=== PATIENT | male | born 1965 | race Caucasian/White ===

== ENCOUNTER → 2019-05-05 17:03 | Outpatient (CLI) | payer OTHER, SELFPAY ==
--- NOTE | ~2019-05-05 | MR_ITS ---
EXAMINATION: MR knee LT wo con DATE: 05/05/2019 19:00 INDICATION: Meniscal tear presenting with anterior left knee pain TECHNIQUE: Magnetic resonance imaging (MRI) of the left knee was performed without intravenous contra st. Sequences included coronal PD-weighted FSE, coronal PD-weighted FS FSE, sagittal T2-weighted FSE , sagittal PD-weighted FS FSE and axial PD weighted fat saturated FSE. COMPARISON: None. FINDINGS: Medial compartment: There is a full/near full-thickness radial tear at the body of the medial meniscus with fluid signal filling and approximately 4-5 mm anteroposterior separation between the relatively sharply defined te ar margins. Prior partial meniscectomy at this location would be unlikely given the sharp right angle formed between the defect and the inner rim of the labrum which would be typically be smooth without a sharp angle in the setting of partial meniscectomy. Would also correlate for history of prior part ial meniscectomy. Less sharply defined additional radially oriented likely tear of increased signal o f less than fluid intensity at the posterior horn of the medial meniscus. Extensive partial thickness cartilage loss with chondral surface regularity along the medial tibial plateau and anterior to cent ral weightbearing medial femoral condyle. In places appears full/near full-thickness such as adjacent to the site of the meniscal body tear where there is a small amount of underlying subarticular edema . A few tiny foci of subarticular edema along the central weightbearing medial femoral condyle. Less severe partial thickness cartilage loss along the posterior weightbearing medial femoral condyle. Mod erate-sized marginal osteophytes are present. Lateral compartment: Lateral meniscus is normal. Partial-thickness cartilage loss with fissuring along the lateral margin of the posterior weightbearing lateral femoral condyle and along the posterior rim of the lateral tibial plateau. Remainder of the cartilage in the lateral compartment ap pears relatively preserved. Patellofemoral compartment: Deep chondral ulceration with cartilage surface regularity along the cephalad aspect of the trochlea this is most severe at the trochlear groove and medial side of the lateral trochlea where subtle defe cts are filled with central subchondral osteophytes partial-thickness chondral fissuring involving le ss than 50% the cartilage thickness at the lateral patellar facet. Partial-thickness cartilage loss w ith deeper fissuring at the superomedial aspect of the medial patellar facet with small focus of suba rticular edema. Ligaments and tendons: Anterior cruciate ligament reconstruction with intact appearing low signal intensity graft which appe ars taut and follows a normal angle relative to Blumensaat line. Posterior cruciate ligament is lakes[place] l. Mild thickening and increased signal at the femoral origin of the medial collateral ligament witho ut surrounding edema consistent with mild scarring related to chronic sprain. The fibular collateral ligament is normal. Mild patellar tendinopathy with suggestion of changes of prior patellar tendon au tograft harvest. There is also mild tendinopathy of the distal quadriceps tendon. The visualized medi al and lateral hamstring tendons as well as the iliotibial band are normal. Fluid: Physiologic amount of fluid in the joint space. 7 mm low signal intensity loose osteochondral body at the medial gutter of the suprapatellar pouch. Osseous/other: Bone alignment is normal. No fracture or pathologic marrow replacing process. IMPRESSION: 1. Anterior cruciate ligament reconstruction likely with intact appearing graft, likely patellar tend on autograft. 2. Radial tears at the body and posterior horn of the medial meniscus. 3. 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
== END ==
DX: S83.242A Other tear of medial meniscus, current injury, left knee, initial encounter (principal); X58.XXXA Exposure to other specified factors, initial encounter; M17.12 Unilateral primary osteoarthritis, left knee
CPT/HCPCS: 73721

== ENCOUNTER 2019-10-07 15:46 | Outpatient (CLI) | payer OTHER, SELFPAY ==
--- NOTE | ~2019-10-07 | XR_ITS ---
XR hand RT 2V, XR hand LT 2V 10/07/2019 16:11 Indication: Bilateral hand pain Procedure: 2 views of each hand Comparison: No prior studies for comparison. Findings: There is mild bilateral osteoarthritis of the first MCP joints. No fracture, subluxation or dislocation. No erosive changes. No focal soft tissue abnormality. No radiopaque foreign bodies. Impression: 1: Mild bilateral symmetric osteoarthritis of the first MCP joints. Reviewed, dictated and finalized at location A. Impression: 1: Mild bilateral symmetric osteoarthritis of the first MCP joints. Impression: 1: Mild bilateral symmetric osteoarthritis of the first MCP joints.
== END 2019-10-07 15:47 | disposition home or self-care (01) ==
PROVIDERS: PCP Family Medicine; Visit Provider Physician Assistant
DX: M19.041 Primary osteoarthritis, right hand (principal); M19.042 Primary osteoarthritis, left hand
CPT/HCPCS: 73120

== ENCOUNTER → 2020-07-14 13:54 | Outpatient (CLI) | payer OTHER, SELFPAY ==
--- NOTE | ~2020-07-14 | MR_ITS ---
EXAMINATION: MR knee RT wo con DATE: 07/14/2020 15:00 INDICATION: Right anterior knee pain. TECHNIQUE: Magnetic resonance imaging (MRI) of the right knee was performed without intravenous contr ast. Sequences included axial PD-weighted FS FSE, coronal PD-weighted FSE and PD-weighted FS FSE, sag ittal PD-weighted FSE, coronal and sagittal STIR FSE, and sagittal T2-weighted FS FSE. COMPARISON: None. FINDINGS: Medial compartment: There is a radial tear of posterior horn of medial meniscus. There is a subchondral insufficiency fra cture of medial tibial condyle with low signal fracture line and bone marrow edema. There is deep par tial thickness cartilage loss of tibial condyle involving the central and medial articular surface. T here is deep partial thickness cartilage loss of femoral condyle involving the central and medial art icular surface. Osteophytes are noted. Lateral compartment: Lateral meniscus is normal. Lateral compartment cartilage is normal. Osteophytes are noted. Patellofemoral compartment: There is deep partial thickness cartilage loss of patellar medial facet and shallow partial-thickness cartilage loss of patellar lateral facet. There is partial-thickness cartilage loss of trochlea, joy p at the medial trochlea. Osteophytes are noted. Ligaments and tendons: The anterior and posterior cruciate ligaments are normal. There is edema around the medial collateral ligament, consistent with mild sprain. There are changes of prior sprain of fibular collateral ligam ent characterized by thickening and increased signal intensity proximally. There is moderate patellar tendinopathy. Fluid: There is a small knee joint effusion. There is mild prepatellar and superficial infrapatellar bursiti s. IMPRESSION: 1. Subchondral insufficiency fracture of medial tibial condyle. 2. Moderate chondrosis of medial and patellofemoral compartments. 3. Tear of medial meniscus. 4. Small knee joint effusion. 5. Mild (grade 1) sprain of medial collateral ligament. Reviewed, dictated and finalized at location A.
== END ==
PROVIDERS: Visit Provider Orthopaedic Surgery
DX: M25.461 Effusion, right knee (principal); S83.241A Other tear of medial meniscus, current injury, right knee, initial encounter; S83.411A Sprain of medial collateral ligament of right knee, initial encounter; X58.XXXA Exposure to other specified factors, initial encounter
CPT/HCPCS: 73721

== ENCOUNTER 2020-07-29 09:03 | Outpatient (CLI) | payer OTHER, SELFPAY ==
[2020-07-29 09:22] LABS: Basophils Percent Auto 0.7 % (0.2-1.2); Eosinophils Absolute Auto 0.1 K/mm3 (0-0.3); Eosinophils Percent Auto 2.2 % (0-4.4); Hematocrit 48.8 % (42.0-52.0); Hemoglobin 15.5 g/dL (14.0-18.0); Immature Granulocyte Absolute 0.02 K/mm3 (0.00-0.031); Immature Granulocyte Percent A 0.4 % (0-0.5); Lymphocytes Absolute Auto 1.17 K/mm3 (0.9-3.2); Lymphocytes Percent Auto 21.1 % (18.3-44.2); Mean Corpuscular HGB Conc 31.8 g/dl (32-36); Mean Corpuscular Hemoglobin 29.7 pg (26-34); Mean Corpuscular Volume 93.5 fl (80-100); Mean Platelet Volume 9.3 fl (7.4-10.4); Monocytes Absolute Auto 0.5 K/mm3 (0.1-0.6); Monocytes Percent Auto 8.8 % (2.6-8.5); Neutrophils Absolute Auto 3.7 K/mm3 (1.3-6.7); Neutrophils Percent Auto 66.8 % (45.5-73.1); Platelet Count Result 198 k/mm3 (150-375); Red Blood Count 5.22 M/mm3 (4.6-6.20); Red Cell Distribution Width 13.2 % (11.5-14.5); White Blood Count 5.6 K/mm3 (4.5-10.0)
[2020-07-29 09:31] LABS: Alanine Aminotransferase 45 U/L (4-50); Albumin Level 4.3 g/dL (3.5-5.1); Alkaline Phosphatase 64 U/L (38-126); Anion Gap 3 mmol/L (8-16); Aspartate Amino Transferase 36 U/L (17-59); Blood Urea Nitrogen 20 mg/dL (9-20); Calcium 9.5 mg/dL (8.4-10.2); Carbon Dioxide 35 mmol/L (22-30); Chloride 105 mmol/L (98-107); Estimated Glomerular Filt Rate > 60; Glucose 94 mg/dL (75-110); Potassium 4.5 mmol/L (3.4-5.0); Sodium 143 mmol/L (137-145)
[2020-07-29 09:46] LABS: Hemoglobin A1C 5.8 % (<5.7)
== END 2020-07-29 09:04 | disposition home or self-care (01) ==
PROVIDERS: PCP Family Medicine; Visit Provider Physician Assistant
DX: K76.0 Fatty (change of) liver, not elsewhere classified (principal); I10 Essential (primary) hypertension; R73.01 Impaired fasting glucose; Z01.818 Encounter for other preprocedural examination
CPT/HCPCS: 36415; 80053; 83036; 84443; 85025

== ENCOUNTER 2021-08-12 07:34 | Outpatient (CLI) | payer OTHER, SELFPAY ==
[2021-08-12 07:53] LABS: Basophils Absolute Auto 0.1 K/mm3 (0.0-0.1); Basophils Percent Auto 0.8 % (0.2-1.2); Eosinophils Absolute Auto 0.2 K/mm3 (0-0.3); Eosinophils Percent Auto 3.1 % (0-4.4); Hemoglobin 15.7 g/dL (14.0-18.0); Immature Granulocyte Absolute 0.03 K/mm3 (0.00-0.031); Immature Granulocyte Percent A 0.5 % (0-0.5); Lymphocytes Absolute Auto 1.85 K/mm3 (0.9-3.2); Lymphocytes Percent Auto 28.8 % (18.3-44.2); Mean Corpuscular HGB Conc 32.7 g/dl (32-36); Mean Corpuscular Hemoglobin 29.9 pg (26-34); Mean Corpuscular Volume 91.4 fl (80-100); Mean Platelet Volume 9.4 fl (7.4-10.4); Monocytes Absolute Auto 0.8 K/mm3 (0.1-0.6); Monocytes Percent Auto 11.7 % (2.6-8.5); Neutrophils Absolute Auto 3.6 K/mm3 (1.3-6.7); Neutrophils Percent Auto 55.1 % (45.5-73.1); Platelet Count Result 191 k/mm3 (150-375); Red Blood Count 5.25 M/mm3 (4.6-6.20); Red Cell Distribution Width 13.4 % (11.5-14.5); White Blood Count 6.4 K/mm3 (4.5-10.0)
[2021-08-12 08:06] LABS: Add Urine Microscopic? NO; Appearance Urine Clear (Clear); Bilirubin Urine Negative (Negative); Blood Urine Negative (Negative); Color Urine Yellow (Yellow); Glucose Urine UA Negative (Negative); Ketones Urine Negative (Negative); Leukocyte Esterase Ur Negative LEU/UL (NEGATIVE); Nitrate Urine Negative (Negative); Protein Urine Negative (Negative); Specific Grav Ur 1.015 (1.001-1.035); Urobilinogen Urine 0.2 mg/dL (<2.0); pH Urine 6.5 (5.0-9.0)
[2021-08-12 08:13] LABS: Alanine Aminotransferase 40 U/L (6-50); Albumin Level 4.4 g/dL (3.5-5.1); Alkaline Phosphatase 78 U/L (38-126); Anion Gap 7 mmol/L (8-16); Aspartate Amino Transferase 44 U/L (17-59); Bilirubin,Total 1.2 mg/dL (0.2-1.3); Blood Urea Nitrogen 19 mg/dL (9-20); Calcium 8.7 mg/dL (8.4-10.2); Carbon Dioxide 30 mmol/L (22-30); Chloride 101 mmol/L (98-107); Cholesterol 160 mg/dL (0-200); Estimated Glomerular Filt Rate > 60; Glucose 103 mg/dL (65-110); HDL Direct 22 mg/dL; Potassium 4.3 mmol/L (3.4-5.0); Sodium 138 mmol/L (137-145); Triglycerides 293 mg/dL (<150)
[2021-08-12 08:20] LABS: Hemoglobin A1C 5.7 % (<5.7)
[2021-08-12 08:24] LABS: LDL Cholesterol Direct 89 mg/dL
[2021-08-12 08:41] LABS: Prostate Specific Antigen 7.1 ng/mL (< OR = 4.0)
== END 2021-08-12 07:35 | disposition home or self-care (01) ==
LOC: ANHLAB 07:36
PROVIDERS: PCP Family Medicine; Visit Provider Nurse Practitioner Family
DX: Z12.5 Encounter for screening for malignant neoplasm of prostate (principal); R73.01 Impaired fasting glucose; K76.0 Fatty (change of) liver, not elsewhere classified; I10 Essential (primary) hypertension; Z00.00 Encounter for general adult medical examination without abnormal findings; E78.2 Mixed hyperlipidemia
CPT/HCPCS: 36415; 80053; 80061; 81003; 83036; 84153; 84443; 85025; G0103

== ENCOUNTER 2021-10-27 10:59 | Outpatient (CLI) | payer OTHER, SELFPAY | END 2021-10-27 11:00 | disposition home or self-care (01) | LOC: ANHLAB 11:00 | PROVIDERS: PCP Family Medicine; Visit Provider Nurse Practitioner Family | DX: E03.9 Hypothyroidism, unspecified (principal) | CPT/HCPCS: 36415; 84443 ==

== ENCOUNTER 2022-01-12 14:04 | Outpatient (CLI) | payer OTHER, SELFPAY ==
--- NOTE | ~2022-01-12 | XR_ITS ---
EXAMINATION: XR lumbar spine 2-3V, XR hip BI 2V w AP pelvis DATE: 01/12/2022 14:37 INDICATION: Left hip pain TECHNIQUE: 1. Anteroposterior and lateral views of the lumbar spine, and cone-down lateral view of the lumbosacr al junction were obtained. 2. AP view of the pelvis and AP and frog-leg lateral views of both the left and right hips were obtai sigifredo. COMPARISON: None. FINDINGS: Lumbar spine: Alignment is normal. Vertebral body heights are normal. L5 appears partially sacralized. Moderate dis c height loss at L4-L5 and L5-S1. Mild disc height loss at L2-L3 and L3-L4. Normal bowel gas pattern. Pelvis and bilateral hips: Alignment is normal. No fracture or suspected avascular necrosis. Bilateral decreased femoral head/ne ck offset which could predispose towards cam-type femoral acetabular impingement. Left hip joint spac e is normal. Minimal joint space narrowing at the right hip. Minimal osteoarthritis at the bilateral sacroiliac joints. IMPRESSION: 1. Moderate lower lumbar spondylosis. 2. Mild right hip and minimal bilateral sacroiliac osteoarthritis. Reviewed, dictated and finalized at location B. IMPRESSION: 1. Moderate lower lumbar spondylosis. 2. Mild right hip and minimal bilateral sacroiliac osteoarthritis.
== END 2022-01-12 14:05 | disposition home or self-care (01) ==
LOC: ANHIMG 14:07
PROVIDERS: PCP Family Medicine; Visit Provider Nurse Practitioner Family
DX: E03.9 Hypothyroidism, unspecified (principal); M16.11 Unilateral primary osteoarthritis, right hip; M47.817 Spondylosis without myelopathy or radiculopathy, lumbosacral region
CPT/HCPCS: 36415; 72100; 73521; 84443

== ENCOUNTER 2022-02-16 11:53 | Outpatient (CLI) | payer OTHER, SELFPAY ==
--- NOTE | 2022-02-16 12:41 | ECG_ITS ---
Measurements Intervals [place] Rate: 78 P: NM: 0 QRS: -46 QRSD: 119 T: 31 QT: 393 QTc: 448 Interpretive Statements SINUS RHYTHM LEFT ANTERIOR FASCICULAR BLOCK BASELINE ARTIFACT- I, II, III, AVR, AVL, AVF, V1-V6 ABNORMAL ECG NO PREVIOUS ECG AVAILABLE FOR COMPARISON Electronically Signed On 02-16-2022 13:06:18 [employer] by Patrick Chang D.O.
[2022-02-16 13:33] LABS: Basophils Absolute Auto 0.1 K/mm3 (0.0-0.1); Eosinophils Absolute Auto 0.2 K/mm3 (0-0.3); Hematocrit 48.4 % (42.0-52.0); Hemoglobin 16.4 g/dL (14.0-18.0); Immature Granulocyte Absolute 0.03 K/mm3 (0.00-0.031); Immature Granulocyte Percent A 0.4 % (0-0.5); Lymphocytes Absolute Auto 2.09 K/mm3 (0.9-3.2); Lymphocytes Percent Auto 29.6 % (18.3-44.2); Mean Corpuscular HGB Conc 33.9 g/dl (32-36); Mean Corpuscular Volume 88.6 fl (80-100); Mean Platelet Volume 9.4 fl (7.4-10.4); Monocytes Absolute Auto 0.8 K/mm3 (0.1-0.6); Monocytes Percent Auto 10.6 % (2.6-8.5); Neutrophils Absolute Auto 3.9 K/mm3 (1.3-6.7); Neutrophils Percent Auto 55.4 % (45.5-73.1); Platelet Count Result 199 k/mm3 (150-375); Red Blood Count 5.46 M/mm3 (4.6-6.20); Red Cell Distribution Width 13.3 % (11.5-14.5); White Blood Count 7.1 K/mm3 (4.5-10.0)
[2022-02-16 13:45] LABS: Alanine Aminotransferase 58 U/L (6-50); Albumin Level 4.5 g/dL (3.5-5.1); Alkaline Phosphatase 80 U/L (38-126); Anion Gap 10 mmol/L (8-16); Aspartate Amino Transferase 41 U/L (17-59); Bilirubin,Total 1.2 mg/dL (0.2-1.3); Blood Urea Nitrogen 12 mg/dL (9-20); Calcium 9.4 mg/dL (8.4-10.2); Carbon Dioxide 32 mmol/L (22-30); Chloride 100 mmol/L (98-107); Estimated Glomerular Filt Rate > 60; Glucose 96 mg/dL (65-110); Potassium 3.4 mmol/L (3.4-5.0); Sodium 142 mmol/L (137-145)
[2022-02-16 13:55] LABS: Partial Thromboplastin Time 27.7 SECONDS (22.3-36.8)
[2022-02-16 14:11] LABS: INR 1.1; Prothrombin Time 13.5 Seconds (11.1-14.7)
== END 2022-02-16 11:54 | disposition home or self-care (01) ==
LOC: ANHSURGERY 11:57
PROVIDERS: PCP Family Medicine; Visit Provider Urology
DX: Z01.818 Encounter for other preprocedural examination (principal); I10 Essential (primary) hypertension; C61 Malignant neoplasm of prostate; R94.31 Abnormal electrocardiogram [ECG] [EKG]
CPT/HCPCS: 36415; 80053; 85025; 85610; 85730; 86850; 86900; 86901; 87086; 93005

== ENCOUNTER 2022-04-03 11:51 | Outpatient (CLI) | payer OTHER, SELFPAY | END 2022-04-03 11:52 | disposition home or self-care (01) | LOC: ANHSURGERY 12:25 | PROVIDERS: PCP Family Medicine; Visit Provider Urology | DX: Z01.818 Encounter for other preprocedural examination (principal); C61 Malignant neoplasm of prostate | CPT/HCPCS: 36415; 86850; 86900; 86901; 87086 ==

== ENCOUNTER 2022-04-10 01:13 | Day surgery (SDC) | payer OTHER, SELFPAY ==
--- NOTE | 2022-02-16 11:53 | PC.NURSE ---
PRE-OP INSTRUCTIONS, PLEASE READ CAREFULLY Report to the Outpatient Waiting Room, entrance under the green pavilion located off [facility], at time _0600_ on date _02/27/22_. Planned Procedure Time: _0730_. Time changes happen often and if your time is changed the preop area will call you the afternoon before. - You and your visitor will be asked to self-screen and do not enter if you have any COVID symptoms. - Only one visitor is requested with a max of two and NO children visitors are allowed at this time. - The patient visitor may be requested to leave or wait in car when not with patient due to distancing restrictions. - A mask is optional within the hospital. Patients may have clear liquids (water, carbonated beverages, clear teas, apple juice) until 3 hours prior to surgery (0430 AM) with a maximum of 20 ounces. - No food from midnight until time of surgery Take the following medications with a SIP of water the morning of surgery: _BUPROPION, LEVOTHYROXINE, METOPROLOL, NASAL SPRAY/PAIN PILL IF NEEDED_ Medications to discontinue per DR. BLANDON - _ASPIRIN, NAPROXEN, FISH OIL AND MULTIVITAMIN 7 DAYS PRIOR TO SURGERY, Date to take last dose 02/19/22_ Please no deodorant, or body powder the day of surgery. No jewelry (including any body piercings) or valuables the day of surgery, leave them at home. Please take a shower or bath the night before, or the morning of, surgery with an antibacterial soap. Wear comfortable, loose fitting clothing. - Jewelry must be removed prior to entering the operating room. Rings and piercings that are not removed may be cut off. - The hospital will not accept responsibility for valuables. - Please leave all valuables, including medications, at home the day of surgery. If you are going home after surgery, a licensed chassis driver must drive you home. - NO public transportation without another adult if you receive anesthesia. - We recommend that an adult stay with you for 24 hours following discharge. - We also recommend that you do not drive, make important decision, drink alcoholic beverages, or take any drugs that were not prescribed by your health care provider for at least 24 hours after your discharge time. Follow any additional instructions given to you from your surgeon. If you or anyone in your household have experienced Covid symptoms in the past week, please notify your surgeon or the nurse liaison at the phone number below for possible testing. Instructions given to _PT_and asked if any additional questions and then verbalized understanding. Patient advised to call surgeon office or pre surgery nurse liaison [phone] if any additional questions.
[2022-02-16 12:11] VITALS: BP 132/90; PULSE 86; RESP 20; TEMP 36.7; O2SAT 97; BMI 39.8
--- NOTE | 2022-03-29 11:29 | PC.NURSE ---
PRE-OP INSTRUCTIONS, PLEASE READ CAREFULLY Report to the Outpatient Waiting Room, entrance under the green pavilion located off [facility], at time _0630_ on date _04/10/22_. Planned Procedure Time: _0830_. PACK A SMALL OVERNIGHT BAG AND LEAVE IN THE CAR Time changes happen often and if your time is changed the preop area will call you the afternoon before. - You and your visitor will be asked to self-screen and do not enter if you have any COVID symptoms. - Only one visitor is requested with a max of two and NO children visitors are allowed at this time. - The patient visitor may be requested to leave or wait in car when not with patient due to distancing restrictions. - A mask is required within the hospital. -VISITING HOURS 8AM-8PM Patients may have clear liquids (water, carbonated beverages, clear teas, apple juice) until 3 hours prior to surgery (0530 AM) with a maximum of 20 ounces. - No food from midnight until time of surgery Take the following medications with a SIP of water the morning of surgery: _BUPROPION, LEVOTHYROXINE, METOPROLOL, NASAL SPRAY/PAIN PILL IF NEEDED_ Medications to discontinue per DR. BLANDON - _ASPIRIN, NAPROXEN, FISH OIL AND MULTIVITAMIN 7 DAYS PRIOR TO SURGERY, Date to take last dose 04/02/22_ Please no make-up, nail vincentian, hairspray, perfume, deodorant, or body powder the day of surgery. No jewelry (including any body piercings) or valuables the day of surgery, leave them at home. Please take a shower or bath the night before, or the morning of, surgery with an antibacterial soap. Wear comfortable, loose fitting clothing. Children are encouraged to wear pajamas. - Jewelry must be removed prior to entering the operating room. Rings and piercings that are not removed may be cut off. - The hospital will not accept responsibility for valuables. - Please leave all valuables, including medications, at home the day of surgery. If you are going home after surgery, a licensed street flusher driver must drive you home. - NO public transportation without another adult if you receive anesthesia. - We recommend that an adult stay with you for 24 hours following discharge. - We also recommend that you do not drive, make important decision, drink alcoholic beverages, or take any drugs that were not prescribed by your health care provider for at least 24 hours after your discharge time. Follow any additional instructions given to you from your surgeon. If you or anyone in your household have experienced Covid symptoms in the past week, please notify your surgeon or the nurse liaison at the phone number below for possible testing. Telephone instructions given to _PATIENT_and asked if any additional questions and then verbalized understanding. Patient advised to call surgeon office or pre surgery nurse liaison [phone] if any additional questions.
[2022-03-29 11:33] VITALS: BMI 39.8
[2022-04-10] VITALS (15 sets, daily range): BP systolic 127–168; BP diastolic 74–95; PULSE 73–97; RESP 14–20; TEMP 36.5–37.1; O2SAT 92–100; BMI 39.2
--- NOTE | 2022-04-10 06:58 | WPDHPUPDATE1 ---
History and Physical Update Update Date/Time: 04/10/22 06:58 History and Physical has been reviewed, including an updated exam of the patient. There are NO changes in the patient's condition. Risks, benefits, and alternatives have been discussed and questions answered. Patient agrees to proceed with procedure. Proceed with robotic assist nerve sparing prostatectomy with possible plnd
--- NOTE | 2022-04-10 07:04 | WPDANESEPPF ---
Anes - Initial Pre Proc Eval Procedure: Operation Date: 04/10/22 08:30 Proposed Procedures p Robotic Assisted Nerve Sparing Prostatectomy, Possible Bilateral Pelvic Lymph Node Dissection - Jared Desouza MD Date/Time: 04/10/22 07:04 Surgeon: Jared Desouza MD Pre Op Diagnosis: Prostate Ca Patient Data Age: 56 Gender: M Height: 1.96 m Weight: 149.8 kg Last Vital Signs Temp 36.6 C 04/10/22 06:40 Pulse 73 04/10/22 06:40 Resp 16 04/10/22 06:40 BP 127/86 04/10/22 06:40 Pulse Ox 96 04/10/22 06:40 O2 Del Method Room Air 04/10/22 06:40 Allergies Allergy/AdvReac Type Severity Reaction Status Date / Time No Known Allergies Allergy Verified 04/10/22 06:49 Home Medications Medication Instructions Recorded Confirmed Type aspirin 81 mg tablet,delayed 81 mg PO DAILY 03/18/19 04/10/22 History release fluticasone propionate 50 2 spray intranasal DAILY PRN 03/18/19 03/29/22 History mcg/actuation nasal Congestion spray,suspension loratadine 10 mg tablet (Claritin) 10 mg PO DAILY 03/18/19 03/29/22 History naproxen sodium 220 mg tablet 220 mg PO Q12H 03/18/19 04/10/22 History (Aleve) omega-3 fatty acids 1,000 mg 1,000 mg PO DAILY 03/18/19 04/10/22 History capsule (Fish Oil Concentrate) amitriptyline 100 mg tablet See Rx Instructions .Route 07/27/21 03/29/22 Rx .COMPLEX #90 tabs metoprolol succinate 50 mg 50 mg PO DAILY #90 tabs 11/10/21 04/10/22 Rx tablet,extended release 24 hr hydrochlorothiazide 25 mg tablet See Rx Instructions .Route 11/20/21 03/29/22 Rx .COMPLEX #90 tabs hydrocodone 5 mg-acetaminophen 325 1 tablet PO Q8H PRN pain #30 tabs 01/12/22 03/29/22 Rx mg tablet levothyroxine 50 mcg tablet 50 mcg PO DAILY #90 tabs 01/22/22 04/10/22 Rx multivitamin 1 tablet PO HS 02/16/22 04/10/22 History bupropion HCl 150 mg tablet,12 hr See Rx Instructions .Route 02/19/22 04/10/22 Rx sustained-release .COMPLEX #180 tabs amlodipine 5 mg tablet See Rx Instructions .Route 04/09/22 Rx .COMPLEX #90 tabs Patient hx anesthesia problems: none Family hx anesthesia problems: none Results Review: All pre-operative results and documents have been reviewed as part of the pre-operative evaluation. [facility] Past Medical History Medical History Bilateral hand pain Social History Social History Smoking status: Never smoker Second hand tobacco smoke exposure: No Alcohol intake: current Alcohol use details: STATES MAYBE 2 DRINKS/MONTH Substance use: never Substance use type: does not use Living arrangements: with family Gender identity (if verbalized by the patient): Male Spiritual care concerns: No Anes - Eval Final PreProcedure Day of Procedure 04/10/22 07:04 Patient weight: obese Heart: regular rate and rhythm Lungs: clear to auscultation Airway: Mallampati scale class III Neurological: alert and oriented Last oral intake: >/= 8 hours ASA classification: III Emergent: no Anesthetic plan: proceed Anesthesia type and monitoring: general ETT (glidescope) and standard monitoring Results Review: All pre-operative results and documents have been reviewed as part of the pre-operative evaluation. Informed Consent: The patient's anesthetic plan and its attendant risks and benefits were discussed with the patient/family/POA. Questions were solicited and answers provided to the satisfaction of the patient/family/POA.
[2022-04-10] MEDS: LACTATED RINGERS 1,000 ML 30 ML IV CONT ×2 (07:30→15:56)
[2022-04-10] MEDS: ceFAZolin 3 GM/D5W 100 ML 100 ML IVPB (08:33)
[2022-04-10] MEDS: BUPIVACAINE HCL 0.5% PF 30 ML VIAL 20 ML INFILTRATE (09:16)
[2022-04-10] MEDS: ceFAZolin SODIUM 1 GM VIAL 2 GM IV PUSH (12:31)
--- NOTE | 2022-04-10 14:54 | SUR.OPER ---
Dr Odom in OR at 1445 consult.
--- NOTE | 2022-04-10 15:26 | P.OP_ITS ---
Procedure Note - Detailed Date of Procedure 04/10/22 Pre-op Diagnosis Prostate Ca Post-op Diagnosis Same Procedure Performed Robotic assisted nerve-sparing prostatectomy with bilateral pelvic lymphadenectomy Surgeon Jared Desouza MD Anesthesia General Description of Procedure Patient is taken the operative suite correctly identified. Once anesthesia was obtained was placed in the low-lying dorsal prepped and draped usual sterile fashion. Sixteen Serbian Toney was placed with 20 cc in the balloon. S upraumbilical incision was made carried down to the rectus fascia. Rectus fascia was pierced using a trocar and the abdomen insufflated to 15 mmHg pressure. Camera port was placed under vision. Working ports were placed in the appropriate locations. Patient has placed in Trendelenburg position and the robot was docked. Posterior approach was then performed. The seminal vesicles were dissected out it was noted there were very adherent and fibrosed in. Were able to dissect them out to their tips. The vas were transected. The plane between the prostate and rectum was developed. Bladder was then taken down. Space of Retzius was developed bilaterally. Puboprostatic were taken down. Dorsal venous complex was isolated using 0 Vicryl secured pubic. Bladder neck was then opened. Patient has a small median lobe which was also dissected out. It was somewhat of a difficult dissection as the bladder was adhered to the prostate he the lateral lobes. Given his median lobe we did have a slightly further larger bladder neck opening. Pedicles were taken down. Bilateral nerve-sparing was performed although we took a wider approach given his pathology. Dorsal venous complex was transected as was the urethra. Specimen placed in Endo-Catch bag. Bilateral pelvic lymph node dissection performed a standard fashion. A clip was placed on the right pelvic nodes. At this point time he was very difficult to bring the bladder down to the urethra. I did reconstruct the bladder using 2-0 Vicryl with sutures placed at the lateral margins. We were able to after lots of manipulation and freeing up the lateral attachments of the bladder we were able to bring it down to the urethral stump. Bladder neck was then anastomosed to the urethral stump using V lock in a running fashion. There appeared be good mucosa to mucosa approximation. Eighteen Serbian Toney was placed 10 cc in the. All lap count needle counts sponge counts were correct. A JAROD drain was placed through the lateral working port and secured. Robot was undocked and ports were removed. Specimen was then brought out through the midline incision. Rectus fascia was closed using 0 Vicryl interrupted fashion. Subcutaneous stitches were then placed. We anesthetized the port sites using 1% lidocaine. Patient is taken recovery stable condition. Estimated Blood Loss 300 Drains Yes Packing No Pathology Yes Complications No immediate complications Condition Stable Disposition PACU
[2022-04-10] MEDS: fentaNYL CITRATE INJ (*CRX) 100 MCG/2 ML VIAL 25 MCG IV PUSH ×5 (15:54→17:18)
--- NOTE | 2022-04-10 17:45 | ADMGEN ---
This patient, Damian Gunderson, was admitted to Medical Room 257-01. Patient/family oriented to hospital policies and general routines including ID bracelet, bed and alarms, visiting hours, pain management, procedures, bathroom and other care routines, personal items, smoking policy, room service/diet, and visiting hours. Information on how to activate the Rapid Response Team has been discussed. Patient/Family are encouraged to report perceived risks to care and to ask questions if they do not understand what they are told or what they should do.
[2022-04-10] MEDS: LACTATED RINGERS 1,000 ML 125 ML IV CONT (18:21)
[2022-04-10] MEDS: DOCUSATE SODIUM 100 MG CAPSULE PO (18:21)
[2022-04-10] MEDS: KETOROLAC 30 MG/ML VIAL (*BKC) IV PUSH (19:43)
[2022-04-11] VITALS (9 sets, daily range): BP systolic 111–159; BP diastolic 62–82; PULSE 78–96; RESP 16–20; TEMP 36.3–37; O2SAT 92–95
[2022-04-11] MEDS: HYDROcodone/acetaminophen (*CRX) 5-325 MG TABLET 2 TAB PO ×4 (02:37→20:31)
[2022-04-11] MEDS: MORPHINE SULFATE (*CRX) 2 MG/ML INJ IV PUSH ×2 (03:37→19:26)
[2022-04-11] MEDS: KETOROLAC 30 MG/ML VIAL (*BKC) IV PUSH (04:17)
[2022-04-11] MEDS: LACTATED RINGERS 1,000 ML 125 ML IV CONT ×3 (04:24→18:17)
[2022-04-11] MEDS: HYDROmorphone HCL INJ (*CRX) 1 MG/ML SYR 0.25 MG IV PUSH ×2 (05:27→06:47)
--- NOTE | 2022-04-11 05:35 | PC.NURSE ---
Pt requested that the surgeon be called regarding uncontrolled pain. Pt previously refusing narcotic medications prior to onset of worsening pain at 0230 at which point patient requested PRN narcotic pain control. 10-750 norco administered first, followed by 2mg morphine after one hour, 15mg toradol given 30 min after morphine admin. Pt requested provider to be notified at time of toradol pain reassessment. Dr Mcwilliams notified of patient status and order received for 0.25mg dilaudid q1hr for uncontrolled pain. No additional orders received, provider to see patient first thing this morning per Dr. Mcwilliams. Pt abdomen soft to palpation, incisions dry and intact with no signs of infection, goodson draining yellow w/ intermittent pink tinge, and vital signs stable since start of severe pain.
[2022-04-11 05:39] LABS: Hematocrit 43.9 % (42.0-52.0); Hemoglobin 14.5 g/dL (14.0-18.0)
[2022-04-11 05:51] LABS: Anion Gap 5 mmol/L (8-16); Blood Urea Nitrogen 18 mg/dL (9-20); Calcium 7.9 mg/dL (8.4-10.2); Carbon Dioxide 29 mmol/L (22-30); Chloride 99 mmol/L (98-107); Estimated CRCL calculation 109 ml/min; Estimated Glomerular Filt Rate > 60; Glucose 114 mg/dL (65-110); Potassium 3.7 mmol/L (3.4-5.0); Sodium 133 mmol/L (137-145)
[2022-04-11] MEDS: LEVOTHYROXINE SODIUM 50 MCG TABLET PO (06:44)
--- NOTE | 2022-04-11 08:09 | WPDUROPN2 ---
Progress Note: A&P Assessment and Plan (1) Prostate cancer: Code(s): C61 - Malignant neoplasm of prostate Status: Acute Assessment and Plan: Doing well overall. Increase activity and ambulation. Possible discharge home later this afternoon. Will make decision regarding removing catheter in 2 week as opposed to 1 Subjective Subjective Date/Time Seen: 04/11/22 08:09 Post Op day: 1 (Robotic assisted nerve-sparing prostatectomy with bilateral pelvic lymphadenectomy) Principal diagnosis: Adenocarcinoma prostate Interval history: Damian is doing well overall. Typical postoperative pain Review of Systems Review of Systems: All systems reviewed & are unremarkable except as noted in HPI and below Exam Const: General: cooperative and comfortable Resp: Effort & Inspection: normal respiratory effort Cardio: Rate: regular rate Rhythm: regular rhythm Objective Data Vital Signs Vital Signs: Vital Signs - 24 hr 04/10/22 15:44 04/10/22 15:55 04/10/22 16:10 Temperature 37.1 C Pulse Rate 91 82 85 Respiratory Rate 14 18 Blood Pressure 141/94 H 156/86 H 154/76 H Pulse Oximetry 99 96 99 Oxygen Delivery Simple Face Mask Simple Face Mask Simple Face Mask Oxygen Flow Rate 8 8 8 04/10/22 16:25 04/10/22 16:40 04/10/22 16:55 Temperature Pulse Rate 86 82 89 Respiratory Rate 16 20 20 Blood Pressure 140/74 143/83 H 168/74 H Pulse Oximetry 99 100 98 Oxygen Delivery Simple Face Mask Room Air Oxygen Flow Rate 8 04/10/22 17:10 04/10/22 17:25 04/10/22 17:37 Temperature Pulse Rate 94 92 92 Respiratory Rate 20 18 18 Blood Pressure 139/95 H 152/87 H 146/90 H Pulse Oximetry 97 95 95 Oxygen Delivery Nasal Cannula Nasal Cannula Nasal Cannula Oxygen Flow Rate 2 2 2 04/10/22 17:50 04/10/22 17:55 04/10/22 18:10 Temperature 36.7 C 36.6 C Pulse Rate 93 94 Respiratory Rate 18 18 Blood Pressure 134/79 129/90 Pulse Oximetry 92 92 94 Oxygen Delivery Room Air Oxygen Flow Rate 04/10/22 18:40 04/10/22 22:58 04/10/22 20:00 Temperature 36.8 C 36.5 C Pulse Rate 93 97 Respiratory Rate 18 18 Blood Pressure 156/94 H 127/90 Pulse Oximetry 93 95 Oxygen Delivery Room Air Oxygen Flow Rate 04/11/22 03:19 04/11/22 05:24 04/11/22 06:40 Temperature 37.0 C 36.6 C Pulse Rate 96 88 Respiratory Rate 18 18 Blood Pressure 112/67 128/68 114/67 Pulse Oximetry 95 95 Oxygen Delivery Oxygen Flow Rate Intake/Output Intake/Output: Intake & Output 04/08/22 04/09/22 04/10/22 04/11/22 23:59 23:59 23:59 23:59 Intake Total 200 1000 Output Total 400 1100 Balance -200 -100 Meds/Results Medications: Active Medications Generic Name Dose Route Start Last Admin Trade Name Freq PRN Reason Stop Dose Admin Hydrocodone Bitart/Acetaminophen 1 tab 04/10/22 17:39 Hydrocodone/Acetaminophen (*Crx) 5-325 Mg Tablet PO Q6H PRN Pain Rated 1-3 Hydrocodone Bitart/Acetaminophen 2 tab 04/10/22 17:39 04/11/22 02:37 Hydrocodone/Acetaminophen (*Crx) 5-325 Mg Tablet PO 2 tab Q6H PRN Administration Pain Rated 4-6 Docusate Sodium 100 mg 04/10/22 17:39 04/10/22 18:21 Docusate Sodium 100 Mg Capsule PO 100 mg BID RICHIE Administration Fluticasone Propionate 2 spray 04/10/22 17:39 Fluticasone Propionate 0.05% Na Spr 16 Gm Btl (*Bkc) NASAL DAILY PRN Congestion Hydromorphone HCl 0.25 mg 04/11/22 05:18 04/11/22 06:47 Hydromorphone Hcl Inj (*Crx) 1 Mg/Ml Syr IV PUSH 0.25 mg Q1HR PRN Administration Pain Rated 7-10 Hyoscyamine 0.125 mg 04/10/22 17:39 Hyoscyamine Sulfate 0.125 Mg Tablet SUBLINGUAL Q4H PRN Bladder Spasm Lactated Ringer's 1,000 mls @ 125 mls/hr 04/10/22 17:39 04/11/22 04:24 Lr - Lactated Ringers Iv IV CONT 125 mls/hr .Q8H RICHIE Administration Ketorolac Tromethamine 30 mg 04/10/22 17:39 04/11/22 04:17 Ketorolac 30 Mg/Ml Vial (*Bkc) IV PUSH 04/11/22 17:38 30 mg Q6H PRN
[2022-04-11] MEDS: METOPROLOL SUCCINATE EXT REL 50 MG TABCR PO (08:33)
[2022-04-11] MEDS: levoFLOXacin 500 MG TABLET PO (08:33)
[2022-04-11] MEDS: LORATADINE 10 MG TABLET PO (08:33)
[2022-04-11] MEDS: DOCUSATE SODIUM 100 MG CAPSULE PO ×2 (08:33→17:03)
--- NOTE | 2022-04-11 14:38 | WPDANESPN ---
Anes - Prog Note Post-Op Date/Time: 04/11/22 14:38 Vital Signs: Last Vital Signs Temp 36.3 C L 04/11/22 10:00 Pulse 94 04/11/22 10:00 Resp 18 04/11/22 10:00 BP 159/74 H 04/11/22 10:00 Pulse Ox 94 04/11/22 10:00 O2 Del Method Room Air 04/11/22 08:00 O2 Flow Rate 2 04/10/22 17:37 Pain Score (VAS): 4 I/O: Intake & Output 04/10/22 04/11/22 04/11/22 23:59 07:59 15:59 Intake Total 100 1000 1000 Output Total 400 1100 Balance -300 -100 1000 Laboratory Tests 04/11/22 05:18 04/11/22 05:18 04/11/22 04/11/22 05:18 05:18 Hgb 14.5 Hct 43.9 Sodium 133 L Potassium 3.7 Chloride 99 Carbon Dioxide 29 Anion Gap 5 L BUN 18 Creatinine 1.10 Estim Creat Clear Calc 109 Estimated GFR > 60 Glucose 114 H Calcium 7.9 L Patient Feedback: Patient satisfied with anesthetic care.
[2022-04-12] MEDS: HYDROcodone/acetaminophen (*CRX) 5-325 MG TABLET 1 TAB PO (00:05)
[2022-04-12] MEDS: LACTATED RINGERS 1,000 ML 125 ML IV CONT (00:07)
[2022-04-12] MEDS: HYDROcodone/acetaminophen (*CRX) 5-325 MG TABLET 2 TAB PO ×2 (02:27→09:42)
[2022-04-12] MEDS: LEVOTHYROXINE SODIUM 50 MCG TABLET PO (06:13)
[2022-04-12 07:30] VITALS: BP 125/63; PULSE 71; RESP 20; TEMP 36.6; O2SAT 99
[2022-04-12 07:56] VITALS: PULSE 78
[2022-04-12] MEDS: levoFLOXacin 500 MG TABLET PO (07:56)
[2022-04-12] MEDS: METOPROLOL SUCCINATE EXT REL 50 MG TABCR PO (07:56)
[2022-04-12] MEDS: LORATADINE 10 MG TABLET PO (08:01)
[2022-04-12] MEDS: DOCUSATE SODIUM 100 MG CAPSULE PO (08:01)
--- NOTE | 2022-04-12 09:32 | PM.DS ---
DS: Admitting Diagnosis Discharge Date 04/12/22 Admitting Diagnosis Prostate Cancer DS: Discharge Diagnosis Discharge Diagnosis Plan Prostate Cancer DS: Summary Hospital Course Reason for hospitalization: Prostatectomy Hospital Course: Patient underwent a Robotic assisted nerve-sparing prostatectomy with bilateral pelvic lymphadenectomy with Dr. Joseph Desouza on 04/10/22 and tolerated the procedure well. He was then sent to recovery in stable condition and to the floor for further observation. Postoperative day one, he struggled with tolerating his post op pain and he had no appetite. He was changed from clear liquid diet to regular diet but ate very little as he was naustead. He was able to walk short distances in the hallway but continued to have pretty severe pain. His pain is much better controlled today and he is tolerating his breakfast better without nausea. Activity is better tolerated today and he wants to go home. He will go home with all previous home medications except to hold blood thinners until Saturday04/16/22 to prevent post operative bleeding. He will be started on antibiotics, stool softener, continue pain medications and anti-spasmatic medication. He will then f/u on 04/18/22 for a cystogram and cath removal with Dr. Desouza. He will resume activity as tolerated, no straining and no lifting >20lbs. Status at Discharge Functional status at discharge: independent ambulation Time Spent with Patient Time attestation: Total time spent providing and/or coordinating discharge services: Time spent: Greater than 30 minutes Exam Const: General: cooperative and comfortable Resp: Effort & Inspection: normal respiratory effort Cardio: Rate: regular rate GI: Inspection: incision (well approximated, no redness, edema or drainage present) GI Palp: Yes Soft to palpation and No Tenderness to palpation present (GI) : General: Yes no CVA tenderness Meatus: Blood at meatus present Urinary Catheter: Urinary Catheter: patent and draining and urine clear Extrem: Right lower extremity: no edema Left lower extremity: no edema DS: Data Data Completed and Pending Pending studies at discharge: Pending at discharge 04/10/22 12:59 Surgical [PTH] Routine Surgical [PTH] Routine Discharge Plan Discharge Attending physician on discharge: Jared Desouza Discharging Clinician: Chantal Montaño Anticipated Discharge Date/Time: 04/12/22 09:01 Patient Disposition: Home, Self-Care Activity: may shower, no straining and no driving Diet: as tolerated Wound Care Instructions: keep dressing dry, remove dressing to shower and change dressing daily Discharge Instructions: Follow up on 04/18/22 in Radiology at [facility] at 8:30am for your Cystogram appointment at 9am. You will then immediately follow up afterward with Dr. Desouza in the office for your appointment to remove your goodson catheter if your cystogram is normal. Do not strain or lift >20lbs. Call the office or go to the ER if you develop a fever, severe abdominal pain, incisional concerns, have grossly bloody urine, large clots in your urine, or if your catheter stops draining. Patient Instructions: Antibiotic Form Stand Alone Forms: General Discharge Information Follow-up/Referrals: Jared Desouza MD [Physician] - Discharge Medications: New docusate sodium 100 mg Capsule 100 mg PO BID Qty: 20 0RF hyoscyamine sulfate [Anaspaz] 0.125 mg Tablet,Disintegrating 0.125 mg sublingual Q4H PRN (Reason: Bladder Spasm) Qty: 25 0RF sulfamethoxazole-trimethoprim [Bactrim DS] 800-160 mg tablet 1 tablet PO Q12H Qty: 10 0RF hydrocodone-acetaminophen 5-325 mg tablet 1 - 2 tablet PO Q6H PRN (Reason: pain) Qty: 20 0RF Continued hydrocodone-acetaminophen 5-325 mg tablet 1 tablet PO Q8H PRN (Reason: pain) Qty: 30 0RF multivitamin [Multi-Vitamin] Tablet 1 tablet PO HS loratadine [Claritin] 10 m
== END 2022-04-12 11:20 | disposition home or self-care (01) ==
LOC: ANHSURGERY 06:30 → ANH2MED 17:44 → ANHSURGERY 04-11 15:54 → ANH2MED 04-12 09:15
PROVIDERS: PCP Family Medicine; Visit Provider Urology
PROC: 0VT04ZZ Resection of Prostate, Percutaneous Endoscopic Approach (ICD-10-PCS; CPT 55867; principal; 2022-04-10 08:30)
DX: C61 Malignant neoplasm of prostate (principal); C77.5 Secondary and unspecified malignant neoplasm of intrapelvic lymph nodes; E66.9 Obesity, unspecified; Z68.39 Body mass index [BMI] 39.0-39.9, adult; Z79.1 Long term (current) use of non-steroidal anti-inflammatories (NSAID); Z79.82 Long term (current) use of aspirin; Z79.891 Long term (current) use of opiate analgesic; Z79.899 Other long term (current) drug therapy
CPT/HCPCS: 55866; 38571; S2900; 36415; 80048; 85014; 85018; 86850; 86900; 86901; 87086; 88305; 88309; 88342; 96361; 96374; 96375; 96376; A9270; G0378; G0379; J0330; J0690; J1100; J1170; J1885; J2250; J2270; J2405; J2704; J2710; J3010; J7030; J7120

== ENCOUNTER 2022-04-18 08:25 | Outpatient (CLI) | payer OTHER, SELFPAY ==
--- NOTE | ~2022-04-18 | XR_ITS ---
EXAMINATION: CYSTOGRAM DATE: 04/18/2022 09:24 INDICATION: Status post prostatectomy TECHNIQUE: Initial district scout executive radiograph of the pelvis was performed. There was retrograde administration of Omnipaque 350 mixed with saline contrast into patient's existing Toney catheter. Fluoroscopic myriam ges of the pelvis were obtained. A post-void image was also performed. Fluoroscopy exposure time was 1.2 minutes. A total of 14 fluoroscopic images and 2 overhead radiographs were obtained. FINDINGS/IMPRESSION: There is slow leakage of a very small amount of contrast arising from the posterior aspect of the pro statectomy bed. Reviewed, dictated and finalized at location A. K PIECE TACKER
== END 2022-04-18 08:26 | disposition home or self-care (01) ==
LOC: ANHIMG 08:27
PROVIDERS: PCP Family Medicine; Visit Provider Urology
DX: C61 Malignant neoplasm of prostate (principal); R93.5 Abnormal findings on diagnostic imaging of other abdominal regions, including retroperitoneum
CPT/HCPCS: 51600; 74430; Q9967

== ENCOUNTER 2022-04-27 08:30 | Outpatient (CLI) | payer OTHER, SELFPAY ==
--- NOTE | ~2022-04-27 | XR_ITS ---
EXAMINATION: XR cystogram DATE: 04/27/2022 09:08 INDICATION: Malignant neoplasm of prostate status post prostatectomy. TECHNIQUE: Water-soluble contrast was gravity-infused through the patient's Toney catheter. Multiple fluoroscopic images were obtained. Fluoroscopy exposure time was 0.5 minutes. The total number of myriam ges was 12. COMPARISON: Cystogram 04/18/2022 FINDINGS: There is no extraluminal leakage of contrast. No ureteral reflux. IMPRESSION: 1. No extraluminal leakage of contrast. Reviewed, dictated and finalized at location A. ED STRUCTURES REPAIRER
== END 2022-04-27 08:31 | disposition home or self-care (01) ==
PROVIDERS: PCP Family Medicine; Referring Provider Family Medicine; Visit Provider Urology
DX: C61 Malignant neoplasm of prostate (principal)
CPT/HCPCS: 36415; 51600; 74430; 84443; Q9967

== ENCOUNTER 2022-08-29 11:22 | Outpatient (CLI) | payer OTHER, SELFPAY ==
--- NOTE | ~2022-08-29 | PE_ITS ---
EXAMINATION: PET_PETPSMAST_PT DATE: 08/29/2022 14:52 INDICATION: Prostate cancer with mildly elevated PSA level TECHNIQUE: 10.244 mCi of pipflufolastat F-18 (18-F-DCFPyL) was administered i.v. Low dose computed t omography (CT) images were acquired from the base of the brain to the base of the brain to the proxim al thighs for attenuation correction and anatomic localization. Positron emission tomography (PET) im ages were acquired in the same distribution beginning 84 minutes after injection. Images including fu sed PET/CT images were reconstructed in axial, coronal, and sagittal planes. Automated exposure contr ol technique was employed. The dose-length product was 1370.96mGy-cm. COMPARISON: None FINDINGS: Head/neck: Typical pattern of symmetric physiologic increased activity in the lacrimal, parotid and submandibula r glands as well as along the mucosa of the nasal and oral cavities, the ruben-, naso- and hypopharynx and the glottis. No pathologically enlarged cervical lymphadenopathy or suspicious foci of increased uptake in the visualized head or neck. Chest: No pulmonary nodules, pneumonia, pulmonary edema or pleural effusion. Heart size is normal. Thoracic aorta is normal in caliber. No pathologically enlarged or PSMA avid thoracic lymphadenopathy. Abdomen/pelvis/proximal thighs: Physiologic renal accumulation and excretion of activity in the kidneys, bladder and along portions o f ureters. Bilateral nonobstructing nephrolithiasis, the largest stone measuring 4 mm the lower pole of the left kidney. Status post prostatectomy with no evident nodular/masslike soft tissue deposits o r abnormal increased PSMA activity to suggest residual/recurrent disease. 2 cm low-attenuation cyst a t the posterior dome of the liver with corresponding photopenic defect on PET imaging. Otherwise norm al degree and slightly heterogenous pattern of increased uptake throughout the liver and spleen witho ut radiologic correlate or dominant PSMA avid lesion. The gallbladder, pancreas and bilateral adrenal glands are normal. Moderate uptake scattered throughout the bowels with typical duodenal and proxima l jejunal predominance and without radiologic correlate, also likely physiologic. No other abnormal f oci of increased uptake or pathologically enlarged lymphadenopathy in the abdomen, pelvis or proximal thighs. Musculoskeletal: Anterior spinal fusion with anterior plate and screw fixation at C5-C7. Lucent lesion with thickened internal vertical trabecular pattern at L3 consistent with a hemangioma. No other suspicious lytic, b lastic or PSMA avid bone lesions. IMPRESSION: 1. Status post prostatectomy likely for reported prostate cancer. No evident residual, locally recurr ent or metastatic disease. 2. Bilateral nonobstructing nephrolithiasis. Reviewed, dictated and finalized at location B. IMPRESSION: 1. Status post prostatectomy likely for reported prostate cancer. No evident re sidual, locally recurrent or metastatic disease. 2. Bilateral nonobstructing nephrolithiasis.
== END 2022-08-29 11:23 | disposition home or self-care (01) ==
PROVIDERS: PCP Family Medicine; Visit Provider Urology
DX: C61 Malignant neoplasm of prostate (principal)
CPT/HCPCS: 78815; A9595

== ENCOUNTER 2022-12-18 09:37 | Outpatient (CLI) | payer OTHER, SELFPAY ==
--- NOTE | ~2022-12-18 | XR_ITS ---
EXAMINATION: XR wrist LT w scaphoid INDICATION: Pain at the base of the thumb TECHNIQUE: Five views of the left wrist are obtained. COMPARISON: 10/07/2019 FINDINGS: There is moderate to severe osteoarthritis at the first carpometacarpal joint with interval worsening since the comparison examination. There is no acute fracture. Bone alignment is normal. Th e soft tissues are unremarkable. IMPRESSION: 1. Moderate to severe osteoarthritis at the first carpometacarpal joint with interval worsening. Reviewed, dictated and finalized at location L. IMPRESSION: 1. Moderate to severe osteoarthritis at the first carpometacarpal joint with in terval worsening.
== END 2022-12-18 09:38 | disposition home or self-care (01) ==
LOC: ANHIMG 09:41
PROVIDERS: PCP Family Medicine; Visit Provider Physician Assistant
DX: M79.645 Pain in left finger(s) (principal); M19.032 Primary osteoarthritis, left wrist
CPT/HCPCS: 73110

== ENCOUNTER 2023-03-28 11:12 | Outpatient (CLI) | payer OTHER, SELFPAY ==
[2023-03-28 12:08] LABS: Influenza A QL RT-PCR Negative (Negative); Influenza B QL RT-PCR Negative (Negative); RSV RNA, RT-PCR Negative (Negative); SARS-CoV-2 RNA PCR Negative (Negative)
== END 2023-03-28 11:13 | disposition home or self-care (01) ==
LOC: ANHLAB 11:13
PROVIDERS: PCP Family Medicine; Visit Provider Physician Assistant
DX: R05.9 Cough, unspecified (principal); R68.83 Chills (without fever); Z20.822 Contact with and (suspected) exposure to COVID-19
CPT/HCPCS: 87637

== ENCOUNTER 2023-05-08 13:57 | Outpatient (CLI) | payer OTHER, SELFPAY ==
[2023-05-08 14:22] LABS: Basophils Percent Auto 0.7 % (0.2-1.2); Eosinophils Absolute Auto 0.2 K/mm3 (0-0.3); Eosinophils Percent Auto 4.4 % (0-4.4); Hematocrit 42.1 % (42.0-52.0); Hemoglobin 13.9 g/dL (14.0-18.0); Immature Granulocyte Absolute 0.02 K/mm3 (0.00-0.031); Immature Granulocyte Percent A 0.5 % (0-0.5); Lymphocytes Absolute Auto 0.51 K/mm3 (0.9-3.2); Lymphocytes Percent Auto 12.5 % (18.3-44.2); Mean Corpuscular Hemoglobin 29.8 pg (26-34); Mean Corpuscular Volume 90.1 fl (80-100); Mean Platelet Volume 9.1 fl (7.4-10.4); Monocytes Absolute Auto 0.4 K/mm3 (0.1-0.6); Monocytes Percent Auto 9.1 % (2.6-8.5); Neutrophils Percent Auto 72.8 % (45.5-73.1); Platelet Count Result 190 k/mm3 (150-375); Red Blood Count 4.67 M/mm3 (4.6-6.20); Red Cell Distribution Width 13.2 % (11.5-14.5); White Blood Count 4.1 K/mm3 (4.5-10.0)
[2023-05-08 14:33] LABS: Alanine Aminotransferase 40 U/L (6-50); Albumin Level 3.9 g/dL (3.5-5.1); Alkaline Phosphatase 59 U/L (38-126); Anion Gap 8 mmol/L (8-16); Aspartate Amino Transferase 34 U/L (17-59); Bilirubin,Total 1.1 mg/dL (0.2-1.3); Blood Urea Nitrogen 22 mg/dL (9-20); Carbon Dioxide 25 mmol/L (22-30); Chloride 107 mmol/L (98-107); Estimated Glomerular Filt Rate > 60; Glucose 122 mg/dL (65-110); Sodium 140 mmol/L (137-145)
[2023-05-08 14:37] LABS: Appearance Urine Clear (Clear); Bacteria Urine None Seen /hpf; Bilirubin Urine Negative (Negative); Blood Urine Negative (Negative); Color Urine Yellow (Yellow); Glucose Urine UA Negative (Negative); Ketones Urine Negative (Negative); Leukocyte Esterase Ur 1+ LEU/UL (NEGATIVE); Need Manual Microscopic Reviewed; Nitrate Urine Negative (Negative); Non Pathogenic Casts 0-2; Protein Urine Negative (Negative); RBC Urine 0-2 /hpf (0-2); Specific Grav Ur 1.012 (1.001-1.035); Squamous Epithelial Cell Urine None seen /hpf (Few); Urobilinogen Urine 0.2 mg/dL (<2.0); WBC Urine 0-5 /hpf (0-3); pH Urine 5.5 (5.0-9.0)
[2023-05-08 14:39] LABS: Add Urine Microscopic? YES
== END 2023-05-08 13:58 | disposition home or self-care (01) ==
LOC: ANHLAB 13:58
PROVIDERS: PCP Family Medicine; Visit Provider Family Medicine
DX: R10.9 Unspecified abdominal pain (principal)
CPT/HCPCS: 36415; 80053; 81001; 85025

== ENCOUNTER 2023-07-22 13:04 | Outpatient (CLI) | payer OTHER, SELFPAY ==
--- NOTE | 2023-07-22 13:10 | ECG_ITS ---
SEE SCANNED COPY FOR CONFIRMED REPORT MTDD
[2023-07-22 13:35] LABS: Partial Thromboplastin Time 28.3 Seconds (22.3-36.8)
[2023-07-22 13:50] LABS: Anion Gap 5 mmol/L (4-12); Blood Urea Nitrogen 13 mg/dL (9-20); Calcium 9.2 mg/dL (8.4-10.2); Carbon Dioxide 31 mmol/L (22-30); Chloride 106 mmol/L (98-107); Estimated Glomerular Filt Rate > 60; Glucose 147 mg/dL (65-110); Potassium 3.5 mmol/L (3.4-5.0); Sodium 142 mmol/L (137-145)
== END 2023-07-22 13:05 | disposition home or self-care (01) ==
PROVIDERS: Anesthesiology; PCP Family Medicine; Visit Provider Plastic Surgery
DX: Z01.818 Encounter for other preprocedural examination (principal); K76.0 Fatty (change of) liver, not elsewhere classified; I10 Essential (primary) hypertension; Z79.899 Other long term (current) drug therapy
CPT/HCPCS: 36415; 80048; 85610; 85730; 93005

== ENCOUNTER 2023-07-24 00:25 | Day surgery (SDC) | payer OTHER, SELFPAY ==
[2023-06-26 09:15] VITALS: BMI 37.9
--- NOTE | 2023-06-26 09:22 | PC.NURSE ---
Report to the Outpatient Waiting Room, entrance under the green pavilion located off [facility], at time 6:00 on date 07/03/23. Planned Procedure Time: 7:30. Time changes happen often and if your time is changed the preop area will call you the afternoon before. - You and your visitor will be asked to self-screen and do not enter if you have any COVID symptoms. - A mask is optional within the hospital at this time. Patients may have clear liquids (water, carbonated beverages, clear teas, apple juice) until 3 hours prior to surgery with a maximum of 20 ounces. - No food from midnight until time of surgery Take the following medications with a SIP of water the morning of surgery: BUPROPION, LEVOTHYROXINE, METOPROLOL DO NOT STOP ANY OF YOUR OTHER PRESCRIPTION MEDICATIONS PRIOR TO SURGERY ?EXCEPT THE FOLLOWING Medications to discontinue per physician: N/A Date to take last dose: N/A Please no make-up, nail luxembourgish, hairspray, perfume, deodorant, or body powder the day of surgery. No jewelry (including any body piercings) or valuables the day of surgery, leave them at home. Please take a shower or bath the night before, or the morning of, surgery with an antibacterial soap. Wear comfortable, loose fitting clothing. - Jewelry must be removed prior to entering the operating room. Rings and piercings that are not removed may be cut off. - The hospital will not accept responsibility for valuables. - Please leave all valuables, including medications, at home the day of surgery. If you are going home after surgery, a licensed driver retraining instructor must drive you home. - NO public transportation without another adult if you receive anesthesia. - We recommend that an adult stay with you for 24 hours following discharge. - We also recommend that you do not drive, make important decision, drink alcoholic beverages, or take any drugs that were not prescribed by your health care provider for at least 24 hours after your discharge time. Follow any additional instructions given to you from your surgeon. If you or anyone in your household have experienced Covid symptoms in the past week, please notify your surgeon or the nurse liaison at the phone number below for possible testing. Telephone instructions given to LEANN FAIR and asked if any additional questions and then verbalized understanding. Patient advised to call surgeon office or pre surgery nurse liaison [phone] if any additional questions.
--- NOTE | 2023-07-12 11:33 | PC.NURSE ---
Report to the Outpatient Waiting Room, entrance under the green pavilion located off [facility], at time 6:00 on date 07/24/23. Planned Procedure Time: 7:30. Time changes happen often and if your time is changed the preop area will call you the afternoon before. - You and your visitor will be asked to self-screen and do not enter if you have any COVID symptoms. - A mask is optional within the hospital at this time. Patients may have clear liquids (water, carbonated beverages, clear teas, apple juice) until 3 hours prior to surgery with a maximum of 20 ounces. - No food from midnight until time of surgery Take the following medications with a SIP of water the morning of surgery: BUPROPION, LEVOTHYROXINE, METOPROLOL DO NOT STOP ANY OF YOUR OTHER PRESCRIPTION MEDICATIONS PRIOR TO SURGERY ?EXCEPT THE FOLLOWING Medications to discontinue per physician: N/A Date to take last dose: N/A Please no make-up, nail lao, hairspray, perfume, deodorant, or body powder the day of surgery. No jewelry (including any body piercings) or valuables the day of surgery, leave them at home. Please take a shower or bath the night before, or the morning of, surgery with an antibacterial soap. Wear comfortable, loose fitting clothing. - Jewelry must be removed prior to entering the operating room. Rings and piercings that are not removed may be cut off. - The hospital will not accept responsibility for valuables. - Please leave all valuables, including medications, at home the day of surgery. If you are going home after surgery, a licensed tank wagon driver must drive you home. - NO public transportation without another adult if you receive anesthesia. - We recommend that an adult stay with you for 24 hours following discharge. - We also recommend that you do not drive, make important decision, drink alcoholic beverages, or take any drugs that were not prescribed by your health care provider for at least 24 hours after your discharge time. Follow any additional instructions given to you from your surgeon. If you or anyone in your household have experienced Covid symptoms in the past week, please notify your surgeon or the nurse liaison at the phone number below for possible testing. Telephone instructions given to LEANN FAIR and asked if any additional questions and then verbalized understanding. Patient advised to call surgeon office or pre surgery nurse liaison [phone] if any additional questions.
--- NOTE | 2023-07-12 11:33 | PC.NURSE ---
Pt rescheduled due to illness. Pt states symptoms have resolved. No other changes in medications or health history since initial interview. New pre-op instructions reviewed with pt. Pt denies further questions at this time.
[2023-07-24] VITALS (12 sets, daily range): BP systolic 110–141; BP diastolic 60–95; PULSE 58–62; RESP 11–17; TEMP 36.1–37.2; O2SAT 90–94; BMI 39.0
--- NOTE | ~2023-07-24 | XR_ITS ---
EXAMINATION: XR surgery orthopedic DATE: 07/24/2023 09:25 INDICATION: Left trapezium resection with interval bracing TECHNIQUE: 6 fluoroscopic images of the left carpus were obtained during procedure performed by Dr. Kimberly Yu. Radiologist was not present for the imaging or procedure. The amount of fluoroscopy time used d uring this procedure was 0.8 minutes. COMPARISON: None. FINDINGS: Images demonstrate resection of the left trapezium. Subsequent images demonstrate placement of anchor sites for likely first carpal metacarpal suspension arthroplasty. Alignment of the remaining bones r emains near-anatomic with expected mild proximal migration of the metacarpal partially into the resec tion space. No acute fractures. Mild osteoarthritis at the remaining scapholunate trapezoid articulat ion of the triscaphe joint. IMPRESSION: 1. Expected appearance during trapezial resection and likely first carpal metacarpal suspension arthr oplasty. Reviewed, dictated and finalized at location A. IMPRESSION: 1. Expected appearance during trapezial resection and likely first carpal metac arpal suspension arthroplasty.
[2023-07-24] MEDS: LACTATED RINGERS 1,000 ML 30 ML IV CONT ×2 (06:50→09:21)
[2023-07-24] MEDS: ACETAMINOPHEN 500 MG TABLET 1000 MG PO (06:58)
--- NOTE | 2023-07-24 07:06 | WPDANESEPPF ---
Anes - Initial Pre Proc Eval Procedure: Operation Date: 07/24/23 07:30 Proposed Procedures p Left Trapezium Resection Arthroplasty with Arthrex Internal Brace - Aj Guevara MD Date/Time: 07/24/23 07:06 Surgeon: Aj Guevara MD Pre Op Diagnosis: left first carpometacarpal joint arthritis Patient Data Age: 58 Gender: M Height: 1.96 m Weight: 145.15 kg Allergies Allergy/AdvReac Type Severity Reaction Status Date / Time No Known Allergies Allergy Verified 07/24/23 07:03 Home Medications Medication Instructions Recorded Confirmed Type aspirin 81 mg tablet,delayed 81 mg PO DAILY 03/18/19 07/12/23 History release loratadine 10 mg tablet (Claritin) 10 mg PO DAILY 03/18/19 07/12/23 History naproxen sodium 220 mg tablet 220 mg PO Q12H 03/18/19 07/12/23 History (Aleve) albuterol sulfate 90 mcg/actuation 1 inh inhalation Q4H PRN shortness 07/06/22 07/12/23 Rx aerosol inhaler of breath or wheezing #6.7 grams hydrochlorothiazide 25 mg tablet See Rx Instructions .Route 08/20/22 07/12/23 Rx .COMPLEX #90 tabs levothyroxine 50 mcg tablet 50 mcg PO DAILY #90 tabs 12/31/22 07/24/23 Rx bupropion HCl 150 mg tablet,12 hr See Rx Instructions .Route 02/22/23 07/24/23 Rx sustained-release .COMPLEX #180 tabs amlodipine 5 mg tablet See Rx Instructions .Route 03/29/23 07/12/23 Rx .COMPLEX #90 tabs metoprolol succinate 50 mg 50 mg PO DAILY #90 tabs 06/19/23 07/24/23 Rx tablet,extended release 24 hr amitriptyline 100 mg tablet See Rx Instructions .Route 06/24/23 07/12/23 Rx .COMPLEX #90 tabs Patient hx anesthesia problems: none Family hx anesthesia problems: none Results Review: All pre-operative results and documents have been reviewed as part of the pre-operative evaluation. [facility] Past Medical History Medical History Bilateral hand pain Surgical History Surgical History History of robot-assisted laparoscopic radical prostatectomy Social History Social History Smoking status: Never smoker Second hand tobacco smoke exposure: No Alcohol intake: current Alcohol use details: 1/MONTH Substance use: never Substance use type: does not use Do You Feel Safe in your Home?: Yes Lack of Transportation: No Lack of Food: Never True Current Housing: I Have Housing Concerned About Future Housing: No Difficulty Paying Gas/Electric Bills: No Difficulty Paying for Meds: No Currently Unemployed: YES Education: Master's Degree or Higher Difficulty w/ Childcare or Family Care: No Living arrangements: with family Occupation/Education: unemployed Gender identity (if verbalized by the patient): Male Sexual Orientation (if Verbalized by the Patient): Straight or Heterosexual Spiritual care concerns: No Anes - Eval Final PreProcedure Day of Procedure 07/24/23 07:06 Patient weight: obese Heart: regular rate and rhythm Lungs: clear to auscultation Airway: Mallampati scale Neurological: alert and oriented Last oral intake: >/= 8 hours ASA classification: III Emergent: no Anesthetic plan: proceed Anesthesia type and monitoring: general LMA and standard monitoring Results Review: All pre-operative results and documents have been reviewed as part of the pre-operative evaluation. ALLEN on CPAP. Hx of CVA w mild L residual weakness. Informed Consent: The patient's anesthetic plan and its attendant risks and benefits were discussed with the patient/family/POA. Questions were solicited and answers provided to the satisfaction of the patient/family/POA.
--- NOTE | 2023-07-24 07:09 | WPDHPUPDATE1 ---
History and Physical Update Update Date/Time: 07/24/23 07:09 History and Physical has been reviewed, including an updated exam of the patient. There are NO changes in the patient's condition. Risks, benefits, and alternatives have been discussed and questions answered. Patient agrees to proceed with procedure.
[2023-07-24] MEDS: ceFAZolin 2 GM/D5W 50 ML 2 GM/50 ML BAG IVPB (07:27)
[2023-07-24] MEDS: ceFAZolin SODIUM 1 GM VIAL IV PUSH (07:51)
[2023-07-24] MEDS: BUPivacaine HCL 0.5% 10 ML AMP INFILTRATE (07:51)
[2023-07-24] MEDS: LIDOCAINE/EPINEPHRINE 0.5%/1:200,000 50 ML VIAL 10 ML INFILTRATE (07:51)
--- NOTE | 2023-07-24 09:43 | P.OP_ITS ---
Procedure Note - Detailed Date of Procedure 07/24/23 Pre-op Diagnosis left first carpometacarpal joint arthritis Post-op Diagnosis Same Procedure Performed Left trapezium resection arthroplasty with Arthrex internal brace Surgeon Aj Guevara MD Vice President Of Contracts [facility]lee Anesthesia General Indications Joint pain failing conservative treatment Description of Procedure The left basal joint area was marked on the patient in the holding area with his consent. He was taken to the operating room and placed supine on the operating table. He was given general anesthesia and the left upper extremity was prepped and draped in the usual fashion. A time-out was held and confirmed. The surgical site was marked for an incision and locally infiltrated with 1% lidocaine with epinephrine. The extremity was exsanguinated with an Esmarch bandage and the tourniquet inflated to 250 mmHg. The incision was made as marked on the radial base of the thumb metacarpal area. Blunt dissection revealed several branches of cutaneous nerves and small vessels. Several small vessels were cauterized the nerves were held out of the way throughout the entire procedure. The interspace between the APB and APL was incised to expose the trapezium. The trapezium was dissected around its margin and removed piecemeal with a rongeur. Images were taken to confirm the adequacy of the resection. The Arthrex internal brace packet was opened on the back table. The position for the 2nd metacarpal drill hole for t placement of the FiberTak was imaged. This fenestration was made through the entire base of the 2nd metacarpal. The intraosseous guide was placed appropriately and the FiberTak inserted. Adequate purchase was achieved and the guide was removed. A 2nd fenestration this 1 on the base of the 1st metacarpal was drilled and the SwiveLock was placed over the FiberTape achieving a stable construct. The tape was cut. A single 3-0 Vicryl suture was placed to reapproximate capsular tissue. The tourniquet was released the site was irrigated. 0.5% plain Marcaine was injected around the wound. The skin was closed with interrupted and running 4-0 Monocryl sutures. A soft bandage with 3 in ortho glass thumb spica splint was applied on the forearm and extending to the interphalangeal joint. The patient was discharged from the operating room in stable condition. He is discharged home with instructions wound care and follow-up. He had received 3 g of Ancef preop along with 1000 mg as Tylenol. He is discharged with a prescription for hydrocodone 8. As a paper prescription. Estimated Blood Loss 3 Tourniquet Time Total Tourniquet Time: 69 Drains No Packing No Pathology None sent Complications No immediate complications Condition Stable Disposition PACU
== END 2023-07-24 12:02 | disposition home or self-care (01) ==
PROVIDERS: PCP Family Medicine; Visit Provider Plastic Surgery
PROC: (CPT 25447; principal; 2023-07-24 07:30)
DX: M18.12 Unilateral primary osteoarthritis of first carpometacarpal joint, left hand (principal); Z79.82 Long term (current) use of aspirin; Z79.51 Long term (current) use of inhaled steroids; E66.9 Obesity, unspecified; Z68.39 Body mass index [BMI] 39.0-39.9, adult
CPT/HCPCS: 25447; 36415; 80048; 85610; 85730; 93005; 99199; A9270; C1713; J0690; J1100; J1170; J2250; J2405; J2704; J3010; J7120

== ENCOUNTER 2023-09-17 09:00 | Outpatient (RCR) | payer OTHER, SELFPAY ==
--- NOTE | 2023-08-23 11:59 | OTOPEVAL1 ---
Assessment and note entered by Júnior Rosas, NILESHR/Erika, CHT Evaluation Information 08/23/23 Diagnosis s/p left trapezium resection with Arthrex Internal Brace Onset 07/24/23 Subjective Information Patient is 5 weeks s/p surgery. Reporting no pain at rest. Reports occasional sharp pains with use. He is right handed. 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 Reported Pain Level Pain Score 0: Self Report Assessment OT Clinical Summary Patient referred to OT with a decline in left hand use following left thumb CMC arthroplasty. He presents with residual stiffness, weakness, and pain that limits return to use with ADLs. Skilled OT indicated to maximize functional use of the hand via therapeutic exercise, HEP instruction/ progression, modalities, and functional activities. Plan of Care Interventions Therapeutic Exercise,Manual Therapy,Therapeutic Activities,Paraffin OT Services Indicated Yes Treatment Frequency and 1x/week for 5 visits Duration These treatments will address the objective and functional deficits as defined above. The patient will be advanced safely and appropriately in order for the patient to progress towards his/her prior level of function. Additional exercises will be introduced and as well as a comprehensive home exercise program upon discharge, if needed, ?to ensure carryover of functional gains achieved in the clinic. This treatment plan has been reviewed and agreement upon by the patient.
--- NOTE | 2023-08-23 11:59 | OPREHPOC ---
Outpatient Therapy Plan of Care This is a Multidisciplinary Plan of Care that may contain components documented by all disciplines (PT, OT, and ST.) OT Problem 1 OT Problem #1 Knowledge Deficit OT Goal 1 Goal 1. Patient to be independent with instructed materials. Target Visit 5 OT Problem 2 OT Problem #2 Pain OT Goal 1 Goal 1. Patient to be independent with non-medication pain management. OT Problem 3 OT Problem #3 Impaired Strength OT Goal 1 Goal 1. Patient to be able to complete biosolids management technician/pinch strengthening with yellow theraputty x5 minutes without pain. 2. Patient to be able to complete wrist strengthening in all planes with 2 lb. free weight x10 reps without pain. Target Visit 5
--- NOTE | 2023-09-17 09:45 | OTOPDC ---
Assessment and note entered by Júnior Rosas, OTR/L, CHT OT Discharge Notification 09/17/23 Diagnosis s/p left trapezium resection with Arthrex Internal Brace Onset 07/24/23 Subjective Information Patient is 8 weeks s/p surgery. Reporting no pain. States he notices his dexterity isn't what it once was, stating he had some difficulty doing nuts/bolts the other day. Wrist ROM progressed to normal limits. Thumb ROM is WFL. Measuring symmetrical to the right hand. Reported Pain Level Pain Score 0: Self Report Assessment OT Clinical Summary Patient referred to OT with a decline in left hand use following left thumb CMC arthroplasty. He has been working with therapy x4 visits with the goals of improving functional flexibility and strength. He has made good progress with flexibility, ROM measurements are symmetrical to the right side. Room Service Manager and pinch strengths are measuring below average, however, which is typically for only being 8 weeks out from surgery. Strengthening HEP was reviewed and upgraded. Plan for the patient to continue strengthening HEP on his own at this time. D/C OT with goals met. Plan of Care OT Services Indicated No
== END 2023-09-17 11:55 | disposition home or self-care (01) ==
LOC: ANHOT 09:00
PROVIDERS: PCP Family Medicine; Visit Provider Plastic Surgery
DX: Z48.89 Encounter for other specified surgical aftercare (principal)
CPT/HCPCS: 97018; 97110; 97140; 97165

== ENCOUNTER 2023-12-03 11:27 | Outpatient (CLI) | payer OTHER, SELFPAY ==
--- NOTE | ~2023-12-03 | CT_ITS ---
Non-contrast CT scan of the Abdomen and Pelvis Clinical indication: Left lower quadrant pain Technique: 2.5 mm axial scans were obtained through the abdomen and pelvis without intravenous or or al contrast. Dose reduction technique was used on this scan by utilizing automated exposure control a nd iterative reconstruction technique. The dose-length product (DLP) was 1926.29 mGy-cm. Findings: Images through the lung bases reveal no abnormalities. There is a 7 x 6 mm distal left ureteral stone, with moderate left hydroureteronephrosis to this leve l. Punctate nonobstructing right renal stones are present. No right ureteral stone or right hydroneph rosis. There is diffuse hepatic steatosis. The spleen, pancreas, gallbladder, and adrenals appear normal. Th ere are mild atherosclerotic calcifications of the aorta and iliac vessels. There is no evidence of bowel obstruction. Images through the pelvis were performed. There is no evidence of ascites or lymphadenopathy. Urinary bladder unremarkable. No pelvic mass seen. No ascites. Impression: 7 x 6 mm distal left ureteral stone, with moderate left hydroureteronephrosis. Additional punctate nonobstructing right renal stones. Diffuse hepatic steatosis. Reviewed, dictated and finalized at [facility]. Impression: 7 x 6 mm distal left ureteral stone, with moderate left hydroureteronephrosis. Additional punctate nonobstructing right renal stones. Diffuse hepatic steatosis.
[2023-12-03 12:07] LABS: Basophils Percent Auto 0.7 % (0.2-1.2); Eosinophils Absolute Auto 0.2 K/mm3 (0-0.3); Eosinophils Percent Auto 4.7 % (0-4.4); Hematocrit 42.1 % (42.0-52.0); Hemoglobin 13.8 g/dL (14.0-18.0); Immature Granulocyte Absolute 0.02 K/mm3 (0.00-0.031); Immature Granulocyte Percent A 0.4 % (0-0.5); Lymphocytes Percent Auto 13.3 % (18.3-44.2); Mean Corpuscular HGB Conc 32.8 g/dl (32-36); Mean Corpuscular Hemoglobin 28.7 pg (26-34); Mean Corpuscular Volume 87.5 fl (80-100); Mean Platelet Volume 8.9 fl (7.4-10.4); Monocytes Absolute Auto 0.5 K/mm3 (0.1-0.6); Monocytes Percent Auto 10.2 % (2.6-8.5); Neutrophils Absolute Auto 3.2 K/mm3 (1.3-6.7); Neutrophils Percent Auto 70.7 % (45.5-73.1); Platelet Count Result 173 k/mm3 (150-375); Red Blood Count 4.81 M/mm3 (4.6-6.20); Red Cell Distribution Width 13.9 % (11.5-14.5); White Blood Count 4.5 K/mm3 (4.5-10.0)
[2023-12-03 12:13] LABS: Add Urine Microscopic? YES; Appearance Urine Clear (Clear); Bacteria Urine None Seen /hpf; Bilirubin Urine Negative (Negative); Blood Urine Negative (Negative); Color Urine Yellow (Yellow); Glucose Urine UA Negative (Negative); Ketones Urine Negative (Negative); Leukocyte Esterase Ur Trace LEU/UL (Negative); Nitrate Urine Negative (Negative); Non Pathogenic Casts 0-2; Protein Urine Negative (Negative); RBC Urine 0-2 /hpf (0-2); Specific Grav Ur 1.013 (1.001-1.035); Squamous Epithelial Cell Urine None Seen /hpf (Few); Urobilinogen Urine 0.2 mg/dL (<2.0); WBC Urine 0-5 /hpf (0-3)
[2023-12-03 12:21] LABS: Alanine Aminotransferase 50 U/L (6-50); Albumin Level 4.4 g/dL (3.5-5.1); Alkaline Phosphatase 92 U/L (38-126); Anion Gap 10 mmol/L (4-12); Aspartate Amino Transferase 39 U/L (17-59); Blood Urea Nitrogen 18 mg/dL (9-20); Calcium 9.3 mg/dL (8.4-10.2); Carbon Dioxide 29 mmol/L (22-30); Chloride 100 mmol/L (98-107); Estimated Glomerular Filt Rate > 60; Glucose 137 mg/dL (65-110); Potassium 3.6 mmol/L (3.4-5.0); Sodium 139 mmol/L (137-145)
== END 2023-12-03 11:28 | disposition home or self-care (01) ==
LOC: ANHIMG 11:28
PROVIDERS: PCP Family Medicine; Visit Provider Family Medicine
DX: N13.2 Hydronephrosis with renal and ureteral calculous obstruction (principal); K76.0 Fatty (change of) liver, not elsewhere classified
CPT/HCPCS: 36415; 74176; 80053; 81001; 85025

== ENCOUNTER 2023-12-13 00:25 | Day surgery (SDC) | payer OTHER, SELFPAY ==
[2023-12-11 10:37] VITALS: BMI 41.4
--- NOTE | 2023-12-11 10:42 | PC.NURSE ---
Report to the Outpatient Waiting Room, entrance under the green pavilion located off [facility], at time _0830_ on date _[id number]_. Planned Procedure Time: _1030_.? Time changes happen often and if your time is changed the preop area will call you the afternoon before. - You and your visitor will be asked to self-screen and do not enter if you have any COVID symptoms. Please call surgeon if you need to reschedule. - A mask is optional within the hospital at this time. Patients may have clear liquids (water, carbonated beverages, clear teas, apple juice) until 3 hours prior to surgery with a maximum of 20 ounces. - No food from midnight until time of surgery and no smoking Take only the following medications with a SIP of water on the morning of surgery: ___Bupropion, Levothyroxine and Metoprolol DO NOT STOP ANY OF YOUR OTHER PRESCRIPTION MEDICATIONS PRIOR TO SURGERY EXCEPT THE FOLLOWING Medications to discontinue per physician Patient says he's stopping aspirin. Date to take last dose Please no make-up, nail serbian, hairspray, perfume, deodorant, or body powder the day of surgery.? No jewelry (including any body piercings) or valuables the day of surgery, leave them at home.? Please take a shower or bath the night before, or the morning of, surgery with an antibacterial soap.? Wear comfortable, loose fitting clothing.? - Jewelry must be removed prior to entering the operating room.? Rings and piercings that are not removed may be cut off. - The hospital will not accept responsibility for valuables.? - Please leave all valuables, including medications, at home the day of surgery. If you are going home after surgery, a licensed otr truck driver must drive you home.? - NO public transportation without another adult if you receive anesthesia. - We recommend that an adult stay with you for 24 hours following discharge. - We also recommend that you do not drive, make important decision, drink alcoholic beverages, or take any drugs that were not prescribed by your health care provider for at least 24 hours after your discharge time. Follow any additional instructions given to you from your surgeon. Telephone instructions given to ___Paul__and asked if any additional questions and then verbalized understanding. Patient advised to call surgeon office or pre surgery nurse liaison [phone] if any additional questions.
[2023-12-13] VITALS (8 sets, daily range): BP systolic 110–154; BP diastolic 65–97; PULSE 55–68; RESP 12–20; TEMP 36.1–36.3; O2SAT 96–100; BMI 42.5
--- NOTE | ~2023-12-13 | XR_ITS ---
EXAMINATION: XR retrograde pyelo w/stent LT DATE: 12/13/2023 10:39 INDICATION: Left ureteral stone. TECHNIQUE: 6 intraoperative fluoroscopic views of the abdomen and pelvis were obtained. I was not pre sent. Fluoroscopy exposure time was 13 seconds. COMPARISON: CT abdomen and pelvis 12/03/2023 FINDINGS: There is a stone in distal left ureter. The left-sided retrograde pyelogram demonstrates hy dronephrosis. The final images demonstrate a left internal ureteral stent in expected position. IMPRESSION: 1. Stone in distal left ureter. 2. Left internal ureteral stent in expected position. Reviewed, dictated and finalized at location A.
--- NOTE | 2023-12-13 07:26 | WPDHPUPDATE1 ---
History and Physical Update Update Date/Time: 12/13/23 07:26 History and Physical has been reviewed, including an updated exam of the patient. There are NO changes in the patient's condition. Risks, benefits, and alternatives have been discussed and questions answered. Patient agrees to proceed with procedure. Proceed with cystoscopy, left retrograde, left ureteroscopy with stone extraction, laser, stent possible.
--- NOTE | 2023-12-13 08:01 | WPDANESEPPF ---
Anes - Initial Pre Proc Eval Procedure: Operation Date: 12/13/23 09:30 Proposed Procedures p Cystoscopy, Left Ureteroscopy, Left Retrograde Pyelogram, Left Stone Extraction, Possible Left Stent Placement, Possible Holmium Laser Procedure - Jared Desouza MD Date/Time: 12/13/23 08:01 Surgeon: Jared Desouza MD Pre Op Diagnosis: left ureteral calculus Patient Data Age: 58 Gender: M Height: 1.93 m Weight: 154.5 kg Allergies Allergy/AdvReac Type Severity Reaction Status Date / Time No Known Allergies Allergy Verified 12/11/23 10:35 Home Medications Medication Instructions Recorded Confirmed Type aspirin 81 mg tablet,delayed 81 mg PO DAILY 03/18/19 12/11/23 History release loratadine 10 mg tablet (Claritin) 10 mg PO DAILY 03/18/19 12/11/23 History naproxen sodium 220 mg tablet 220 mg PO Q12H 03/18/19 12/11/23 History (Aleve) albuterol sulfate 90 mcg/actuation 1 inh inhalation Q4H PRN shortness 07/06/22 12/11/23 Rx aerosol inhaler of breath or wheezing #6.7 grams hydrochlorothiazide 25 mg tablet See Rx Instructions .Route 08/26/23 12/11/23 Rx .COMPLEX #90 tabs levothyroxine 50 mcg tablet 50 mcg PO DAILY #90 tabs 08/26/23 12/11/23 Rx metoprolol succinate 50 mg 50 mg PO DAILY #90 tabs 09/15/23 12/11/23 Rx tablet,extended release 24 hr amitriptyline 100 mg tablet See Rx Instructions .Route 09/19/23 12/11/23 Rx .COMPLEX #90 tabs bupropion HCl 150 mg tablet,12 hr See Rx Instructions .Route 11/22/23 12/11/23 Rx sustained-release .COMPLEX #180 tabs amlodipine 5 mg tablet See Rx Instructions .Route 11/25/23 12/11/23 Rx .COMPLEX #90 tabs tamsulosin 0.4 mg capsule (Flomax) 0.4 mg PO QHS #30 caps 12/03/23 12/11/23 Rx Patient hx anesthesia problems: none Family hx anesthesia problems: none Results Review: All pre-operative results and documents have been reviewed as part of the pre-operative evaluation. PMFSH Past Medical History Medical History (Updated 12/13/23 @ 08:02 by Umer Samaniego DO) Bilateral hand pain CVA (cerebral vascular accident) HTN (hypertension) Hypothyroidism Idiopathic peripheral neuropathy ALLEN (obstructive sleep apnea) Surgical History Surgical History History of robot-assisted laparoscopic radical prostatectomy Social History Social History Smoking status: Never smoker Second hand tobacco smoke exposure: No Alcohol intake: current Alcohol use details: 1/MONTH Substance use: never Substance use type: does not use Do You Feel Safe in your Home?: Yes Lack of Transportation: No Lack of Food: Never True Current Housing: I Have Housing Concerned About Future Housing: No Difficulty Paying Gas/Electric Bills: No Difficulty Paying for Meds: No Currently Unemployed: YES Education: Master's Degree or Higher Difficulty w/ Childcare or Family Care: No Living arrangements: with family Occupation/Education: unemployed Gender identity (if verbalized by the patient): Male Sexual Orientation (if Verbalized by the Patient): Straight or Heterosexual Spiritual care concerns: No Anes - Eval Final PreProcedure Day of Procedure 12/13/23 08:01 Patient weight: morbidly obese Heart: regular rate and rhythm Lungs: clear to auscultation Airway: Mallampati scale class III Neurological: alert and oriented Last oral intake: >/= 8 hours ASA classification: III Emergent: no Anesthetic plan: proceed Anesthesia type and monitoring: general LMA and standard monitoring Results Review: All pre-operative results and documents have been reviewed as part of the pre-operative evaluation. Informed Consent: The patient's anesthetic plan and its attendant risks and benefits were discussed with the patient/family/POA. Questions were solicited and answers provided to the satisfaction of the patient/family/POA
[2023-12-13 08:07] LABS: Appearance Urine Clear (Clear); Blood Urine Negative (Negative); Color Urine Yellow (Yellow); Glucose Urine UA Negative (Negative); Ketones Urine Negative (Negative); Nitrate Urine Negative (Negative); Protein Urine Negative (Negative); Specific Grav Ur 1.014 (1.001-1.035)
[2023-12-13 08:08] LABS: Add Urine Microscopic? YES; Bacteria Urine None Seen /hpf; Bilirubin Urine Negative (Negative); Leukocyte Esterase Ur Trace LEU/UL (Negative); Non Pathogenic Casts 0-2; RBC Urine 0-2 /hpf (0-2); Squamous Epithelial Cell Urine None Seen /hpf (Few); Urobilinogen Urine 0.2 mg/dL (<2.0); WBC Urine 0-5 /hpf (0-3)
[2023-12-13] MEDS: LACTATED RINGERS 1,000 ML 30 ML IV CONT ×2 (08:36→10:44)
[2023-12-13] MEDS: ceFAZolin 3 GM/D5W 100 ML 100 ML IVPB (09:31)
[2023-12-13] MEDS: LIDOCAINE HCL 2% GEL UROJET 10 ML PKG MUCOUS MEM (09:56)
--- NOTE | 2023-12-13 10:39 | W.PM.PROC2 ---
Procedure Note - Detailed Date of Procedure 12/13/23 Pre-op Diagnosis left ureteral calculus Post-op Diagnosis Same Procedure Performed Cystoscopy, left retrograde pyelogram, left ureteroscopy with holmium laser, stone extraction, left ureteral stent placement 4.8 Armenian contour Surgeon Jared Desouza MD Anesthesia General Description of Procedure Patient was taken to the operative suite correctly identified. Once anesthesia was obtained he was placed in dorsal lithotomy position and prepped and draped usual sterile fashion. Nineteen Armenian scope was inserted in the bladder. Prostate is absent from prior prostatectomy, bladder itself has no tumors. Left ureteral orifice was cannulated with an angled guidewires that would need to be manipulated past the stone. Ureteral access sheath was placed. Mini flexible ureteral scope was inserted. Stone was lodged and somewhat difficult to access. I was able to use a 200 micron fiber to fragment into multiple small pieces and dust some. The larger fragments were retrieved and sent for analysis. Reinspection revealed no significant stone burden. Pyelogram was then performed to confirm placement of the stent. 4.8 Armenian contour stent was then placed with the proximal end coiled in the renal pelvis and the distal in the bladder. 2% viscous lidocaine was then inserted urethra patient is taken recovery stable condition. He will follow-up in a week's time for stent removal. This completes dictation. Please send a copy of op note to my office. Drains Yes Packing No Pathology Yes Complications No immediate complications Condition Stable Disposition PACU
== END 2023-12-13 12:22 | disposition home or self-care (01) ==
PROVIDERS: PCP Family Medicine; Visit Provider Urology
PROC: (CPT 52352; principal; 2023-12-13 09:30)
DX: N20.1 Calculus of ureter (principal); I10 Essential (primary) hypertension; E03.9 Hypothyroidism, unspecified; G47.33 Obstructive sleep apnea (adult) (pediatric); G60.9 Hereditary and idiopathic neuropathy, unspecified; M85.88 Other specified disorders of bone density and structure, other site; R35.0 Frequency of micturition; E66.01 Morbid (severe) obesity due to excess calories; Z68.41 Body mass index [BMI] 40.0-44.9, adult; Z79.82 Long term (current) use of aspirin; Z79.1 Long term (current) use of non-steroidal anti-inflammatories (NSAID); Z79.51 Long term (current) use of inhaled steroids; Z98.890 Other specified postprocedural states; Z19.1 Hormone sensitive malignancy status; Z85.46 Personal history of malignant neoplasm of prostate; Z86.79 Personal history of other diseases of the circulatory system
CPT/HCPCS: 52352; 52332; 74420; 81001; 82365; 88300; C1758; C1769; C1894; C2617; J0330; J0690; J1100; J2250; J2405; J2704; J3010; J7120; Q9966

== ENCOUNTER 2024-02-11 07:11 | Outpatient (CLI) | payer OTHER, SELFPAY ==
--- NOTE | ~2024-02-11 | MR_ITS ---
EXAMINATION: MR hip LT wo con DATE: 02/11/2024 08:35 INDICATION: Left groin pain TECHNIQUE: Magnetic resonance imaging (MRI) of the left hip was performed without intravenous contra st. Sequences included full-field axial PD-weighted FS FSE and T1-weighted FSE, coronal of the pelvis with PD-weighted FS FSE, T2-weighted FSE and T1-weighted FSE, small field of view of the left hip w ith axial PD-weighted FS FSE, sagittal PD-weighted FS FSE, coronal PD-weighted FS FSE and coronal T2 weighted FSE. Additional radial T1-weighted FGR oriented orthogonal to the acetabular rim were obtai sigifredo for evaluation of the labrum. COMPARISON: None FINDINGS: Bones/labrum/cartilage: Minimal lumbar levocurvature with severe spondylosis. No fracture or osteonecrosis. Indeterminate 1. 3 cm lesion at the left ischial tuberosity with mild increased PD-weighted and decreased T1-weighted signal. Mild left hip osteoarthritis. There is small region of degenerative tearing of the posterior superior left acetabular labrum. Fluid: Symmetric physiologic amount of fluid within both hip joints. Soft tissues: Status post prostatectomy. There is edematous-appearing diffuse wall thickening of the bladder measur ing up to 7 mm suspicious for cystitis. There is relatively symmetric increased fluid signal in the b ilateral obturator internus muscles. Otherwise normal and symmetric muscle bulk and signal in the pel vis and visualized proximal thighs. The iliopsoas, gluteal and proximal hamstring tendons are normal. Limited evaluation of visceral organs of the pelvis is otherwise unremarkable. No pathologically en larged pelvic/inguinal lymphadenopathy. IMPRESSION: 1. Mild left hip osteoarthritis with degenerative tear at the posterior superior left acetabular labr um. 2. Prominent relatively symmetric increased fluid signal at the bilateral apparatus internal small st one. The distribution suggests sequela of radiation treatment for likely prostate cancer with change of prior prostatectomy. Differential would include muscle strain or other nonspecific myositis. 3. Diffuse edematous-appearing bladder wall thickening consistent with cystitis which could be infect ious or also related to prior radiation treatment. 4. 1.3 cm mildly PD hyperintense, T1 hypointense lesion at the left ischial tuberosity which given kn own history of prostatic cancer raises concern for metastatic disease. Could consider further evaluat ion with either pre and postcontrast MRI or PSMA PET for more sensitive and specific evaluation. Reviewed, dictated and finalized at location B. OMER ENERGY SPECIALIST IMPRESSION: 1. Mild left hip osteoarthritis with degenerative tear at the posterior superio r left acetabular labrum. 2. Prominent relatively symmetric increased fluid signal at the bilateral appar atus internal small stone. The distribution suggests sequela of radiation treat ment for likely prostate cancer with change of prior prostatectomy. Differentia l would include muscle strain or other nonspecific myositis. 3. Diffuse edematous-appearing bladder wall thickening consistent with cystitis which could be infectious or also related to prior radiation treatment. 4. 1.3 cm mildly PD hyperintense, T1 hypointense lesion at the left ischial tub erosity which given known history of prostatic cancer raises concern for metast atic disease. Could consider further evaluation with either pre and postcontras t MRI or PSMA PET for more sensitive and specific evaluation.
== END 2024-02-11 07:12 | disposition home or self-care (01) ==
LOC: MICIMG 07:12
PROVIDERS: PCP Family Medicine; Visit Provider Orthopaedic Surgery
DX: S79.912A Unspecified injury of left hip, initial encounter (principal); S43.432A Superior glenoid labrum lesion of left shoulder, initial encounter; X58.XXXA Exposure to other specified factors, initial encounter; M16.12 Unilateral primary osteoarthritis, left hip; M25.452 Effusion, left hip; M25.451 Effusion, right hip; Z90.79 Acquired absence of other genital organ(s); N32.89 Other specified disorders of bladder; M89.8X8 Other specified disorders of bone, other site; Z85.46 Personal history of malignant neoplasm of prostate
CPT/HCPCS: 73721

== ENCOUNTER 2024-02-12 14:48 | Outpatient (CLI) | payer OTHER, SELFPAY ==
[2024-02-12 15:23] LABS: Add Urine Microscopic? NO; Appearance Urine Clear (Clear); Bilirubin Urine Negative (Negative); Blood Urine Negative (Negative); Color Urine Yellow (Yellow); Glucose Urine UA Negative (Negative); Ketones Urine Negative (Negative); Leukocyte Esterase Ur Negative LEU/UL (Negative); Nitrate Urine Negative (Negative); Protein Urine Negative (Negative); Specific Grav Ur 1.012 (1.001-1.035); Urobilinogen Urine 0.2 mg/dL (<2.0)
== END 2024-02-12 14:49 | disposition home or self-care (01) ==
LOC: ANHLAB 14:49
PROVIDERS: PCP Family Medicine; Visit Provider Physician Assistant Medical
DX: N32.89 Other specified disorders of bladder (principal)
CPT/HCPCS: 81003; 87086

== ENCOUNTER 2024-03-04 12:31 | Outpatient (CLI) | payer OTHER, SELFPAY ==
--- NOTE | ~2024-03-04 | PE_ITS ---
EXAMINATION: PET_PETPSMAST_PT DATE: 03/04/2024 15:08 INDICATION: Prostate cancer. TECHNIQUE: 5.340 mCi of Ga-68 gozetotide was administered intravenously. Low dose computed tomography (CT) images were acquired from the base of the brain to the proximal thighs for attenuation correcti on and anatomic localization. Automated exposure control was employed. Dose-length product (DLP) was 1504 mGy-cm. Positron emission tomography (PET) images were acquired in the same distribution. COMPARISON: PET/CT 08/29/2022, MRI hip 02/11/24 FINDINGS: Head/neck: There are no pathologically enlarged lymph nodes. There are changes of anterior fusion pro cedure in cervical spine. Chest: There is a 2.0 cm subcutaneous cyst in left posterior thorax, likely a sebaceous cyst. There i s no pneumonia or pleural effusion. The heart size is normal. No pericardial effusion. There are no p athologically enlarged lymph nodes. There is plate and screw fixation of right clavicle. Abdomen/pelvis/proximal thighs: There is diffuse hepatic steatosis. The gallbladder, spleen, pancreas , adrenal glands are normal. There is a 4 mm stone in right kidney. There are cysts in left kidney me asuring up to 9 mm. The prostate is absent. There are no dilated loops of bowel. The appendix is norm al. There are no pathologically enlarged lymph nodes. There is no osseous metastatic disease. There i s no increased activity in the left ischium. IMPRESSION: 1. No evidence of metastatic disease. Reviewed, dictated and finalized at location A. ER SALES MANAGER
== END 2024-03-04 12:32 | disposition home or self-care (01) ==
LOC: ANHIMG 12:40
PROVIDERS: PCP Family Medicine; Visit Provider Urology
DX: C61 Malignant neoplasm of prostate (principal); M89.9 Disorder of bone, unspecified; Z90.79 Acquired absence of other genital organ(s); Z85.46 Personal history of malignant neoplasm of prostate
CPT/HCPCS: 78815; A9596

== ENCOUNTER 2024-04-03 13:16 | Outpatient (CLI) | payer OTHER, SELFPAY ==
--- NOTE | ~2024-04-03 | XR_ITS ---
EXAMINATION: XR lg joint inject/asp w image DATE: 04/03/2024 14:09 INDICATION: Left hip arthritis. TECHNIQUE: A time-out was performed to verify the patient's name, date of , and procedure to b e performed. The procedure including the risks, benefits, and alternatives was discussed with the pat ient. Risks discussed included bleeding and infection. The patient understood the risks and agreed to proceed. The skin overlying the left hip joint was prepped and draped in usual sterile fashion. An esthetic was administered with 1% lidocaine subcutaneously. A 22 G needle was advanced under fluoros copic guidance into the joint. Subsequently, injectate consisting of 2 mL 0.5% bupivacaine and 1 mL 80 mg/mL Depo-Medrol was instilled. The needle was removed and the entry site was cleaned and dresse d. There were no immediate complications. Fluoroscopy exposure time was 0.0 minutes. The total numbe r of images was 1. FINDINGS: Real-time fluoroscopy demonstrates the needle in the left hip joint. Patient's pain prior t o procedure:3/10. Patient's pain following the procedure: 0/10. IMPRESSION: 1. Fluoroscopy guided left hip joint injection of local anesthetic and steroid with decrease in the p atient's presenting pain. Reviewed, dictated and finalized at location A. CING TECHNICIAN IMPRESSION: 1. Fluoroscopy guided left hip joint injection of local anesthetic and steroid with decrease in the patient's presenting pain.
== END 2024-04-03 13:17 | disposition home or self-care (01) ==
PROVIDERS: PCP Family Medicine; Visit Provider Orthopaedic Surgery
DX: M16.12 Unilateral primary osteoarthritis, left hip (principal)
CPT/HCPCS: 20610; 77002; J1010

== ENCOUNTER 2024-04-21 09:03 | Outpatient (CLI) | payer OTHER, SELFPAY ==
--- NOTE | ~2024-04-21 | CT_ITS ---
CT of the Abdomen and Pelvis: Indication: Hydronephrosis Technique: 2.5 mm axial scans were obtained through the abdomen and pelvis prior to and following in travenous administration of 130 cc of Omnipaque 350. Dose reduction technique was used on this scan b y utilizing automated exposure control and iterative reconstruction technique. The dose-length produc t (DLP) was 3501.01 mGy-cm. COMPARISON: 12/03/2023 Findings: Scans through the lung bases are unremarkable. There is diffuse hepatic steatosis. Small gallstones are present. The spleen, pancreas, and adrenal g lands are within normal limits. No evidence of aortic aneurysm. No lymphadenopathy. Punctate nonobstructing right renal stones measuring up to 2 mm. No left renal stone identified. No f rank hydronephrosis. There are probable tiny hyperdense left renal cyst. No bowel obstruction or bowel wall thickening. There is no evidence to suggest acute appendicitis. Images through the pelvis were performed. Urinary bladder unremarkable. No pelvic mass seen. No ascit es. Impression: Punctate nonobstructing renal stones. No hydronephrosis. No suspicious renal mass evident. Cholelithiasis. Diffuse hepatic steatosis. Reviewed, dictated and finalized at location . MOWER REPAIR MECHANIC Impression: Punctate nonobstructing renal stones. No hydronephrosis. No suspicious renal ma ss evident. Cholelithiasis. Diffuse hepatic steatosis.
[2024-04-21 09:21] LABS: Estimated Glomerular Filt Rate > 60
--- OUTSIDE RECORDS SUMMARY | 2024-04-23 16:34 | XMS_ITS | Encounter Summary ---
Author Organization [facility] Address [address] [place] [address]. [place] [address] [place] [address] Care Team Providers Care Contract Driver Name Role Phone Drake Galvez MD Primary Care Provider [phone] Encounter Details Date Type Department Care Team (Late st Contact Info) Description 12/05/2017 Abstract [facility] CONVERSION [id number] [address] [place] [id number] , Generic Conversion, Social History Tobacco Use Types Packs/Day Years Used Date Smoking Tobacco: Never Sex and Gender Information Value Date Recorded Sex Assigned at Not on file Legal Sex Male 11:38 PM CDT Gender Identity Not on file Sexual Orientation Not on file documented as of this encounter Plan of Treatment Not on file documented as of this encounter Visit Diagnoses Not on filedocumented in this encounter Care Teams Contract Driver Relationship Specialty Start Date End Date Drake Galvez MD [address] [address] PCP - General 06/20/16 documented as of this encounter
--- OUTSIDE RECORDS SUMMARY | 2024-04-23 16:34 | XMS_ITS | Clinical Summary ---
Author Organization [facility] Address [address] [place] [address]. [place], [place] [id number] [place] [id number] Care Team Providers Care Janitor Helper Name Role Phone Drake Galvez MD Primary Care Provider Medications GABAPENTIN 300 MG capsuleIndicati ons:Neuropathy TAKE 3 CAPSULES BY MOUTH TWICE A DAY 180 capsule 9 Active AMITRIPTYLINE 50 MG tabletIndicatio ns:Trigeminal neuralgia TAKE 2 TABLETS BY MOUTH AT BEDTIME 180 tablet 2 9 Active Naproxen Sodium (ALEVE) 220 MG Cap Aleve (naproxen sodium) tablet 220 mg; take 1-2 tablet by mouth as directed as needed; 0; -Sep-2014; Active 5 Active PROAIR HFA 108 (90 Base) MCG/ACT inhaler INHALE 1 TO 2 PUFFS BY MOUTH EVERY 4 TO 6 HOURS NEEDED 2 8 Active amitriptyline 50 MG tablet Take 100 mg by mouth nightly at bedtime. at bedtime 2 9 Active aspirin EC (ASPIRIN EC) 81 MG tablet Take 1 tablet by mouth daily. 7 Active B Complex Vitamins (VITAMIN B-COMPLEX) Tab Take 1 tablet by mouth daily. 8 Active buPROPion XL 150 MG 24 hr tablet Take 150 mg by mouth 2 (two) times daily. 2 9 Active calcium carbonate (CALCIUM 600) 600 MG tablet Take 1 tablet by mouth 2 (two) times daily. Active cephALEXin 500 MG capsule TAKE ONE CAPSULE BY MOUTH EVERY 6 HOURS FOR 5 DAYS 0 8 Active cetirizine (ZYRTEC ALLERGY) 10 MG tablet Take 1 tablet by mouth daily as needed. 7 Active vitamin D3, cholecalciferol , 5000 UNITS capsule Take 1 capsule by mouth daily. Active clobetasol 0.05 % cream APPLY TO SOLES OF FEET TWICE A DAY 2 9 Active cyclobenzaprine 10 MG tablet TAKE 1 TABLET BY MOUTH 3 TIMES A DAY NEEDED SPASMS 1 8 Active enoxaparin 30 MG/0.3ML Solution INJECT 1 SYRINGE EVERY 12 HRS SUBCUTANEOUS FOR 7 DAYS 0 8 Active fluticasone propionate 50 MCG/ACT nasal spray 5 Active hydrochlorothia zide 25 MG tablet Take 25 mg by mouth daily. 1 9 Active lidocaine 5 % 8 Active loratadine (CLARITIN) 10 MG tablet Take 1 tablet by mouth daily. 5 Active metoprolol tartrate 50 MG tablet Take 1 tablet by mouth 2 (two) times daily. 6 Active SUMAtriptan 100 MG tablet TAKE 1 TAB BY MOUTH NEEDED FOR MIGRAINE, MAY REPEAT AFTER 2 HRS, MAX 2 PER 24 HRS 3 9 Active LYRICA 100 MG capsule Take 100 mg by mouth 3 (three) times daily. 1 9 Active gabapentin 300 MG capsule 7 Active sumatriptan 25 MG tablet Take 1 tablet by mouth every 2 (two) hours as needed. 5 Active Active Problems Problem Noted Date Diagnosed Date Preventive antibiotic 10/21/2017 Skin lesions 10/17/2017 Allergic rhinitis 09/02/2017 Right shoulder pain 05/06/2017 Foot pain 04/17/2017 Peroneal tendon injury 04/04/2017 Dyslipidemia 10/05/2016 Seasonal allergies 10/05/2016 TIA (transient ischemic attack) 10/05/2016 Trigeminal neuralgia 10/05/2016 Facial pain 09/07/2016 Inflamed gum 08/06/2016 Cervical disc herniation 05/31/2016 Cervical paraspinal muscle spasm 05/30/2016 Depression, unspecified depression type 02/29/20 16 Foraminal stenosis of cervical region 02/27/2016 Arthritis of neck 11/21/2015 Radiculopathy of arm 11/21/2015 Tachycardia 06/13/2015 Hypertension 05/30/2015 Insomnia w/ sleep apnea 10/12/2013 Resolved Problems Problem Noted Date Diagnosed Date Resolved Date Encounter for screening for malignant neoplasm of colon 10/17/2017 12/11/2019 Immunizations Name Administration Dates Next Due Influenza Adult (Generic) 06/21/2016 Social History Tobacco Use Types Packs/Day Years Used Date Smoking Tobacco: Never Sex and Gender Information Value Date Recorded Sex Assigned at Not on file Legal Sex Male 11:38 PM CDT Gender Identity Not on file Sexual Orientation Not on file Last Filed Vital Signs Vital Sign Reading Time Taken Comments Blood Pressure 128/82 10/17/2017 9:26 AM CDT Pulse 93 10/17/2017 9:26 AM CDT Temperature - - Respiratory Rate - - Oxygen Saturation - - Inhaled Oxygen Concentration - - Weight 161.9 kg (357 lb) 10/17/2017 9:26 AM CDT Height 193 cm (6' 4 ) 10/17/2017 9:26 AM CDT Body Mass Index 43.46 10/17/2017 9:26 AM CDT Plan of Treatment Health Maintenance Due Date Last Done Comments ASCVD Statin 1967 Colorectal Cancer Screening Colonoscopy (10 Years) 1967 Annual Physical 1970 Hepatitis C 1985 DTaP, Tdap and Td Vaccines ( 1 - Tdap) 1986 Hepatitis B Vaccines (1 of 3 - 19+ 3-dose series) 1986 ASCVD LDL 05/29/2016 05/30/2015, 11/03/2013 Zoster Vaccines (1 of 2) 2017 COVID-19 Vaccine (1 - 2023-2 5 season) 2023 Influenza Adult (#1) 2023 06/21/2016 Meningococcal B Vaccine Aged Out No l onger eligible based on patient's age to complete this topic Meningococcal Vaccine Aged Out No shanelle sil eligible based on patient's age to complete this topic Pneumococcal Vaccine: Pediatrics (0 to 5 Years) and At-Risk Patients (6 to 64 Years) Aged Out No longer eligible b ased on patient's age to complete this topic RSV Immunizations Under 20 Months Aged Out No longer eligible b ased on patient's age to complete this topic Procedures Procedure Name Priority Date/Time Associated Diagnosis Comments LIPID W/CALC LDL Routine 05/30/2015 11:5 9 AM [employer] from Last 3 Months or Most Recently Relevant to Health Maintenance Results * (ABNORMAL) LIPID W/CALC LDL (05/30/2015 11:59 AM [employer]) CHOLESTEROL 165 <200 MG/DL [facility] TO EPIC CONVERSION TRIGLYCERIDES 178(H) <150 MG/DL [facility] TO EPIC CONVERSION HDL 29(L) >45 MG/DL [facility] T O EPIC CONVERSION LDL (CALCULATED) 100.4 <130 MG/L [facility] TO EPIC CONVERSION CHOL/HDL RATIO 5.7 [facility] OUP TO EPIC CONVERSION Comment: Result Comment: ? INTERPRETATION OF RESULTS NHLBI RECOMMENDED RANGES ? CHOLESTEROL MG/DL ?LDL MG/DL ?DESIRABLE ? <200 ?<130 ?BORDERLINE ?200-239 ? 130-159 ?HIGH RISK ? >240 ?>160 ?? REFERENCE VALUE FOR HDL CHOLESTEROL ?RISK LEVEL ??MALE MG/DL ? FEMALE MG/DL ?DECREASED ?>45 ?>55 ?AVERAGE ? 45 ? 55 ?INCREASED ?<45 ?<55 05/30/2015 11:5 9 AM [employer] 05/30/2015 11:59 AM [employer] Narrative [facility] TO EPIC CONVERSION - 05/30/2015 3:25 PM [employer] Result Communication: Call patient with results us Ryan Francois [employer] Final Result [facility] TO EPIC CONVERSION from Last 3 Months or Most Recently Relevant to Health Maintenance Care Teams Janitor Helper Relationship Specialty Start Date End Date Drake Galvez MD [address] [facility] [address] [place] [address] (work) PCP - General 06/20/16
--- OUTSIDE RECORDS SUMMARY | 2024-04-23 16:34 | XMS_ITS | CONTINUITY OF CARE DOCUMENT ---
Author Name rashida field Address Unknown Organization [facility] Address [address] [facility] [facility] [address] [place] [address] Phone [phone] Care Team Providers Care Magnetic Testing Technician Name Role Phone Yasmine HERNANDEZ, Misael Ayala Unavailable [phone] MISAEL WEST Unavailable MISAEL WEST Unavailable [phone] PROBLEMS Condition Status Date Provider Notes Prediabetes active Misael webster MD Dyslipidemia mixed active Misael ritter MD Chest pain - precordial active Misael Underwood MD HTN active Misael Underwood MD ENCOUNTERS Date Type Provider Location Encounter Diag nosis - In-person encounter Office Visit Misael Underwood MD [facility] Office HTNChest pain - precordialDyslipidemia mixedPrediabetes VITAL SIGNS Date Observation Value Provider Body Mass Index (Ratio) 41.97 kg/m2 Manolo Underwood MD blood pressure, cuff size large Cr tod Bedolla blood pressure, diastolic 70 mm[Hg] Cr tod Bedolla blood pressure, systolic 130 mm[Hg] Cry stal Graeme oxygen saturation, oximetry 98 % Rosemary Bedolla respiratory rate E&M 18 /min Rosemary Bedolla pulse rate 69 /min Rosemary alfaro height E&M 77 [in_i] Rosemary alfaro weight E&M 354 [lb_av] Rosemary alfaro blood pressure, resting Yes Bisi susanne Bedolla ALLERGIES No Known Drug Allergies HISTORY OF MEDICATION USE Medication Status Instructions Dates Provider Indications Com ments BUPROPION HCL ER (XL) 150 MG ORAL TABLET EXTENDED RELEASE 24 HOUR active TAKE 1 TABLET BY MOUTH TWICE A DAY Rosemary Bedolla #180, 90 days supply, Prescribed by NELLY VELASCO, Filled 03/24/2017 ASPIRIN 81 MG ORAL TABLET active take one tablet by mouth once daily Rosemary Bedolla FOLIC ACID 1 MG ORAL TABLET active TAKE 1 TABLET BY MOUTH DAILY Rosemary Bedolla #90, 90 days supply, Prescribed by MISAEL WEST, Filled 04/22/2017 AMITRIPTYLINE HCL 50 MG ORAL TABLET active TAKE 2 TABLET BY MOUTH AT BEDTIME Rosemary Graeme #180, 90 days supply, Prescribed by MISAEL WEST, Filled 05/09/2017 HYDROCHLOROTHIAZIDE 25 MG ORAL TABLET active TAKE 1 TABLET DAILY. Rosemary Graeme #90, 90 days supply, Prescribed by MARCEL MCCONNELL, Filled 05/10/2017 GABAPENTIN 300 MG ORAL CAPSULE active TAKE 3 CAPSULE TWICE DAILY Rosemary Bedolla #180, 30 days supply, Prescribed by MISAEL WEST, Filled 06/11/2017 LIDOCAINE 5 % EXTERNAL PATCH active APPLY ONE PATCH DAILY Rosemary Bedolla #30, 30 days supply, Prescribed by NETO GO, Filled 06/21/2017 METOPROLOL TARTRATE 50 MG ORAL TABLET active TAKE 1 TABLET TWICE DAILY Rosemary Bedolla #60, 30 days supply, Prescribed by MARCEL MCCONNELL, Filled 07/08/2017 SOCIAL HISTORY Date Observation Value Provider social history revie wed E&M reviewed - no changes required Misael Underwood MD social history E&M The patient d oes not use tobacco. He occasionally drinks a lcohol. 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 Misael Underwood MD smoking status Never smoker Rosemary Booker ams FAMILY HISTORY Family Member Condition First Degree Blood Relative No Known Fam linda History INSURANCE PROVIDERS Payer name Policy type / Coverage type [facility] ID [id number] Other [id number] ADVANCE DIRECTIVES Name Date DISCUSSED - NO DECISION MADE TREATMENT PLAN Date Name Performer Cardiology:TG levels are elevated, which is likely related to the prediabetes. Reducing carb intake and losing weight will also help lower TG levels. I plan to repeat a fasting lipid panel later this year for surveillance after lifestyle changes. Misael Underwood MD Cardiology:We discus sed dietary modification, particularly reducing carb intake, at length in an effort to lose weight. I will defer glycemic management to his primary physician. Misael Underwood MD Cardiology:Blood pre ssure is at goal on HCTZ. If needed, I will add an TOMMY inhibitor to his regimen given his comorbid prediabetes and LV hypertrophy. Misael Underwood MD Cardiology:The patie nt had atypical symtoms consistent with a musculoskeletal etiology. He certainly has CAD risk factors, though, and he says he is planning to have R shoulder surgery later this year. I will obtain a nuclear stress test for further risk stratification. Misael Underwood MD HISTORY OF PROCEDURES Procedure Date Procedure Name Provider Procedure Notes S tatus Regadenoson, 4 units Misael Underwood MD completed Cardiolite, 2 units Misael Underwood MD completed SPECT Images Misael Underwood MD completed Stress EKG Misael Underwood MD completed EKG Misael Underwood MD completed
--- OUTSIDE RECORDS SUMMARY | 2024-04-23 16:34 | XMS_ITS | Data Portability ---
Author Organization [place] - [facility] autoContract - [facility] [place] Address [address] [place] [address] Assessment Encounter Date Assessment Date Assessment LastModified by Organization Details LastModified Time 05/11/2022 05/11/2022 Pt here with below diagnosis - pt here for evaluation for their condition, evaluation of their medication use, and discussion for alternative treatments. [email or web address] Not available 05/11/2022 12:02:59 05/14/2022 05/14/2022 Pt being seen today for follow up visit. We discussed patients future use of MMJ. We discussed the risks and benefits. Pt understands that we will certify patient, but the recommendation does not constitute a prescription for medical cannabis. Pt advised to use Cannabis initially as a supplemental medication and not as a replacement for any currently prescribed medical treatment modalities. The documentation details a telehealth encounter with the patient on this date of service. Audio and video communications were used during this encounter to provide a [id number] interactive encounter. Components of this encounter are a culmination of visual and patient-assisted findings. Pt here with below diagnosis - pt here for evaluation for their condition, evaluation of their medication use, and discussion for alternative treatments. [email or web address] Not available 05/14/2022 16:29:26 03/27/2024 03/27/2024 Pt here with below diagnosis - pt here for evaluation for their condition, evaluation of their medication use, and discussion for alternative treatments. The documentation details a telehealth encounter with the patient on this date of service. Audio and video communications were used during this encounter to provide a [id number] interactive encounter. Components of this encounter are a culmination of visual and patient-assisted findings. [email or web address] Not available 03/27/2024 12:39:33 Plan of Treatment Reminders Order Date Submit Date Provider Last Modified By Organization Details Last Modified Time Details Appointments None record ed. Lab None record ed. Referral None record ed. Procedures None record ed. Surgeries None record ed. Imaging None record ed. Medication Orders None record ed. Patient TargetsNo targets recorded. Patient Instructions Encounter Date Encounter Id Patient Instructions Last Modified By Organization Details Last Modified Time 05/11/2022 [id number] prostate cancer: care instructions [email or web address] Not available 05/11/2022 12:03:19 I have discussed the risks and benefits of Medical Marijuana. Pt understands I am not prescribing this medication. I am certifying that this patient has a condition that is recognized by the state as qualifying for medical marijuana and this recommendation does not constitute a prescription for medical cannabis. Pt understands that my physician written certification form does not guarantee Medical Marijuana certification nor does it endorse the patient as needing medical marijuana. Patient understands that Medical Marijuana is a drug that the federal government has classified cannabis as a Schedule I controlled substance. Schedule 1 substances are defined, in part, as having (1) a high potential for abuse; (2) no currently accepted medical use in treatment in the [place]; and (3) a lack of accepted Safety for use under medical supervision. Federal law prohibits the manufacture, distribution and possession of cannabis even in states, which have modified their state laws to treat cannabis as a medicine. Pt also agrees that me, and the [facility] Team are my treating physicians and that we are in charge of treating the patient's conditions and that the patient will make a good adelso effort to remain under my treatment plan and acknowledge there will be follow up visits from this date forward to monitor the patient's condition. Discussed risks and benefits of Medical Marijuana. I have spent time discussing the patients condition, pain/medical management of the patient given their debilitating condition, the risks and benefits of this medication, a history and physical, gathering old medical records to look at the disease processes being evaluated, and answering of all questions. [email or web address] Not available 05/11/2022 12:02:59 05/14/2022 [id number] I have discussed the risks and benefits of Medical Marijuana. Pt understands I am not prescribing this medication. I am certifying that this patient has a condition that is recognized by the state as qualifying for medical marijuana and this recommendation does not constitute a prescription for medical cannabis. Pt understands that my physician written certification form does not guarantee Medical Marijuana certification nor does it endorse the patient as needing medical marijuana. Patient understands that Medical Marijuana is a drug that the federal government has classified cannabis as a Schedule I controlled substance. Schedule 1 substances are defined, in part, as having (1) a high potential for abuse; (2) no currently accepted medical use in treatment in the [place]; and (3) a lack of accepted Safety for use under medical supervision. Federal law prohibits the manufacture, distribution and possession of cannabis even in states, which have modified their state laws to treat cannabis as a medicine. Pt also agrees that me, and the [facility] Care Team are my treating physicians and that we are in charge of treating the patient's conditions and that the patient will make a good adelso effort to remain under my treatment plan and acknowledge there will be follow up visits from this date forward to monitor the patient's condition. Discussed risks and benefits of Medical Marijuana. I have spent time discussing the patients condition, pain/medical management of the patient given their debilitating condition, the risks and benefits of this medication, a history and physical, gathering old medical records to look at the disease processes being evaluated, and answering of all questions. [email or web address] Not available 05/14/2022 16:29:04 03/27/2024 [id number] I have discussed the risks and benefits of Medical Marijuana. Pt understands I am not prescribing this medication. I am certifying that this patient has a condition that is recognized by the state as qualifying for medical marijuana and this recommendation does not constitute a prescription for medical cannabis. Pt understands that my physician written certification form does not guarantee Medical Marijuana certification nor does it endorse the patient as needing medical marijuana. Patient understands that Medical Marijuana is a drug that the federal government has classified cannabis as a Schedule I controlled substance. Schedule 1 substances are defined, in part, as having (1) a high potential for abuse; (2) no currently accepted medical use in treatment in the [place]; and (3) a lack of accepted Safety for use under medical supervision. Federal law prohibits the manufacture, distribution and possession of cannabis even in states, which have modified their state laws to treat cannabis as a medicine. Pt also agrees that me, and the [facility] Care Team are my treating physicians and that we are in charge of treating the patient's conditions and that the patient will make a good adelso effort to remain under my treatment plan and acknowledge there will be follow up visits from this date forward to monitor the patient's condition. Discussed risks and benefits of Medical Marijuana. I have spent a total of 35 mins discussing the patient's condition, pain/medical management of the patient given their debilitating condition, the risks and benefits of this medication, a history and physical, gathering old medical records to look at the disease processes being evaluated, and answering of all questions. [facility] Not available 03/27/2024 12:39:33 Reason for Referral None Reported. Medical Equipment None Reported. Allergies No known drug allergies Medications Name Sig Start Date Stop Date Status Note LastModified by Organization Details LastModified Time bupropion HCl SR 150 mg tablet,12 hr sustained-re lease TAKE 1 TABLET BY MOUTH TWICE A DAY active Not Available Not Available No t Available azithromycin 250 mg tablet TAKE 2 TABLETS BY MOUTH TODAY, THEN TAKE 1 TABLET DAILY FOR 4 DAYS DIRECTED active Not Available Not Available No t Available metoprolol succinate ER 50 mg tablet,exten ded release 24 hr TAKE 1 TABLET BY MOUTH EVERY DAY active Not Available Not Available No t Available hydrocodone 5 mg-acetamino phen 325 mg tablet TAKE 1 TABLET BY MOUTH EVERY 8 HOURS NEEDED FOR PAIN active Not Available Not Available No t Available amlodipine 5 mg tablet TAKE 1 TABLET BY MOUTH EVERY DAY active Not Available Not Available No t Available sulfamethoxa zole 800 mg-trimethop rim 160 mg tablet TAKE 1 TABLET BY MOUTH EVERY 12 HOURS active Not Available Not Available No t Available tramadol 50 mg tablet TAKE 1 TABLET BY MOUTH EVERY 6 HOURS NEEDED FOR PAIN active Not Available Not Available No t Available levothyroxin e 25 mcg tablet TAKE 1 TABLET BY MOUTH EVERY DAY active Not Available Not Available No t Available tamsulosin 0.4 mg capsule TAKE 1 CAPSULE BY MOUTH AT BEDTIME active Not Available Not Available No t Available benzonatate 100 mg capsule TAKE 1 TO 2 CAPSULES BY MOUTH 3 TIMES A DAY NEEDED FOR COUGH. MAX 600 MG/DAY active Not Available Not Available No t Available hyoscyamine 0.125 mg disintegrati ng tablet TAKE 1 TABLET SUBLINGUALL Y EVERY 4 HOURS NEEDED FOR BLADDER SPASM active Not Available Not Available No t Available levothyroxin e 50 mcg tablet TAKE 1 TABLET BY MOUTH DAILY active Not Available Not Available Not Available hydrocodone 7.5 mg-acetamino phen 325 mg tablet TAKE 1 TABLET BY MOUTH EVERY 8 HOURS NEEDED FOR PAIN active Not Available Not Available No t Available metoprolol tartrate 50 mg tablet TAKE 1 TABLET BY MOUTH EVERY DAY active Not Available Not Available No t Available docusate sodium 100 mg capsule TAKE 1 CAPSULE BY MOUTH TWICE A DAY active Not Available Not Available No t Available hydrochlorot hiazide 25 mg tablet TAKE 1 TABLET BY MOUTH EVERY DAY active Not Available Not Available No t Available methylpredni solone 4 mg tablets in a dose pack TAKE 6 TABLETS ON DAY 1 DIRECTED ON PACKAGE AND DECREASE BY 1 TAB EACH DAY FOR A TOTAL OF 6 DAYS active Not Available Not Available No t Available amitriptylin e 100 mg tablet TAKE 1 TABLET (100 MG) BY MOUTH DAILY AT BEDTIME active Not Available Not Available N ot Available amoxicillin 875 mg-potassium clavulanate 125 mg tablet TAKE 1 TABLET BY MOUTH EVERY 12 HOURS active Not Available Not Available No t Available Gemtesa 75 mg tablet TAKE 1 TABLET BY MOUTH EVERY DAY active Not Available Not Available No t Available Vitals None Recorded Social History None recorded. Functional Status None recorded. Mental Status None recorded. Family History Nothing Reported. Medical History No medical history recorded. Past Encounters Encounter ID Performer Location Encounter Start Date Encounter Closed Date Diagnosis/Indication Diagnosis SNOMED-CT Code Diagnosis ICD10 Code Diagnosis Note [id number] [facility] [address] [place] [phone] 05/11/2022 11:41:45 05/11/2022 13:05:48 Malignant tumor of prostate [id number] C61 [id number] AUGUSTINE BOYD NP [facility] [address] [place] [phone] 8 05/14/2022 16:28:46 05/15/2022 14:01:36 Malignant tumor of prostate [id number] C61 [id number] [facility] [address] [place] [phone] 8 03/27/2024 11:17:16 03/27/2024 12:40:46 Malignant tumor of prostate [id number] C61 Health Concerns Section Related Observation LastModified by Organization Detai ls LastModified Time None Recorded Concern Status LastModified by Organization Details LastModified Time None Recorded Advance Directives Directive None Recorded Payers Encounter Date Sequence Insurance Name Policy Number Policy Augustin Covered Member ID Augustin Member ID Guarantor Name 05/11/2022 1 [employer] - CHOICE (POS II) [id number] Ryan Morganer [id number] Damian Gunderson 05/14/2022 1 [employer] - CHOICE (POS II) [id number] Ryan Morganer [id number] Damian Morganer 03/27/2024 1 [employer] - CHOICE (POS II) [id number] Ryan Morganer [id number] Damian Gunderson Notes Date Note Type Note Provider Name and Address Organization Details Recorded Time 05/11/2022 text/html The patient woul d like to discuss medications, the disease, and how to handle it. Pt would also like to discuss alternative treatments to this condition. Pt was referred here for further evaluation and treatment if necessary. Patient has a diagnosis of qualifying condition - PROSTATE NEOPLASM Maryellen Cruz MD [address], [place], [address], [facility] 05/11/2022 12:03:25 05/14/2022 text/html The patient woul d like to discuss medications, the disease, and how to handle it. Pt would also like to discuss alternative treatments to this condition. Pt was referred here for further evaluation and treatment if necessary. Patient has a diagnosis of qualifying condition - CA Pt here for 2nd visit to discuss condition and develop a relationship. We discussed the above and future use of medical marijuana. AUGUSTINE BOYD NP [address], [address], [place], [address], [facility] 05/14/2022 16:29:33 03/27/2024 text/html The patient woul d like to discuss medications, the disease, and how to handle it. Pt would also like to discuss alternative treatments to this condition. Pt was referred here for further evaluation and treatment if necessary. Patient has a diagnosis of qualifying condition - PROSTATE CANCER Maryellen Cruz MD [address], [address], [place], [address], [facility] 03/27/2024 12:39:58
--- OUTSIDE RECORDS SUMMARY | 2024-04-23 16:35 | XMS_ITS | Clinical Summary ---
Author Organization [facility] Address [address] [place] [phone] Care Team Providers Care Dentist Attendant Name Role Phone Tom Boss MD Primary Care Provider Allergies No known active allergies Medications amitriptyline (ELAVIL) 50 mg tablet TAKE 2 TABLET AT BEDTIME. Active aspirin 81 mg tablet Active CALCIUM GLUCONATE ORAL Activ e folic acid (FOLVITE) 800 mcg tablet Active gabapentin (NEURONTIN) 300 mg capsule Active metaxalone (SKELAXIN) 800 mg tabletIndicatio ns:Muscle Spasm Acti ve riboflavin (Vitamin B-2) 100 mg tabletIndicatio ns:Riboflavin Deficiency Active cyanocobalamin (Vitamin B-12) 500 mcg tabletIndicatio ns:Prevention of Vitamin B12 Deficiency Active ergocalciferol (VITAMIN D) 50,000 unit capsule 1 Cap Weekly for 8 weeks 1 Active vitamin D3-folic acid 5,000 unit- 1 mg tablet Active buPROPion (WELLBUTRIN) 100 mg tablet Take 150 mg by mouth 2 (two) times a day Active buPROPion XL (WELLBUTRIN XL) 150 mg 24 hr tablet Take 1 tablet (150 mg total) by mouth 2 (two) times a day 2 8 Active methylPREDNISol one (MEDROL DOSEPACK) 4 mg Dosepack TAKE 6 TABLETS ON DAY 1 DIRECTED ON PACKAGE AND DECREASE BY 1 TAB EACH DAY FOR A TOTAL OF 6 DAYS 0 8 Active LYRICA 100 mg capsule Take 100 mg by mouth 3 (three) times a day 1 9 Active fluticasone propionate (FLONASE) 50 mcg/actuation nasal spray SPRAY 1 SPRAY INTO EACH NOSTRIL EVERY DAY 5 9 Active hydroCHLOROthia zide (HYDRODIURIL) 25 mg tablet Take 1 tablet (25 mg total) by mouth daily 90 tablet 3 9 Active metoprolol tartrate (LOPRESSOR) 50 mg immediate release tablet Take 1 tablet (50 mg total) by mouth 2 (two) times a day 180 tablet 0 Active albuterol HFA (ProAir HFA) 90 mcg/actuation inhaler Take 1-2 puffs by mouth 8 Active amLODIPine (NORVASC) 5 mg tablet amlodipine 5 mg tablet TAKE 1 TABLET BY MOUTH EVERY DAY Active cetirizine (ZyrTEC) 10 mg tablet Take 1 tablet (10 mg total) by mouth daily as needed 7 Active Active Problems Problem Noted Date Diagnosed Date Prostate cancer 09/10/2022 Encounters Date Type Department Care Team Description 02/20/[address] [phone] Mary Lou Weaver RN 02/17/[address] [phone] Mary Lou Weaver RN 02/17/[address] [phone] Mary Lou Weaver RN 02/14/[address] [phone] Referral, Self Appointment Request 02/14/[address] [address] Brittney Ahmadi RN Scheduling Appointments 02/14/[address] [phone] Mary Lou Weaver RN Internet Request from Last 3 Months Immunizations Name Administration Dates Next Due Hep B Vaccine 06/04/2005,12/15/2004,10/31/2004 Influenza, Quadrivalent, Cuca l Culture-based MDCK, Preservative Free, Antibiotic Free, Intramuscular 01/13/2022 Influenza, Quadrivalent, Spl it, Preservative Free, Intramuscular 06/21/2016 Influenza, Trivalent, IM (MDV) 12/31/2015 Influenza, Unspecified 06/21/2016 MMR 10/31/2004 Td, adsorbed 10/31/2004 Medical History Medical History Date Comments Personal history of other en docrine, nutritional and metabolic disease History of diabetes mellitus - (Added by TW Conv) Personal history of other me ntal and behavioral disorders History of depression - (Add ed by TW Conv) Personal history of other di seases of the circulatory system History of hypertension - (A dded by TW Conv) Personal history of other en docrine, nutritional and metabolic disease History of diabetes mellitus - (Added by TW Conv) Personal history of other di seases of the circulatory system History of hypertension - (A dded by TW Conv) Personal history of other me ntal and behavioral disorders History of depression - (Add ed by TW Conv) Family History * Patient is adopted Medical History Relation Name Comments No Known Problems Father No Known Problems Mother Relation Name Status Comments Father Mother Social History Tobacco Use Types Packs/Day Years Used Date Smoking Tobacco: Never Smokeless Tobacco: Never Sex and Gender Information Value Date Recorded Sex Assigned at Not on file 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 Gender Identity Not on file Sexual Orientation Not on file Obstetrics History Last Filed Vital Signs Vital Sign Reading Time Taken Comments Blood Pressure 134/90 09/10/2022 2:40 PM CDT Pulse 108 09/10/2022 2:40 PM CDT Temperature 36.5 ??C (97.7 ??F) 09/10/2022 2:40 PM CD T Respiratory Rate 16 09/10/2022 2:40 PM CDT Oxygen Saturation 91% 09/10/2022 2:40 PM CDT Inhaled Oxygen Concentration - - Weight 153.8 kg (339 lb) 09/10/2022 2:40 PM CDT Height 188.6 cm (6' 2.25 ) 09/10/2022 2:40 PM CD T Body Mass Index 43.23 09/10/2022 2:40 PM CDT Plan of Treatment Health Maintenance Due Date Last Done Comments Colon Cancer Screening-Colonoscopy 1965 Depression Screening 1967 Hepatitis C Screening 1967 Regular Well Visit/Exam 18-64 1985 DTaP/Tdap/Td Vaccine (1 - Tdap) 11/01/2004 10/31/2004 Zoster Vaccine (1 of 2) 2017 Covid-19 Vaccine ( season) 2023 01/13/2022, 02/21/2021, 06/05/2020 Influenza Vaccine (#1) 2023 , 06/21/2016, 06/21/2016, Additional history exists Prostate Cancer Screening-PSA 09/10/2024 09/10/2022 Pneumococcal vaccine <65 Aged Out No longer eligible based on patient's age to complete this topic Procedures Procedure Name Priority Date/Time Associated Diagnosis Comments PSA DIAGNOSTIC Routine 09/10/2022 3:00 PM CDT Prostate cancer (HCC) from Last 3 Months or Most Recently Relevant to Health Maintenance Results * PSA diagnostic (09/10/2022 3:00 PM CDT) PSA-Total 0.27 <=3.90 ng/mL JALEEL LUCERO Comment: Interpretive Data ?AGE ? SEX ?REFERENCE INTERVAL 0 minutes-150 years ?Female ?None 0 minutes-49 years ? Male ?None ? 50-59 years ? Male ?0-3.90 ? 60-69 years ? Male ?0-5.40 ? 70-79 years ? Male ?0-6.20 ? 80-150 years ?Male ?0-6.20 The Brodie PSA Total assay procedure was used. Results from different manufacturers or methods may not be comparable. Serial testing should be performed using the same method. Current interpretive data last revised 21. Blood 09/10/2022 3:00 PM CDT 09/10/2022 6:34 PM CDT us Stan Solorzano MD LAB BLOOD ORDERABLES Final Result [facility] Department [place] [address] from Last 3 Months or Most Recently Relevant to Health Maintenance Insurance [facility] Address: [facility] [id number] [place] [phone] CHOICE PLUS [employer] OPEN [facility] Care Teams Dentist Attendant Relationship Specialty Start Date End Date Tom Boss MD [address] [facility] [address] [place] [address] PCP - General Family Medicine 10/08/18
--- OUTSIDE RECORDS SUMMARY | 2024-04-23 16:35 | XMS_ITS | Referral Summary ---
Author Organization [facility] Address [address] [place] [address] Care Team Providers Care Sales Representative Girls' Apparel Name Role Phone Tom Boss MD Primary Care Provider Encounters Date Type Department Care Team Description 02/20/[address] [phone] Mary Lou Weaver, RN 02/17/[address] [phone] Mary Lou Weaver, RN 02/17/[address] [phone] Mary Lou Weaver, RN 02/14/[address] [address] Referral, Self Appointment Request 02/14/[address] [phone] Brittney Ahmadi RN Scheduling Appointments 02/14/[address] [phone] Mary Lou Weaver, RN Internet Request from Last 3 Months Allergies No known active allergies Medications amitriptyline [...] Noted Date Diagnosed Date Prostate cancer 09/10/2022 Immunizations Name Administration Dates Next Due Hep B Vaccine 06/04/2005,12/15/2004,10/31/2004 Influenza, Quadrivalent, Cuca l Culture-based MDCK, Preservative Free, Antibiotic Free, Intramuscular 01/13/2022 Influenza, Quadrivalent, Spl it, Preservative Free, Intramuscular 06/21/2016 Influenza, Trivalent, IM (MDV) 12/31/2015 Influenza, Unspecified 06/21/2016 MMR 10/31/2004 Td, adsorbed 10/31/2004 Social History Tobacco Use Types Packs/Day Years Used Date Smoking Tobacco: Never Smokeless Tobacco: Never Sex and Gender Information Value Date Recorded Sex Assigned at Not on file 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 Gender Identity Not on file Sexual Orientation [...] 09/10/2022 2:40 PM CDT Plan of Treatment Not on file Procedures Procedure Name Priority Date/Time Associated Diagnosis [...] 3:00 PM CDT 09/10/2022 6:34 PM CDT Stan Solorzano MD LAB BLOOD ORDERABLES Final Result Performing Organization Address City/State/[facility] Co de Phone Number [facility] Department [place] [address] from Last 3 Months or Most Recently Relevant to Health Maintenance Insurance [facility] CHOICE PLUS [employer] OPEN ACCESS [facility] Care Teams Sales Representative Girls' Apparel Relationship Specialty Start Date End Date Tom Boss MD [address] [facility] [address] [place] [address] PCP - General Family Medicine 10/08/18
== END 2024-04-21 09:04 | disposition home or self-care (01) ==
PROVIDERS: PCP Family Medicine; Visit Provider Urology
DX: N20.0 Calculus of kidney (principal); K80.20 Calculus of gallbladder without cholecystitis without obstruction; K76.0 Fatty (change of) liver, not elsewhere classified; N13.30 Unspecified hydronephrosis
CPT/HCPCS: 74178; Q9967

== ENCOUNTER 2024-06-12 09:41 | Outpatient (CLI) | payer OTHER, SELFPAY ==
--- OUTSIDE RECORDS SUMMARY | 2024-06-12 10:21 | XMS_ITS | Referral Summary ---
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 Results from different manufacturers or methods may not be comparable. Serial testing should be performed using the same method. Current interpretive data last revised 21. Blood 09/10/2022 3:00 PM CDT 09/10/2022 6:34 PM CDT us Stan Solorzano MD LAB BLOOD ORDERABLES Final Result [facility] One [facility] Department [place] [address] from Last 3 Months or Most Recently Relevant to Health Maintenance Insurance [facility] CHOICE PLUS HEALTHLINK OPEN ACCESS [facility] Care Teams Dental Receptionist Relationship Specialty Start Date End Date Tom Boss MD [address] [facility] [address] [place] [address] PCP - General Family Medicine 10/08/18
--- OUTSIDE RECORDS SUMMARY | 2024-06-12 10:21 | XMS_ITS | CONTINUITY OF CARE DOCUMENT ---
Author Name rashida field Address Unknown Organization [facility] Address [address] [place] [address] Phone [phone] Care Team Providers Care Foundry Manager Name Role Phone Yasmine HERNANDEZ, Misael Ayala Unavailable [phone] MISAEL WEST Unavailable MISAEL WEST Unavailable PROBLEMS Condition Status Date Provider Notes Prediabetes active Misael webster MD Dyslipidemia mixed active Misael ritter MD Chest pain - precordial active Misael Underwood MD HTN active Misael Underwood MD ENCOUNTERS Date Type Provider Location Encounter Diag nosis - In-person encounter Office Visit Misael Underwood MD [facility] Office HTNChest pain - precordialDyslipidemia [...] Rosemary alfaro height E&M 77 [in_i] Rosemary alfaor weight E&M 354 [lb_av] Rosemary alfaro blood [...] 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 Misael Underwood MD smoking status Never smoker Rosemary Booker ams FAMILY HISTORY Family Member Condition First Degree Blood Relative No Known Fam linda History INSURANCE PROVIDERS Payer name Policy type / Coverage type [facility] [place] [id number] Other [id number] ADVANCE DIRECTIVES Name Date DISCUSSED - NO [...]
--- OUTSIDE RECORDS SUMMARY | 2024-06-12 10:21 | XMS_ITS | Data Portability ---
Author Organization [place] [facility] - [facility] [place] Address [address] [place] [address] Assessment Encounter Date Assessment Date Assessment LastModified [...] used during this encounter to provide a pqet-cf-rupi interactive encounter. Components of this encounter are [...] used during this encounter to provide a epqk-hh-xcew interactive encounter. Components of this encounter are [...] By Organization Details Last Modified Time 05/11/2022 [id number] prostate cancer: care instructions [email or web address] Not available [...] Pt also agrees that me, and the [facility] Team are my treating physicians and that [...] questions. [email or web address] Not available 05/11/2022 12:02:59 05/14/2022 [id number] I have discussed the risks and benefits [...] Pt also agrees that me, and [facility] are my treating physicians and [...] questions. [email or web address] Not available 05/14/2022 16:29:04 03/27/2024 [id number] I have discussed the risks and benefits [...] Pt also agrees that me, and [facility] are my treating physicians and [...] being evaluated, and answering of all questions. [facility] Not available 03/27/2024 12:39:33 Reason for Referral [...] SNOMED-CT Code Diagnosis ICD10 Code Diagnosis Note [id number] [facility] [address] [place] [address] 05/11/2022 11:41:45 05/11/2022 13:05:48 Malignant tumor of prostate [id number] C61 [id number] AUGUSTINE BOYD NP [facility] [address] [place] [address] 05/14/2022 16:28:46 05/15/2022 14:01:36 Malignant tumor of prostate [id number] C61 [id number] Maryellen Cruz MD [facility] [address] [place] [address] 8 03/27/2024 11:17:16 03/27/2024 12:40:46 Malignant tumor of prostate [id number] C61 Health Concerns Section Related Observation LastModified by Organization Detai ls LastModified Time None Recorded Concern Status LastModified by Organization Details LastModified Time None Recorded Advance Directives Directive None Recorded Payers Encounter Date Sequence Insurance Name Policy Number Policy Augustin Covered Member ID Augustin Member ID Guarantor Name 05/11/2022 1 AET[employer] - CHOICE (POS II) [id number] Ryan Morganer [id number] Damian Gunderson 05/14/2022 1 AET[employer] - CHOICE (POS II) [id number] Ryan Morganer [id number] 5 Damian Morganer 03/27/2024 1 AET[employer] - CHOICE (POS II) [id number] Ryan Morganer [id number] Damian Gunderson Notes Date Note Type [...] Maryellen Cruz MD [address], [place], [address], [facility] 05/11/2022 12:03:25 05/14/2022 text/html The [...] BOYD NP [address], [address], [place], [address], [facility] 05/14/2022 16:29:33 03/27/2024 text/html The patient woul d like to discuss medications, the disease, and how to handle it. Pt would also like to discuss alternative treatments to this condition. Pt was referred here for further evaluation and treatment if necessary. Patient has a diagnosis of qualifying condition - PROSTATE CANCER Maryellen Cruz MD [address], [address], [place], [address], [facility] - [facility] 03/27/2024 12:39:58
--- OUTSIDE RECORDS SUMMARY | 2024-06-12 10:21 | XMS_ITS | Clinical Summary ---
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 Gender Identity Not on file Sexual Orientation [...] 01/13/2022, 02/21/2021, 06/05/2020 Influenza Vaccine (#1) 2023 2, 06/21/2016, 06/21/2016, Additional history exists Prostate Cancer Screening-PSA 09/10/2024 09/10/2022 Hepatitis B Screening Completed 06/04/2005 , 12/15/2004, 10/31/2004 Pneumococcal vaccine <65 Aged Out No longer [...] MD LAB BLOOD ORDERABLES Final Result JALEEL LUCERO One [facility] Department [place] [address] from Last 3 Months or Most Recently Relevant to Health Maintenance Insurance [facility] CHOICE PLUS HEALTHLINK OPEN ACCESS [facility] Care Teams Ict Help Desk Technician Relationship Specialty Start Date End Date Tom Boss MD [address] [facility] [address] [place] [id number] PCP - General Family Medicine 10/08/18
[2024-06-12 10:57] LABS: Alanine Aminotransferase 51 U/L (6-50); Albumin Level 4.3 g/dL (3.5-5.1); Alkaline Phosphatase 96 U/L (38-126); Anion Gap 11 mmol/L (4-12); Aspartate Amino Transferase 32 U/L (17-59); Bilirubin,Total 0.8 mg/dL (0.2-1.3); Blood Urea Nitrogen 21 mg/dL (9-20); Calcium 9.5 mg/dL (8.4-10.2); Carbon Dioxide 28 mmol/L (22-30); Chloride 100 mmol/L (98-107); Cholesterol 172 mg/dL (0-200); Estimated Glomerular Filt Rate > 60; Glucose 126 mg/dL (65-110); HDL Direct 33 mg/dL; LDL Cholesterol Direct 98 mg/dL; Potassium 3.7 mmol/L (3.4-5.0); Sodium 139 mmol/L (137-145); Triglycerides 158 mg/dL (<150)
[2024-06-12 11:06] LABS: Basophils Absolute Auto 0.1 K/mm3 (0.0-0.1); Eosinophils Absolute Auto 0.1 K/mm3 (0-0.3); Eosinophils Percent Auto 2.4 % (0-4.4); Hematocrit 42.4 % (42.0-52.0); Hemoglobin 13.8 g/dL (14.0-18.0); Immature Granulocyte Absolute 0.04 K/mm3 (0.00-0.031); Immature Granulocyte Percent A 0.8 % (0-0.5); Lymphocytes Absolute Auto 0.79 K/mm3 (0.9-3.2); Lymphocytes Percent Auto 15.9 % (18.3-44.2); Mean Corpuscular HGB Conc 32.5 g/dl (32-36); Mean Corpuscular Hemoglobin 28.8 pg (26-34); Mean Corpuscular Volume 88.5 fl (80-100); Mean Platelet Volume 9.6 fl (7.4-10.4); Monocytes Absolute Auto 0.6 K/mm3 (0.1-0.6); Monocytes Percent Auto 12.3 % (2.6-8.5); Neutrophils Absolute Auto 3.4 K/mm3 (1.3-6.7); Neutrophils Percent Auto 67.6 % (45.5-73.1); Platelet Count Result 168 k/mm3 (150-375); Red Blood Count 4.79 M/mm3 (4.6-6.20); Red Cell Distribution Width 14.2 % (11.5-14.5)
[2024-06-12 11:15] LABS: Vitamin D 25 Hydroxy 57.6 ng/mL
[2024-06-12 11:30] LABS: Iron 60 ug/dL (49-181)
[2024-06-12 11:34] LABS: Percent Iron Saturation 17 % (20-50)
[2024-06-12 12:01] LABS: Folic Acid > 20.0 ng/mL (2.76->20)
[2024-06-15 17:58] LABS: Lead, Blood 2.6 mcg/dL (<3.5)
== END 2024-06-12 09:42 | disposition home or self-care (01) ==
LOC: ANHLAB 09:46
PROVIDERS: PCP Family Medicine; Visit Provider Physician Assistant Medical
DX: Z00.00 Encounter for general adult medical examination without abnormal findings (principal); G60.9 Hereditary and idiopathic neuropathy, unspecified; R73.01 Impaired fasting glucose; I10 Essential (primary) hypertension; L29.89 Other pruritus; R29.818 Other symptoms and signs involving the nervous system; Z77.011 Contact with and (suspected) exposure to lead
CPT/HCPCS: 36415; 80053; 80061; 82306; 82607; 82728; 82746; 83540; 83550; 83655; 84443; 85025

== ENCOUNTER 2024-06-25 09:08 | Outpatient (CLI) | payer OTHER, SELFPAY ==
--- OUTSIDE RECORDS SUMMARY | 2024-06-25 09:39 | XMS_ITS | CONTINUITY OF CARE DOCUMENT ---
Author Name rashida field Address Unknown Organization [facility] Address [address] [place] [address] Phone [phone] Care Team Providers Care Hand Crocheter Name Role Phone Yamsine HERNANDEZ, Misael Ayala Unavailable [phone] MISAEL WEST Unavailable [phone] MISAEL WEST Unavailable [phone] PROBLEMS Condition Status Date Provider Notes Prediabetes active Misael webster MD Dyslipidemia mixed active Misael ritter MD Chest pain - precordial active Misael Underwood MD HTN active Misael Underwood MD ENCOUNTERS Date Type Provider Location Encounter Diag nosis - In-person encounter Office Visit Misael Underwood MD [facility] Office HTNChest pain - precordialDyslipidemia mixedPrediabetes VITAL [...] 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 Misael Underwood MD smoking status Never smoker Rosemary Booker ams FAMILY HISTORY Family Member Condition First Degree Blood Relative No Known Fam linda History INSURANCE PROVIDERS Payer name Policy type / Coverage type [facility] [place] [id number] Other [id number] ADVANCE DIRECTIVES Name Date DISCUSSED - NO [...]
--- OUTSIDE RECORDS SUMMARY | 2024-06-25 09:40 | XMS_ITS | Referral Summary ---
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 Gender Identity Not on file Sexual Orientation [...] Solorzano MD LAB BLOOD ORDERABLES Final Result [facility] One [facility] Department [place] [address] from Last 3 Months or Most Recently Relevant to Health Maintenance Insurance [facility] CHOICE PLUS [facility] HMO/PPO Address: [address] [address] [place] [address] HE[facility]LINK OPEN ACCESS [facility] Care Teams Pen Maker Relationship Specialty Start Date End Date Tom Boss MD [address] [facility] [address] [place] [address] PCP - General Family Medicine 10/08/18
--- OUTSIDE RECORDS SUMMARY | 2024-06-25 09:40 | XMS_ITS | Clinical Summary ---
Author Organization [facility] Address [facility] [place] [address] Care Team Providers Care Poultry Offal Worker Name Role Phone Drake Galvez MD Primary [...] W/CALC LDL Routine 05/30/2015 11:5 9 AM PAYROLL AND BENEFITS ANALYST from Last 3 Months or Most Recently Relevant to Health Maintenance Results * (ABNORMAL) LIPID W/CALC LDL (05/30/2015 11:59 AM PAYROLL AND BENEFITS ANALYST) CHOLESTEROL 165 <200 MG/DL [facility] TO EPIC CONVERSION TRIGLYCERIDES 178(H) <150 MG/DL [facility] TO EPIC CONVERSION HDL 29(L) >45 MG/DL [facility] T O EPIC CONVERSION LDL (CALCULATED) 100.4 <130 MG/L [facility] TO EPIC CONVERSION CHOL/HDL RATIO 5.7 [facility] OUP TO EPIC CONVERSION Comment: Result Comment: INTERPRETATION OF RESULTS NHLBI RECOMMENDED RANGES CHOLESTEROL MG/DL LDL MG/DL DESIRABLE <200 <130 BORDERLINE 200-239 130-159 HIGH RISK >240 >160 REFERENCE VALUE FOR HDL CHOLESTEROL RISK LEVEL MALE MG/DL FEMALE MG/DL DECREASED >45 >55 AVERAGE 45 55 INCREASED <45 <55 05/30/2015 11:5 9 AM PAYROLL AND BENEFITS ANALYST 05/30/2015 11:59 AM PAYROLL AND BENEFITS ANALYST Narrative [facility] TO EPIC CONVERSION - 05/30/2015 3:25 PM PAYROLL AND BENEFITS ANALYST Result Communication: Call patient with results Ryan Francois CEMENTING BULK MATERIAL OPERATOR LABORATORY Final Result [facility] TO EPIC CONVERSION from Last 3 Months or Most Recently Relevant to Health Maintenance Care Teams Poultry Offal Worker Relationship Specialty Start Date End Date Drake Galvez MD [address] [facility] [address] [place] [address] PCP - General 06/20/16
--- OUTSIDE RECORDS SUMMARY | 2024-06-25 09:40 | XMS_ITS | Encounter Summary ---
Author Organization [facility] Address [address] [place] [address] Care Team Providers Care Classroom Technology Coach Name Role Phone Drake Galvez MD Primary Care Provider [phone] Encounter Details Date Type Department Care Team (Late st Contact Info) Description 12/05/2017 Abstract [facility] CONVERSION [address] [place], [place] [id number] , Generic Conversion, Social History Tobacco Use [...] on filedocumented in this encounter Care Teams Classroom Technology Coach Relationship Specialty Start Date End Date Drake Galvez MD [address] [address] PCP - General 06/20/16 documented as of this encounter
--- OUTSIDE RECORDS SUMMARY | 2024-06-25 09:40 | XMS_ITS | Clinical Summary ---
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
[2024-06-25 10:05] LABS: Hematocrit 40.7 % (42.0-52.0); Hemoglobin 13.2 g/dL (14.0-18.0); Mean Corpuscular HGB Conc 32.4 g/dl (32-36); Mean Corpuscular Hemoglobin 28.8 pg (26-34); Mean Corpuscular Volume 88.7 fl (80-100); Mean Platelet Volume 9.4 fl (7.4-10.4); Platelet Count Result 144 k/mm3 (150-375); Red Blood Count 4.59 M/mm3 (4.6-6.20); Red Cell Distribution Width 14.2 % (11.5-14.5); White Blood Count 4.6 K/mm3 (4.5-10.0)
[2024-06-25 10:34] LABS: Hemoglobin A1C 6.8 % (<5.7)
[2024-06-25 11:31] LABS: Folic Acid > 20.0 ng/mL (2.76->20)
== END 2024-06-25 09:09 | disposition home or self-care (01) ==
LOC: ANHLAB 09:09
PROVIDERS: PCP Family Medicine; Visit Provider Physician Assistant Medical
DX: D64.9 Anemia, unspecified (principal); R79.89 Other specified abnormal findings of blood chemistry
CPT/HCPCS: 36415; 82607; 82746; 83036; 85027

== ENCOUNTER 2024-08-04 13:07 | Outpatient (CLI) | payer OTHER, SELFPAY ==
--- OUTSIDE RECORDS SUMMARY | 2024-08-04 13:18 | XMS_ITS | Clinical Summary ---
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
--- OUTSIDE RECORDS SUMMARY | 2024-08-04 13:18 | XMS_ITS | Clinical Summary ---
Author Organization [facility] Address [facility] [place] [address] Care Team Providers Care Cashier Ticket Selling Name Role Phone Drake Galvez MD Primary [...] malignant neoplasm of colon 10/17/2017 12/11/2019 Immunizations Immunization Administration Dates Next Due Influenza Adult (Generic) [...] series) 1986 ASCVD LDL 05/29/2016 05/30/2015, 11/03/2013 Pneumococcal Vaccine: 50+ Years (1 of 1 - PCV) 2017 Zoster Vaccines (1 of 2) 2017 COVID-19 Vaccine ( - 2023-2 5 season) 2023 Meningococcal B Vaccine Aged Out No l [...] W/CALC LDL Routine 05/30/2015 11:5 9 AM OPERATIONAL INTELLIGENCE ANALYST from Last 3 Months or Most Recently Relevant to Health Maintenance Results * (ABNORMAL) LIPID W/CALC LDL (05/30/2015 11:59 AM OPERATIONAL INTELLIGENCE ANALYST) CHOLESTEROL 165 <200 MG/DL [facility] TO [...] INCREASED <45 <55 05/30/2015 11:5 9 AM OPERATIONAL INTELLIGENCE ANALYST 05/30/2015 11:59 AM OPERATIONAL INTELLIGENCE ANALYST Narrative [facility] TO EPIC CONVERSION - 05/30/2015 3:25 PM OPERATIONAL INTELLIGENCE ANALYST Result Communication: Call patient with results us Ryan Francois CLUTCH OPERATOR LABORATORY Final Result [facility] TO EPIC CONVERSION from Last 3 Months or Most Recently Relevant to Health Maintenance Care Teams Cashier Ticket Selling Relationship Specialty Start Date End Date Drake Galvez MD [address] [facility] [address] [place] [address] PCP - General 06/20/16
--- OUTSIDE RECORDS SUMMARY | 2024-08-04 13:18 | XMS_ITS | Data Portability ---
Author Organization [place] [facility] - [facility] [place] Address [address] [place] [address] Assessment Encounter Date Assessment Date Assessment LastModified [...] used during this encounter to provide a jhpf-ox-jhft interactive encounter. Components of this encounter are [...] used during this encounter to provide a lpkv-an-uzpr interactive encounter. Components of this encounter are [...] By Organization Details Last Modified Time 05/11/2022 [id number] prostate cancer: care instructions [email or web address] Not available [...] questions. [email or web address] Not available 05/11/2022 12:02:59 05/14/2022 [id number] I have discussed the risks and benefits [...] Pt also agrees that me, and the [facility] Care Team are my treating physicians and [...] questions. [email or web address] Not available 05/14/2022 16:29:04 03/27/2024 [id number] I have discussed the risks and benefits [...] Pt also agrees that me, and the [facility] Care Team are my treating physicians and [...] being evaluated, and answering of all questions. [facility] Not available 03/27/2024 12:39:33 Reason for [...] SNOMED-CT Code Diagnosis ICD10 Code Diagnosis Note [id number] Maryellen Cruz MD [facility] [address] [place] [address] 05/11/2022 11:41:45 05/11/2022 13:05:48 Malignant neoplasm of prostate [id number] C61 [id number] AUGUSTINE BOYD NP [facility] [address] [place] [address] 05/14/2022 16:28:46 05/15/2022 14:01:36 Malignant neoplasm of prostate [id number] C61 [id number] Maryellen Cruz MD [facility] [address] [place] [address] 03/27/2024 11:17:16 03/27/2024 12:40:46 Malignant neoplasm of prostate [id number] C61 Health Concerns Section Related Observation LastModified by Organization Detai ls LastModified Time None Recorded Concern Status LastModified by Organization Details LastModified Time None Recorded Advance Directives Directive None Recorded Payers Encounter Date Sequence Insurance Name Policy Number Policy Augustin Covered Member ID Augustin Member ID Guarantor Name 05/11/2022 1 AETNA - CHOICE (POS II) [id number] Ryan Morganer [id number] 5 Damian Gunderson 05/14/2022 1 AETNA - CHOICE (POS II) [id number] Ryan Morganer [id number] 5 Damian Morganer 03/27/2024 1 AETNA - CHOICE (POS II) [id number] Ryan Morganer [id number] 5 Damian Gunderson Notes Date Note Type [...] Maryellen Cruz MD [address], [place], [address], [facility] 05/11/2022 12:03:25 05/14/2022 text/html The [...] BOYD NP [address], [place], [address], [facility] 05/14/2022 16:29:33 03/27/2024 text/html The patient woul d like to discuss medications, the disease, and how to handle it. Pt would also like to discuss alternative treatments to this condition. Pt was referred here for further evaluation and treatment if necessary. Patient has a diagnosis of qualifying condition - PROSTATE CANCER Maryellen Cruz MD [address], [place], [address], [facility] - [facility] 03/27/2024 12:39:58
--- OUTSIDE RECORDS SUMMARY | 2024-08-04 13:18 | XMS_ITS | Encounter Summary ---
Author Organization [facility] Address [address] [place] [address] Care Team Providers Care Gas Station Supervisor Name Role Phone Drake Galvez MD Primary Care Provider [phone] Encounter Details Date Type Department Care Team (Late st Contact Info) Description 12/05/2017 Abstract [facility] CONVERSION [address] [place], [place] [id number] , Generic Conversion, Social History Tobacco Use [...] on filedocumented in this encounter Care Teams Gas Station Supervisor Relationship Specialty Start Date End Date Drake Galvez MD [address] [address] PCP - General 06/20/16 documented as of this encounter
--- OUTSIDE RECORDS SUMMARY | 2024-08-04 13:18 | XMS_ITS | Referral Summary ---
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 Gender Identity Not on file Sexual Orientation [...] Solorzano MD LAB BLOOD ORDERABLES Final Result [facility] One [facility] Department [place] [address] from Last 3 Months or Most Recently Relevant to Health Maintenance Insurance [facility] CHOICE PLUS [facility] HMO/PPO Address: [address] [address] [place] [address] [facility] OPEN ACCESS [facility] Care Teams Warp Drawer Relationship Specialty Start Date End Date Tom Boss MD [address] [facility] [address] [place] [address] PCP - General Family Medicine 10/08/18
--- OUTSIDE RECORDS SUMMARY | 2024-08-04 13:18 | XMS_ITS | CONTINUITY OF CARE DOCUMENT ---
Author Name rashida field Address Unknown Organization [facility] Address [address] [place] [address] Phone [phone] Care Team Providers Care Women'S Garment Fitter Name Role Phone Yasmine HERNANDEZ, Misael Ayala Unavailable [phone] MISAEL WEST Unavailable MISAEL WEST Unavailable [phone] PROBLEMS Condition Status Date Provider Notes HTN active Misael Underwood MD Dyslipidemia mixed active Misael ritter MD Prediabetes active Misael webster MD Chest pain - precordial active Misael Underwood MD ENCOUNTERS Date Type Provider Location Encounter Diag nosis - In-person encounter Office Visit Misael Underwood MD 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 Misael Underwood MD smoking status Never smoker Rosemary Booker ams FAMILY HISTORY Family Member Condition First Degree Blood Relative No Known Fam linda History INSURANCE PROVIDERS Payer name Policy type / Coverage type Replaced by [facility] [place] [id number] Other [id number] ADVANCE DIRECTIVES Name Date DISCUSSED - NO [...]
--- NOTE | 2024-08-04 14:40 | NEURO_ITS ---
Impression: # Known diabetic complains of increasing numbness of upper and lower extremities. ? 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 ? # Superimposed bilateral Carpal Tunnel Syndrome and right ulnar neuropathy across the elbow. ? # Abnormal needle/EMG exam with neurogenic changes. Nerve Conduction Studies Anti Sensory Summary Table ?Stim Site NR Peak (ms) P-T Amp (?V) Site1 Site2 Delta-P (ms) Dist (cm) Constantine (m/s) Left Median Anti Sensory (2-3nd Digit) Wrist ? 4.2 31.1 Wrist 2-3nd Digit 4.2 14.0 33 Wrist ? 4.6 21.9 Wrist 2-3nd Digit 4.2 14.0 33 Right Median Anti Sensory (2-3nd Digit) Wrist ? 5.0 15.5 Wrist 2-3nd Digit 5.0 14.0 28 Wrist ? 5.8 28.3 Wrist 2-3nd Digit 5.0 14.0 28 Left Radial Anti Sensory (Base 1st Digit) Wrist ? 2.7 4.6 Wrist Base 1st Digit 2.7 0.0 Right Radial Anti Sensory (Base 1st Digit) Wrist ? 2.9 7.6 Wrist Base 1st Digit 2.9 0.0 Left Sup Fibular Anti Sensory (Ant Lat Mall)??? NO RESPONSE 14 cm NR 14 cm Ant Lat Mall 16.0 Right Sup Fibular Anti Sensory (Ant Lat Mall)??? NO RESPONSE 14 cm NR 14 cm Ant Lat Mall 16.0 Left Sural Anti Sensory (Lat Mall)??? NO RESPONSE Calf NR Calf Lat Mall 16.0 Right Sural Anti Sensory (Lat Mall)??? NO RESPONSE Calf NR Calf Lat Mall 16.0 Left Ulnar Anti Sensory (5th Digit) Wrist ? 3.2 30.7 Wrist 5th Digit 3.2 14.0 44 Right Ulnar Anti Sensory (5th Digit) Wrist ? 2.8 64.6 Wrist 5th Digit 2.8 14.0 50 Motor Summary Table ?Stim Site NR Onset (ms) O-P Amp (mV) Site1 Site2 Delta-0 (ms) Dist (cm) Constantine (m/s) Left Median Motor (Abd Poll Brev) Wrist ? 5.0 5.9 Elbow Wrist 5.7 35.0 61 Elbow ? 10.7 3.9 Right Median Motor (Abd Poll Brev) Wrist ? 5.6 3.5 Elbow Wrist 6.2 32.0 52 Elbow ? 11.8 4.2 Left Peroneal Motor (Vastus Med)??? NO RESPONSE Ankle NR Popit Ankle 0.0 Popit NR Right Peroneal Motor (Vastus Med)??? NO RESPONSE Ankle NR Popit Ankle 0.0 Popit NR Left Tibial Motor (Abd Cheema Brev)??? NO RESPONSE Ankle NR Knee Ankle 0.0 Knee NR Right Tibial Motor (Abd Cheema Brev) Ankle ? 5.6 0.2 Knee Ankle 14.5 47.0 32 Knee ? 20.1 0.3 Left Ulnar Motor (Abd Dig Minimi) Wrist ? 2.9 5.9 A Elbow Wrist 6.5 35.0 54 A Elbow ? 9.4 3.0 B Elbow Wrist 5.5 27.0 49 B Elbow ? 8.4 1.5 Right Ulnar Motor (Abd Dig Minimi) Wrist ? 2.8 3.9 A Elbow Wrist 7.6 34.0 45 A Elbow ? 10.4 2.4 B Elbow Wrist 5.9 24.0 41 B Elbow ? 8.7 1.1 F Wave Studies ?NR F-Lat (ms) L-R F-Lat (ms) Left Median (Mrkrs) (Abd Poll Brev) ? 35.34 0.38 Right Median (Mrkrs) (Abd Poll Brev) ? 34.96 0.38 Left Peroneal (Mrkrs) (EDB)??? NO RESPONSE NR Right Peroneal (Mrkrs) (EDB)??? NO RESPONSE NR Left Tibial (Mrkrs) (Abd Hallucis)??? NO RESPONSE NR Right Tibial (Mrkrs) (Abd Hallucis)??? NO RESPONSE NR Left Ulnar (Mrkrs) (Abd Dig Min) ? 35.14 0.78 Right Ulnar (Mrkrs) (Abd Dig Min) ? 35.92 0.78 EMG ?Side Muscle Nerve Root Ins Act Fibs Amp Dur Recrt Comment Right 1stDorInt Ulnar C8-T1 Nml Nml Nml >12ms Nml Right Ext Indicis Radial (Post Int) C7-8 Nml Nml Nml >12ms Nml Right Ext Digitorum Radial (Post Int) C7-8 Nml Nml Nml >12ms Nml Right BrachioRad Radial C5-6 Nml Nml Nml >12ms Nml Right PronatorTeres Median C6-7 Nml Nml Nml >12ms Nml Right Abd Poll Brev Median C8-T1 Nml Nml Nml >12ms Nml Right ABD Dig Min Ulnar C8-T1 Nml Nml Nml >12ms Nml Right FlexPolLong Median (Ant Int) C7-8 Nml Nml Nml Nml Nml Right Abd Poll Long Radial (Post Int) C7-8 Nml Nml Nml Nml Nml Right AntTibialis Dp Br Fibular L4-5 Nml Nml Nml >12ms Nml Right Gastroc Tibial S1-2 Nml Nml Nml >12ms Nml Right Fibularis Long Sup Br Fibular L5-S1 Nml Nml Nml >12ms Nml Right Flex Dig Long Tibial L5-S2 Nml Nml Nml >12ms Nml Right Ext Dig Brev Dp Br Fibular L5, S1 Nml Nml Nml >12ms Nml Right QuadratusFem QuadFemoris L4-5, S1 Nml Nml Nml Nml Nml Left AntTibialis Dp Br Fibular L4-5 Nml Nml Nml >12ms Nml Left Gastroc Tibial S1-2 Nml Nml Nml >12ms Nml Left Fibularis Long Sup Br Fibular L5-S1 Nml Nml Nml >12ms Nml Left Flex Dig Long Tibial L5-S2 Nml Nml Nml >12ms Nml Left Ext Dig Brev Dp Br Fibular L5, S1 Nml Nml Nml >12ms Nml Left QuadratusFem QuadFemoris L4-5, S1 Nml Nml Nml Nml Nml Left 1stDorInt Ulnar C8-T1 Nml Nml Nml Nml Nml Left Ext Indicis Radial (Post Int) C7-8 Nml Nml Nml >12ms Nml Left Ext Digitorum Radial (Post Int) C7-8 Nml Nml Nml >12ms Nml Left BrachioRad Radial C5-6 Nml Nml Nml >12ms Nml Left PronatorTeres Median C6-7 Nml Nml Nml >12ms Nml Left Abd Poll Brev Median C8-T1 Nml Nml Nml Nml Nml Left ABD Dig Min Ulnar C8-T1 Nml Nml Nml Nml Nml Left FlexPolLong Median (Ant Int) C7-8 Nml Nml Nml Nml Nml Left Abd Poll Long Radial (Post Int) C7-8 Nml Nml Nml Nml Nml MTDD
== END 2024-08-04 13:08 | disposition home or self-care (01) ==
LOC: ANHNEURO 13:08
PROVIDERS: PCP Family Medicine; Visit Provider Physician Assistant Medical
DX: G60.9 Hereditary and idiopathic neuropathy, unspecified (principal); G56.01 Carpal tunnel syndrome, right upper limb
CPT/HCPCS: 95886; 95913

== ENCOUNTER 2024-08-28 10:23 | Outpatient (CLI) | payer OTHER, SELFPAY ==
--- NOTE | 2024-08-28 10:34 | ECG_ITS ---
Test Date: 2024-08-28 10:51:05 Measurements Intervals [place] Rate: 75 P: 0 AK: 164 QRS: -36 QRSD: 107 T: 41 QT: 409 QTc: 457 Interpretive Statements SINUS RHYTHM MARKED LEFT AXIS DEVIATION [QRS AXIS < -30] No previous ECG available for comparison Electronically Signed On 08-28-2024 15:08:45 CDT by Marianna Middleton M.D.
--- OUTSIDE RECORDS SUMMARY | 2024-08-28 10:39 | XMS_ITS | Clinical Summary ---
Author Organization [facility] Address [address] Attn: Epic Prelude ADT CATALINA MOODY [address] Care Team Providers Care Clinic Receptionist Name Role Phone Unavailable Primary Care Provider Unavailabl e Social History Tobacco Use Types Packs/Day Years Used Date Smoking Tobacco: Never Assessed Sex and Gender Information Value Date Recorded Sex Assigned at Not on file Legal Sex Male 3:16 PM CDT Gender Identity Not on file Sexual Orientation Not on file Plan of Treatment Upcoming Encounters Date Type Department Care Team (Late st Contact Info) Description 01/06/2025 1:30 PM CDT Office Visit [facility] Oncology and Hematology - [place] [address] [place] [address] [facility] [address] [place] [address] Chandan Orona MD [address] [place] [address] Health Maintenance Due Date Last Done Comments DTAP/TDAP/TD VACCINES (1 - Tdap) 1986 HEPATITIS B VACCINES (1 of 3 - 19+ 3-dose series) 04/02 COLORECTAL SCREENING 2012 Colorectal Cancer Screening 2012 FIT-DNA Q 3 years 2012 FIT/FOBT Q 1 year 2012 Flex Sig/CT Colonography Q 5 years 2012 ZOSTER VACCINE (1 of 2) 2017 INFLUENZA VACCINE (#1) 2023
--- OUTSIDE RECORDS SUMMARY | 2024-08-28 10:39 | XMS_ITS | Referral Summary ---
Author Organization 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 Gender Identity Not on file Sexual Orientation [...] 2:40 PM CDT Height 188.6 cm (6' 2.25) 09/10/2022 2:40 PM CD T Body Mass [...] Solorzano MD LAB BLOOD ORDERABLES Final Result [facility] Department [place] [address] from Last 3 Months or Most Recently Relevant to Health Maintenance Insurance [facility] CHOICE PLUS [facility] HMO/PPO Address: [address] [address] [place] [address] [employer] OPEN ACCESS [facility] Care Teams Building Construction Superintendent Relationship Specialty Start Date End Date Tom Boss MD [address] [facility] [address] [place] [address] PCP - General Family Medicine 10/08/18
--- OUTSIDE RECORDS SUMMARY | 2024-08-28 10:39 | XMS_ITS | Data Portability ---
Author Organization [place] [facility] - [facility] [place] [facility] [place] Address [address] [place] [address] Assessment Encounter Date Assessment Date Assessment LastModified [...] used during this encounter to provide a aufs-by-rstq interactive encounter. Components of this encounter are [...] used during this encounter to provide a gjcf-hy-yyui interactive encounter. Components of this encounter are [...] By Organization Details Last Modified Time 05/11/2022 [id number] prostate cancer: care instructions mcrisham Not available [...] Pt also agrees that me, and the [facility] Team are my treating physicians and [...] questions. [email or web address] Not available 05/11/2022 12:02:59 05/14/2022 [id number] I have discussed the risks and benefits [...] Pt also agrees that me, and the [facility] Team are my treating physicians and [...] questions. [email or web address] Not available 05/14/2022 16:29:04 03/27/2024 [id number] I have discussed the risks and benefits [...] Pt also agrees that me, and the [facility] Team are my treating physicians and [...] being evaluated, and answering of all questions. [facility] Not available 03/27/2024 12:39:33 Reason for [...] SNOMED-CT Code Diagnosis ICD10 Code Diagnosis Note [id number] [facility] [address] [place] [phone] 05/11/2022 11:41:45 05/11/2022 13:05:48 Malignant neoplasm of prostate [id number] C61 [id number] AUGUSTINE BOYD NP [facility] [address] [place] [phone] 05/14/2022 16:28:46 05/15/2022 14:01:36 Malignant neoplasm of prostate [id number] C61 [id number] Maryellen Cruz MD [facility] [address] [place] [phone] 03/27/2024 11:17:16 03/27/2024 12:40:46 Malignant neoplasm of prostate [id number] C61 Health Concerns Section Related Observation LastModified by Organization Detai ls LastModified Time None Recorded Concern Status LastModified by Organization Details LastModified Time None Recorded Advance Directives Directive None Recorded Payers Insurance Date Sequence Insurance Name Policy Number Policy Augustin Covered Member ID Augustin Member ID Guarantor Name 03/25/2024 1 [employer] (POS II) [id number] Ryan Gunderson [id number] 5 Damian Gunderson Notes Date Note Type [...] Cruz MD [address], [place], [address], [facility] - [facility] 05/11/2022 12:03:25 05/14/2022 text/html The [...] BOYD NP [address], [place], [address], [facility] - [facility] 05/14/2022 16:29:33 03/27/2024 text/html The patient woul d like to discuss medications, the disease, and how to handle it. Pt would also like to discuss alternative treatments to this condition. Pt was referred here for further evaluation and treatment if necessary. Patient has a diagnosis of qualifying condition - PROSTATE CANCER Maryellen Cruz MD [address], [address], [place], [address], [facility] - [facility] 03/27/2024 12:39:58
--- OUTSIDE RECORDS SUMMARY | 2024-08-28 10:39 | XMS_ITS | Clinical Summary ---
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 Department [place] [address] from Last 3 Months or Most Recently Relevant to Health Maintenance Insurance [facility] CHOICE PLUS [facility] H[facility]/PPO Address: [address] [address] [place] [address] [employer] OPEN ACCESS [facility] Care Teams Cement Sprayer Helper Relationship Specialty Start Date End Date Tom Boss MD [address] [facility] [address] [place] [id number] PCP - General Family Medicine 10/08/18
--- OUTSIDE RECORDS SUMMARY | 2024-08-28 10:39 | XMS_ITS | CONTINUITY OF CARE DOCUMENT ---
Author Name rashida field Address Unknown Organization [facility] Address [address] [place] [address] Phone [phone] Care Team Providers Care Field Identification Specialist Name Role Phone Yasmine HERNANDEZ, Misael Ayala Unavailable [phone] MISAEL WEST Unavailable [phone] MISAEL WEST Unavailable PROBLEMS Condition Status Date Provider Notes HTN active Misael Underwood MD Chest pain - precordial active Misael Underwood MD Dyslipidemia mixed active Misael ritter MD Prediabetes active Misael webster MD ENCOUNTERS Date Type Provider Location Encounter Diag nosis - In-person encounter Office Visit Misael Underwood MD [facility] Office HTNChest pain - precordialDyslipidemia [...] 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 Misael Underwood MD smoking status Never smoker Rosemary Booker ams FAMILY HISTORY Family Member Condition First Degree Blood Relative No Known Fam linda History INSURANCE PROVIDERS Payer name Policy type / Coverage type [employer] ID [id number] Other [id number] ADVANCE DIRECTIVES Name Date DISCUSSED - NO [...]
[2024-08-28 11:33] LABS: Anion Gap 11 mmol/L (4-12); Blood Urea Nitrogen 18 mg/dL (9-20); Calcium 9.6 mg/dL (8.4-10.2); Carbon Dioxide 26 mmol/L (22-30); Chloride 103 mmol/L (98-107); Estimated Glomerular Filt Rate > 60; Glucose 106 mg/dL (65-110); Potassium 3.8 mmol/L (3.4-5.0); Sodium 140 mmol/L (137-145)
== END 2024-08-28 10:24 | disposition home or self-care (01) ==
LOC: ANHSURGERY 10:26
PROVIDERS: Anesthesiology; PCP Family Medicine; Visit Provider Urology
DX: Z01.818 Encounter for other preprocedural examination (principal); I10 Essential (primary) hypertension; E11.9 Type 2 diabetes mellitus without complications; R31.9 Hematuria, unspecified
CPT/HCPCS: 36415; 80048; 87086; 93005

== ENCOUNTER 2024-08-30 21:46 | Emergency (ER) | payer OTHER, SELFPAY ==
--- NOTE | ~2024-08-30 | CT_ITS ---
CT of the Abdomen and Pelvis: Indication: Abdominal pain Technique: 2.5 mm axial scans were obtained through the abdomen and pelvis following intravenous adm inistration of 100 cc of Omnipaque 350. Dose reduction technique was used on this scan by utilizing a utomated exposure control and iterative reconstruction technique. The dose-length product (DLP) was 2 150.49 mGy-cm. COMPARISON: 04/21/2024 Findings: Scans through the lung bases are unremarkable. There is diffuse hepatic steatosis. Probable small gallstone. The spleen and pancreas are within norm al limits. Stable bilateral adrenal nodules are present, most likely adenomas. There is a 2 mm right UVJ stone with mild right hydroureteronephrosis to this level. Additional small right renal stones ar e present measuring up to 2 mm. No left renal or left ureteral stone. Possible 7 mm small exophytic m ass at the upper pole of the left kidney. No evidence of aortic aneurysm. No lymphadenopathy. No bowel obstruction or bowel wall thickening. There is no evidence to suggest acute appendicitis. Images through the pelvis were performed. Possible minimal urinary bladder wall thickening diffusely. No pelvic mass seen. No ascites. Impression: 2 mm right UVJ stone with mild right hydroureteronephrosis. Additional small nonobstructing right renal stones. Possible cystitis. Correlate with urinalysis. Possible 7 mm indeterminate exophytic mass in the upper pole the left kidney. Consider follow-up exam or pre and postcontrast MR to further evaluate. Diffuse hepatic steatosis. Cholelithiasis. Reviewed, dictated and finalized at [facility]. Impression: 2 mm right UVJ stone with mild right hydroureteronephrosis. Additional small nonobstructing right renal stones. Possible cystitis. Correlate with urinalysis. Possible 7 mm indeterminate exophytic mass in the upper pole the left kidney. C onsider follow-up exam or pre and postcontrast MR to further evaluate. Diffuse hepatic steatosis. Cholelithiasis.
--- OUTSIDE RECORDS SUMMARY | 2024-08-30 21:50 | XMS_ITS | Clinical Summary ---
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 Gender Identity Not on file Sexual Orientation [...] BLOOD ORDERABLES Final Result JALE[facility] LUCERO [facility] Department [place] [address] from Last 3 Months or Most Recently Relevant to Health Maintenance Insurance [facility] CHOICE PLUS [facility] H[facility]/PPO Address: [address] [address] [place] [address] [employer] OPEN ACCESS [facility] Care Teams Knitting Teacher Relationship Specialty Start Date End Date Tom Boss MD [address] [facility] [address] [place] [id number] PCP - General Family Medicine 10/08/18
--- OUTSIDE RECORDS SUMMARY | 2024-08-30 21:51 | XMS_ITS | Clinical Summary ---
Author Organization [facility] Address [address] [facility] Attn: Epic Prelude ADT CATALINA MOODY [address] Care Team Providers Care Sagger Filler Name Role Phone Unavailable Primary Care Provider [...] Description 01/06/2025 1:30 PM CDT Office Visit [facility] Oncology and Hematology - [place] [address] [place] [address] [email or web address] [address] [place] [address] Chandan Orona MD [address] [facility] [facility] [address] [place] [address] Health Maintenance Due Date Last [...]
--- OUTSIDE RECORDS SUMMARY | 2024-08-30 21:51 | XMS_ITS | CONTINUITY OF CARE DOCUMENT ---
Author Name rashida field Address Unknown Organization [facility] Address [address] [place] [address] Phone [phone] Care Team Providers Care Flooring Machine Feeder Name Role Phone Yasmine HERNANDEZ, Misael Ayala Unavailable [phone] MISAEL WEST Unavailable [phone] MISAEL WEST Unavailable [phone] PROBLEMS Condition Status Date Provider Notes HTN active Misael Underwood MD Chest pain - precordial active Misael Underwood MD Dyslipidemia mixed active Misael ritter MD Prediabetes active Misael webster MD ENCOUNTERS Date Type Provider Location Encounter Diag nosis - In-person encounter Office Visit Misael Underwood MD [facility] Office HTNChest pain - precordialDyslipidemia mixedPrediabetes VITAL [...] 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 Misael Underwood MD smoking status Never smoker Rosemary Booker ams FAMILY HISTORY Family Member Condition First Degree Blood Relative No Known Fam linda History INSURANCE PROVIDERS Payer name Policy type / Coverage type [facility] ID [id number] Other [id number] ADVANCE DIRECTIVES Name Date DISCUSSED - NO [...]
--- OUTSIDE RECORDS SUMMARY | 2024-08-30 21:51 | XMS_ITS | Referral Summary ---
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 Gender Identity Not on file Sexual Orientation [...] Solorzano MD LAB BLOOD ORDERABLES Final Result [facility] One [facility] Department [place] [address] from Last 3 Months or Most Recently Relevant to Health Maintenance Insurance [facility]ICE PLUS [facility] Care Teams Edge Bander Hand Relationship Specialty Start Date End Date Tom Boss MD [address] [facility] [address] [place] [address] PCP - General Family Medicine 10/08/18
--- OUTSIDE RECORDS SUMMARY | 2024-08-30 21:51 | XMS_ITS | Data Portability ---
Author Organization [place] [facility] - [facility] [place] [facility] [place] Address [address] [place] [address] Assessment Encounter Date Assessment Date Assessment LastModified [...] used during this encounter to provide a lzng-lb-ygdu interactive encounter. Components of this encounter are [...] used during this encounter to provide a gdks-jm-[id number] interactive encounter. Components of this encounter are [...] By Organization Details Last Modified Time 05/11/2022 [id number] prostate cancer: care instructions [email or web address] Not available [...] Pt also agrees that me, and the [facility] Team are my treating physicians [...] questions. [email or web address] Not available 05/11/2022 12:02:59 05/14/2022 [id number] I have discussed the risks and benefits [...] agrees that me, and the [facility] Team are my treating physicians and [...] questions. [email or web address] Not available 05/14/2022 16:29:04 03/27/2024 [id number] I have discussed the risks and benefits [...] agrees that me, and the [facility] Team are my treating physicians and [...] being evaluated, and answering of all questions. [facility] Not available 03/27/2024 12:39:33 Reason for Referral [...] SNOMED-CT Code Diagnosis ICD10 Code Diagnosis Note [id number] [facility] MD [facility] [address] [place] [phone] 05/11/2022 11:41:45 05/11/2022 13:05:48 Malignant neoplasm of prostate [id number] C61 [id number] AUGUSTINE BOYD NP [facility] [address] [place] [phone] 05/14/2022 16:28:46 05/15/2022 14:01:36 Malignant neoplasm of prostate [id number] C61 [id number] Maryellen Cruz MD [facility] [address] [place] [phone] 03/27/2024 11:17:16 03/27/2024 12:40:46 Malignant neoplasm of prostate [id number] C61 Health Concerns Section Related Observation LastModified by Organization Detai ls LastModified Time None Recorded Concern Status LastModified by Organization Details LastModified Time None Recorded Advance Directives Directive None Recorded Payers Insurance Date Sequence Insurance Name Policy Number Policy Augustin Covered Member ID Augustin Member ID Guarantor Name 03/25/2024 1 [employer] (POS II) [id number] Ryan Gunderson [id number] 5 Damian Gunderson Notes Date Note Type [...] Cruz MD [address], [place], [address], [facility] - [facility] 05/11/2022 [...] BOYD NP [address], [place], [address], [facility] - [facility] 05/14/2022 [...] Cruz MD [address], [place], [address], [facility] - [facility] 03/27/2024 12:39:58
--- OUTSIDE RECORDS SUMMARY | 2024-08-30 21:51 | XMS_ITS ---
Author Organization Unknown Medications Medication Instructions Effective Dates (start - stop) Status - - Compl eted acetaminophen 325 MG / hydro codone bitartrate 5 MG Oral Tablet - Completed benzonatate 100 MG Oral Capsule 2023-03-02 8T00:00:00Z - Completed amitriptyline hydrochloride 100 MG Oral Tablet - Completed levothyroxine sodium 0.05 MG Oral Tablet - Completed hydrochlorothiazide 25 MG Or al Tablet - Completed 12 HR bupropion hydrochlorid e 150 MG Extended Release Oral Tablet - Complete d 12 HR bupropion hydrochlorid e 150 MG Extended Release Oral Tablet - Complete d hydrochlorothiazide 25 MG Or al Tablet - Completed amitriptyline hydrochloride 100 MG Oral Tablet - Completed 12 HR bupropion hydrochlorid e 150 MG Extended Release Oral Tablet - Complete d 12 HR bupropion hydrochlorid e 150 MG Extended Release Oral Tablet - Complete d amlodipine 5 MG Oral Tablet [id number] :00:00Z - Completed amitriptyline hydrochloride 100 MG Oral Tablet - Completed 24 HR metoprolol succinate 5 0 MG Extended Release Oral Tablet - Complete d 24 HR metoprolol succinate 5 0 MG Extended Release Oral Tablet - Complete d amitriptyline hydrochloride 100 MG Oral Tablet - Completed vibegron 75 MG Oral Tablet [Gemtesa] 202300:00:00Z - Completed 24 HR metoprolol succinate 5 0 MG Extended Release Oral Tablet - Complete d levothyroxine sodium 0.05 MG Oral Tablet - Completed levothyroxine sodium 0.05 MG Oral Tablet - Completed amlodipine 5 MG Oral Tablet [id number] :00:00Z - Completed hydrochlorothiazide 25 MG Or al Tablet - Completed levothyroxine sodium 0.05 MG Oral Tablet - Completed hydrochlorothiazide 25 MG Or al Tablet - Completed amlodipine 5 MG Oral Tablet [id number] :00:00Z - Completed Patient Care team information Name Category Status Period Participants - - Proposed period not known -
[2024-08-30 22:02] VITALS: BP 143/87; PULSE 114; RESP 20; TEMP 36.3; O2SAT 97
[2024-08-31 00:21] VITALS: PULSE 108; RESP 22; TEMP 37.6; O2SAT 95
[2024-08-31 00:52] LABS: Basophils Percent Auto 0.3 % (0.2-1.2); Hematocrit 41.7 % (42.0-52.0); Hemoglobin 13.3 g/dL (14.0-18.0); Immature Granulocyte Absolute 0.03 K/mm3 (0.00-0.031); Immature Granulocyte Percent A 0.4 % (0-0.5); Lymphocytes Absolute Auto 0.46 K/mm3 (0.9-3.2); Lymphocytes Percent Auto 6.1 % (18.3-44.2); Mean Corpuscular HGB Conc 31.9 g/dl (32-36); Mean Corpuscular Hemoglobin 28.4 pg (26-34); Mean Corpuscular Volume 89.1 fl (80-100); Mean Platelet Volume 9.4 fl (7.4-10.4); Monocytes Absolute Auto 0.7 K/mm3 (0.1-0.6); Monocytes Percent Auto 8.7 % (2.6-8.5); Neutrophils Absolute Auto 6.4 K/mm3 (1.3-6.7); Neutrophils Percent Auto 84.5 % (45.5-73.1); Platelet Count Result 144 k/mm3 (150-375); Red Blood Count 4.68 M/mm3 (4.6-6.20); Red Cell Distribution Width 13.3 % (11.5-14.5); White Blood Count 7.6 K/mm3 (4.5-10.0)
[2024-08-31 01:04] LABS: Alanine Aminotransferase 40 U/L (6-50); Albumin Level 4.4 g/dL (3.5-5.1); Alkaline Phosphatase 88 U/L (38-126); Anion Gap 10 mmol/L (4-12); Aspartate Amino Transferase 35 U/L (17-59); Bilirubin,Total 2.1 mg/dL (0.2-1.3); Blood Urea Nitrogen 16 mg/dL (9-20); Calcium 9.3 mg/dL (8.4-10.2); Carbon Dioxide 26 mmol/L (22-30); Chloride 100 mmol/L (98-107); Estimated CRCL calculation 86 ml/min; Estimated Glomerular Filt Rate 54; Glucose 116 mg/dL (65-110); Lipase 61 U/L (23-300); Potassium 3.6 mmol/L (3.4-5.0); Sodium 136 mmol/L (137-145)
[2024-08-31 01:07] LABS: Add Urine Microscopic? YES; Appearance Urine Clear (Clear); Bacteria Urine None Seen /hpf; Bilirubin Urine Negative (Negative); Blood Urine 2+ (Negative); Color Urine Yellow (Yellow); Glucose Urine UA Negative (Negative); Ketones Urine Negative (Negative); Leukocyte Esterase Ur 3+ LEU/UL (Negative); Nitrate Urine Negative (Negative); Non Pathogenic Casts 0-2; Protein Urine Trace mg/dL (Negative); RBC Urine 0-2 /hpf (0-2); Specific Grav Ur 1.009 (1.001-1.035); Squamous Epithelial Cell Urine None Seen /hpf (Few); Urobilinogen Urine 0.2 mg/dL (<2.0)
[2024-08-31 01:40] VITALS: PULSE 101; RESP 23; O2SAT 97
--- OUTSIDE RECORDS SUMMARY | 2024-08-31 02:02 | XMS_ITS | Clinical Summary ---
Author Organization [facility] Address [address] Attn: Epic Prelude ADT CATALINA MOODY [address] Care Team Providers Care Manhole Builder Name Role Phone Unavailable Primary Care Provider [...] Description 01/06/2025 1:30 PM CDT Office Visit [facility] Oncology and Hematology - [place] [address] [place] [address] [facility] [address] [place] [address] Chandan Orona MD [address] [facility] [address] [place] [address] Health Maintenance Due Date Last [...]
--- OUTSIDE RECORDS SUMMARY | 2024-08-31 02:02 | XMS_ITS | Clinical Summary ---
Author Organization 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 CHOICE PLUS [facility] H[facility]PPO Address: [address] [address] [place] [address] [facility] Care Teams Metal Annealer Relationship Specialty Start Date End Date Tom Boss MD [address] [facility] [address] [place] [id number] PCP - General Family Medicine 10/08/18
--- OUTSIDE RECORDS SUMMARY | 2024-08-31 02:02 | XMS_ITS | CONTINUITY OF CARE DOCUMENT ---
Author Name rashida field Address Unknown Organization [facility] Address [address] [place] [address] Phone [phone] Care Team Providers Care Geothermal Powerplant Supervisor Name Role Phone Yasmine HERNANDEZ, Misael Ayala Unavailable [phone] MISAEL WEST Unavailable [phone] MISAEL WEST Unavailable PROBLEMS Condition Status Date Provider Notes HTN active Misael Underwood MD Chest pain - precordial active Misael Underwood MD Dyslipidemia mixed active Misael ritter MD Prediabetes active Misael webster MD ENCOUNTERS Date Type Provider Location Encounter Diag nosis - In-person encounter Office Visit Misael Underwood MD [facility] Office HTNChest pain - precordialDyslipidemia mixedPrediabetes VITAL [...] 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 Misael Underwood MD smoking status Never smoker oRsemary Booker ams FAMILY HISTORY Family Member Condition First Degree Blood Relative No Known Fam linda History INSURANCE PROVIDERS Payer name Policy type / Coverage type [facility] [id number] Other [id number] ADVANCE DIRECTIVES Name Date DISCUSSED - NO [...]
--- OUTSIDE RECORDS SUMMARY | 2024-08-31 02:02 | XMS_ITS | Referral Summary ---
Author Organization 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
--- NOTE | 2024-08-31 02:07 | ED_ITS ---
HPI - Abdominal Pain General Chief Complaint: Abdominal Pain Stated Complaint: Abd pain after getting Mounjaro inject Saturday Time Seen by Provider: 08/31/24 01:47 Source: patient and family Mode of arrival: ambulatory Limitations: no limitations History of Present Illness HPI narrative: Patient presents with low generalized abdominal pain. He has had non bloody diarrhea as well as chills though last bowel movememtn unknown. Thinks it might be a side effect of Monjaro which he started on Monday 08/28, first injection. No dysuria or hematuria. Has an upcoming procedure for a bipsy on Saturday to assess for bladder cancer so can not take NSAIDs. Subjective fever at home. No dysuria but has urinary urgency. History of prostate cancer s/p prostatectomy. Nauseated but not vomiting. History of possible kidney stone; urologist Dr Desouza. Related Data Home Medications ?Medication ?Instructions ?Recorded ?Confirmed ?Last Taken ?Type aspirin 81 mg tablet,delayed 81 mg PO DAILY 03/18/19 09/01/24 08/27/24 History release loratadine 10 mg tablet (Claritin) 10 mg PO DAILY 03/18/19 09/01/24 08/27/24 History naproxen sodium 220 mg tablet 220 mg PO Q12H 03/18/19 08/27/24 04/02/22 History (Aleve) cholecalciferol (vitamin D3) 125 125 mcg PO DAILY 01/28/24 09/01/24 08/27/24 History mcg (5,000 unit) capsule acetaminophen 500 mg tablet 1,000 mg PO Q6H PRN pain 08/27/24 08/27/24 Unknown History Allergies Allergy/AdvReac Type Severity Reaction Status Date / Time No Known Allergies Allergy Verified 09/01/24 06:24 [facility] Past Medical History Medical History History of prostate cancer Hx of osteomyelitis Left knee 2010 Hypothyroidism ALLEN (obstructive sleep apnea) CVA (cerebral vascular accident) Bilateral hand pain HTN (hypertension) Idiopathic peripheral neuropathy Surgical History Surgical History Hx of tonsillectomy 1995 Hx of hand surgery left hand d/t DJ- 2022 Hx of arthroscopy of left knee w/ ACL/LCL recon- 1993 Hx of arthroscopy of right knee w/ MCL recon- 2020 History of open reduction and internal fixation (ORIF) procedure Clavicle- 2019 Hx of fusion of cervical spine 2018 History of robot-assisted laparoscopic radical prostatectomy 2022- [facility] Social History Social History Smoking status: Never smoker Second hand tobacco smoke exposure: No Alcohol intake: current Alcohol use details: 1/MONTH Substance use: never Substance use type: does not use Do You Feel Safe in your Home?: Yes Lack of Transportation: No Lack of Food: Never True Current Housing: I Have Housing Concerned About Future Housing: No Difficulty Paying Gas/Electric Bills: No Difficulty Paying for Meds: No Currently Unemployed: YES Education: Master's Degree or Higher Difficulty w/ Childcare or Family Care: No Living arrangements: with family Occupation/Education: unemployed Gender identity (if verbalized by the patient): Male Sexual Orientation (if Verbalized by the Patient): Straight or Heterosexual Spiritual care concerns: No Exam 2 Narrative: GENERAL: well-nourished, in mild acute distress. HEAD: Normocephalic, atraumatic. EYES: Non injected, non icteric ENT: Nares clear, no rhinorrhea or epistaxis. Gross auditory acuity intact. NECK: Supple. No meningismus. CHEST: Speaking in full sentences. No respiratory distress. HEART: Regular rate and rhythm. . ABDOMEN: Obese but Soft, nondistended. No rigidity or guarding. Not peritoneal EXTREMITIES: Normal range of motion. No lower extremity edema. SKIN: Warm, dry, no rash. NEURO: No focal deficits. Alert and oriented. Answering questions. Following commands. Normal speech without aphasia or dysarthria. PSYCH: Normal mood and affect. Course Vital Signs Vital signs: Vital Signs Temperature 97.4 F L 08/30/24 22:02 Pulse Rate 114 H 08/30/24 22:02 Respiratory Rate 20 08/30/24 22:02 Blood Pressure 143/87 H 08/30/24 22:02 Pulse Oximetry 97 08/30/24 22:02 Oxygen Delivery Room Air 08/30/24 22:02 Temperature 99.7 F H 08/31/24 02:50 Pulse Rate 101 H 08/31/24 01:40 Respiratory Rate 23 H 08/31/24 01:40 Blood Pressure 143/87 H 08/30/24 22:02 Pulse Oximetry 97 08/31/24 01:40 Oxygen Delivery Room Air 08/30/24 22:02 MDM - Abdominal Pain MDM Narrative Medical decision making narrative: Patient presents with generalized/low abdominal pain as well as diarrhea and chills. COncerned for medication side effect as he recently started MOnjaro, first injection Monday 08/28. In the emergency department he is afebrile with signs notable for hypertension tachycardia. No leukocytosis. He has anemia that is stable from previous as well as a mild thrombocytopenia which has also previously been appreciated. T bili elevated (indirect > direct ). He has an acute kidney injury. IV fluids have been ordered in addition to nausea and pain medicine. Ddx indirect hyperbilirubinemia Over production of bilirubin (hemolytic anemia), reduced uptake (cirrhosis or congestive hepatopathy), impaired conjugation, biliary obstruction, hereditary disease (Gilbert syndrome, Xavier-Ciro syndrome, Crigler-Janet syndrome), medication side effect (allopurinol, anabolic steroids, antibiotics, antimalarials, etc.) CT as below. Urine is not markedly infected although it did reflex to the culture. Patient reassessed approximately 5:05 a.m.. He states his pain is better 3 or 4/10 severity. Informed he has a ureteral stone. Discussed expulsion therapy. Given dose of tamsulosin with rest of course prescribed. Patient cannot take NSAIDs due to his upcoming procedure which is a biopsy to test for bladder cancer with Dr Desouza. Will give opiate medication for pain instead and informed patient to notify urology of the finding of the stone. In addition, advised they follow up on urine culture. Discharged in stable condition. Given strict ED follow up precautions. He and verify understanding and are in agreement. Differential Diagnosis Differential diagnosis: Likely abdominal pain, acute appendicitis, calculus of kidney, constipation, diverticulitis, gastroenteritis, pancreatitis, small bowel obstruction and other (medication side effect; UTI/pyelo) Lab Data Attestation: I reviewed the patient's lab results. 08/31/24 00:29 08/31/24 00:29 Labs: Lab Results 08/31/24 Range/Units 00:29 WBC 7.6 (4.5-10.0) K/mm3 RBC 4.68 (4.6-6.20) M/mm3 Hgb 13.3 L (14.0-18.0) g/dL Hct 41.7 L (42.0-52.0) % MCV 89.1 (80-100) fl MCH 28.4 (26-34) pg MCHC 31.9 L (32-36) g/dl RDW 13.3 (11.5-14.5) % Plt Count 144 L (150-375) k/mm3 MPV 9.4 (7.4-10.4) fl Immature Gran % (Auto) 0.4 (0-0.5) % Neut % (Auto) 84.5 H (45.5-73.1) % Lymph % (Auto) 6.1 L (18.3-44.2) % [place] % (Auto) 8.7 H (2.6-8.5) % Eos % (Auto) 0.0 (0-4.4) % Baso % (Auto) 0.3 (0.2-1.2) % Lymph # (Auto) 0.46 L (0.9-3.2) K/mm3 [place] # (Auto) 0.7 H (0.1-0.6) K/mm3 Eos # (Auto) 0.0 (0-0.3) K/mm3 Baso # (Auto) 0.0 (0.0-0.1) K/mm3 Abs Immat Gran (auto) 0.03 (0.00-0.031) K/mm3 Absolute Neuts (auto) 6.4 (1.3-6.7) K/mm3 Absolute Nucleated RBC 0.000 (0.0-0.012) K/mm3 Nucleated RBC % 0.0 (0.0-0.2) % Sodium 136 L (137-145) mmol/L Potassium 3.6 (3.4-5.0) mmol/L Chloride 100 (98-107) mmol/L Carbon Dioxide 26 (22-30) mmol/L Anion Gap 10 (4-12) mmol/L BUN 16 (9-20) mg/dL Creatinine 1.37 H (0.7-1.3) mg/dL Estim Creat Clear Calc 86 ml/min Estimated GFR 54 L (59 - ) Glucose 116 H (65-110) mg/dL Calcium 9.3 (8.4-10.2) mg/dL Total Bilirubin 2.1 H (0.2-1.3) mg/dL Direct Bilirubin 0.0 (0-0.3) mg/dL Indirect Bilirubin 1.9 H (0-1.1) mg/dL AST 35 (17-59) U/L ALT 40 (6-50) U/L Alkaline Phosphatase 88 (38-126) U/L Total Protein 8.0 (6.3-8.2) g/dL Albumin 4.4 (3.5-5.1) g/dL Lipase 61 (23-300) U/L Urine Color Yellow (Yellow) Urine Appearance Clear (Clear) Urine pH 7.0 (5.0-9.0) Ur Specific [place] 1.009 (1.001-1.035) Urine Protein Trace (Negative) mg/dL Urine Glucose (UA) Negative (Negative) mg/dL Urine Ketones Negative (Negative) mg/dL Ur Blood (Man) 2+ H (Negative) Urine Nitrate Negative (Negative) Urine Bilirubin Negative (Negative) Urine Urobilinogen 0.2 (<2.0) mg/dL Leukocyte Esterase Rfl 3+ H (Negative) JAMIA/UL Urine RBC 0-2 (0-2) /hpf Urine WBC 11-20 H (0-3) /hpf Ur Squamous Epith Cells None seen (Few) /hpf Urine Bacteria None seen /hpf Urine Casts 0-2 Imaging Data Radiologist's impression: ITS Impressions Abdomen/Pelvis CT 08/31/24 06:39 Impression: 2 mm right UVJ stone with mild right hydroureteronephrosis. Additional small nonobstructing right renal stones. Possible cystitis. Correlate with urinalysis. Possible 7 mm indeterminate exophytic mass in the upper pole the left kidney. Consider follow-up exam or pre and postcontrast MR to further evaluate. Diffuse hepatic steatosis. Cholelithiasis. CT Abd Pelvis with Contrast Stat Rad: Right UVJ 0.2 cm stone. Moderate right hydroureteronephrosis. Correlate for UTI/pyelonephritis. Possible cystitis. Recommend CT or MRI kidney for left renal posterior 0.9 cm exophytic soft tissue nodularity, cannot exclude neoplasm. Discharge Plan Discharge Clinical Impression: Anemia, Abdominal pain, Thrombocytopenia, ANEUDY (acute kidney injury), Calculus of ureterovesical junction (UVJ), Hydroureteronephrosis Patient Disposition: Home Condition: Stable Instructions: Antibiotic Form, Acute Kidney Injury (DC), Narcotic Safety (ED), How to Strain Your Urine (ED), Abdominal Pain (ED), Anemia (ED), Ureteral Stones (ED) Additional Instructions: As we discussed, you have a 2 mm stone at the Right UVJ. You received a dose of tamsulosin while in the emergency department this morning and the rest of this medication has been prescribed. Given your to avoid taking NSAIDs in anticipation of your upcoming procedure, opiate/narcotic medications have been prescribed for pain. If you have nausea or vomiting you can use the oral disintegrating tablets of Zofran. Strain your urine and keep your upcoming Urology appointment tomorrow, SaturdaySeptember 01. They can also follow up on your urine culture given there were some abnormalities but it did not appear frankly infected. Do not hesitate to return to the emergency department with any new, worsening, or unmanaged symptoms such as fever greater than 100.4? F, intractable pain, intractable nausea or vomiting, etc. as this may indicate a need for surgical/operative intervention rather than expulsion therapy. The name of a urologist is listed below but alternatively you can maintain continuity of care with your urologist Dr Desouza. Patient Language: Tamazight Prescriptions: New tamsulosin 0.4 mg capsule 0.4 mg PO DAILY Qty: 12 0RF oxycodone 5 mg tablet 5 mg PO Q8H PRN (Reason: pain) Qty: 14 0RF No Action pregabalin 100 mg capsule 100 mg PO BID 30 Days Qty: 60 2RF amlodipine 10 mg tablet 10 mg .ROUTE .COMPLEX Qty: 90 1RF Patient Comments: TAKES AT HS Rx Instructions: 10 mg; cholecalciferol (vitamin D3) 125 mcg (5,000 unit) capsule 125 mcg PO DAILY acetaminophen 500 mg tablet 1,000 mg PO Q6H PRN (Reason: pain) sulfamethoxazole-trimethoprim [Bactrim DS] 800-160 mg tablet 1 tablet PO Q12H Qty: 6 0RF tramadol 50 mg tablet 50 mg PO Q6H PRN (Reason: pain) Qty: 10 0RF oxybutynin chloride 5 mg tablet 5 mg PO BID PRN (Reason: bladder spasms) Qty: 30 0RF Rx Instructions: Take as needed for bladder spasms loratadine [Claritin] 10 mg tablet 10 mg PO DAILY naproxen sodium [Aleve] 220 mg tablet 220 mg PO Q12H aspirin 81 mg tablet,delayed release (DR/EC) 81 mg PO DAILY albuterol sulfate 90 mcg/actuation HFA aerosol inhaler 1 inh inhalation Q4H PRN (Reason: shortness of breath or wheezing) Qty: 6.7 0RF bupropion HCl 150 mg tablet sustained-release 12 hr See Rx Instructions .ROUTE .COMPLEX Qty: 180 3RF Dose Instruction: TAKE 1 TABLET BY MOUTH TWICE A DAY Rx Instructions: TAKE 1 TABLET BY MOUTH TWICE A DAY levothyroxine 50 mcg tablet 50 mcg PO DAILY Qty: 90 2RF amitriptyline 100 mg tablet See Rx Instructions .ROUTE .COMPLEX Qty: 90 1RF Dose Instruction: TAKE 1 TABLET (100 MG) BY MOUTH DAILY Patient Comments: HS Rx Instructions: TAKE 1 TABLET (100 MG) BY MOUTH DAILY, takes at HS metoprolol succinate 50 mg tablet extended release 24 hr 50 mg PO DAILY Qty: 90 1RF Patient Comments: QAM hydrochlorothiazide 25 mg tablet See Rx Instructions .ROUTE .COMPLEX Qty: 90 3RF Dose Instruction: TAKE 1 TABLET (25 MG) BY MOUTH DAILY Rx Instructions: TAKE 1 TABLET (25 MG) BY MOUTH DAILY tamsulosin [Flomax] 0.4 mg capsule 0.4 mg PO QHS Qty: 90 2RF Mounjaro 2.5 mg/0.5 mL pen injector 2.5 mg subcut WEEKLY Qty: 6 0RF ondansetron 4 mg tablet,disintegrating 4 mg PO Q8H PRN (Reason: nausea and vomiting) Qty: 10 0RF Follow-up/Referrals: Tom Boss MD [Primary Care Provider] - Mulugeta Christopher MD [Physician] - Stand Alone Forms: Work/School Release IP Time of Disposition: 05:11
[2024-08-31] MEDS: SODIUM CHLORIDE 0.9% IV 1,000 ML 999 ML IV CONT (02:23)
[2024-08-31] MEDS: ONDANSETRON INJ 4 MG/2 ML VIAL IV PUSH (02:23)
[2024-08-31] MEDS: MORPHINE SULFATE (*CRX) 4 MG/ML INJ IV PUSH ×2 (02:23→05:09)
--- NOTE | 2024-08-31 02:34 | PC.NURSE ---
Patient in CT at this time.
[2024-08-31 02:38] LABS: Bilirubin Indirect 1.9 mg/dL (0-1.1)
[2024-08-31 02:50] VITALS: TEMP 37.6
[2024-08-31] MEDS: TAMSULOSIN HCL 0.4 MG CAPSULE PO (05:09)
== END 2024-08-31 05:19 | disposition home or self-care (01) ==
PROVIDERS: Emergency Provider Student in an Organized Health Care Education/Training Program; PCP Family Medicine
DX: N13.2 Hydronephrosis with renal and ureteral calculous obstruction (principal); D64.9 Anemia, unspecified; D69.6 Thrombocytopenia, unspecified; N17.9 Acute kidney failure, unspecified; Z79.82 Long term (current) use of aspirin; Z85.46 Personal history of malignant neoplasm of prostate; E03.9 Hypothyroidism, unspecified; G47.33 Obstructive sleep apnea (adult) (pediatric); I10 Essential (primary) hypertension
CPT/HCPCS: 36415; 74177; 80053; 81001; 82248; 83690; 85025; 87086; 96361; 96374; 96375; 99284; A9270; J2270; J2405; J7030; Q9967

== ENCOUNTER 2024-09-01 00:25 | Day surgery (SDC) | payer OTHER, SELFPAY ==
[2024-08-27 15:44] VITALS: BMI 41.4
--- NOTE | 2024-08-27 15:52 | PC.NURSE ---
Report to the Outpatient Waiting Room, entrance under the green pavilion located off [facility], at time _0600_ on date _02-20-6052_. Planned Procedure Time: _0730_.? Time changes happen often and if your time is changed the preop area will call you the afternoon before. - You and your visitor will be asked to self-screen and do not enter if you have any COVID symptoms. Please call surgeon if you need to reschedule. - A mask is optional within the hospital at this time. Patients may have clear liquids (water, carbonated beverages, clear teas, apple juice) until 3 hours prior to surgery with a maximum of 20 ounces. - No food from midnight until time of surgery and no smoking, or chewing tobacco (or any form of nicotine). No chewing gum, candy or mints. Take only the following medications with a SIP of water on the morning of surgery: __Metoprolol, Levothyroxine, Bupropion and if needed Albuterol and or Acetaminophen.___ DO NOT STOP ANY OF YOUR OTHER PRESCRIPTION MEDICATIONS PRIOR TO SURGERY EXCEPT THE FOLLOWING Hold all vitamins and supplements for 3 days per anesthesiologist. Medications to discontinue per physician Please ask Dr Desouza office prior to taking anymore Naproxen. Date to take last dose Please no make-up, nail maldivian, hairspray, perfume, deodorant, or body powder the day of surgery.? No jewelry (including any body piercings) or valuables the day of surgery, leave them at home.? Please take a shower or bath the night before, or the morning of, surgery with an antibacterial soap.? Wear comfortable, loose fitting clothing. - Jewelry must be removed prior to entering the operating room.? Rings and piercings that are not removed may be cut off. - The hospital will not accept responsibility for valuables.? - Please leave all valuables, including medications, at home the day of surgery. If you are going home after surgery, a licensed jeep driver must drive you home.? - NO public transportation without another adult if you receive anesthesia. - We recommend that an adult stay with you for 24 hours following discharge. - We also recommend that you do not drive, make important decision, drink alcoholic beverages, or take any drugs that were not prescribed by your health care provider for at least 24 hours after your discharge time. Follow any additional instructions given to you from your surgeon. Telephone instructions given to __Paul___and asked if any additional questions and then verbalized understanding. Patient advised to call surgeon office or pre surgery nurse liaison [phone] if any additional questions.
[2024-09-01] VITALS (13 sets, daily range): BP systolic 125–181; BP diastolic 67–99; PULSE 85–107; RESP 16–25; TEMP 37–39.3; O2SAT 90–100
--- NOTE | ~2024-09-01 | XR_ITS ---
EXAMINATION: XR retrograde pyelo w/stent RT DATE: 09/01/2024 08:09 INDICATION: Nephrolithiasis. Retrograde pyelogram and stent placement TECHNIQUE: 8 fluoroscopic images of the abdomen and pelvis were obtained during procedure performed b sen Desouza. Radiologist was not present for the imaging or procedure. The amount of fluoroscopy t pradeep used during this procedure was 0.3 minutes. Total DAP was 0.539 mGym^2. COMPARISON: None. FINDINGS: Home Assessment Nurse images demonstrate a phlebolith in the right hemipelvis. The previously noted stone at the righ t ureterovesicular junction and right kidney seen on prior CT unable be identified on the fluoroscopi c images. Subsequent images demonstrate cannulation and retrograde contrast injection into the right ureter. A wire is advanced into upper pole calyx of the right kidney. This is subsequently replaced w ith a right intrarenal stent with loops formed in the right renal pelvis. IMPRESSION: 1. Fluoroscopy utilized during right retrograde pyelogram with placement of a right internal stent wh ich is in expected position. See procedure note for further detail. Reviewed, dictated and finalized at location A. IMPRESSION: 1. Fluoroscopy utilized during right retrograde pyelogram with placement of a r ight internal stent which is in expected position. See procedure note for furth er detail.
--- OUTSIDE RECORDS SUMMARY | 2024-09-01 00:34 | XMS_ITS | Referral Summary ---
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 Gender Identity Not on file Sexual Orientation [...] Solorzano MD LAB BLOOD ORDERABLES Final Result [facility] Department [place] [address] from Last 3 Months or Most Recently Relevant to Health Maintenance Insurance [facility] CHOICE PLUS [employer] OPEN ACCESS [facility] Care Teams Field Spec Relationship Specialty Start Date End Date Tom Boss MD [address] [facility] [address] [place] [address] PCP - General Family Medicine 10/08/18
--- OUTSIDE RECORDS SUMMARY | 2024-09-01 00:34 | XMS_ITS | CONTINUITY OF CARE DOCUMENT ---
Author Name rashida field Address Unknown Organization [facility] Address [address] [place] [address] Phone [phone] Care Team Providers Care Bottle Line Worker Name Role Phone Yasmine HERNANDEZ, Misael Ayala Unavailable [phone] MISAEL WEST Unavailable MISAEL WEST Unavailable [phone] PROBLEMS Condition Status Date Provider Notes HTN active Misael Underwood MD Chest pain - precordial active Misael Underwood MD Dyslipidemia mixed active Misael ritter MD Prediabetes active Misael webster MD ENCOUNTERS Date Type Provider Location Encounter Diag nosis - In-person encounter Office Visit Misael Underwood MD [facility] Office HTNChest pain - precordialDyslipidemia mixedPrediabetes [...] 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 Misael Underwood MD smoking status Never smoker Rosemary Booker ams FAMILY HISTORY Family Member Condition First Degree Blood Relative No Known Fam linda History INSURANCE PROVIDERS Payer name Policy type / Coverage type [facility] ID [id number] Other [id number] ADVANCE DIRECTIVES Name Date DISCUSSED - NO [...]
--- OUTSIDE RECORDS SUMMARY | 2024-09-01 00:34 | XMS_ITS | Clinical Summary ---
Author Organization [facility] Address [address] [facility] Attn: Epic Prelude ADT CATALINA MOODY [address] Care Team Providers Care Exercise Teacher Name Role Phone Unavailable Primary Care Provider [...] Description 01/06/2025 1:30 PM CDT Office Visit [facility] Oncology and Hematology - [place] [address] [place] [address] [facility] [address] [place] [address] Chandan Orona MD [address] [facility] [address] [place] [address] Health Maintenance Due Date Last [...]
--- OUTSIDE RECORDS SUMMARY | 2024-09-01 00:34 | XMS_ITS ---
[...] Complete d amlodipine 5 MG Oral Tablet [id number] :00:00Z - Completed amitriptyline hydrochloride 100 MG [...] - Completed amlodipine 5 MG Oral Tablet [id number] :00:00Z - Completed hydrochlorothiazide 25 MG Or al Tablet - Completed levothyroxine sodium 0.05 MG Oral Tablet - Completed hydrochlorothiazide 25 MG Or al Tablet - Completed amlodipine 5 MG Oral Tablet [id number] :00:00Z - Completed Patient Care team information Name Category Status Period Participants - - Proposed period not known -
--- OUTSIDE RECORDS SUMMARY | 2024-09-01 00:34 | XMS_ITS | Clinical Summary ---
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
--- NOTE | 2024-09-01 06:33 | WPDANESEPPF ---
Anes - Initial Pre Proc Eval Procedure: Operation Date: 09/01/24 07:30 Proposed Procedures p Cystoscopy Bladder Biopsy with Fulguration - Jared Desouza MD Date/Time: 09/01/24 06:33 Surgeon: Jared Desouza MD Pre Op Diagnosis: gross hematuria Patient Data Age: 59 Gender: M Height: 1.93 m Weight: 151.3 kg Last Vital Signs Temp 37.0 C 09/01/24 06:20 Pulse 104 H 09/01/24 06:20 Resp 20 09/01/24 06:20 BP 144/97 H 09/01/24 06:20 Pulse Ox 94 09/01/24 06:20 O2 Del Method Room Air 09/01/24 06:20 Allergies Allergy/AdvReac Type Severity Reaction Status Date / Time No Known Allergies Allergy Verified 09/01/24 06:24 Home Medications ?Medication ?Instructions ?Recorded ?Confirmed ?Type aspirin 81 mg tablet,delayed 81 mg PO DAILY 03/18/19 08/27/24 History release loratadine 10 mg tablet (Claritin) 10 mg PO DAILY 03/18/19 08/27/24 History naproxen sodium 220 mg tablet 220 mg PO Q12H 03/18/19 08/27/24 History (Aleve) albuterol sulfate 90 mcg/actuation 1 inh inhalation Q4H PRN shortness 07/06/22 08/27/24 Rx aerosol inhaler of breath or wheezing #6.7 grams cholecalciferol (vitamin D3) 125 125 mcg PO DAILY 01/28/24 08/27/24 History mcg (5,000 unit) capsule bupropion HCl 150 mg tablet,12 hr See Rx Instructions .Route 02/13/24 08/27/24 Rx sustained-release .COMPLEX #180 tabs levothyroxine 50 mcg tablet 50 mcg PO DAILY #90 tabs 05/19/24 08/27/24 Rx amitriptyline 100 mg tablet See Rx Instructions .Route 06/23/24 08/27/24 Rx .COMPLEX #90 tabs metoprolol succinate 50 mg 50 mg PO DAILY #90 tabs 06/23/24 08/27/24 Rx tablet,extended release 24 hr amlodipine 10 mg tablet 10 mg .Route .COMPLEX #90 tabs 06/25/24 08/27/24 Rx pregabalin 100 mg capsule 100 mg PO BID 30 days #60 caps 06/25/24 08/27/24 Rx hydrochlorothiazide 25 mg tablet See Rx Instructions .Route 08/13/24 08/27/24 Rx .COMPLEX #90 tabs tamsulosin 0.4 mg capsule (Flomax) 0.4 mg PO QHS #90 caps 08/14/24 08/27/24 Rx tirzepatide 2.5 mg/0.5 mL 2.5 mg (0.5 mL) subcut WEEKLY #6 mL 08/21/24 08/27/24 Rx subcutaneous pen injector (Mounjaro) acetaminophen 500 mg tablet 1,000 mg PO Q6H PRN pain 08/27/24 08/27/24 History ondansetron 4 mg disintegrating 4 mg PO Q8H PRN nausea and 08/31/24 Rx tablet vomiting #7 tabs oxycodone 5 mg tablet 5 mg PO Q8H PRN pain #14 tabs 08/31/24 Rx tamsulosin 0.4 mg capsule 0.4 mg PO DAILY #12 caps 08/31/24 Rx Patient hx anesthesia problems: none Family hx anesthesia problems: none Results Review: All pre-operative results and documents have been reviewed as part of the pre-operative evaluation. [facility] Past Medical History Medical History Hx of osteomyelitis Left knee 2010 Hypothyroidism ALLEN (obstructive sleep apnea) CVA (cerebral vascular accident) Bilateral hand pain HTN (hypertension) Idiopathic peripheral neuropathy Surgical History Surgical History Hx of tonsillectomy 1995 Hx of hand surgery left hand d/t DJD- 2022 Hx of arthroscopy of left knee w/ ACL/LCL recon- 1993 Hx of arthroscopy of right knee w/ MCL recon- 2020 History of open reduction and internal fixation (ORIF) procedure Clavicle- 2018 Hx of fusion of cervical spine 2018 History of robot-assisted laparoscopic radical prostatectomy 2022- Lyly Social History Social History Smoking status: Never smoker Second hand tobacco smoke exposure: No Alcohol intake: current Alcohol use details: 1/MONTH Substance use: never Substance use type: does not use Do You Feel Safe in your Home?: Yes Lack of Transportation: No Lack of Food: Never True Current Housing: I Have Housing Concerned About Future Housing: No Difficulty Paying Gas/Electric Bills: No Difficulty Paying for Meds: No Currently Unemployed: YES Education: Master's Degree or Higher Difficulty w/ Childcare or Family Care: No Living arrangements: with family Occupation/Education: unemployed Gender identity (if verbalized by the patient): Male Sexual Orientation (if Verbalized by the Patient): Straight or Heterosexual Spiritual care concerns: No Anes - Eval Final PreProcedure Day of Procedure 09/01/24 06:33 Patient weight: morbidly obese Heart: regular rate and rhythm Lungs: clear to auscultation Airway: Mallampati scale class III Neurological: alert and oriented Last oral intake: >/= 8 hours ASA classification: III Emergent: no Anesthetic plan: proceed Anesthesia type and monitoring: general LMA and standard monitoring Results Review: All pre-operative results and documents have been reviewed as part of the pre-operative evaluation. Informed Consent: The patient's anesthetic plan and its attendant risks and benefits were discussed with the patient/family/POA. Questions were solicited and answers provided to the satisfaction of the patient/family/POA.
[2024-09-01] MEDS: LACTATED RINGERS 1,000 ML 30 ML IV CONT ×2 (06:45→08:49)
[2024-09-01 06:49] LABS: Glucose Point of Care 119 mg/dl (65-105)
--- NOTE | 2024-09-01 07:19 | WPDHPUPDATE1 ---
History and Physical Update Update Date/Time: 09/01/24 07:19 History and Physical has been reviewed, including an updated exam of the patient. There are NO changes in the patient's condition. Risks, benefits, and alternatives have been discussed and questions answered. Patient agrees to proceed with procedure.
[2024-09-01] MEDS: ceFAZolin 3 GM/D5W 100 ML 100 ML IVPB (07:20)
[2024-09-01] MEDS: LIDOCAINE 2% GEL UROJET 10 ML PKG MUCOUS MEM (07:46)
--- NOTE | 2024-09-01 07:46 | S_PTH ---
PATIENT: Damian Gunderson LOC: [facility] U#:[id number] AGE/SX: 59/M ROOM: RE09/01/[address]: Jared DesouzaMD : 1965 BED: DIS: 09/01/2024 SPEC #: [id number] RECD: 09/01/24 09:21 STATUS: NOHEMI REMorelia #: [id number] JOSE: 09/01/24 07:[address]: Lyly,Jared Aguilera DEPT: [facility] Surgical RECD BY: Cortney Peters ENTERED: 09/01/24 09:21 SP TYPE: Surgical OTHR DR: Tom Boss MD Tissues: A - Bladder Biopsy Procedures: Hematoxylin and Eosin Stain Gross and Microscopic Level 4
--- NOTE | 2024-09-01 07:59 | P.OP_ITS ---
Procedure Note - Detailed Date of Procedure 09/01/24 Pre-op Diagnosis gross hematuria, possible right UVJ calculus 2 mm Post-op Diagnosis Same Procedure Performed Cystoscopy with bladder biopsy and fulguration, right retrograde, right ure teroscopy, right ureteral stent placement 4.8 [place] contour Surgeon Jared Desouza MD Anesthesia General Description of Procedure Patient was taken to the operative suite correctly identified. Once anesthesia was obtained was placed in dorsal lithotomy position and prepped and draped usual sterile fashion. Twenty-two Saudi Arabian scope was inserted the bladder. There were no urethral strictures. Prostate has been removed. The bladder itself has 1 to 2+ trabeculation. There were no papillary tumors but he does have quite a bit of vascularity and erythema around the trigonal area. Using a cold cup biopsied 2 areas were taken. The base was fulgurated using a Bugbee. Who the right ureteral orifice/stanislaw trigone was inflamed. At this point a wire was inserted and a ureteral scope was placed. No stones were seen. Given the amount of inflammation and edema of the right ureteral orifice or may have been a recent passage of the stone. Pyelogram was then performed to confirm placement of the stent. 4.8 [place] contour stent was then placed with the proximal end coiled in the renal pelvis and the distal in the bladder. Bladder was drained. 2% viscous lidocaine was inserted into the urethra patient is taken recovery stable condition. He will follow-up in a week's time for stent removal and review of pathology. This completes dictation. Please send a copy of op note to my office. Estimated Blood Loss 0 Drains Yes Packing No Pathology Yes Complications No immediate complications Condition Stable Disposition PACU
[2024-09-01 08:29] LABS: Glucose Point of Care 101 mg/dl (65-105)
[2024-09-01 09:21] LABS: Basophils Percent Auto 0.3 % (0.2-1.2); Eosinophils Percent Auto 0.2 % (0-4.4); Hematocrit 38.4 % (42.0-52.0); Immature Granulocyte Absolute 0.02 K/mm3 (0.00-0.031); Immature Granulocyte Percent A 0.3 % (0-0.5); Lymphocytes Absolute Auto 0.32 K/mm3 (0.9-3.2); Lymphocytes Percent Auto 5.3 % (18.3-44.2); Mean Corpuscular HGB Conc 31.3 g/dl (32-36); Mean Corpuscular Hemoglobin 28.2 pg (26-34); Mean Corpuscular Volume 90.4 fl (80-100); Monocytes Absolute Auto 0.4 K/mm3 (0.1-0.6); Monocytes Percent Auto 7.2 % (2.6-8.5); Neutrophils Absolute Auto 5.3 K/mm3 (1.3-6.7); Neutrophils Percent Auto 86.7 % (45.5-73.1); Platelet Count Result 113 k/mm3 (150-375); Red Blood Count 4.25 M/mm3 (4.6-6.20); Red Cell Distribution Width 13.2 % (11.5-14.5); White Blood Count 6.1 K/mm3 (4.5-10.0)
[2024-09-01] MEDS: MEPERIDINE HCL INJ (*CRX) 100 MG/ML AMPUL 25 MG IV PUSH (10:00)
== END 2024-09-01 11:51 | disposition home or self-care (01) ==
PROVIDERS: PCP Family Medicine; Visit Provider Urology
PROC: 0TBB8ZX Excision of Bladder, Via Natural or Artificial Opening Endoscopic, Diagnostic (ICD-10-PCS; CPT 52204; principal; 2024-09-01 07:30)
DX: N30.21 Other chronic cystitis with hematuria (principal); Z79.85 Long-term (current) use of injectable non-insulin antidiabetic drugs; E66.01 Morbid (severe) obesity due to excess calories; Z68.41 Body mass index [BMI] 40.0-44.9, adult
CPT/HCPCS: 52332; 36415; 74420; 82948; 85025; 88305; A9270; C1758; C1769; C2617; J0330; J0690; J2003; J2175; J2250; J2405; J2704; J3010; J7120; Q9966

== ENCOUNTER 2024-09-08 13:30 | Outpatient (CLI) | payer OTHER, SELFPAY ==
--- OUTSIDE RECORDS SUMMARY | 2024-09-08 14:35 | XMS_ITS | Clinical Summary ---
Author Organization 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 Gender Identity Not on file Sexual Orientation [...] BLOOD ORDERABLES Final Result JALEEL LUCERO [facility] Department [place] [address] from Last 3 Months or Most Recently Relevant to Health Maintenance Insurance [facility] CHOICE PLUS [facility] H[facility]/PPO Address: [address] [address] [place] [address] [employer] OPEN ACCESS [facility] Care Teams Help Desk Rep Relationship Specialty Start Date End Date Tom Boss MD [address] [facility] [address] [place] [id number] PCP - General Family Medicine 10/08/18
--- OUTSIDE RECORDS SUMMARY | 2024-09-08 14:35 | XMS_ITS | CONTINUITY OF CARE DOCUMENT ---
Author Name rashida field Address Unknown Organization [facility] Address [address] [place] [address] Phone [phone] Care Team Providers Care Health And Safety Technician Name Role Phone Yasmine HERNANDEZ, Misael Ayala Unavailable [phone] MISAEL WEST Unavailable [phone] MISAEL WEST Unavailable [phone] PROBLEMS Condition Status Date Provider Notes HTN active Misael Underwood MD Chest pain - precordial active Misael Underwood MD Dyslipidemia mixed active Misael ritter MD Prediabetes active Misael webster MD ENCOUNTERS Date Type Provider Location Encounter Diag nosis - In-person encounter Office Visit Misael Underwood MD [facility] Office HTNChest pain - precordialDyslipidemia mixedPrediabetes VITAL SIGNS Date Observation Value Provider Body Mass Index (Ratio) 41.97 kg/m2 Manolo Underwood MD blood pressure, cuff size large Cr tod Bedolla blood pressure, diastolic 70 mm[Hg] Cr tod Bedolla blood pressure, systolic 130 mm[Hg] Cry stal Greame oxygen saturation, oximetry 98 % Rosemary Bedolla [...] 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 Misael Underwood MD smoking status Never smoker Rosemary Booker ams FAMILY HISTORY Family Member Condition First Degree Blood Relative No Known Fam linda History INSURANCE PROVIDERS Payer name Policy type / Coverage type [facility] [place] [id number] Other [id number] ADVANCE DIRECTIVES Name Date DISCUSSED - NO [...]
--- OUTSIDE RECORDS SUMMARY | 2024-09-08 14:35 | XMS_ITS | Referral Summary ---
Author Organization 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 Gender Identity Not on file Sexual Orientation [...] Solorzano MD LAB BLOOD ORDERABLES Final Result [facility] Department [place] [address] from Last 3 Months or Most Recently Relevant to Health Maintenance [facility] CHOICE PLUS [employer]ALTHLINK OPEN ACCESS [facility] Care Teams Mercantile Reporter Relationship Specialty Start Date End Date Tom Boss MD [address] [facility] [address] [place] [address] PCP - General Family Medicine 10/08/18
--- OUTSIDE RECORDS SUMMARY | 2024-09-08 14:35 | XMS_ITS | Data Portability ---
Author Organization [place] [facility] [place] [facility] [place] Address [address] [place] [address] Assessment Encounter Date Assessment Date Assessment LastModified [...] used during this encounter to provide a cimm-zq-hpyb interactive encounter. Components of this encounter are [...] used during this encounter to provide a xeih-ts-rybd interactive encounter. Components of this encounter are [...] By Organization Details Last Modified Time 05/11/2022 [id number] prostate cancer: care instructions [email or web address] Not available [...] Pt also agrees that me, and the [facility] Team are my treating physicians and that [...] questions. [email or web address] Not available 05/11/2022 12:02:59 05/14/2022 [id number] I have discussed the risks and benefits [...] Pt also agrees that me, and the [facility] Care Team are my treating [...] questions. [email or web address] Not available 05/14/2022 16:29:04 03/27/2024 [id number] I have discussed the risks and benefits [...] Pt also agrees that me, and the [facility] Care Team are my treating [...] being evaluated, and answering of all questions. [facility] Not available 03/27/2024 12:39:33 Reason for Referral [...] SNOMED-CT Code Diagnosis ICD10 Code Diagnosis Note [id number] Maryellen Cruz MD [facility] [address] [place] [phone] 05/11/2022 11:41:45 05/11/2022 13:05:48 Malignant neoplasm of prostate [id number] C61 [id number] AUGUSTINE BOYD NP [facility] [address] [place] [phone] 05/14/2022 16:28:46 05/15/2022 14:01:36 Malignant neoplasm of prostate [id number] C61 [id number] Maryellen Cruz MD [facility] [address] [place] [phone] 03/27/2024 11:17:16 03/27/2024 12:40:46 Malignant neoplasm of prostate [id number] C61 Health Concerns Section Related Observation LastModified by Organization Detai ls LastModified Time None Recorded Concern Status LastModified by Organization Details LastModified Time None Recorded Advance Directives Directive None Recorded Payers Insurance Date Sequence Insurance Name Policy Number Policy Augustin Covered Member ID Augustin Member ID Guarantor Name 03/25/2024 1 AETNA (POS II) [id number] Ryan Gunderson [id number] Damian Gunderson Notes Date Note Type [...] Cruz MD [address], [place], [address], [facility] - [facility] 05/11/2022 12:03:25 [...] BOYD NP [address], [place], [address], [facility] - [facility] 05/14/2022 16:29:33 [...] Cruz MD [address], [place], [address], [facility] - [facility] 03/27/2024 12:39:58
--- OUTSIDE RECORDS SUMMARY | 2024-09-08 14:35 | XMS_ITS | Clinical Summary ---
Author Organization [facility] Address [address] Attn: Epic Prelude ADT CATALINA MOODY [address] Care Team Providers Care Military Equipment Specialist Name Role Phone Unavailable Primary Care Provider [...] Description 01/06/2025 1:30 PM CDT Office Visit [facility] [place] [facility] Oncology and Hematology - [place] [address] [place] [address] [facility] [address] [place] [address] Chandan Orona MD [address] [place] [address] Health Maintenance Due Date Last [...]
[2024-09-08 14:37] LABS: Iron 63 ug/dL (49-181)
[2024-09-08 14:47] LABS: Percent Iron Saturation 20 % (20-50)
[2024-09-08 14:56] LABS: Basophils Percent Auto 0.6 % (0.2-1.2); Eosinophils Absolute Auto 0.1 K/mm3 (0-0.3); Eosinophils Percent Auto 2.9 % (0-4.4); Hematocrit 40.5 % (42.0-52.0); Hemoglobin 12.4 g/dL (14.0-18.0); Immature Granulocyte Absolute 0.08 K/mm3 (0.00-0.031); Immature Granulocyte Percent A 2.3 % (0-0.5); Lymphocytes Absolute Auto 0.58 K/mm3 (0.9-3.2); Lymphocytes Percent Auto 16.6 % (18.3-44.2); Mean Corpuscular HGB Conc 30.6 g/dl (32-36); Mean Corpuscular Hemoglobin 27.6 pg (26-34); Mean Platelet Volume 9.5 fl (7.4-10.4); Monocytes Absolute Auto 0.4 K/mm3 (0.1-0.6); Monocytes Percent Auto 11.7 % (2.6-8.5); Neutrophils Absolute Auto 2.3 K/mm3 (1.3-6.7); Neutrophils Percent Auto 65.9 % (45.5-73.1); Platelet Count Result 243 k/mm3 (150-375); Red Cell Distribution Width 13.7 % (11.5-14.5); White Blood Count 3.5 K/mm3 (4.5-10.0)
== END 2024-09-08 13:31 | disposition home or self-care (01) ==
LOC: ANHLAB 13:31
PROVIDERS: PCP Family Medicine; Visit Provider Physician Assistant
DX: D64.9 Anemia, unspecified (principal)
CPT/HCPCS: 36415; 82728; 83540; 83550; 85025

== ENCOUNTER 2024-09-16 12:24 | Emergency (ER) | payer OTHER, SELFPAY ==
--- NOTE | ~2024-09-16 | CT_ITS ---
CT abdomen pelvis w con Ordering provider: Nirmala Jimenez PA-C History: 59 years Male with . hematuria, clots in urine, recent bladder bx . Comparison: August 31, 2024 Technique: CT abdomen and pelvis with IV and without oral contrast. Automated exposure control and it erative reconstruction technique were employed. The dose-length product was 1861.34 mGy-cm. 100 mL Om nipaque 350 was given IV. Findings: VISUALIZED LOWER CHEST: Dependent atelectatic changes UPPER ABDOMINAL ORGANS: Liver: Hypodensity seen in the right lobe of the liver unchanged from previous examination measuring 2.7 cm. Fat infiltration. Hepatomegaly. Gallbladder: Multiple gallstones. Possibility of sludge. Spleen: Normal. Stomach/duodenum: Normal. Pancreas: Normal. Adrenals: Bilateral small adenoma unchanged from previous examination. Kidneys: 7 mm small density in the left kidney upper pole which may be a mass unchanged from previous examination tiny cyst in the left kidney lower pole. Tiny stone in the right kidney upper pole. Tiny stones in the right kidney mid and lower pole. Right double-J stent is also noted with mild right hydronephrotic changes.. PELVIC ORGANS: The bladder is underfilled with thickened wall. BOWEL AND MESENTERY: Colon: No evidence of diverticulitis. Fecal material is loaded in the colon. Normal appendix. Small Bowel: Normal. No obstruction. Peritoneum/mesentery: No free air or free fluid. No mesenteric lymphadenopathy. RETROPERITONEUM: Mild atheromatous disease of the abdominal aorta. No retroperitoneal lymphadenopat hy. MUSCULOSKELETAL: Superficial soft tissues: A fat-containing umbilical hernia. Soft tissue density is seen in the subcu taneous tissues in the left lower thoracic area posteriorly may be a sebaceous cyst. Otherwise, The s uperficial soft tissues are normal. Bones: Age appropriate degenerative changes of the spine. Hemangioma in L3. IMPRESSION: 1. No evidence of appendicitis, diverticulitis or intestinal obstruction. 2. Multiple right kidney stones with right double-J stent. 3. 7 mm Small density in the left kidney upper pole which may be a mass follow-up advised. 4. Cholelithiasis. 5. Fat infiltration of the liver. Hepatomegaly. 6. Constipation. 7. Hypodensity in the liver unchanged from previous 8. Bilateral adrenal adenomas unchanged. 9. Thickened wall of the urinary bladder. Evaluation for cystitis advised. 10. Fat-containing umbilical hernia. Reviewed, dictated and finalized at location A. IMPRESSION: 1. No evidence of appendicitis, diverticulitis or intestinal obstruction. 2. Multiple right kidney stones with right double-J stent. 3. 7 mm Small density in the left kidney upper pole which may be a mass follow -up advised. 4. Cholelithiasis. 5. Fat infiltration of the liver. Hepatomegaly. 6. Constipation. 7. Hypodensity in the liver unchanged from previous 8. Bilateral adrenal adenomas unchanged. 9. Thickened wall of the urinary bladder. Evaluation for cystitis advised. 10. Fat-containing umbilical hernia.
[2024-09-16 12:39] VITALS: BP 126/84; PULSE 78; RESP 20; TEMP 36.6; O2SAT 97
--- OUTSIDE RECORDS SUMMARY | 2024-09-16 13:51 | XMS_ITS | CONTINUITY OF CARE DOCUMENT ---
Author Name rashida field Address Unknown Organization [facility] Address [address] [place] [address] Phone [phone] Care Team Providers Care Welder Assembler Name Role Phone Yasmine HERNANDEZ, Misael Ayala Unavailable [phone] MISAEL WEST Unavailable [phone] MISAEL WEST Unavailable [phone] PROBLEMS Condition Status Date Provider Notes HTN active Misael Underwood MD Chest pain - precordial active Misael Underwood MD Dyslipidemia mixed active Misael ritter MD Prediabetes active Misael webster MD ENCOUNTERS Date Type Provider Location Encounter Diag nosis - In-person encounter Office Visit Misael Underwood MD [facility] Office HTNChest pain - precordialDyslipidemia mixedPrediabetes [...] 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 Misael Underwood MD smoking status Never smoker Rosemary Booker ams FAMILY HISTORY Family Member Condition First Degree Blood Relative No Known Fam linda History INSURANCE PROVIDERS Payer name Policy type / Coverage type [facility] [place] [id number] Other [id number] ADVANCE DIRECTIVES Name Date DISCUSSED - NO [...]
--- OUTSIDE RECORDS SUMMARY | 2024-09-16 13:51 | XMS_ITS | Clinical Summary ---
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
--- OUTSIDE RECORDS SUMMARY | 2024-09-16 13:51 | XMS_ITS | Referral Summary ---
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 Department [place] [address] from Last 3 Months or Most Recently Relevant to Health Maintenance [facility] CHOICE PLUS HEALTHLINK OPEN ACCESS [facility] Care Teams Law Tutor Relationship Specialty Start Date End Date Tom Boss MD [address] [email or web address] [address] [place] [address] PCP - General Family Medicine 10/08/18
--- OUTSIDE RECORDS SUMMARY | 2024-09-16 13:51 | XMS_ITS | Data Portability ---
Author Organization [place] [facility] [facility] [place] Address [address] [place] [address] Assessment Encounter Date Assessment Date Assessment LastModified [...] used during this encounter to provide a amrf-fe-sxnk interactive encounter. Components of this encounter are [...] used during this encounter to provide a wive-qi-wuve interactive encounter. Components of this encounter are [...] By Organization Details Last Modified Time 05/11/2022 [id number] prostate cancer: care instructions [email or web address] Not available [...] Pt also agrees that me, and the [facility] Team are my treating physicians and that [...] questions. [email or web address] Not available 05/11/2022 12:02:59 05/14/2022 [id number] I have discussed the risks and benefits [...] agrees that me, and the [facility] Team are my treating physicians [...] questions. [email or web address] Not available 05/14/2022 16:29:04 03/27/2024 [id number] I have discussed the risks and benefits [...] agrees that me, and the [facility] Team are my treating physicians [...] being evaluated, and answering of all questions. [email or web address] Not available 03/27/2024 12:39:33 Reason for Referral [...] SNOMED-CT Code Diagnosis ICD10 Code Diagnosis Note [id number] Maryellen Cruz MD [facility] [address] [place] [phone] 05/11/2022 11:41:45 05/11/2022 13:05:48 Malignant neoplasm of prostate [id number] C61 [id number] AUGUSTINE BOYD NP [facility] [address] [place] [phone] 05/14/2022 16:28:46 05/15/2022 14:01:36 Malignant neoplasm of prostate [id number] C61 [id number] Maryellen Cruz MD [facility] [address] [place] [phone] 03/27/2024 11:17:16 03/27/2024 12:40:46 Malignant neoplasm of prostate [id number] C61 Health Concerns Section Related Observation LastModified by Organization Detai ls LastModified Time None Recorded Concern Status LastModified by Organization Details LastModified Time None Recorded Advance Directives Directive None Recorded Payers Insurance Date Sequence Insurance Name Policy Number Policy Augustin Covered Member ID Augustin Member ID Guarantor Name 03/25/2024 1 [employer] (POS II) [id number] Ryan Gunderson [id number] Damian Gunderson Notes Date Note Type [...] Cruz MD [address], [place], [address], [facility] - [facility] 05/11/2022 [...] BOYD NP [address], [place], [address], [facility] - [facility] 05/14/2022 [...] Cruz MD [address], [place], [address], [facility] - [facility] 03/27/2024 12:39:58
--- OUTSIDE RECORDS SUMMARY | 2024-09-16 13:51 | XMS_ITS | Clinical Summary ---
Author Organization [facility] s [facility] Address [address] [place] [address] [place] [address] Care Team Providers Care Office Administration Name Role Phone Unavailable Primary Care Provider Unavailabl e Social History Tobacco Use Types Packs/Day Years Used Date Smoking Tobacco: Never Assessed Sex and Gender Information Value Date Recorded Sex Assigned at Not on file Legal Sex Male 3:16 PM CDT Gender Identity Not on file Sexual Orientation Not on file Plan of Treatment Upcoming Encounters Date Type Department Care Team ([facility] st Contact Info) Description 01/06/2025 1:30 PM CDT Office Visit [facility] Oncology and Hematology - Charlie [address] [facility] [address] [address] Chandan Orona MD [address] [facility] [address] [place] [address] Health Maintenance Due Date Last Done Comments DTAP/TDAP/TD VACCINES (1 - Tdap) 1986 HEPATITIS B VACCINES (1 of 3 - 19+ 3-dose series) 04/02 COLORECTAL SCREENING 2012 Colorectal Cancer Screening 2012 FIT-DNA Q 3 years 2012 FIT/FOBT Q 1 year 2012 Flex Sig/CT Colonography Q 5 years 2012 ZOSTER VACCINE (1 of 2) 2017 INFLUENZA VACCINE (#1) 2023 Insurance [employer] CHOICE POS II
[2024-09-16 14:04] LABS: Bacteria Urine None Seen /hpf; Squamous Epithelial Cell Urine None Seen /hpf (Few); WBC Urine 0-5 /hpf (0-3)
[2024-09-16 14:08] LABS: Add Urine Microscopic? YES; Appearance Urine Cloudy (Clear); Color Urine Red (Yellow)
--- NOTE | 2024-09-16 14:29 | ED_ITS ---
HPI - Male Genitourinary General Chief complaint: Urogenital-Male <ELSIE Quevedo Last Filed: 09/16/24 14:37> Stated complaint: Blood clots in urine, bladder biopsy 09/01/24 <ELSIE Quevedo Last Filed: 09/16/24 14:37> Time Seen by Provider: 09/16/24 14:29 <ELSIE Quevedo Last Filed: 09/16/24 14:37> Focused HPI: Patient is a 59 y/o male who presents to the ED with c/o hematuria. Patient reports he underwent cystoscopy with bladder biopsy, R hysteroscopy with ureteral stent placement on 09/01/[address] Desouza. States he had some dark blood in his urine initially after the procedure. Over the past 3 days, he has been passing bright red blood, passing numerous blood clots. States he feels he is able to empty his bladder still. Reports mild lower abdominal pain, denies flank pain. Denies fevers, N/V. Is not on any anticoagulation. GENERAL: Well-appearing, morbidly obese with BMI of 40.3, and in no acute distress. HEAD: Normocephalic, atraumatic. CHEST: Clear to auscultation. ?No respiratory distress. HEART: Regular rate and rhythm.? NEURO: ?Alert and oriented x3. Patient screened in triage and initial orders placed.? ?Additional care and disposition to be based upon?diagnostic testing and treatment. <ELSIE Quevedo Last Filed: 09/16/24 14:37> Source: patient and old records reviewed <ELSIE Quevedo Last Filed: 09/16/24 14:37> Mode of arrival: ambulatory <ELSIE Quevedo Last Filed: 09/16/24 14:37> Limitations: no limitations <ELSIE Quevedo Last Filed: 09/16/24 14:37> Related Data Home medications: Home Medications ?Medication ?Instructions ?Recorded ?Confirmed ?Last Taken ?Type aspirin 81 mg tablet,delayed 81 mg PO DAILY 03/18/19 09/01/2425 History release loratadine 10 mg tablet (Claritin) 10 mg PO DAILY 03/18/19 09/01/24 08/27/24 History naproxen sodium 220 mg tablet 220 mg PO Q12H 03/18/19 08/27/24 04/02/22 History (Aleve) cholecalciferol (vitamin D3) 125 125 mcg PO DAILY 01/28/24 09/01/24 08/27/24 History mcg (5,000 unit) capsule acetaminophen 500 mg tablet 1,000 mg PO Q6H PRN pain 08/27/24 08/27/24 Unknown History <Nirmala Jimenez PA-C - Last Filed: 09/16/24 14:37> Allergies/Adverse reactions: Allergies Allergy/AdvReac Type Severity Reaction Status Date / Time No Known Allergies Allergy Verified 09/16/24 12:26 <Nirmala Jimenez PA-C - Last Filed: 09/16/24 14:37> Review of Systems 2 Review of Systems: All systems reviewed & are unremarkable except as noted in HPI and below <Zain Farrar MD - Last Filed: 09/16/24 17:57> Constitutional: Constitutional: Reports no additional constitutional complaints <Zain Farrar MD - Last Filed: 09/16/24 17:57> Cardiovascular: Cardiovascular: Reports no additional cardiovascular complaints <Zain Farrar MD - Last Filed: 09/16/24 17:57> Respiratory: Respiratory: Reports no additional respiratory complaints < Zain Farrar MD - Last Filed: 09/16/24 17:57> Gastrointestinal: Gastrointestinal: Reports no additional gastrointestinal complaints <Zain Farrar MD - Last Filed: 09/16/24 17:57> Genitourinary: Genitourinary: Reports no additional male genitourinary complaints <Zain Farrar MD - Last Filed: 09/16/24 17:57> [facility] Past Medical History Medical History: Medical History History of prostate cancer Hx of osteomyelitis Left knee 2010 Hypothyroidism ALLEN (obstructive sleep apnea) CVA (cerebral vascular accident) Bilateral hand pain HTN (hypertension) Idiopathic peripheral neuropathy <Nirmala Jimenez PA-C - Last Filed: 09/16/24 14:37> Surgical History Surgical History: Surgical History Hx of tonsillectomy 1995 Hx of hand surgery left hand d/t DJD- 2022 Hx of arthroscopy of left knee w/ ACL/LCL recon- 1993 Hx of arthroscopy of right knee w/ MCL recon- 2020 History of open reduction and internal fixation (ORIF) procedure Clavicle- 2018 Hx of fusion of cervical spine 2018 History of robot-assisted laparoscopic radical prostatectomy <Nirmala Jimenez PA-C - Last Filed: 09/16/24 14:37> Social History Social History: Social History Smoking status: Never smoker Second hand tobacco smoke exposure: No Alcohol intake: current Alcohol use details: 1/MONTH Substance use: never Substance use type: does not use Do You Feel Safe in your Home?: Yes Lack of Transportation: No Lack of Food: Never True Current Housing: I Have Housing Concerned About Future Housing: No Difficulty Paying Gas/Electric Bills: No Difficulty Paying for Meds: No Currently Unemployed: YES Education: Master's Degree or Higher Difficulty w/ Childcare or Family Care: No Living arrangements: with family Occupation/Education: unemployed Gender identity (if verbalized by the patient): Male Sexual Orientation (if Verbalized by the Patient): Straight or Heterosexual Spiritual care concerns: No <Nirmala Jimenez PA-C - Last Filed: 09/16/24 14:37> Exam 2 Narrative: GENERAL: Well-appearing, well-nourished, and in no acute distress. HEAD: Normocephalic, atraumatic. ENT: Mucous membranes moist. CHEST: Clear to auscultation. No respiratory distress. HEART: Regular rate and rhythm. Normal peripheral pulses. ABDOMEN: Soft, nontender, nondistended. EXTREMITIES: Normal range of motion. No edema. SKIN: Warm, dry, no rash. NEURO: Alert and oriented x3. PSYCH: Normal mood and affect. <Zain Farrar MD - Last Filed: 09/16/24 17:57> Course Course Emergency Course: Patient resting comfortably. Discussed case with urology. Will need follow-up with Urology to have stent removed. Recommend 7 days of Bactrim urine culture can be evaluated. Patient verbalized understanding treatment plan. <Zain Farrar MD - Last Filed: 09/16/24 17:57> Vital Signs Vital signs: Vital Signs Temperature 98 F 09/16/24 12:39 Pulse Rate 78 09/16/24 12:39 Respiratory Rate 20 09/16/24 12:39 Blood Pressure 126/84 09/16/24 12:39 Pulse Oximetry 97 09/16/24 12:39 Oxygen Delivery Room Air 09/16/24 12:39 Temperature 98 F 09/16/24 12:39 Pulse Rate 78 09/16/24 12:39 Respiratory Rate 20 09/16/24 12:39 Blood Pressure 126/84 09/16/24 12:39 Pulse Oximetry 97 09/16/24 12:39 Oxygen Delivery Room Air 09/16/24 12:39 <Nirmala Jimenez PA-C - Last Filed: 09/16/24 14:37> Vital Signs Temperature 98 F 09/16/24 12:39 Pulse Rate 78 09/16/24 12:39 Respiratory Rate 20 09/16/24 12:39 Blood Pressure 126/84 09/16/24 12:39 Pulse Oximetry 97 09/16/24 12:39 Oxygen Delivery Room Air 09/16/24 12:39 Temperature 98 F 09/16/24 12:39 Pulse Rate 78 09/16/24 12:39 Respiratory Rate 20 09/16/24 12:39 Blood Pressure 126/84 09/16/24 12:39 Pulse Oximetry 97 09/16/24 12:39 Oxygen Delivery Room Air 09/16/24 12:39 <Zain Farrar MD - Last Filed: 09/16/24 17:57> MDM - Male Genitourinary MDM Narrative Medical decision making narrative: MSE by ALEKS in triage. <ELSIE Quevedo Last Filed: 09/16/24 14:37> Lab Data Result diagrams: 09/16/24 15:38 09/16/24 15:38 <ELSIE Quevedo Last Filed: 09/16/24 14:37> Labs: Lab Results 09/16/24 09/16/24 Range/Units 13:42 15:38 WBC 6.8 (4.5-10.0) K/mm3 RBC 4.56 L (4.6-6.20) M/mm3 Hgb 12.8 L (14.0-18.0) g/dL Hct 40.6 L (42.0-52.0) % MCV 89.0 (80-100) fl MCH 28.1 (26-34) pg MCHC 31.5 L (32-36) g/dl RDW 13.6 (11.5-14.5) % Plt Count 215 (150-375) k/mm3 MPV 9.4 (7.4-10.4) fl Immature Gran % (Auto) 0.3 (0-0.5) % Neut % (Auto) 76.9 H (45.5-73.1) % Lymph % (Auto) 11.9 L (18.3-44.2) % Hickory % (Auto) 9.2 H (2.6-8.5) % Eos % (Auto) 1.0 (0-4.4) % Baso % (Auto) 0.7 (0.2-1.2) % Lymph # (Auto) 0.80 L (0.9-3.2) K/mm3 [place]ory # (Auto) 0.6 (0.1-0.6) K/mm3 Eos # (Auto) 0.1 (0-0.3) K/mm3 Baso # (Auto) 0.1 (0.0-0.1) K/mm3 Abs Immat Gran (auto) 0.02 (0.00-0.031) K/mm3 Absolute Neuts (auto) 5.2 (1.3-6.7) K/mm3 Absolute Nucleated RBC 0.000 (0.0-0.012) K/mm3 Nucleated RBC % 0.0 (0.0-0.2) % PT 13.6 (11.1-14.7) Seconds INR 1.0 APTT 29.2 (22.3-36.8) Seconds Sodium 140 (137-145) mmol/L Potassium 4.4 (3.4-5.0) mmol/L Chloride 104 (98-107) mmol/L Carbon Dioxide 25 (22-30) mmol/L Anion Gap 11 (4-12) mmol/L BUN 33 H D (9-20) mg/dL Creatinine 1.26 (0.7-1.3) mg/dL Estim Creat Clear Calc 92 ml/min Estimated GFR 59 (59 - ) Glucose 102 (65-110) mg/dL Calcium 9.4 (8.4-10.2) mg/dL Total Bilirubin 0.7 (0.2-1.3) mg/dL AST 36 (17-59) U/L ALT 49 (6-50) U/L Alkaline Phosphatase 88 (38-126) U/L Total Protein 7.5 (6.3-8.2) g/dL Albumin 4.3 (3.5-5.1) g/dL Urine Color Red H (Yellow) Urine Appearance Cloudy H (Clear) Urine pH TNP Ur Specific Loiza TNP Urine Protein TNP Urine Glucose (UA) TNP Urine Ketones TNP Ur Blood (Man) TNP Urine Nitrate TNP Urine Bilirubin TNP Urine Urobilinogen TNP Leukocyte Esterase Rfl TNP Urine RBC 6-10 H (0-2) /hpf Urine WBC 0-5 (0-3) /hpf Ur Squamous Epith Cells None seen (Few) /hpf Urine Bacteria None seen (None) /hpf <Nirmala Jimenez PA-C - Last Filed: 09/16/24 14:37> Lab Results 09/16/24 09/16/24 Range/Units 13:42 15:38 WBC 6.8 (4.5-10.0) K/mm3 RBC 4.56 L (4.6-6.20) M/mm3 Hgb 12.8 L (14.0-18.0) g/dL Hct 40.6 L (42.0-52.0) % MCV 89.0 (80-100) fl MCH 28.1 (26-34) pg MCHC 31.5 L (32-36) g/dl RDW 13.6 (11.5-14.5) % Plt Count 215 (150-375) k/mm3 MPV 9.4 (7.4-10.4) fl Immature Gran % (Auto) 0.3 (0-0.5) % Neut % (Auto) 76.9 H (45.5-73.1) % Lymph % (Auto) 11.9 L (18.3-44.2) % Hickory % (Auto) 9.2 H (2.6-8.5) % Eos % (Auto) 1.0 (0-4.4) % Baso % (Auto) 0.7 (0.2-1.2) % Lymph # (Auto) 0.80 L (0.9-3.2) K/mm3 Hickory # (Auto) 0.6 (0.1-0.6) K/mm3 Eos # (Auto) 0.1 (0-0.3) K/mm3 Baso # (Auto) 0.1 (0.0-0.1) K/mm3 Abs Immat Gran (auto) 0.02 (0.00-0.031) K/mm3 Absolute Neuts (auto) 5.2 (1.3-6.7) K/mm3 Absolute Nucleated RBC 0.000 (0.0-0.012) K/mm3 Nucleated RBC % 0.0 (0.0-0.2) % PT 13.6 (11.1-14.7) Seconds INR 1.0 APTT 29.2 (22.3-36.8) Seconds Sodium 140 (137-145) mmol/L Potassium 4.4 (3.4-5.0) mmol/L Chloride 104 (98-107) mmol/L Carbon Dioxide 25 (22-30) mmol/L Anion Gap 11 (4-12) mmol/L BUN 33 H D (9-20) mg/dL Creatinine 1.26 (0.7-1.3) mg/dL Estim Creat Clear Calc 92 ml/min Estimated GFR 59 (59 - ) Glucose 102 (65-110) mg/dL Calcium 9.4 (8.4-10.2) mg/dL Total Bilirubin 0.7 (0.2-1.3) mg/dL AST 36 (17-59) U/L ALT 49 (6-50) U/L Alkaline Phosphatase 88 (38-126) U/L Total Protein 7.5 (6.3-8.2) g/dL Albumin 4.3 (3.5-5.1) g/dL Urine Color Red H (Yellow) Urine Appearance Cloudy H (Clear) Urine pH TNP Ur Specific Loiza TNP Urine Protein TNP Urine Glucose (UA) TNP Urine Ketones TNP Ur Blood (Man) TNP Urine Nitrate TNP Urine Bilirubin TNP Urine Urobilinogen TNP Leukocyte Esterase Rfl TNP Urine RBC 6-10 H (0-2) /hpf Urine WBC 0-5 (0-3) /hpf Ur Squamous Epith Cells None seen (Few) /hpf Urine Bacteria None seen (None) /hpf <Zain Farrar MD - Last Filed: 09/16/24 17:57> Imaging Data Radiologist's impression: ITS Impressions Abdomen/Pelvis CT 09/16/24 16:22 IMPRESSION: 1. No evidence of appendicitis, diverticulitis or intestinal obstruction. 2. Multiple right kidney stones with right double-J stent. 3. 7 mm Small density in the left kidney upper pole which may be a mass follow- up advised. 4. Cholelithiasis. 5. Fat infiltration of the liver. Hepatomegaly. 6. Constipation. 7. Hypodensity in the liver unchanged from previous 8. Bilateral adrenal adenomas unchanged. 9. Thickened wall of the urinary bladder. Evaluation for cystitis advised. 10. Fat-containing umbilical hernia. <Zain Farrar MD - Last Filed: 09/16/24 17:57> Discharge Plan Discharge Clinical Impression: Hematuria, Retained ureteral stent, Constipation <Nirmala Jimenez PA-C - Last Filed: 09/16/24 14:37> Patient Disposition: Home <Nirmala Jimenez PA-C - Last Filed: 09/16/24 14:37> Condition: Stable <Nirmala Jimenez PA-C - Last Filed: 09/16/24 14:37> Instructions: Constipation (ED), Hematuria (ED) <Nirmala Jimenez PA-C - Last Filed: 09/16/24 14:37> Additional Instructions: Follow-up with urology. Stay hydrated so you do not a struck it your the urethra when trying to pee. Return ER if you cannot urinate, you have fever over 100.4? F, or you have additional concerns <Nirmala Jimenez PA-C - Last Filed: 09/16/24 14:37> Patient Language: Sierra Leonean <Nirmala Jimenez PA-C - Last Filed: 09/16/24 14:37> Prescriptions: New sulfamethoxazole-trimethoprim [Bactrim DS] 800-160 mg tablet 1 tablet PO Q12H Qty: 14 0RF docusate sodium 100 mg tablet 100 mg PO BID Qty: 20 0RF No Action pregabalin 100 mg capsule 100 mg PO BID 30 Days Qty: 60 2RF amlodipine 10 mg tablet 10 mg .ROUTE .COMPLEX Qty: 90 1RF Patient Comments: TAKES AT HS Rx Instructions: 10 mg; cholecalciferol (vitamin D3) 125 mcg (5,000 unit) capsule 125 mcg PO DAILY tamsulosin 0.4 mg capsule 0.4 mg PO DAILY Qty: 12 0RF oxycodone 5 mg tablet 5 mg PO Q8H PRN (Reason: pain) Qty: 14 0RF acetaminophen 500 mg tablet 1,000 mg PO Q6H PRN (Reason: pain) sulfamethoxazole-trimethoprim [Bactrim DS] 800-160 mg tablet 1 tablet PO Q12H Qty: 6 0RF tramadol 50 mg tablet 50 mg PO Q6H PRN (Reason: pain) Qty: 10 0RF oxybutynin chloride 5 mg tablet 5 mg PO BID PRN (Reason: bladder spasms) Qty: 30 0RF Rx Instructions: Take as needed for bladder spasms loratadine [Claritin] 10 mg tablet 10 mg PO DAILY naproxen sodium [Aleve] 220 mg tablet 220 mg PO Q12H aspirin 81 mg tablet,delayed release (DR/EC) 81 mg PO DAILY albuterol sulfate 90 mcg/actuation HFA aerosol inhaler 1 inh inhalation Q4H PRN (Reason: shortness of breath or wheezing) Qty: 6.7 0RF bupropion HCl 150 mg tablet sustained-release 12 hr See Rx Instructions .ROUTE .COMPLEX Qty: 180 3RF Dose Instruction: TAKE 1 TABLET BY MOUTH TWICE A DAY Rx Instructions: TAKE 1 TABLET BY MOUTH TWICE A DAY levothyroxine 50 mcg tablet 50 mcg PO DAILY Qty: 90 2RF amitriptyline 100 mg tablet See Rx Instructions .ROUTE .COMPLEX Qty: 90 1RF Dose Instruction: TAKE 1 TABLET (100 MG) BY MOUTH DAILY Patient Comments: HS Rx Instructions: TAKE 1 TABLET (100 MG) BY MOUTH DAILY, takes at HS metoprolol succinate 50 mg tablet extended release 24 hr 50 mg PO DAILY Qty: 90 1RF Patient Comments: QAM hydrochlorothiazide 25 mg tablet See Rx Instructions .ROUTE .COMPLEX Qty: 90 3RF Dose Instruction: TAKE 1 TABLET (25 MG) BY MOUTH DAILY Rx Instructions: TAKE 1 TABLET (25 MG) BY MOUTH DAILY tamsulosin [Flomax] 0.4 mg capsule 0.4 mg PO QHS Qty: 90 2RF Mounjaro 2.5 mg/0.5 mL pen injector 2.5 mg subcut WEEKLY Qty: 6 0RF ondansetron 4 mg tablet,disintegrating 4 mg PO Q8H PRN (Reason: nausea and vomiting) Qty: 10 0RF <Nirmala Jimenez PA-C - Last Filed: 09/16/24 14:37> Follow-up/Referrals: Tom Boss MD [Primary Care Provider] - 1 Week Jared Desouza MD [Physician] - 1 Week <Nirmala Jimenez PA-C - Last Filed: 09/16/24 14:37>
[2024-09-16 15:43] LABS: Basophils Absolute Auto 0.1 K/mm3 (0.0-0.1); Basophils Percent Auto 0.7 % (0.2-1.2); Eosinophils Absolute Auto 0.1 K/mm3 (0-0.3); Hematocrit 40.6 % (42.0-52.0); Hemoglobin 12.8 g/dL (14.0-18.0); Immature Granulocyte Absolute 0.02 K/mm3 (0.00-0.031); Immature Granulocyte Percent A 0.3 % (0-0.5); Lymphocytes Percent Auto 11.9 % (18.3-44.2); Mean Corpuscular HGB Conc 31.5 g/dl (32-36); Mean Corpuscular Hemoglobin 28.1 pg (26-34); Mean Platelet Volume 9.4 fl (7.4-10.4); Monocytes Absolute Auto 0.6 K/mm3 (0.1-0.6); Monocytes Percent Auto 9.2 % (2.6-8.5); Neutrophils Absolute Auto 5.2 K/mm3 (1.3-6.7); Neutrophils Percent Auto 76.9 % (45.5-73.1); Platelet Count Result 215 k/mm3 (150-375); Red Blood Count 4.56 M/mm3 (4.6-6.20); Red Cell Distribution Width 13.6 % (11.5-14.5); White Blood Count 6.8 K/mm3 (4.5-10.0)
[2024-09-16 15:52] LABS: Alanine Aminotransferase 49 U/L (6-50); Albumin Level 4.3 g/dL (3.5-5.1); Alkaline Phosphatase 88 U/L (38-126); Anion Gap 11 mmol/L (4-12); Aspartate Amino Transferase 36 U/L (17-59); Bilirubin,Total 0.7 mg/dL (0.2-1.3); Blood Urea Nitrogen 33 mg/dL (9-20); Calcium 9.4 mg/dL (8.4-10.2); Carbon Dioxide 25 mmol/L (22-30); Chloride 104 mmol/L (98-107); Estimated CRCL calculation 92 ml/min; Estimated Glomerular Filt Rate 59; Glucose 102 mg/dL (65-110); Potassium 4.4 mmol/L (3.4-5.0); Sodium 140 mmol/L (137-145); Total Protein 7.5 g/dL (6.3-8.2)
[2024-09-16 15:55] LABS: Prothrombin Time 13.6 Seconds (11.1-14.7)
[2024-09-16 15:56] LABS: Partial Thromboplastin Time 29.2 Seconds (22.3-36.8)
--- OUTSIDE RECORDS SUMMARY | 2024-09-16 16:30 | XMS_ITS | Clinical Summary ---
Author Organization [facility] Address [address] [place] [address] [place] [address] Care Team Providers Care Mobile Heavy Equipment Mechanic Name Role Phone Unavailable Primary Care Provider Unavailabl e Social History Tobacco Use Types Packs/Day Years Used Date Smoking Tobacco: Never Assessed Sex and Gender Information Value Date Recorded Sex Assigned at Not on file Legal Sex Male 3:16 PM CDT Gender Identity Not on file Sexual Orientation Not on file Plan of Treatment Upcoming Encounters Date Type Department Care Team ([facility] st Contact Info) Description 01/06/2025 1:30 PM CDT Office Visit [facility] Oncology and Hematology - Charlie [address] [facility] [address] [address] Chandan Orona MD [address] [facility] [address] [place] [address] Health Maintenance Due Date Last [...]
--- OUTSIDE RECORDS SUMMARY | 2024-09-16 16:30 | XMS_ITS | Clinical Summary ---
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 Gender Identity Not on file Sexual Orientation [...] ORDERABLES Final Result JALEEL LUCERO One [facility] Department [place] [address] from Last 3 Months or Most Recently Relevant to Health Maintenance Insurance [facility] CHOICE PLUS [facility] HMO/PPO Address: [address] [address] [place] [address] [employer] OPEN ACCESS [facility] Care Teams Endocrinology Teacher Relationship Specialty Start Date End Date Tom Boss MD [address] [facility] [address] [place] [id number] PCP - General Family Medicine 10/08/18
--- OUTSIDE RECORDS SUMMARY | 2024-09-16 16:30 | XMS_ITS | CONTINUITY OF CARE DOCUMENT ---
Author Name rashida field Address Unknown Organization [facility] Address [address] [place] [address] Phone [phone] Care Team Providers Care Poker Supervisor Name Role Phone Yasmine HERNANDEZ, Misael Ayala Unavailable [phone] MISAEL WEST Unavailable MISAEL WEST Unavailable [phone] PROBLEMS Condition Status Date Provider Notes Prediabetes active Misael webster MD Dyslipidemia mixed active Misael ritter MD Chest pain - precordial active Misael Underwood MD HTN active Misael Underwood MD ENCOUNTERS Date Type Provider Location Encounter Diag nosis - In-person encounter Office Visit Misael Underwood MD [facility] Office HTNChest pain - precordialDyslipidemia mixedPrediabetes VITAL [...] 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 Misael Underwood MD smoking status Never smoker Rosemary Booker ams FAMILY HISTORY Family Member Condition First Degree Blood Relative No Known Fam linda History INSURANCE PROVIDERS Payer name Policy type / Coverage type [facility] [place] [id number] Other [id number] ADVANCE DIRECTIVES Name Date DISCUSSED - NO [...]
--- OUTSIDE RECORDS SUMMARY | 2024-09-16 16:30 | XMS_ITS | Referral Summary ---
Author Organization 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 Department [place] [address] from Last 3 Months or Most Recently Relevant to Health Maintenance Insurance [facility] CHOICE PLUS [facility] H[facility]/PPO Address: [address] [address] [place] [address] [employer] OPEN ACCESS [facility] Care Teams Safety Compliance Specialist Relationship Specialty Start Date End Date Tom Boss MD [address] [facility] [address] [place] [address] PCP - General Family Medicine 10/08/18
== END 2024-09-16 18:32 | disposition home or self-care (01) ==
PROVIDERS: Physician Assistant; Emergency Provider Emergency Medicine; PCP Family Medicine
DX: R31.9 Hematuria, unspecified (principal); K59.00 Constipation, unspecified; Z96.0 Presence of urogenital implants; I10 Essential (primary) hypertension; E03.9 Hypothyroidism, unspecified; E66.01 Morbid (severe) obesity due to excess calories; Z68.41 Body mass index [BMI] 40.0-44.9, adult; G47.33 Obstructive sleep apnea (adult) (pediatric); G60.9 Hereditary and idiopathic neuropathy, unspecified; Z98.1 Arthrodesis status; Z86.73 Personal history of transient ischemic attack (TIA), and cerebral infarction without residual deficits; Z85.46 Personal history of malignant neoplasm of prostate; Z90.79 Acquired absence of other genital organ(s); N20.0 Calculus of kidney; K80.20 Calculus of gallbladder without cholecystitis without obstruction; K76.0 Fatty (change of) liver, not elsewhere classified; D35.02 Benign neoplasm of left adrenal gland; D35.01 Benign neoplasm of right adrenal gland; K42.9 Umbilical hernia without obstruction or gangrene; R93.422 Abnormal radiologic findings on diagnostic imaging of left kidney; R93.41 Abnormal radiologic findings on diagnostic imaging of renal pelvis, ureter, or bladder
CPT/HCPCS: 36415; 74177; 80053; 81001; 85025; 85610; 85730; 99284; Q9967

== ENCOUNTER 2024-10-20 00:05 | Day surgery (SDC) | payer OTHER, SELFPAY ==
[2024-09-28 13:40] VITALS: BMI 40.2
--- OUTSIDE RECORDS SUMMARY | 2024-10-15 01:04 | XMS_ITS | Clinical Summary ---
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 [place] [address] from Last 3 Months or Most Recently Relevant to Health Maintenance Insurance [facility] CHOICE PLUS [employer] OPEN ACCESS [facility] Care Teams Switchboard Operator Helper Relationship Specialty Start Date End Date Tom Boss MD [address] [facility] [address] [place] [id number] PCP - General Family Medicine 10/08/18
--- OUTSIDE RECORDS SUMMARY | 2024-10-15 01:04 | XMS_ITS | Referral Summary ---
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 [address] [place] [address] PCP - General Family Medicine 10/08/18
--- OUTSIDE RECORDS SUMMARY | 2024-10-15 01:04 | XMS_ITS ---
Author Organization Unknown Medications Medication Instructions Effective Dates (start - stop) Status levothyroxine sodium 0.05 MG Oral Tablet - Completed amlodipine 5 MG Oral Tablet [id number] :00:00Z - Completed acetaminophen 325 MG / hydro codone bitartrate 5 MG Oral Tablet - Completed 12 HR bupropion hydrochlorid e 150 MG Extended Release Oral Tablet - Complete d amlodipine 5 MG Oral Tablet [id number] :00:00Z - Completed hydrochlorothiazide 25 MG Or al Tablet - Completed hydrochlorothiazide 25 MG Or al Tablet - Completed amitriptyline hydrochloride 100 MG Oral Tablet - Completed amitriptyline hydrochloride 100 MG [...] Complete d amlodipine 5 MG Oral Tablet [id number] :00:00Z - Completed 24 HR metoprolol succinate 5 0 MG Extended Release Oral Tablet - Complete d levothyroxine sodium 0.05 MG Oral Tablet - Completed 24 HR metoprolol succinate 5 0 MG Extended Release Oral Tablet - Complete d - - Compl eted 24 HR metoprolol succinate 5 0 MG Extended Release Oral Tablet - Complete d levothyroxine sodium 0.05 MG Oral Tablet - Completed levothyroxine sodium 0.05 MG Oral Tablet - Completed vibegron 75 MG Oral Tablet [Gemtesa] 2023T00:00:00Z - Completed amitriptyline hydrochloride 100 MG Oral Tablet - Completed hydrochlorothiazide 25 MG Or al Tablet - Completed benzonatate 100 MG Oral Capsule 2023-03-02 8T00:00:00Z - Completed hydrochlorothiazide 25 MG Or al Tablet - Completed Patient Care team information Name Category Status Period Participants - - Proposed period not known -
--- OUTSIDE RECORDS SUMMARY | 2024-10-15 01:05 | XMS_ITS | Data Portability ---
Author Organization [place] [facility] - [facility] [place] Address [address] [place] [address] Assessment Encounter Date Assessment Date Assessment LastModified [...] used during this encounter to provide a mjjq-ya-uepa interactive encounter. Components of this encounter are [...] used during this encounter to provide a mdng-um-hdkb interactive encounter. Components of this encounter are [...] By Organization Details Last Modified Time 05/11/2022 [id number] prostate cancer: care instructions [email or web address] Not available [...] Pt also agrees that me, and the [facility] Team are my treating physicians and [...] questions. [email or web address] Not available 05/11/2022 12:02:59 05/14/2022 [id number] I have discussed the risks and benefits [...] Pt also agrees that me, and the [facility] are my treating physicians and [...] questions. [email or web address] Not available 05/14/2022 16:29:04 03/27/2024 [id number] I have discussed the risks and benefits [...] Pt also agrees that me, and the [facility] Team are my treating physicians and [...] being evaluated, and answering of all questions. [email or web address] Not available 03/27/2024 12:39:33 Reason for Referral [...] SNOMED-CT Code Diagnosis ICD10 Code Diagnosis Note [id number] Maryellen Cruz MD [facility] [address] [place] [address],[address] [address] 05/11/2022 11:41:45 05/11/2022 13:05:48 Malignant neoplasm of prostate [id number] C61 [id number] AUGUSTINE BOYD NP [facility] [address] [place] [address],[address] [address] 05/14/2022 16:28:46 05/15/2022 14:01:36 Malignant neoplasm of prostate [id number] C61 [id number] Maryellen Cruz MD [facility] [address] [place] [address],[address] [address] 03/27/2024 11:17:16 03/27/2024 12:40:46 Malignant neoplasm of prostate [id number] C61 Health Concerns Section Related Observation LastModified by Organization Detai ls LastModified Time None Recorded Concern Status LastModified by Organization Details LastModified Time None Recorded Advance Directives Directive None Recorded Payers Insurance Date Sequence Insurance Name Policy Number Policy Augustin Covered Member ID Auugstin Member ID Guarantor Name 03/25/2024 1 AET[employer] (POS II) [id number] Ryan Gunderson [id number] Damian Gunderson Notes Date Note Type [...] Cruz MD [address], [place], [address], [facility] [...] BOYD NP [address] [place], [address], [facility] [...] Cruz MD [address], [address], [place], [address], [facility] - [facility] 03/27/2024 12:39:58
--- OUTSIDE RECORDS SUMMARY | 2024-10-15 01:05 | XMS_ITS | Clinical Summary ---
Author Organization [facility] Address [address] [place] [address] [place] [address] Care Team Providers Care Bead Builder Name Role Phone Unavailable Primary Care Provider Unavailabl e Social History Tobacco Use Types Packs/Day Years Used Date Smoking Tobacco: Never Assessed Sex and Gender Information Value Date Recorded Sex Assigned at Not on file Legal Sex Male 3:16 PM CDT Gender Identity Not on file Sexual Orientation Not on file Plan of Treatment Upcoming Encounters Date Type Department Care Team ([facility] st Contact Info) Description 01/06/2025 1:30 PM CDT Office Visit [facility] Oncology and Hematology - Charlie [address] [facility] [address] [address] Chandan Orona MD [address] [place] [address] [place] [address] Health Maintenance Due Date Last Done Comments DTAP/TDAP/TD VACCINES (1 - Tdap) 1986 HEPATITIS B VACCINES (1 of 3 - 19+ 3-dose series) 04/02 COLORECTAL SCREENING 2012 Colorectal Cancer Screening 2012 FIT-DNA Q 3 years 2012 FIT/FOBT Q 1 year 2012 Flex Sig/CT Colonography Q 5 years 2012 ZOSTER VACCINE (1 of 2) 2017 INFLUENZA VACCINE (#1) 2024 Insurance [employer] CHOICE POS II
--- NOTE | 2024-10-15 07:51 | SUR.PREOP ---
Patient came to the waiting room and wanted to talk with nurse before getting registered. He told me was not cleaned out. He drank all the prep and refrained from solids yesterday but he informed me struggles with constipation and would like to reschedule.
--- OUTSIDE RECORDS SUMMARY | 2024-10-20 00:10 | XMS_ITS | Clinical Summary ---
Author Organization [facility] Address [address] [place] [address] [place] [address] Care Team Providers Care Private Branch Exchange Service Adviser Name Role Phone Unavailable Primary Care Provider Unavailabl e Social History Tobacco Use Types Packs/Day Years Used Date Smoking Tobacco: Never Assessed Sex and Gender Information Value Date Recorded Sex Assigned at Not on file Legal Sex Male 3:16 PM CDT Gender Identity Not on file Sexual Orientation Not on file Plan of Treatment Upcoming Encounters Date Type Department Care Team ([facility] st Contact Info) Description 01/06/2025 1:30 PM CDT Office Visit [facility] Oncology and Hematology - Charlie [address] [facility] [address] [address] Chandan Orona MD [address] [facility] [address] [place] [address] Health Maintenance Due Date Last [...]
--- OUTSIDE RECORDS SUMMARY | 2024-10-20 00:11 | XMS_ITS | Clinical Summary ---
Author Organization [facility] Address [facility] [place] [address] Care Team Providers Care Outside Event Sales Specialist Name Role Phone Drake Galvez MD Primary [...] 9:26 AM CDT Height 193 cm (6' 4) 10/17/2017 9:26 AM CDT Body Mass Index [...] W/CALC LDL Routine 05/30/2015 11:5 9 AM COSMETOLOGY PROFESSOR from Last 3 Months or Most Recently Relevant to Health Maintenance Results * (ABNORMAL) LIPID W/CALC LDL (05/30/2015 11:59 AM COSMETOLOGY PROFESSOR) CHOLESTEROL 165 <200 MG/DL [facility] TO EPIC [...] INCREASED <45 <55 05/30/2015 11:5 9 AM COSMETOLOGY PROFESSOR 05/30/2015 11:59 AM COSMETOLOGY PROFESSOR Narrative [facility] TO EPIC CONVERSION - 05/30/2015 3:25 PM COSMETOLOGY PROFESSOR Result Communication: Call patient with results us Ryan Francois FLIGHT DECK OFFICER LABORATORY Final Result [facility] TO EPIC CONVERSION from Last 3 Months or Most Recently Relevant to Health Maintenance Care Teams Outside Event Sales Specialist Relationship Specialty Start Date End Date Drake Galvez MD [address] [facility] [address] [place] [address] PCP - General 06/20/16
--- OUTSIDE RECORDS SUMMARY | 2024-10-20 00:11 | XMS_ITS ---
Author Organization Unknown Medications Medication Instructions Effective Dates (start - stop) Status levothyroxine sodium 0.05 MG Oral Tablet - Completed amlodipine 5 MG Oral Tablet [id number] :00:00Z - Completed acetaminophen 325 MG / hydro codone bitartrate 5 MG Oral Tablet - Completed 12 HR bupropion hydrochlorid e 150 MG Extended Release Oral Tablet - Complete d amlodipine 5 MG Oral Tablet [id number] :00:00Z - Completed hydrochlorothiazide 25 MG Or [...] Complete d amlodipine 5 MG Oral Tablet [id number] :00:00Z - Completed 24 HR metoprolol succinate [...]
--- OUTSIDE RECORDS SUMMARY | 2024-10-20 00:11 | XMS_ITS | Clinical Summary ---
Author Organization 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
--- OUTSIDE RECORDS SUMMARY | 2024-10-20 00:11 | XMS_ITS | Data Portability ---
Author Organization [place] [facility] - [facility] [place] Address [address] [place] [address] Assessment Encounter Date Assessment Date Assessment LastModified [...] used during this encounter to provide a cdut-xb-ijzp interactive encounter. Components of this encounter are [...] used during this encounter to provide a xutr-wu-gocn interactive encounter. Components of this encounter are [...] By Organization Details Last Modified Time 05/11/2022 [id number] prostate cancer: care instructions [email or web address] Not available [...] Pt also agrees that me, and the [facility] Team are my treating physicians and [...] questions. [email or web address] Not available 05/11/2022 12:02:59 05/14/2022 [id number] I have discussed the risks and benefits [...] questions. [email or web address] Not available 05/14/2022 16:29:04 03/27/2024 [id number] I have discussed the risks and benefits [...] SNOMED-CT Code Diagnosis ICD10 Code Diagnosis Note [id number] Maryellen Cruz MD [facility] [address] [place] [address],[address] [address] 05/11/2022 11:41:45 05/11/2022 13:05:48 Malignant neoplasm of prostate [id number] C61 [id number] AUGUSTINE BOYD NP [facility] [address] [place] [address],[address] [address] 05/14/2022 16:28:46 05/15/2022 14:01:36 Malignant neoplasm of prostate [id number] C61 [id number] Maryellen Cruz MD [facility] [address] [place] [address],[address] [address] 03/27/2024 11:17:16 03/27/2024 12:40:46 Malignant neoplasm of prostate [id number] C61 Health Concerns Section Related Observation LastModified by Organization Detai ls LastModified Time None Recorded Concern Status LastModified by Organization Details LastModified Time None Recorded Advance Directives Directive None Recorded Payers Insurance Date Sequence Insurance Name Policy Number Policy Augustin Covered Member ID Augustin Member ID Guarantor Name 03/25/2024 1 [employer] (POS II) [id number] Ryan Gunderson [id number] Damian Gunderson Notes Date Note Type [...] Cruz MD [address], [place], [address], [facility] - [facility] [...] BOYD NP [address], [place], [address], [facility] - [facility] [...] Cruz MD [address], [place], [address], [facility] - [facility] 03/27/2024 12:39:58
--- OUTSIDE RECORDS SUMMARY | 2024-10-20 00:11 | XMS_ITS | Referral Summary ---
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 Results from different manufacturers or methods may not be comparable. Serial testing should be performed using the same method. Current interpretive data last revised 21. Blood 09/10/2022 3:00 PM CDT 09/10/2022 6:34 PM CDT us Stan Solorzano MD LAB BLOOD ORDERABLES Final Result [facility] One [facility] Department [place] [address] from Last 3 Months or Most Recently Relevant to Health Maintenance [facility] CHOICE PLUS [facility] HMO/PPO Address: [address] [address] [place] [address] [employer] OPEN ACCESS [facility] Care Teams Animal Nurse Relationship Specialty Start Date End Date Tom Boss MD [address] [place] [address] PCP - General Family Medicine 10/08/18
--- OUTSIDE RECORDS SUMMARY | 2024-10-20 00:11 | XMS_ITS | Encounter Summary ---
Author Organization [facility] Address [address] [place] [address] Care Team Providers Care Communication Consultant Name Role Phone Drake Galvez MD Primary Care Provider Encounter Details Date Type Department Care Team (Late st Contact Info) Description 12/05/2017 Abstract [facility] CONVERSION [address] [address] [place], [place] [id number] , Generic Conversion, Social History Tobacco Use [...] on filedocumented in this encounter Care Teams Communication Consultant Relationship Specialty Start Date End Date Drake Galvez MD [address] [address] PCP - General 06/20/16 documented as of this encounter
[2024-10-20 06:45] VITALS: BP 135/86; PULSE 107; RESP 18; TEMP 36.1; O2SAT 97
[2024-10-20] MEDS: LACTATED RINGERS 1,000 ML 150 ML IV CONT (06:55)
--- NOTE | 2024-10-20 07:39 | WPDANESEPPF ---
Anes - Initial Pre Proc Eval Procedure: Operation Date: 10/20/24 08:00 Proposed Procedures p Screening Colonoscopy - Mars Miranda MD Date/Time: 10/20/24 07:39 Surgeon: Mars Miranda MD Pre Op Diagnosis: Encounter for screening for malignant neoplasm of Patient Data Age: 59 Gender: M Height: 1.93 m Weight: 143.1 kg Last Vital Signs Temp 97 F L 10/20/24 06:45 Pulse 107 H 10/20/24 06:45 Resp 18 10/20/24 06:45 BP 135/86 10/20/24 06:45 Pulse Ox 97 10/20/24 06:45 O2 Del Method Room Air 10/20/24 06:45 Allergies Allergy/AdvReac Type Severity Reaction Status Date / Time No Known Allergies Allergy Verified 10/20/24 06:42 Home Medications ?Medication ?Instructions ?Recorded ?Confirmed ?Type naproxen sodium 220 mg tablet 220 mg PO Q12H PRN pain 03/18/19 09/28/24 History (Aleve) albuterol sulfate 90 mcg/actuation 1 inh inhalation Q4H PRN shortness 07/06/22 09/28/24 Rx aerosol inhaler of breath or wheezing #6.7 grams bupropion HCl 150 mg tablet,12 hr See Rx Instructions .Route 02/13/24 10/20/24 Rx sustained-release .COMPLEX #180 tabs levothyroxine 50 mcg tablet 50 mcg PO DAILY #90 tabs 05/19/24 10/20/24 Rx amitriptyline 100 mg tablet See Rx Instructions .Route 06/23/24 10/20/24 Rx .COMPLEX #90 tabs metoprolol succinate 50 mg 50 mg PO DAILY #90 tabs 06/23/24 10/20/24 Rx tablet,extended release 24 hr amlodipine 10 mg tablet 10 mg .Route .COMPLEX #90 tabs 06/25/24 10/20/24 Rx hydrochlorothiazide 25 mg tablet See Rx Instructions .Route 08/13/24 10/20/24 Rx .COMPLEX #90 tabs tamsulosin 0.4 mg capsule (Flomax) 0.4 mg PO QHS #90 caps 08/14/24 09/28/24 Rx tirzepatide 2.5 mg/0.5 mL 2.5 mg (0.5 mL) subcut WEEKLY #6 mL 08/21/24 10/20/24 Rx subcutaneous pen injector (Shilpa) tamsulosin 0.4 mg capsule 0.4 mg PO DAILY #12 caps 08/31/24 10/20/24 Rx oxybutynin chloride 5 mg tablet 5 mg PO BID PRN bladder spasms #30 09/01/24 09/28/24 Rx tabs tramadol 50 mg tablet 50 mg PO Q6H PRN pain #10 tabs 09/01/24 09/28/24 Rx ondansetron 4 mg disintegrating 4 mg PO Q8H PRN nausea and 09/02/24 09/28/24 Rx tablet vomiting #10 tabs pregabalin 200 mg capsule 200 mg PO BID 30 days #60 caps 10/09/24 10/20/24 Rx Laboratory Tests 10/20/24 06:54 POC Capillary Glucose 114 H mg/dl (65-105) Patient hx anesthesia problems: none Family hx anesthesia problems: none Results Review: All pre-operative results and documents have been reviewed as part of the pre-operative evaluation. [facility] Past Medical History Medical History History of prostate cancer Hx of osteomyelitis Left knee 2010 Hypothyroidism ALLEN (obstructive sleep apnea) CVA (cerebral vascular accident) Bilateral hand pain HTN (hypertension) Idiopathic peripheral neuropathy Surgical History Surgical History Hx of tonsillectomy 1995 Hx of hand surgery left hand d/t DJD- 2022 Hx of arthroscopy of left knee w/ ACL/LCL recon- 1993 Hx of arthroscopy of right knee w/ MCL recon- 2020 History of open reduction and internal fixation (ORIF) procedure Clavicle- 2018 Hx of fusion of cervical spine 2018 History of robot-assisted laparoscopic radical prostatectomy 2022- [place] Social History Social History Smoking status: Never smoker Tobacco type: cigarettes Second hand tobacco smoke exposure: No Alcohol intake: current Alcohol use details: 1/MONTH Substance use: never Substance use type: does not use Do You Feel Safe in your Home?: Yes Lack of Transportation: No Lack of Food: Never True Current Housing: I Have Housing Concerned About Future Housing: No Difficulty Paying Gas/Electric Bills: No Difficulty Paying for Meds: No Currently Unemployed: YES Education: Master's Degree or Higher Difficulty w/ Childcare or Family Care: No Living arrangements: with family Occupation/Education: unemployed Gender identity (if verbalized by the patient): Male Sexual Orientation (if Verbalized by the Patient): Straight or Heterosexual Spiritual care concerns: No Anes - Eval Final PreProcedure Day of Procedure 10/20/24 07:39 Patient weight: obese Lungs: normal air movement Airway: Mallampati scale class II Neurological: alert and oriented Last oral intake: >/= 8 hours ASA classification: III Emergent: no Anesthetic plan: proceed Anesthesia type and monitoring: general GIVS and standard monitoring Results Review: All pre-operative results and documents have been reviewed as part of the pre-operative evaluation. HTN, hypothyroidism, ALLEN on CPAP, fatty liver, hx of CVA without deficits. Informed Consent: The patient's anesthetic plan and its attendant risks and benefits were discussed with the patient/family/POA. Questions were solicited and answers provided to the satisfaction of the patient/family/POA.
--- NOTE | 2024-10-20 07:54 | P.HP_ITS ---
H&P: HPI History of Present Illness Date/Time: 10/20/24 07:54 Chief Complaint: Screening colonoscopy Narrative: This is the patient's first colonoscopy. There are no GI symptoms and there is no family history of colorectal cancer. Review of Systems Review of Systems: All systems reviewed & are unremarkable except as noted in HPI and below PMFSH Past Medical History Medical History History of prostate cancer Hx of osteomyelitis Left knee 2010 Hypothyroidism ALLEN (obstructive sleep apnea) CVA (cerebral vascular accident) Bilateral hand pain HTN (hypertension) Idiopathic peripheral neuropathy Surgical History Surgical History Hx of tonsillectomy 1995 Hx of hand surgery left hand d/t DJD- 2022 Hx of arthroscopy of left knee w/ ACL/LCL recon- 1993 Hx of arthroscopy of right knee w/ MCL recon- 2020 History of open reduction and internal fixation (ORIF) procedure Clavicle- 2018 Hx of fusion of cervical spine 2017 History of robot-assisted laparoscopic radical prostatectomy 2022- [facility] Social History Social History Smoking status: Never smoker Tobacco type: cigarettes Second hand tobacco smoke exposure: No Alcohol intake: current Alcohol use details: 1/MONTH Substance use: never Substance use type: does not use Do You Feel Safe in your Home?: Yes Lack of Transportation: No Lack of Food: Never True Current Housing: I Have Housing Concerned About Future Housing: No Difficulty Paying Gas/Electric Bills: No Difficulty Paying for Meds: No Currently Unemployed: YES Education: Master's Degree or Higher Difficulty w/ Childcare or Family Care: No Living arrangements: with family Occupation/Education: unemployed Gender identity (if verbalized by the patient): Male Sexual Orientation (if Verbalized by the Patient): Straight or Heterosexual Spiritual care concerns: No Meds Home Medications and Allergies Home Medications ?Medication ?Instructions ?Recorded ?Confirmed ?Type naproxen sodium 220 mg tablet 220 mg PO Q12H PRN pain 03/18/19 09/28/24 History (Aleve) albuterol sulfate 90 mcg/actuation 1 inh inhalation Q4H PRN shortness 07/06/22 09/28/24 Rx aerosol inhaler of breath or wheezing #6.7 grams bupropion HCl 150 mg tablet,12 hr See Rx Instructions .Route 02/13/24 10/20/24 Rx sustained-release .COMPLEX #180 tabs levothyroxine 50 mcg tablet 50 mcg PO DAILY #90 tabs 05/19/24 10/20/24 Rx amitriptyline 100 mg tablet See Rx Instructions .Route 06/23/24 10/20/24 Rx .COMPLEX #90 tabs metoprolol succinate 50 mg 50 mg PO DAILY #90 tabs 06/23/24 10/20/24 Rx tablet,extended release 24 hr amlodipine 10 mg tablet 10 mg .Route .COMPLEX #90 tabs 06/25/24 10/20/24 Rx hydrochlorothiazide 25 mg tablet See Rx Instructions .Route 08/13/24 10/20/24 Rx .COMPLEX #90 tabs tamsulosin 0.4 mg capsule (Flomax) 0.4 mg PO QHS #90 caps 08/14/24 09/28/24 Rx tirzepatide 2.5 mg/0.5 mL 2.5 mg (0.5 mL) subcut WEEKLY #6 mL 08/21/24 10/20/24 Rx subcutaneous pen injector (Mounjaro) tamsulosin 0.4 mg capsule 0.4 mg PO DAILY #12 caps 08/31/24 10/20/24 Rx oxybutynin chloride 5 mg tablet 5 mg PO BID PRN bladder spasms #30 09/01/24 09/28/24 Rx tabs tramadol 50 mg tablet 50 mg PO Q6H PRN pain #10 tabs 09/01/24 09/28/24 Rx ondansetron 4 mg disintegrating 4 mg PO Q8H PRN nausea and 09/02/24 09/28/24 Rx tablet vomiting #10 tabs pregabalin 200 mg capsule 200 mg PO BID 30 days #60 caps 10/09/24 10/20/24 Rx Allergies Allergy/AdvReac Type Severity Reaction Status Date / Time No Known Allergies Allergy Verified 10/20/24 06:42 Vital Signs Vital Signs - 24 hr 10/20/24 06:45 Temperature 97 F L Pulse Rate 107 H Respiratory Rate 18 Blood Pressure 135/86 Pulse Oximetry 97 Oxygen Delivery Room Air Exam Const: General: cooperative and healthy appearing Resp: Effort & Inspection: normal respiratory effort and able to speak in complete sentences Auscultation: clear to auscultation bilaterally Cardio: Rate: regular rate Rhythm: regular rhythm GI: Inspection: normal to inspection GI Palp: No No hepatosplenomegaly present Auscultation: normal bowel sounds Rectal Exam: deferred Skin: General skin exam: normal color Psych: Appearance: grossly normal Mental Status: mental status grossly normal Assessment and Plan Assessment and plan (1) Encounter for screening colonoscopy: Code(s): Z12.11 - Encounter for screening for malignant neoplasm of colon Status: Acute Assessment and Plan: The patient is deemed a good candidate for the procedure. Consent signed. Will proceed.
[2024-10-20 08:25] VITALS: BP 108/74; PULSE 85; RESP 18; O2SAT 100
[2024-10-20 08:35] VITALS: BP 130/76; PULSE 75; RESP 18; O2SAT 100
[2024-10-20 08:45] VITALS: BP 123/81; PULSE 73; RESP 18; O2SAT 100
--- NOTE | 2024-10-27 10:08 | SUR.OPER ---
Late entry 821: rectal polyp not retrieved, Dr. Miranda notified.
== END 2024-10-20 08:58 | disposition home or self-care (01) ==
PROVIDERS: PCP Family Medicine; Referring Provider Physician Assistant Medical; Visit Provider Internal Medicine Gastroenterology
PROC: 0DJD8ZZ Inspection of Lower Intestinal Tract, Via Natural or Artificial Opening Endoscopic (ICD-10-PCS; CPT 45378; principal; 2024-10-20 08:00)
DX: Z12.11 Encounter for screening for malignant neoplasm of colon (principal); K62.1 Rectal polyp; K64.8 Other hemorrhoids
CPT/HCPCS: 45385; 82948; J2003; J2704; J7120

== ENCOUNTER 2024-11-10 09:30 | Outpatient (CLI) | payer OTHER, SELFPAY ==
--- OUTSIDE RECORDS SUMMARY | 2024-11-10 10:06 | XMS_ITS | Clinical Summary ---
Author Organization 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[employer] Gender Identity Not on file Sexual Orientation [...] Prostate Cancer Screening-PSA 09/10/2024 09/10/2022 Influenza Vaccine (#1) 2024 , 06/21/2016, 06/21/2016, Additional history exists Hepatitis B [...] BLOOD ORDERABLES Final Result JALEEL LUCERO One [facility] Department [place] [address] from Last 3 Months or Most Recently Relevant to Health Maintenance Insurance [facility] CHO[facility] PLUS [employer]ALTH[employer]aritics OPEN ACCESS [facility] Care Teams Software Systems Architect Relationship Specialty Start Date End Date Tom Boss MD [address] [facility] [facility] 120 [place] [address] PCP - General Family Medicine 10/08/18
--- OUTSIDE RECORDS SUMMARY | 2024-11-10 10:06 | XMS_ITS | Clinical Summary ---
Author Organization [facility] Address [address] [place] [address] [place] [address] Care Team Providers Care Tipple Boss Name Role Phone Unavailable Primary Care Provider Unavailabl e Social History Tobacco Use Types Packs/Day Years Used Date Smoking Tobacco: Never Assessed Sex and Gender Information Value Date Recorded Sex Assigned at Not on file Legal Sex Male 3:16 PM CDT Gender Identity Not on file Sexual Orientation Not on file Plan of Treatment Upcoming Encounters Date Type Department Care Team ([facility] st Contact Info) Description 01/06/2025 1:30 PM CDT Office Visit [facility] Oncology and Hematology - Charlie [address] [facility] [address] [address] Chandan Orona MD [address] [facility] [address] [place] [address] Health Maintenance Due Date Last [...]
[2024-11-10 10:09] LABS: Hematocrit 37.6 % (42.0-52.0); Hemoglobin 11.3 g/dL (14.0-18.0); Mean Corpuscular HGB Conc 30.1 g/dl (32-36); Mean Corpuscular Hemoglobin 26.5 pg (26-34); Mean Corpuscular Volume 88.3 fl (80-100); Platelet Count Result 219 k/mm3 (150-375); Red Blood Count 4.26 M/mm3 (4.6-6.20); White Blood Count 6.0 K/mm3 (4.5-10.0)
[2024-11-10 10:29] LABS: Alanine Aminotransferase 24 U/L (6-50); Albumin Level 4.0 g/dL (3.5-5.1); Alkaline Phosphatase 83 U/L (38-126); Anion Gap 8 mmol/L (4-12); Aspartate Amino Transferase 26 U/L (17-59); Bilirubin,Total 0.6 mg/dL (0.2-1.3); Blood Urea Nitrogen 28 mg/dL (9-20); Calcium 9.5 mg/dL (8.4-10.2); Carbon Dioxide 26 mmol/L (22-30); Chloride 104 mmol/L (98-107); Estimated Glomerular Filt Rate 60; Glucose 98 mg/dL (65-110); Potassium 4.1 mmol/L (3.4-5.0); Sodium 138 mmol/L (137-145); Total Protein 7.5 g/dL (6.3-8.2)
[2024-11-10 10:42] LABS: Hemoglobin A1C 5.5 % (<5.7)
== END 2024-11-10 09:31 | disposition home or self-care (01) ==
LOC: ANHLAB 09:31
PROVIDERS: PCP Family Medicine; Visit Provider Physician Assistant Medical
DX: E11.40 Type 2 diabetes mellitus with diabetic neuropathy, unspecified (principal); I10 Essential (primary) hypertension; D64.9 Anemia, unspecified
CPT/HCPCS: 36415; 80053; 83036; 85027

== ENCOUNTER 2024-11-27 11:16 | Outpatient (CLI) | payer OTHER, SELFPAY ==
--- NOTE | ~2024-11-27 | US_ITS ---
EXAMINATION: US carotid duplex BI DATE: 11/27/2024 12:00 INDICATION: Dizziness TECHNIQUE: Grayscale, color Doppler, and pulsed Doppler images of the cervical carotid arteries were obtained. The degree of vessel stenosis is placed in one of the following categories: normal, <50%, 50-69%, >=70% but less than near- occlusion, near-occlusion, or total occlusion. Note that percent stenosis relative to normal distal artery lumen diameter is indirectly measured from velocity measurements as described by Sim, et al. Radiology 2003; 229:340-346. Notes: Normal: Peak systolic velocity <125 centimeters/sec and no plaque <50%. Peak systolic velocity <125 (EDV <40; ICA/CCA PSV ratio <2.0; used these factors only a tandem lesions or low cardiac output or contralateral disease) 50-69 %: PSV 125-230 (EDV 40-100; ratio 2-4) >= 70% but less than near occlusion: PSV greater than 230 (EDV > 100; ratio> 4.0) Near Occlusion: PSV that is variable; markedly narrowed lumen Occlusion: Absent flow on color/spectral Doppler and no lumen on maguire scale. COMPARISON: None. FINDINGS: RIGHT: The right common carotid artery (CCA) peak systolic velocity (PSV) is 65 cm/s. The right internal carotid artery (ICA) PSV is 58 cm/s. The right ICA end- diastolic velocity (EDV) is 17 cm/s. The right ICA/CCA PSV ratio is 0.9. The external carotid artery (ECA) PSV is 124 cm/s. There is antegrade flow in the right vertebral artery. LEFT: The left CCA PSV is 91 cm/s. The left ICA PSV is 62 cm/s. The left ICA EDV is 61 cm/s. The left ICA/CCA PSV ratio is 0.7. The ECA PSV is 94 cm/s. There is antegrade flow in the left vertebral artery. IMPRESSION: 1. Less than 50% stenosis in the right internal carotid artery by sonographic criteria. 2. Less than 50% stenosis in the left internal carotid artery by sonographic criteria. Reviewed, dictated and finalized at location O. IMPRESSION: 1. Less than 50% stenosis in the right internal carotid artery by sonographic niels alvarez. 2. Less than 50% stenosis in the left internal carotid artery by sonographic gilberto silver.
--- OUTSIDE RECORDS SUMMARY | 2024-11-27 11:22 | XMS_ITS | Clinical Summary ---
Author Organization [facility] Address [address] [place] [address] [place] [address] Care Team Providers Care Engraver Hand Hard Metals Name Role Phone Unavailable Primary Care Provider Unavailabl e Social History Tobacco Use Types Packs/Day Years Used Date Smoking Tobacco: Never Assessed Sex and Gender Information Value Date Recorded Sex Assigned at Not on file Legal Sex Male 3:16 PM CDT Gender Identity Not on file Sexual Orientation Not on file Plan of Treatment Upcoming Encounters Date Type Department Care Team ([facility] st Contact Info) Description 01/06/2025 1:30 PM CDT Office Visit [facility] Oncology and Hematology - Charlie [address] [facility] [address] [address] Chandan Orona MD [address] [facility] [address] [place] [address] Health Maintenance Due Date Last [...]
--- OUTSIDE RECORDS SUMMARY | 2024-11-27 11:22 | XMS_ITS | Clinical Summary ---
Author Organization [facility] Address [address] [place] [address] Care Team Providers Care Sql Ssrs Ssis Developer Name Role Phone Tom Boss MD [...] Due Hep B Vaccine 06/04/2005,12/15/2004,10/31/2004 Influenza, Quadrivalent, Ccua l Culture-based MDCK, Preservative Free, Antibiotic Free, [...] on file Legal Sex Male 7:02 AM GUIDE TRAVEL Gender Identity Not on file Sexual Orientation [...] ORDERABLES Final Result JALEEL LUCERO One [facility] Department [place] [address] from Last 3 Months or Most Recently Relevant to Health Maintenance Insurance [facility] CHOICE PLUS [facility] HMO/PPO Address: [address] [address] [place] [address] [employer] OPEN ACCESS [facility] Care Teams Sql Ssrs Ssis Developer Relationship Specialty Start Date End Date Tom Boss MD [address] [facility] [address] [facility] 120 [place] [address] PCP - General Family Medicine 10/08/18
== END 2024-11-27 11:17 | disposition home or self-care (01) ==
PROVIDERS: PCP Family Medicine; Visit Provider Physician Assistant Medical
DX: R42 Dizziness and giddiness (principal); I65.23 Occlusion and stenosis of bilateral carotid arteries
CPT/HCPCS: 93880

== ENCOUNTER 2024-12-15 09:26 | Outpatient (CLI) | payer OTHER, SELFPAY ==
[2024-12-15 09:54] LABS: Hematocrit 38.8 % (42.0-52.0); Hemoglobin 12.0 g/dL (14.0-18.0); Mean Corpuscular HGB Conc 30.9 g/dl (32-36); Mean Corpuscular Hemoglobin 26.4 pg (26-34); Mean Corpuscular Volume 85.3 fl (80-100); Platelet Count Result 203 k/mm3 (150-375); Red Blood Count 4.55 M/mm3 (4.6-6.20); White Blood Count 6.8 K/mm3 (4.5-10.0)
--- OUTSIDE RECORDS SUMMARY | 2024-12-15 10:46 | XMS_ITS | Clinical Summary ---
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 Gender Identity Not on file Sexual Orientation [...] 10/31/2004 Zoster Vaccine (1 of 2) 2017 Prostate Cancer Screening-PSA 09/10/2024 09/10/2022 Covid-19 Vaccine ( season) 2024 01/13/2022, 02/21/2021, 06/05/2020 Influenza Vaccine (#1) 2024 , 06/21/2016, 06/21/2016, [...] BLOOD ORDERABLES Final Result JALEEL LUCERO One [facility] Department [place] [address] from Last 3 Months or Most Recently Relevant to Health Maintenance Insurance [facility] CHOICE PLUS HEALTHDesalitech OPEN ACCESS [facility] Care Teams Customer Response Representative Relationship Specialty Start Date End Date Tom Boss MD [address] [facility] [address] [facility] 120 [place] [address] PCP - General Family Medicine 10/08/18
--- OUTSIDE RECORDS SUMMARY | 2024-12-15 10:46 | XMS_ITS | Clinical Summary ---
Author Organization [facility] Address [address] [place] [address] [place] [address] Care Team Providers Care Metal Dresser Name Role Phone Unavailable Primary Care Provider Unavailabl e Social History Tobacco Use Types Packs/Day Years Used Date Smoking Tobacco: Never Assessed Sex and Gender Information Value Date Recorded Sex Assigned at Not on file Legal Sex Male 3:16 PM CDT Gender Identity Not on file Sexual Orientation Not on file Plan of Treatment Upcoming Encounters Date Type Department Care Team ([facility] st Contact Info) Description 01/06/2025 1:30 PM CDT Office Visit [facility] Oncology and Hematology - Charlie [address] [facility] [address] [address] Chandan Orona MD [address] [facility] [address] [place] [address] Health Maintenance Due Date Last [...]
--- OUTSIDE RECORDS SUMMARY | 2024-12-15 10:47 | XMS_ITS | Encounter Summary ---
Author Organization [facility] Address [address] [place] [address] Care Team Providers Care Radiologic Therapist Name Role Phone Drake Galvez MD Primary Care Provider Encounter Details Date Type Department Care Team (Late st Contact Info) Description 12/05/2017 Abstract [facility] CONVERSION [address] [place], [place] [id number] , Generic Conversion, Social History Tobacco Use [...] on filedocumented in this encounter Care Teams Radiologic Therapist Relationship Specialty Start Date End Date Drake Galvez MD [address] [address] PCP - General 06/20/16 documented as of this encounter
--- OUTSIDE RECORDS SUMMARY | 2024-12-15 10:47 | XMS_ITS | Patient Health Record ---
Author Organization [facility] Address [address] [facility] [address] [address] [place] [address] Care Team Providers Care Audiovisual Technician Name Role Phone Obi Salamanca Unavailable [phone] Abraham HERNANDEZ, [facility] Unavailable Unavailable Reason For Referral No Information Plan Of Treatment No Information Insurance Providers Payer Name Payer Address Payer Phone Subscriber Number Group Number Insured Name Patient Relationship to Insured Coverage Start Date Coverage End Date [facility] [address] [place] [address] [phone] Damian Gunderson Self - patient is the insured
--- OUTSIDE RECORDS SUMMARY | 2024-12-15 10:47 | XMS_ITS | Clinical Summary ---
Author Organization [facility] Address [facility] [place] [address] Care Team Providers Care Gas Systems Worker Name Role Phone Drake Galvez MD [...] COVID-19 Vaccine (1 - 2023-2 5 season) 2024 Meningococcal B Vaccine Aged Out No l [...] W/CALC LDL Routine 05/30/2015 11:5 9 AM NEEDLE LOOM OPERATOR HELPER from Last 3 Months or Most Recently Relevant to Health Maintenance Results * (ABNORMAL) LIPID W/CALC LDL (05/30/2015 11:59 AM NEEDLE LOOM OPERATOR HELPER) CHOLESTEROL 165 <200 MG/DL [facility] TO EPIC [...] INCREASED <45 <55 05/30/2015 11:5 9 AM NEEDLE LOOM OPERATOR HELPER 05/30/2015 11:59 AM NEEDLE LOOM OPERATOR HELPER Narrative [facility] TO EPIC CONVERSION - 05/30/2015 3:25 PM NEEDLE LOOM OPERATOR HELPER Result Communication: Call patient with results us Ryan Francois [facility] Final Result [facility] TO EPIC CONVERSION from Last 3 Months or Most Recently Relevant to Health Maintenance Care Teams Gas Systems Worker Relationship Specialty Start Date End Date Drake Galvez MD [address] [facility] 112 [place] [address] PCP - General 06/20/16
== END 2024-12-15 09:27 | disposition home or self-care (01) ==
LOC: ANHLAB 09:27
PROVIDERS: PCP Family Medicine; Visit Provider Physician Assistant Medical
DX: D64.9 Anemia, unspecified (principal)
CPT/HCPCS: 36415; 85027

== ENCOUNTER 2024-12-31 12:26 | Outpatient (CLI) | payer OTHER, SELFPAY ==
--- OUTSIDE RECORDS SUMMARY | 2024-12-31 12:34 | XMS_ITS | Clinical Summary ---
Author Organization [facility] Address [address] [place] [address] [place] [address] Care Team Providers Care Installation & Maintenance Executive Name Role Phone Unavailable Primary Care Provider Unavailabl e Social History Tobacco Use Types Packs/Day Years Used Date Smoking Tobacco: Never Assessed Sex and Gender Information Value Date Recorded Sex Assigned at Not on file Legal Sex Male 3:16 PM CDT Gender Identity Not on file Sexual Orientation Not on file Plan of Treatment Upcoming Encounters Date Type Department Care Team ([facility] st Contact Info) Description 01/06/2025 1:30 PM CDT Office Visit [facility] Oncology and Hematology - Charlie [address] [facility] [address] [address] Chandan Orona MD [address] [facility] [address] [place] [address] Health Maintenance Due Date Last [...]
--- OUTSIDE RECORDS SUMMARY | 2024-12-31 12:34 | XMS_ITS | Patient Health Record ---
Author Organization [facility] Address [address] [place] [address] Care Team Providers Care Station Baggage Agent Name Role Phone Obi Salamanca Unavailable [phone] Abraham HERNANDEZ, [facility] Unavailable Unavailable Reason For Referral No Information Plan Of Treatment No Information Insurance Providers Payer Name Payer Address Payer Phone Subscriber Number Group Number Insured Name Patient Relationship to Insured Coverage Start Date Coverage End Date [facility] [address] [place] [address] Damian Gunderson Self - patient is the insured
--- OUTSIDE RECORDS SUMMARY | 2024-12-31 12:34 | XMS_ITS | Clinical Summary ---
Author Organization [facility] Address [address] [place] [address] Care Team Providers Care Senior Media Director Name Role Phone Tom Boss MD [...] on file Legal Sex Male 7:02 AM FLOOR GRINDER Gender Identity Not on file Sexual Orientation [...] BLOOD ORDERABLES Final Result JALEEL LUCERO One [facility] Department [place] [address] from Last 3 Months or Most Recently Relevant to Health Maintenance Insurance [facility] CHOICE PLUS HEALTH[employer]swers Corporation OPEN ACCESS [facility] Care Teams Senior Media Director Relationship Specialty Start Date End Date Tom Boss MD [address] [facility] [address] [facility] 120 [place] [address] PCP - General Family Medicine 10/08/18
--- OUTSIDE RECORDS SUMMARY | 2024-12-31 12:34 | XMS_ITS | Clinical Summary ---
Author Organization [facility] Address [facility] [place] [address] Care Team Providers Care Mental Health Clinician Name Role Phone Drake Galvez MD Primary [...] W/CALC LDL Routine 05/30/2015 11:5 9 AM FORKLIFT TRUCK OPERATOR from Last 3 Months or Most Recently Relevant to Health Maintenance Results * (ABNORMAL) LIPID W/CALC LDL (05/30/2015 11:59 AM FORKLIFT TRUCK OPERATOR) CHOLESTEROL 165 <200 MG/DL [facility] TO EPIC [...] INCREASED <45 <55 05/30/2015 11:5 9 AM FORKLIFT TRUCK OPERATOR 05/30/2015 11:59 AM FORKLIFT TRUCK OPERATOR Narrative [facility] TO EPIC CONVERSION - 05/30/2015 3:25 PM FORKLIFT TRUCK OPERATOR Result Communication: Call patient with results us Ryan Francois CONCRETE PAVING MACHINE OPERATOR LABORATORY Final Result [facility] TO EPIC CONVERSION from Last 3 Months or Most Recently Relevant to Health Maintenance Care Teams Mental Health Clinician Relationship Specialty Start Date End Date Drake Galvez MD [address] [facility] 112 [place] [address] PCP - General 06/20/16
--- OUTSIDE RECORDS SUMMARY | 2024-12-31 12:34 | XMS_ITS | Encounter Summary ---
Author Organization [facility] Address [address] [place] [address] Care Team Providers Care Fire Chief Deputy Name Role Phone Drake Galvez MD Primary Care Provider [phone] Encounter Details Date Type Department Care Team (Late st Contact Info) Description 12/05/2017 Abstract [facility] CONVERSION [address] [place], [place] [id number] , Generic Conversion, Social History Tobacco Use [...] on filedocumented in this encounter Care Teams Fire Chief Deputy Relationship Specialty Start Date End Date Drake Galvez MD [address] [address] PCP - General 06/20/16 documented as of this encounter
[2024-12-31 13:34] LABS: Hematocrit 40.3 % (42.0-52.0); Hemoglobin 12.5 g/dL (14.0-18.0); Immature Granulocyte Percent A 0.3 % (0-0.5); Lymphocytes Absolute Auto 0.92 K/mm3 (0.9-3.2); Mean Corpuscular HGB Conc 31.0 g/dl (32-36); Mean Corpuscular Hemoglobin 26.6 pg (26-34); Mean Corpuscular Volume 85.7 fl (80-100); Nucleated Red Blood Cells Absolute Auto 0.000 K/mm3 (0.0-0.012); Nucleated Red Blood Cells Perc 0.0 % (0.0-0.2); Platelet Count Result 184 k/mm3 (150-375); Red Blood Count 4.70 M/mm3 (4.6-6.20); White Blood Count 5.9 K/mm3 (4.5-10.0)
[2024-12-31 13:36] LABS: Add Urine Microscopic? NO; Appearance Urine Clear (Clear); Glucose Urine UA Negative (Negative); Leukocyte Esterase Ur Negative LEU/UL (Negative); Nitrate Urine Negative (Negative); Specific Grav Ur 1.005 (1.001-1.035)
[2024-12-31 13:48] LABS: INR 1.1; Prothrombin Time 13.8 Seconds (11.1-14.7)
[2024-12-31 13:50] LABS: Partial Thromboplastin Time 27.3 Seconds (22.3-36.8)
[2024-12-31 13:59] LABS: Albumin Level 4.3 g/dL (3.5-5.1); Anion Gap 9 mmol/L (4-12); Blood Urea Nitrogen 25 mg/dL (9-20); Calcium 9.2 mg/dL (8.4-10.2); Carbon Dioxide 24 mmol/L (22-30); Chloride 106 mmol/L (98-107); Estimated Glomerular Filt Rate > 60; Glucose 97 mg/dL (65-110); Potassium 4.2 mmol/L (3.4-5.0); Sodium 139 mmol/L (137-145)
[2024-12-31 14:47] LABS: MRSA (PCR) NOT DETECTED (NOT DETECTE)
== END 2024-12-31 12:27 | disposition home or self-care (01) ==
LOC: ANHSURGERY 12:32
PROVIDERS: PCP Family Medicine; Visit Provider Orthopaedic Surgery
DX: Z01.812 Encounter for preprocedural laboratory examination (principal); M17.12 Unilateral primary osteoarthritis, left knee; R53.83 Other fatigue; Z90.79 Acquired absence of other genital organ(s)
CPT/HCPCS: 80048; 80307; 81003; 82040; 85025; 85610; 85730; 86850; 86900; 86901; 87641

== ENCOUNTER 2025-01-15 13:55 | Observation (INO) | payer OTHER, SELFPAY ==
[2024-12-31 12:44] VITALS: BP 121/87; PULSE 72; RESP 16; TEMP 36.8; O2SAT 97; BMI 39.9
--- NOTE | 2024-12-31 13:03 | PC.NURSE ---
Addendum entered by Celestina Yanez RN 12/31/24 13:15: Pt aware that he will be weighed on admit and he has to be less than 40, as he is 39.9 today SREEDHAR Original Note: [facility] has started construction of its new state of the art ER which will open Spring 2026. With this, we anticipate parking may be a challenge for some our surgical patients and families. Parking spaces are limited but are available for all Surgical, obstetrics, and ER patients sharing this lot. If you arrive and find you are having a hard time finding a parking space, please note that we understand the challenges, please drive around the hospital and park near Hospital Entrance 1. When you enter this entrance, you can ask a volunteer to direct or take you back to the surgical waiting area to check in. We appreciate everyone?s understanding of these expected challenges while we build for your future. Report to the Outpatient Waiting Room, entrance under the green pavilion located off [address], at time _06:00am on date __01/13/25 . Planned Procedure Time: __07:30am .? Time changes happen often and if your time is changed the preop area will call you the afternoon before. - You and your visitor will be asked to self-screen and do not enter if you have any COVID symptoms. Please call surgeon if you need to reschedule. - A mask is optional within the hospital at this time. Patients may have clear liquids (water, carbonated beverages, clear teas, apple juice) until 3 hours prior to surgery with a maximum of 20 ounces. - No food from midnight until time of surgery and no smoking, or chewing tobacco (or any form of nicotine). No chewing gum, candy or mints. (04:30am) Take only the following medications with a SIP of water on the morning of surgery: ____Buprupion, Pregabalin, Levothyroxine, Metoprolol and Albuteral if needed, Tylenol if needed DO NOT STOP ANY OF YOUR OTHER PRESCRIPTION MEDICATIONS PRIOR TO SURGERY EXCEPT THE FOLLOWING Hold all vitamins and supplements for 3 days per anesthesiologist. Medications to discontinue per physician HOLD any NSAIDS/ALEVE/MOTRIN/ADVIL/ASA for [address] Power Date to take last dose___01/05/25 Please no make-up, nail kazakh, hairspray, perfume, deodorant, or body powder the day of surgery.? No jewelry (including any body piercings) or valuables the day of surgery, leave them at home.? Please take a shower or bath the night before, or the morning of, surgery with an antibacterial soap.? Wear comfortable, loose fitting clothing.? HIBICLEANSE SCRUB as DIRECTED Overnight bag , walker, CPAP, tennis shoes, phone, sheet cutting operator. - Jewelry must be removed prior to entering the operating room.? Rings and piercings that are not removed may be cut off. - The hospital will not accept responsibility for valuables.? - Please leave all valuables, including medications, at home the day of surgery. If you are going home after surgery, a licensed meals on wheels driver must drive you home.? - NO public transportation without another adult if you receive anesthesia. - We recommend that an adult stay with you for 24 hours following discharge. - We also recommend that you do not drive, make important decision, drink alcoholic beverages, or take any drugs that were not prescribed by your health care provider for at least 24 hours after your discharge time. Follow any additional instructions given to you from your surgeon. Telephone instructions given to ___Patient and asked if any additional questions and then verbalized understanding. Patient advised to call surgeon office or pre surgery nurse liaison [phone] if any additional questions.
[2025-01-13] VITALS (16 sets, daily range): BP systolic 113–173; BP diastolic 68–102; PULSE 77–98; RESP 12–22; TEMP 36.1–36.7; O2SAT 87–99; BMI 39.3
--- OUTSIDE RECORDS SUMMARY | 2025-01-13 00:57 | XMS_ITS | Clinical Summary ---
Author Organization [facility] Address [facility] [place] [address] Care Team Providers Care Hiv/Aids Care Nurse Name Role Phone Drake Galvez MD Primary [...] Vaccine (1 - 2023-2 5 season) 2024 Influenza Adult (#1) 2024 06/21/2016 Meningococcal B Vaccine Aged Out No [...] W/CALC LDL Routine 05/30/2015 11:5 9 AM SUPERVISOR ORCHARD from Last 3 Months or Most Recently Relevant to Health Maintenance Results * (ABNORMAL) LIPID W/CALC LDL (05/30/2015 11:59 AM SUPERVISOR ORCHARD) CHOLESTEROL 165 <200 MG/DL [facility] TO EPIC [...] INCREASED <45 <55 05/30/2015 11:5 9 AM SUPERVISOR ORCHARD 05/30/2015 11:59 AM SUPERVISOR ORCHARD Narrative [facility] TO EPIC CONVERSION - 05/30/2015 3:25 PM SUPERVISOR ORCHARD Result Communication: Call patient with results Ryan Francois TELEPHONE INFORMATION CLERK LABORATORY Final Result [facility] TO EPIC CONVERSION from Last 3 Months or Most Recently Relevant to Health Maintenance Care Teams Hiv/Aids Care Nurse Relationship Specialty Start Date End Date Drake Galvez MD [address] [address] PCP - General 06/20/16
--- OUTSIDE RECORDS SUMMARY | 2025-01-13 00:57 | XMS_ITS | Clinical Summary ---
Author Organization [facility] Address [address] [place] [id number] Care Team Providers Care Family Services Worker Name Role Phone Tom Boss MD Primary [...] on file Legal Sex Male 7:02 AM DISASTER RECOVERY ANALYST Gender Identity Not on file Sexual Orientation [...] BLOOD ORDERABLES Final Result JALEEL LUCERO [facility] Department [place] [address] from Last 3 Months or Most Recently Relevant to Health Maintenance Insurance [facility] H[facility]/PPO Address: [address] [address] [place] [address] [facility] OPEN ACCESS Member Subscriber Plan / Payer (Ef fective 2017-Present) Name:Damian Gunderson Member ID:[id number] Relation to Subscriber:Self Name:DAMIAN GUNDERSON Subscriber ID:[id number] Payer ID:[id number] Type:20/20 [employer]LINK HMO/PPO Address: 20/20 [employer]LINK CLAIMS [address] [place] [address] [facility] Care Teams Family Services Worker Relationship Specialty Start Date End Date Tom Boss MD [address] [facility] [address] [facility] [address] [place] [address] PCP - General Family Medicine 10/08/18
--- OUTSIDE RECORDS SUMMARY | 2025-01-13 00:57 | XMS_ITS | Encounter Summary ---
Author Organization [facility] Address [address] [place] [address] Care Team Providers Care Solutions Specialist Name Role Phone Drake Galvez MD Primary Care Provider [phone] Encounter Details Date Type Department Care Team (Late st Contact Info) Description 12/05/2017 Abstract [facility] CONVERSION [address] [place], [place] [id number] , Generic Conversion, Social History Tobacco Use [...] on filedocumented in this encounter Care Teams Solutions Specialist Relationship Specialty Start Date End Date Drake Galvez MD [address] [address] PCP - General 06/20/16 documented as of this encounter
--- OUTSIDE RECORDS SUMMARY | 2025-01-13 00:57 | XMS_ITS | Data Portability ---
Author Organization [place] [facility] Address [address] [place] [address] Assessment Encounter Date Assessment Date Assessment LastModified [...] used during this encounter to provide a akjv-wu-pxub interactive encounter. Components of this encounter are [...] used during this encounter to provide a avvv-wg-krln interactive encounter. Components of this encounter are [...] By Organization Details Last Modified Time 05/11/2022 [id number] prostate cancer: care instructions [email or web address] Not available [...] Pt also agrees that me, and the [facility] Team are my treating physicians [...] questions. [email or web address] Not available 05/11/2022 12:02:59 05/14/2022 [id number] I have discussed the risks and benefits [...] questions. [email or web address] Not available 05/14/2022 16:29:04 03/27/2024 [id number] I have discussed the risks and benefits [...] agrees that me, and the [facility] Team are my treating physicians and [...] Diagnosis SNOMED-CT Code Diagnosis ICD10 Code Diagnosis IMO Codes Diagnosis Note [id number] Maryellen Cruz MD [facility] [address] [place] [address],[address] [address] 05/11/2022 11:41:45 05/11/2022 13:05:48 Malignant neoplasm of prostate [id number] C61 [id number] AUGUSTINE BOYD NP [facility] [address] [place] [address],[address] [address] 05/14/2022 16:28:46 05/15/2022 14:01:36 Malignant neoplasm of prostate [id number] C61 [id number] Maryellen Cruz MD [facility] [address] [place] [address],[address] [place] [address] 03/27/2024 11:17:16 03/27/2024 12:40:46 Malignant neoplasm of prostate [id number] C61 Health Concerns Section Related Observation LastModified by Organization Last ls LastModified Time None Recorded Concern Status LastModified by Organization Details LastModified Time None Recorded Advance Directives Directive None Recorded Payers Insurance Date Sequence Insurance Name Policy Number Policy Augustin Covered Member ID Augustin Member ID Guarantor Name 03/25/2024 1 [employer] (POS II) [id number] Ryan Gunderson [id number] Damian Gunderson Notes Date Note Type Note Provider Name and Address Organization Details Recorded Time 05/11/2022 text/html ROS as noted in the HPI The patient would like to discuss medications, the disease, and how to handle it. Pt would also like to discuss alternative treatments to this condition. Pt was referred here for further evaluation and treatment if necessary. Patient has a diagnosis of qualifying condition - PROSTATE NEOPLASM Maryellen Cruz MD [address], [place], [address], [facility] - [facility] 05/11/2022 12:03:25 05/14/2022 text/html ROS as noted in the HPI The patient would like to discuss medications, the disease, and [...] BOYD NP [address], [place], [address], [facility] - [facility] 05/14/2022 16:29:33 03/27/2024 text/html ROS as noted in the HPI The patient would like to discuss medications, the disease, and how to handle it. Pt would also like to discuss alternative treatments to this condition. Pt was referred here for further evaluation and treatment if necessary. Patient has a diagnosis of qualifying condition - PROSTATE CANCER Maryellen Cruz MD [address], [place], [address], [facility] - [facility] 03/27/2024 12:39:58
--- OUTSIDE RECORDS SUMMARY | 2025-01-13 00:57 | XMS_ITS | Patient Health Record ---
Author Organization [facility] Address [address] [place] [address] Care Team Providers Care Rn Progressive Care Name Role Phone Obi Salamanca Unavailable [phone] Abraham HERNANDEZ, [facility] Unavailable Unavailable Reason For Referral No Information Plan Of Treatment No Information Insurance Providers Payer Name Payer Address Payer Phone Subscriber Number Group Number Insured Name Patient Relationship to Insured Coverage Start Date Coverage End Date [facility] [address] [place] [phone] Damian Gunderson Self - patient is the insured
[2025-01-13] MEDS: LACTATED RINGERS 1,000 ML 30 ML IV CONT ×2 (06:30→11:21)
--- NOTE | 2025-01-13 06:42 | P.PNAN_ITS ---
Anes - Initial Pre Proc Eval Procedure: Operation Date: 01/13/25 07:30 Proposed Procedures p Left Total Knee Arthroplasty with Removal of Hardware - Ryan Power MD Date/Time: 01/13/25 06:42 Surgeon: Ryan Power MD Pre Op Diagnosis: Left Knee DJD, Hx of ACL Construction Patient Data Age: 59 Gender: M Height: 1.93 m Weight: 148.6 kg Last Vital Signs Temp 36.8 C 12/31/24 12:44 Pulse 72 12/31/24 12:44 Resp 16 12/31/24 12:44 BP 121/87 12/31/24 12:44 Pulse Ox 97 12/31/24 12:44 O2 Del Method Room Air 12/31/24 12:44 Allergies Allergy/AdvReac Type Severity Reaction Status Date / Time No Known Allergies Allergy Verified 01/13/25 06:22 Home Medications ?Medication ?Instructions ?Recorded ?Confirmed ?Type naproxen sodium 220 mg tablet 220 mg PO Q12H PRN pain 03/18/19 12/31/24 History (Aleve) albuterol sulfate 90 mcg/actuation 1 inh inhalation Q4 H PRN shortness 07/06/22 12/31/24 Rx aerosol inhaler of breath or wheezing #6.7 g sreedhar bupropion HCl 150 mg tablet,12 hr See Rx Instructions .Route 02/13/24 12/31/24 Rx sustained-release .COMPLEX #180 tabs levothyroxine 50 mcg tablet 50 mcg PO DAILY #90 tabs 0 05/19/24 12/31/24 Rx oxybutynin chloride 5 mg tablet 5 mg PO BID PRN bladde r spasms #30 09/01/24 12/31/24 Rx tabs pregabalin 200 mg capsule 200 mg PO BID 30 days #60 ca ps 10/09/24 12/31/24 Rx ondansetron 4 mg disintegrating 4 mg PO Q8H PRN nausea and 10/29/24 12/31/24 Rx tablet vomiting #10 tabs amitriptyline 100 mg tablet See Rx Instructions .Route 12/12/24 12/31/24 Rx .COMPLEX #90 tabs metoprolol succinate 50 mg 50 mg PO DAILY #90 tabs 12/31/24 Rx tablet,extended release 24 hr tirzepatide 7.5 mg/0.5 mL 7.5 mg (0.5 mL) subcut WEEKL Y #2 mL 12/14/24 12/31/24 Rx subcutaneous pen injector (Mounjaro) chlorhexidine gluconate 4 % 1 applic topical ONCE #237 mL 12/30/24 12/31/24 Rx topical liquid (Hibiclens) tamsulosin 0.4 mg capsule (Flomax) 0.4 mg PO BID 12/3112/31/24 History Patient hx anesthesia problems: none Family hx anesthesia problems: none Results Review: All pre-operative results and documents have been reviewed as part of the pre- operative evaluation. [facility] Past Medical History Medical History History of prostate cancer Hx of osteomyelitis Left knee 2010 Hypothyroidism ALLEN (obstructive sleep apnea) CVA (cerebral vascular accident) Bilateral hand pain HTN (hypertension) Idiopathic peripheral neuropathy Surgical History Surgical History Hx of tonsillectomy 1995 Hx of hand surgery left hand d/t DJD- 2022 Hx of arthroscopy of left knee w/ ACL/LCL recon- 1993 Hx of arthroscopy of right knee w/ MCL recon- 2020 History of open reduction and internal fixation (ORIF) procedure Clavicle- 2018 Hx of fusion of cervical spine 2018 History of robot-assisted laparoscopic radical prostatectomy 2022- [facility] Social History Social History Smoking status: Never smoker Tobacco type: cigarettes Second hand tobacco smoke exposure: No Alcohol intake: current Alcohol use details: 1/MONTH Substance use: never Substance use type: does not use Other substance usage details: smokes a few times a month Do You Feel Safe in your Home?: Yes Lack of Transportation: No Lack of Food: Never True Current Housing: I Have Housing Concerned About Future Housing: No Difficulty Paying Gas/Electric Bills: No Difficulty Paying for Meds: No Currently Unemployed: YES Education: Master's Degree or Higher Difficulty w/ Childcare or Family Care: No Living arrangements: with family Occupation/Education: unemployed Gender identity (if verbalized by the patient): Male Sexual Orientation (if Verbalized by the Patient): Straight or Heterosexual Spiritual care concerns: No Anes - Eval Final PreProcedure Day of Procedure 01/13/25 06:42 Patient weight: morbidly obese Heart: regular rate and rhythm Lungs: clear to auscultation Airway: Mallampati scale class III Neurological: alert and oriented Last oral intake: >/= 8 hours ASA classification: III Emergent: no Anesthetic plan: proceed Anesthesia type and monitoring: general LMA and standard monitoring Results Review: All pre-operative results and documents have been reviewed as part of the pre- operative evaluation. Informed Consent: The patient's anesthetic plan and its attendant risks and benefits were discussed with the patient/family/POA. Questions were solicited and answers provided to the satisfaction of the patient/family/POA.
[2025-01-13] MEDS: TRANEXAMIC ACID 1,000MG/ISO100 1,000 MG/100 ML BAG 200 MG IVPB (07:03)
--- NOTE | 2025-01-13 07:18 | WPDHPUPDATE1 ---
History and Physical Update Update Date/Time: 01/13/25 07:18 History and Physical has been reviewed, including an updated exam of the patient. There are NO changes in the patient's condition. Risks, benefits, and alternatives have been discussed and questions answered. Patient agrees to proceed with procedure. REMOVAL OF HARDWARE
[2025-01-13] MEDS: ceFAZolin 3 GM/D5W 100 ML 100 ML IVPB (07:30)
[2025-01-13] MEDS: SODIUM CHLORIDE 0.9% IV 37.7 ML, MORPHINE SULFATE INJ (*CRX) 2 MG, ROPivacaine HCL 1% 2... INFILTRATE (08:09)
[2025-01-13] MEDS: TRANEXAMIC ACID 1,000 MG/10 ML AMPUL 1000 MG IV PUSH (10:31)
--- NOTE | 2025-01-13 11:28 | W.PM.PROC2 ---
Procedure Note - Detailed Date of Procedure 01/13/25 Pre-op Diagnosis Left Knee DJD, RETAINED HARDWARE Post-op Diagnosis Same Procedure Performed L TKA AND HARDWARE REMOVAL Surgeon Ryan Power MD Anesthesia General Description of Procedure THE LEFT KNEE WAS PREPPED AND DRAPED IN THE STERILE FASHION. THERE WAS A 20 DEGREE FLEXION CONTRACTURE. A MIDLINE SKIN INCISION WAS MADE. A MEDIAL PARAPATELLAR ARTHROTOMY WAS MADE. THE PATELLA WAS EVERTED. THERE WAS TRICOMPARTMENT DJD. AN INTRAMEDULLARY GIANNA WAS PLACED IN THE FEMUR. A DISTAL FEMORAL CUT WAS MADE IN 5 DEGREES OF VALGUS REMOVING APPROXIMATELY 10 MM OF BONE FROM THE DISTAL FEMUR. THE FEMUR WAS SIZED TO 5. A 5 FEMORAL CUTTING BLOCK WAS PLACED IN 3 DEGREES OF EXTERNAL ROTATION AND IN ALIGNMENT WITH SUAD'S LINE AND THE TRANSEPICONDYLAR AXIS. ANTERIOR POSTERIOR AND CHAMFER CUTS WERE MADE. THE CUTS WERE EXCELLENT. NEXT AN INTRAMEDULLARY CUTTING GUIDE WAS PLACED IN THE TIBIA. A TRANS TIBIAL CUT WAS MADE ALONG THE LONG AXIS OF THE TIBIA. APPROXIMATELY 8 MM OF BONE WAS REMOVED FROM THE HIGH SIDE OF THE TIBIA. THE TIBIA WAS THEN PLANED TO A SMOOTH SURFACE. THE ACL SCREW WAS REMOVED IN ITS ENTIRETY. THERE WAS OSTEOLYSIS AROUND THE BODY OF THE SCREW WHICH EXTENDED TO THE MEDIAL PLATEAU. THE OSTEOLYSIS WAS CURETTED OUT TO GOOD BONE AND THE MEDIAL PLATEAU WAS DEBRIDED. BONE GRAFT WAS PLACED SUPPORTING THE MEDIAL PLATEAU. THE REMAINING PLATEAU BONE WAS IN EXCELLENT CONDITION. POSTERIOR FEMORAL OSTEOPHYTES WERE REMOVED FROM THE FEMORAL CONDYLES. A 5 TIBIAL TRIAL WAS PLACED IN ALIGNMENT WITH THE 1/3 MEDIAL ASPECT OF THE TIBIAL TUBERCLE. THEN A 5 FEMORAL TRIAL COMPONENT WAS PLACED. BOTH HAD EXCELLENT FITS. EVENTUALLY A 12 MM CS POLYETHYLENE TRIAL COMPONENT WAS PLACED. THE KNEE WAS TAKEN THROUGH A RANGE OF MOTION. THE KNEE CAME OUT TO FULL EXTENSION. THERE WAS NO ABNORMAL TILT TO THE PATELLA. THERE WAS GOOD A/P AND VARUS/VALGUS STABILITY. THERE WAS NO EXCESSIVE ROLL BACK WITH FLEXION. THE TRIAL COMPONENTS WERE REMOVED. THEN A TING 5 FEMORAL COMPONENT AND 5 TIBIAL COMPONENT WITH A 12 POLYETHYLENE COMPONENT WERE PRESS FIT INTO PLACE. THE KNEE WAS TAKEN THROUGH A ROM AGAIN AND FOUND TO BE STABLE WITH NO PATELLA TILT NO EXCESSIVE ROLL BACK WITH FLEXION AND GOOD STABILITY WITH COMPLETE AND FULL EXTENSION. THE KNEE WAS IRRIGATED WITH STERILE BETADINE AND WATER FOR ABOUT 3 MINUTES. THE BLEEDERS WERE CAUTERIZED. THE ARTHROTOMY WAS REPAIRED WITH NUMBER 1 VICRYL. THE SUB CUTANEOUS LAYER WITH 2-0 VICRYL AND THE SKIN WITH MAYRA. THE WOUND WAS WASHED AND A STERILE DRESSING WAS APPLIED. PATIENT WAS EXTUBATED. Estimated Blood Loss 200 Pathology None sent Complications No immediate complications Condition Stable Disposition PACU
[2025-01-13] MEDS: HYDROmorphone HCL INJ (*CRX) 1 MG/ML SYR 0.25 MG IV PUSH ×4 (11:49→12:44)
--- NOTE | 2025-01-13 13:15 | ADMGEN ---
This patient, Damian Gunderson, was admitted to [facility] Surg Room 319-01. Patient/family oriented to hospital policies and general routines including ID bracelet, bed and alarms, visiting hours, pain management, procedures, bathroom and other care routines, personal items, smoking policy, room service/diet, and visiting hours. Information on how to activate the Rapid Response Team has been discussed. Patient/Family are encouraged to report perceived risks to care and to ask questions if they do not understand what they are told or what they should do.
[2025-01-13] MEDS: SODIUM CHLORIDE 0.9% IV 1,000 ML 125 ML IV CONT (13:38)
[2025-01-13] MEDS: IBUPROFEN IV 800 MG/200 ML 800 MG/200 ML BAG 400 MG IVPB (13:44)
--- NOTE | 2025-01-13 14:49 | PCPTNOTE ---
Attempted PT evaluation, pt's spouse refused for pt due to pt being drowsy. Pt was falling asleep mid sentence. Will follow.
--- NOTE | 2025-01-13 15:45 | PCOTNOTE ---
Pt not alert or awake enough to participate in occupational therapy this afternoon. Will see pt tomorrow.
[2025-01-13] MEDS: CELECOXIB 200 MG CAPSULE PO (16:47)
[2025-01-13] MEDS: ceFAZolin 2 GM in SODIUM CHLORIDE 0.9% IV 50 ML 100 ML IVPB (16:47)
[2025-01-13] MEDS: buPROPion HCL SR (12 HR) 150 MG TAB BY MOUTH (16:47)
[2025-01-13] MEDS: SENNA/DOCUSATE SODIUM TABLET 2 TAB PO (16:48)
[2025-01-13] MEDS: oxyCODONE/ACETAMINOPHEN (*CRX) 10-325 MG TABLET 1 TAB PO ×2 (17:04→23:28)
[2025-01-13] MEDS: ASPIRIN 325 MG ENTERIC TABLET PO (21:27)
[2025-01-13] MEDS: PREGABALIN (*CRX) 50 MG CAPSULE 200 MG PO (21:27)
[2025-01-13] MEDS: AMITRIPTYLINE HCL 25 MG TABLET 100 MG BY MOUTH (21:27)
[2025-01-13] MEDS: FAMOTIDINE 20 MG TABLET PO (21:28)
[2025-01-13] MEDS: TAMSULOSIN HCL 0.4 MG CAPSULE PO (21:28)
[2025-01-14] MEDS: HYDROmorphone HCL INJ (*CRX) 1 MG/ML SYR IV PUSH ×4 (00:28→19:42)
[2025-01-14] MEDS: ceFAZolin 2 GM in SODIUM CHLORIDE 0.9% IV 50 ML 100 ML IVPB ×2 (00:31→10:38)
[2025-01-14 00:55] VITALS: BP 111/80; PULSE 116; RESP 20; TEMP 36.5; O2SAT 95
[2025-01-14 05:25] VITALS: BP 124/82; PULSE 100; RESP 20; TEMP 36.3; O2SAT 99
[2025-01-14 06:01] LABS: Hematocrit 34.1 % (42.0-52.0); Hemoglobin 10.2 g/dL (14.0-18.0); Immature Granulocyte Percent A 0.5 % (0-0.5); Lymphocytes Absolute Auto 0.44 K/mm3 (0.9-3.2); Mean Corpuscular HGB Conc 29.9 g/dl (32-36); Mean Corpuscular Hemoglobin 26.3 pg (26-34); Mean Corpuscular Volume 87.9 fl (80-100); Nucleated Red Blood Cells Absolute Auto 0.000 K/mm3 (0.0-0.012); Nucleated Red Blood Cells Perc 0.0 % (0.0-0.2); Platelet Count Result 154 k/mm3 (150-375); Red Blood Count 3.88 M/mm3 (4.6-6.20); White Blood Count 7.8 K/mm3 (4.5-10.0)
[2025-01-14] MEDS: LEVOTHYROXINE SODIUM 50 MCG TABLET PO (06:23)
[2025-01-14 06:27] LABS: Anion Gap 6 mmol/L (4-12); Blood Urea Nitrogen 27 mg/dL (9-20); Calcium 8.2 mg/dL (8.4-10.2); Carbon Dioxide 28 mmol/L (22-30); Chloride 101 mmol/L (98-107); Estimated CRCL calculation 94 ml/min; Estimated Glomerular Filt Rate > 60; Glucose 138 mg/dL (65-110); Potassium 4.2 mmol/L (3.4-5.0); Sodium 135 mmol/L (137-145)
[2025-01-14] MEDS: oxyCODONE/ACETAMINOPHEN (*CRX) 10-325 MG TABLET 1 TAB PO ×3 (06:28→22:59)
[2025-01-14 06:42] LABS: Hypochromasia 1+; Microcytosis 1+ (NORMAL); Ovalocytes 1+; Schistocytes None Seen
--- NOTE | 2025-01-14 09:43 | P.PNOP_ITS ---
Progress Note: A&P Assessment and Plan (1) S/P total knee arthroplasty: Qualifiers: Laterality: left Qualified Code(s): Z96.652 - Presence of left artificial knee joint Code(s): Z96.659 - Presence of unspecified artificial knee joint Status: Acute Assessment and Plan: POD #1 : Left TKA Continue PT/OT. WBAT. Walker. HIGH FALL RISK. Continue pain control. Attempt to transition to PO medications ROD. Ice Knee. Protect skin. DVT prophylaxis with Aspirin. SCDs. Incentive Spirometry Use reviewed. Monitor Dressing. Change prior to discharge. Bowel Regimen. Dispo: Home with Home Health pending progress with PT/OT and improvement with pain control. Time Spent With Patient Time: Reviewed history, exam, radiographs and current labs with attending MD and covering surgeon, Dr. Power, who agrees with current plan as indicated above. No further recommendations from Dr. Power at this time. Subjective Subjective Date/Time Seen: 01/14/25 09:43 Post Op day: 1 Principal diagnosis: Left Knee DJD Interval history: POD #1: Left TKA Patient awake/alert. Laying in bed. C/o pain, requiring Dilaudid. Mild confusion to situation. Easily reoriented. Review of Systems Review of Systems: All systems reviewed & are unremarkable except as noted in HPI and below Constitutional: Constitutional: Denies fever(s) and Denies headache(s) ENT: Denies headache(s) Cardiovascular: Cardiovascular: Denies chest pain, Denies diaphoresis, Denies palpitations and Denies dyspnea Respiratory: Respiratory: Denies dyspnea Gastrointestinal: Gastrointestinal: Denies abdominal pain, Denies constipation, Denies nausea and Denies vomiting Genitourinary: Genitourinary: Denies dysuria and Reports nocturia Musculoskeletal: Musculoskeletal: Reports arthralgias (Left Knee ), Reports joint swelling (Left Knee ) and Reports limited range of motion (ROM limited due to recent surgical intervention LEFT Knee ) Neurologic: Denies headache(s) Endocrine: Endocrine: Denies palpitations Exam Const: General: comfortable and no acute distress Resp: Effort & Inspection: normal respiratory effort Cardio: Rate: regular rate Rhythm: regular rhythm GI: GI Palp: Yes Soft to palpation, No Tenderness to palpation present (GI) and No Guarding due to palpation present (GI) Skin: General skin exam: wounds noted (see extremity assessment ) Wounds: wounds noted (see extremity assessment ) Neuro: Cognition (Neuro): normal cognition Other: NV intact aside from block. Moves toes. Sensation intact to light touch. +ankle dorsiflexion/plantarflexion. Extrem: Left lower extremity: normal to inspection, normal capillary refill, knee Details: tenderness (diffuse ) Location: of the patella, swelling (moderate consistent to recent surgery ), abnormal ROM (limited due to recent surgery ) Details: pain with active ROM and pain with passive ROM and ecchymosis (as expected with recent surgery. NO hematoma. ), lower leg (Negative Lorna's Sign ), ankle (+ankle dorsiflexion/plantarflexion ) Details: normal to inspection, no edema and normal ROM; no tenderness and no swelling and foot Details: normal capillary refill, toes with normal ROM, vascular exam Details: dorsalis pedis pulse present and motor-sensory exam light-touch normal; no tenderness Other: Incision left TKA dressing c/d/i. No hematoma. No signs of infection. No wound dehiscence. Psych: Mental Status: mental status grossly normal Objective Data Vital Signs Vital Signs: Vital Signs - 24 hr 01/13/25 11:21 01/13/25 11:35 01/13/25 11:50 Temperature 36.7 C Pulse Rate 79 82 80 Respiratory Rate 16 14 16 Blood Pressure 143/89 H 128/80 173/98 H Pulse Oximetry 95 94 98 Oxygen Delivery Simple Face Mask Simple Face Mask Simple Face Mask Oxygen Flow Rate 10 10 10 01/13/25 12:05 01/13/25 12:10 01/13/25 12:20 Temperature Pulse Rate 78 87 Respiratory Rate 14 14 Blood Pressure 162/99 H 160/102 H Pulse Oximetry 97 94 Oxygen Delivery Simple Face Mask Room Air Room Air Oxygen Flow Rate 10 01/13/25 12:35 01/13/25 12:50 01/13/25 12:55 Temperature Pulse Rate 88 80 Respiratory Rate 14 12 Blood Pressure 146/95 H 156/91 H Pulse Oximetry 93 93 87 L Oxygen Delivery Room Air Room Air Nasal Cannula Oxygen Flow Rate 2 01/13/25 13:05 01/13/25 13:20 01/13/25 13:35 Temperature 36.2 C L 36.2 C L 36.4 C Pulse Rate 77 81 84 Respiratory Rate 14 22 H 20 Blood Pressure 169/95 H 157/94 H 139/81 Pulse Oximetry 94 98 98 Oxygen Delivery Nasal Cannula Oxygen Flow Rate 2 01/13/25 13:54 01/13/25 14:08 01/13/25 15:30 Temperature 36.3 C L 36.1 C L Pulse Rate 85 87 87 Respiratory Rate 12 18 16 Blood Pressure 147/78 H 141/84 H Pulse Oximetry 94 92 94 Oxygen Delivery Nasal Cannula Oxygen Flow Rate 2 01/13/25 20:15 01/13/25 21:17 01/13/25 21:52 Temperature 36.1 C L Pulse Rate 98 Respiratory Rate 20 Blood Pressure 134/93 H Pulse Oximetry 99 Oxygen Delivery Room Air CPAP Oxygen Flow Rate 01/14/25 00:55 01/14/25 02:22 01/14/25 05:25 Temperature 36.5 C 36.3 C L Pulse Rate 116 H 100 Respiratory Rate 20 20 Blood Pressure 111/80 124/82 Pulse Oximetry 95 99 Oxygen Delivery CPAP Oxygen Flow Rate 01/14/25 08:09 01/14/25 08:49 Temperature Pulse Rate Respiratory Rate Blood Pressure Pulse Oximetry Oxygen Delivery Room Air Room Air Oxygen Flow Rate Intake/Output Intake/Output: Intake & Output 01/11/25 01/12/25 01/13/25 01/14/25 23:59 23:59 23:59 23:59 Intake Total 1240 690 Output Total 350 1200 Balance 890 -510 Meds/Results Medications: Active Medications Generic Name Dose Route Start Last Admin Trade Name Freq PRN Reason Stop Dose Admin Acetaminophen 1,000 mg 01/13/25 13:09 Acetaminophen 500 Mg Tablet PO PRN PRN Pain Albuterol 1 puff 01/13/25 13:09 Albuterol Sulfate (*Sp) Aerosol 1 Puff INHALATION Q4H PRN Shortness Of Breath Or Wheezing Amitriptyline HCl 100 mg 01/13/25 21:00 01/13/25 21:27 Amitriptyline Hcl 25 Mg Tablet BY MOUTH 100 mg HS RICHIE Administration Aspirin 325 mg 01/13/25 21:00 01/13/25 21:27 Aspirin 325 Mg Enteric Tablet PO 325 mg Q12HR RICHIE Administration Bupropion HCl 150 mg 01/13/25 17:00 01/13/25 16:47 Bupropion Hcl Sr (12 Hr) 150 Mg Tab BY MOUTH 150 mg BID RICHIE Administration Celecoxib 200 mg 01/13/25 17:00 01/13/25 16:47 Celecoxib 200 Mg Capsule PO 200 mg BIDWM RICHIE Administration Diazepam 5 mg 01/13/25 13:09 Diazepam (*Crx) 5 Mg Tablet PO Q8H PRN Spasms Diphenhydramine HCl 25 mg 01/13/25 13:09 Diphenhydramine Hcl Inj 50 Mg/Ml Vial IV PUSH Q6H PRN Itching Famotidine 20 mg 01/13/25 21:00 01/13/25 21:28 Famotidine 20 Mg Tablet PO 20 mg Q12HR RICHIE Administration Hydromorphone HCl 1 mg 01/13/25 13:09 01/14/25 04:48 Hydromorphone Hcl Inj (*Crx) 1 Mg/Ml Syr IV PUSH 1 mg Q2H PRN Administration Breakthrough Pain Rated 7-10 or NPO Hydromorphone HCl 0.5 mg 01/13/25 13:09 Hydromorphone Hcl Inj (*Crx) 1 Mg/Ml Syr IV PUSH Q2H PRN Breakthrough Pain Rated 4-6 or NPO Ibuprofen 800 mg in 200 mls @ 400 mls/hr 01/13/25 13:09 01/13/25 14:10 Caldolor 800 Mg/200 Ml IVPB Infused Q6H PRN Infusion Breakthrough Pain Rated 1-3 or NPO Levothyroxine Sodium 50 mcg 01/14/25 06:30 01/14/25 06:23 Levothyroxine Sodium 50 Mcg Tablet PO 50 mcg DAILY@0630 [facility] Administration Metoprolol Succinate 50 mg 01/14/25 09:00 Metoprolol Succinate Ext Rel 50 Mg Tabcr PO DAILY [facility] Miscellaneous Information 1 each 01/13/25 00:01 Acetaminophen 1000mg Tab Prn- Please Add Frequency To Order XX 02/12/25 00:00 CLARIFY RICHIE Naloxone HCl 0.1 mg 01/13/25 13:09 Naloxone Hcl 0.4 Mg/Ml Vial IV PUSH Q2M PRN Opiate Reversal Ondansetron HCl 4 mg 01/13/25 13:09 Ondansetron Inj 4 Mg/2 Ml Vial IV PUSH Q4H PRN Nausea And Vomiting Oxybutynin Chloride 5 mg 01/13/25 13:09 Oxybutynin Chloride 5 Mg Tablet PO BID PRN bladder spasms Oxycodone/Acetaminophen 1 tablet 01/13/25 13:09 Oxycodone/Acetaminophen (*Crx) 5-325 Mg Tablet PO Q4H PRN Pain Rated 4-6 Oxycodone/Acetaminophen 1 tab 01/13/25 13:09 01/14/25 06:28 Oxycodone/Acetaminophen (*Crx) 10-325 Mg Tablet PO 1 tab Q6H PRN Administration Pain Rated 7-10 Polyethylene Glycol 17 gm 01/14/25 09:00 Polyethylene Glycol 3350 17 Gm Powd.Pack PO QAM RICHIE Pregabalin 200 mg 01/13/25 21:00 01/13/25 21:27 Pregabalin (*Crx) 50 Mg Capsule PO 200 mg Q12HR RICHIE Administration Senna/Docusate Sodium 2 tab 01/13/25 17:00 01/13/25 16:48 Senna/Docusate Sodium Tablet PO 2 tab BID RICHIE Administration Tamsulosin HCl 0.4 mg 01/13/25 21:00 01/13/25 21:28 Tamsulosin Hcl 0.4 Mg Capsule PO 0.4 mg Q12HR RICHIE Administration Radiology Results: ITS Impressions Knee X-Ray 01/13/25 11:57 Impression: No acute fracture or malalignment. Labs Labs: Laboratory Results - last 24 hr 01/13/25 01/13/25 01/13/25 11:25 16:09 20:19 WBC RBC Hgb Hct MCV MCH MCHC RDW Plt Count MPV Immature Gran % (Auto) Neut % (Auto) Lymph % (Auto) Holmes % (Auto) Eos % (Auto) Baso % (Auto) Lymph # (Auto) Holmes # (Auto) Eos # (Auto) Baso # (Auto) Abs Immat Gran (auto) Absolute Neuts (auto) Absolute Nucleated RBC Band Neutrophils % Nucleated RBC % Platelet Estimate Hypochromasia Microcytosis Ovalocytes Schistocytes Sodium Potassium Chloride Carbon Dioxide Anion Gap BUN Creatinine Estim Creat Clear Calc Estimated GFR Glucose POC Capillary Glucose 164 H 124 H 132 H Calcium 01/14/25 05:19 WBC 7.8 RBC 3.88 L Hgb 10.2 L Hct 34.1 L MCV 87.9 MCH 26.3 MCHC 29.9 L RDW 15.3 H Plt Count 154 MPV 9.4 Immature Gran % (Auto) 0.5 Neut % (Auto) 83.1 H Lymph % (Auto) 5.6 L Holmes % (Auto) 9.7 H Eos % (Auto) 0.6 Baso % (Auto) 0.5 Lymph # (Auto) 0.44 L Holmes # (Auto) 0.8 H Eos # (Auto) 0.1 Baso # (Auto) 0.0 Abs Immat Gran (auto) 0.04 H Absolute Neuts (auto) 6.5 Absolute Nucleated RBC 0.000 Band Neutrophils % Not Reportable Nucleated RBC % 0.0 Platelet Estimate Adequate Hypochromasia 1+ Microcytosis 1+ Ovalocytes 1+ Schistocytes None seen Sodium 135 L Potassium 4.2 Chloride 101 Carbon Dioxide 28 Anion Gap 6 BUN 27 H Creatinine 1.21 Estim Creat Clear Calc 94 Estimated GFR > 60 Glucose 138 H POC Capillary Glucose Calcium 8.2 L Quality VTE Prophylaxis VTE prophylaxis: pharmacologic ordered
[2025-01-14] MEDS: IBUPROFEN IV 800 MG/200 ML 800 MG/200 ML BAG 400 MG IVPB (09:59)
[2025-01-14] MEDS: diazePAM (*CRX) 5 MG TABLET PO (10:03)
[2025-01-14] MEDS: CELECOXIB 200 MG CAPSULE PO ×2 (10:03→18:24)
[2025-01-14] MEDS: SENNA/DOCUSATE SODIUM TABLET 2 TAB PO ×2 (10:04→18:24)
[2025-01-14] MEDS: FAMOTIDINE 20 MG TABLET PO ×2 (10:04→21:05)
[2025-01-14] MEDS: PREGABALIN (*CRX) 50 MG CAPSULE 200 MG PO ×2 (10:04→21:05)
[2025-01-14] MEDS: buPROPion HCL SR (12 HR) 150 MG TAB BY MOUTH ×2 (10:04→18:24)
[2025-01-14 10:05] VITALS: PULSE 100
[2025-01-14] MEDS: ASPIRIN 325 MG ENTERIC TABLET PO ×2 (10:05→21:04)
[2025-01-14] MEDS: METOPROLOL SUCCINATE EXT REL 50 MG TABCR PO (10:05)
[2025-01-14] MEDS: TAMSULOSIN HCL 0.4 MG CAPSULE PO ×2 (10:05→21:05)
[2025-01-14 10:30] VITALS: BP 141/83; PULSE 110; RESP 18; TEMP 37; O2SAT 93
[2025-01-14 14:54] VITALS: BP 119/83; PULSE 94; RESP 18; TEMP 37; O2SAT 98
[2025-01-14] MEDS: AMITRIPTYLINE HCL 25 MG TABLET 100 MG BY MOUTH (21:04)
[2025-01-14 21:10] VITALS: BP 126/76; PULSE 89; RESP 18; TEMP 37.1; O2SAT 97
--- NOTE | ~2025-01-15 | XR_ITS ---
EXAMINATION: [id number], 01/13/2025 11:40 CDT HISTORY: POST OP LEFT TKA COMPARISON: No comparisons available. Findings: No acute fracture or malalignment. Arthroplasty intact Soft tissues unremarkable. Impression: No acute fracture or malalignment. Reviewed, dictated and finalized at location P. Impression: No acute fracture or malalignment.
[2025-01-15 05:00] VITALS: BP 130/79; PULSE 91; RESP 20; TEMP 36.6; O2SAT 96
[2025-01-15] MEDS: oxyCODONE/ACETAMINOPHEN (*CRX) 10-325 MG TABLET 1 TAB PO ×2 (05:38→21:08)
[2025-01-15] MEDS: LEVOTHYROXINE SODIUM 50 MCG TABLET PO (05:39)
[2025-01-15 06:17] LABS: Hematocrit 33.2 % (42.0-52.0); Hemoglobin 9.9 g/dL (14.0-18.0); Mean Corpuscular HGB Conc 29.8 g/dl (32-36); Mean Corpuscular Hemoglobin 26.3 pg (26-34); Mean Corpuscular Volume 88.1 fl (80-100); Platelet Count Result 166 k/mm3 (150-375); Red Blood Count 3.77 M/mm3 (4.6-6.20); White Blood Count 11.2 K/mm3 (4.5-10.0)
[2025-01-15 06:52] LABS: Alanine Aminotransferase 20 U/L (6-50); Albumin Level 3.8 g/dL (3.5-5.1); Alkaline Phosphatase 74 U/L (38-126); Anion Gap 6 mmol/L (4-12); Aspartate Amino Transferase 30 U/L (17-59); Bilirubin,Total 1.8 mg/dL (0.2-1.3); Blood Urea Nitrogen 17 mg/dL (9-20); Calcium 8.6 mg/dL (8.4-10.2); Carbon Dioxide 28 mmol/L (22-30); Chloride 100 mmol/L (98-107); Estimated CRCL calculation 107 ml/min; Estimated Glomerular Filt Rate > 60; Glucose 134 mg/dL (65-110); Potassium 3.7 mmol/L (3.4-5.0); Sodium 134 mmol/L (137-145); Total Protein 6.9 g/dL (6.3-8.2)
--- NOTE | 2025-01-15 09:30 | PM.PNORT ---
Progress Note: A&P Assessment and Plan (1) S/P total knee arthroplasty: Qualifiers: Laterality: left Qualified Code(s): Z96.652 - Presence of left artificial knee joint Code(s): Z96.659 - Presence of unspecified artificial knee joint Status: Acute Assessment and Plan: POD #2: Left TKA Continue PT/OT. WBAT. Walker. HIGH FALL RISK. Continue pain control. HOLD IV Pain medication. Trial Orals. Ice Knee. Protect skin. DVT prophylaxis with Aspirin. SCDs. Incentive Spirometry Use reviewed. Monitor Dressing. Change prior to discharge. Bowel Regimen. Dispo: Home with Home Health pending progress with PT/OT and improvement with pain control. Time Spent With Patient Time: Reviewed history, exam, radiographs and current labs with attending MD and covering surgeon, Dr. Power, who agrees with current plan as indicated above. No further recommendations from Dr. Power at this time. Subjective Subjective Date/Time Seen: 01/15/25 09:30 Post Op day: 2 Principal diagnosis: Left Knee DJD Interval history: POD #2: Left TKA Patient awake/alert. Still with c/o pain. Slow progress with PT/OT yesterday. Review of Systems Review of Systems: All systems reviewed & are unremarkable except as noted in HPI and below Constitutional: Constitutional: Denies fever(s) and Denies headache(s) ENT: Denies headache(s) Cardiovascular: Cardiovascular: Denies chest pain, Denies diaphoresis, Denies palpitations and Denies dyspnea Respiratory: Respiratory: Denies dyspnea Gastrointestinal: Gastrointestinal: Denies abdominal pain, Denies constipation, Denies nausea and Denies vomiting Genitourinary: Genitourinary: Denies dysuria and Reports nocturia Musculoskeletal: Musculoskeletal: Reports arthralgias (Left Knee ), Reports joint swelling (Left Knee ) and Reports limited range of motion (ROM limited due to recent surgical intervention LEFT Knee ) Neurologic: Denies headache(s) Endocrine: Endocrine: Denies palpitations Objective Data Vital Signs Vital Signs: Vital Signs - 24 hr 01/14/25 10:05 01/14/25 10:30 01/14/25 14:54 Temperature 37.0 C 37.0 C Pulse Rate 100 110 H 94 Respiratory Rate 18 18 Blood Pressure 141/83 H 119/83 Pulse Oximetry 93 98 Oxygen Delivery 01/14/25 21:10 01/14/25 22:12 01/15/25 05:00 Temperature 37.1 C 36.6 C Pulse Rate 89 91 Respiratory Rate 18 20 Blood Pressure 126/76 130/79 Pulse Oximetry 97 96 Oxygen Delivery CPAP Intake/Output Intake/Output: Intake & Output 01/12/25 01/13/25 01/14/25 01/15/25 23:59 23:59 23:59 23:59 Intake Total 1240 1420 300 Output Total 350 1200 875 Balance 890 220 -575 Meds/Results Medications: Active Medications Generic Name Dose Route Start Last Admin Trade Name Freq PRN Reason Stop Dose Admin Acetaminophen 1,000 mg 01/13/25 13:09 Acetaminophen 500 Mg Tablet PO PRN PRN Pain Albuterol 1 puff 01/13/25 13:09 Albuterol Sulfate (*Sp) Aerosol 1 Puff INHALATION Q4H PRN Shortness Of Breath Or Wheezing Amitriptyline HCl 100 mg 01/13/25 21:00 01/14/25 21:04 Amitriptyline Hcl 25 Mg Tablet BY MOUTH 100 mg HS RICHIE Administration Aspirin 325 mg 01/13/25 21:00 01/14/25 21:04 Aspirin 325 Mg Enteric Tablet PO 325 mg Q12HR RICHIE Administration Bupropion HCl 150 mg 01/13/25 17:00 01/14/25 18:24 Bupropion Hcl Sr (12 Hr) 150 Mg Tab BY MOUTH 150 mg BID RICHIE Administration Celecoxib 200 mg 01/13/25 17:00 01/14/25 18:24 Celecoxib 200 Mg Capsule PO 200 mg BIDWM IRCHIE Administration Diazepam 5 mg 01/13/25 13:09 01/14/25 10:03 Diazepam (*Crx) 5 Mg Tablet PO 5 mg Q8H PRN Administration Spasms Diphenhydramine HCl 25 mg 01/13/25 13:09 Diphenhydramine Hcl Inj 50 Mg/Ml Vial IV PUSH Q6H PRN Itching Famotidine 20 mg 01/13/25 21:00 01/14/25 21:05 Famotidine 20 Mg Tablet PO 20 mg Q12HR RICHIE Administration Hydromorphone HCl 1 mg 01/13/25 13:09 01/14/25 19:42 Hydromorphone Hcl Inj (*Crx) 1 Mg/Ml Syr IV PUSH 1 mg On Hold: 01/15/25 09:27 Q2H PRN Administration Breakthrough Pain Rated 7-10 or NPO Hydromorphone HCl 0.5 mg 01/13/25 13:09 Hydromorphone Hcl Inj (*Crx) 1 Mg/Ml Syr IV PUSH On Hold: 01/15/25 09:28 Q2H PRN Breakthrough Pain Rated 4-6 or NPO Ibuprofen 800 mg in 200 mls @ 400 mls/hr 01/13/25 13:09 01/14/25 10:29 Caldolor 800 Mg/200 Ml IVPB Infused Q6H PRN Infusion Breakthrough Pain Rated 1-3 or NPO Levothyroxine Sodium 50 mcg 01/14/25 06:30 01/15/25 05:39 Levothyroxine Sodium 50 Mcg Tablet PO 50 mcg DAILY@0630 RICHIE Administration Metoprolol Succinate 50 mg 01/14/25 09:00 01/14/25 10:05 Metoprolol Succinate Ext Rel 50 Mg Tabcr PO 50 mg DAILY RICHIE Administration Miscellaneous Information 1 each 01/13/25 00:01 Acetaminophen 1000mg Tab Prn- Please Add Frequency To Order XX 02/12/25 00:00 CLARIFY RICHIE Naloxone HCl 0.1 mg 01/13/25 13:09 Naloxone Hcl 0.4 Mg/Ml Vial IV PUSH Q2M PRN Opiate Reversal Ondansetron HCl 4 mg 01/13/25 13:09 Ondansetron Inj 4 Mg/2 Ml Vial IV PUSH Q4H PRN Nausea And Vomiting Oxybutynin Chloride 5 mg 01/13/25 13:09 Oxybutynin Chloride 5 Mg Tablet PO BID PRN bladder spasms Oxycodone/Acetaminophen 1 tablet 01/13/25 13:09 Oxycodone/Acetaminophen (*Crx) 5-325 Mg Tablet PO Q4H PRN Pain Rated 4-6 Oxycodone/Acetaminophen 1 tab 01/13/25 13:09 01/15/25 05:38 Oxycodone/Acetaminophen (*Crx) 10-325 Mg Tablet PO 1 tab Q6H PRN Administration Pain Rated 7-10 Polyethylene Glycol 17 gm 01/14/25 09:00 01/14/25 10:05 Polyethylene Glycol 3350 17 Gm Powd.Pack PO 17 gm QAM RICHIE Administration Pregabalin 200 mg 01/13/25 21:00 01/14/25 21:05 Pregabalin (*Crx) 50 Mg Capsule PO 200 mg Q12HR RICHIE Administration Senna/Docusate Sodium 2 tab 01/13/25 17:00 01/14/25 18:24 Senna/Docusate Sodium Tablet PO 2 tab BID RICHIE Administration Tamsulosin HCl 0.4 mg 01/13/25 21:00 01/14/25 21:05 Tamsulosin Hcl 0.4 Mg Capsule PO 0.4 mg Q12HR RICHIE Administration Radiology Results: ITS Impressions Knee X-Ray 01/13/25 11:57 Impression: No acute fracture or malalignment. Labs Labs: Laboratory Results - last 24 hr 01/14/25 01/14/25 01/14/25 11:46 17:00 21:12 WBC RBC Hgb Hct MCV MCH MCHC RDW Plt Count MPV Sodium Potassium Chloride Carbon Dioxide Anion Gap BUN Creatinine Estim Creat Clear Calc Estimated GFR Glucose POC Capillary Glucose 125 H 126 H 143 H Calcium Total Bilirubin AST ALT Alkaline Phosphatase Total Protein Albumin 01/15/25 01/15/25 06:05 08:20 WBC 11.2 H RBC 3.77 L Hgb 9.9 L Hct 33.2 L MCV 88.1 MCH 26.3 MCHC 29.8 L RDW 15.3 H Plt Count 166 MPV 9.1 Sodium 134 L Potassium 3.7 Chloride 100 Carbon Dioxide 28 Anion Gap 6 BUN 17 D Creatinine 1.06 Estim Creat Clear Calc 107 Estimated GFR > 60 Glucose 134 H POC Capillary Glucose 184 H Calcium 8.6 Total Bilirubin 1.8 H AST 30 ALT 20 Alkaline Phosphatase 74 Total Protein 6.9 Albumin 3.8
[2025-01-15 10:00] VITALS: O2SAT 93
[2025-01-15] MEDS: SENNA/DOCUSATE SODIUM TABLET 2 TAB PO ×2 (10:17→18:17)
[2025-01-15] MEDS: CELECOXIB 200 MG CAPSULE PO ×2 (10:17→18:17)
[2025-01-15] MEDS: FAMOTIDINE 20 MG TABLET PO ×2 (10:18→21:02)
[2025-01-15] MEDS: ASPIRIN 325 MG ENTERIC TABLET PO ×2 (10:18→21:02)
[2025-01-15] MEDS: TAMSULOSIN HCL 0.4 MG CAPSULE PO ×2 (10:18→21:02)
[2025-01-15] MEDS: buPROPion HCL SR (12 HR) 150 MG TAB BY MOUTH ×2 (10:18→18:17)
[2025-01-15] MEDS: PREGABALIN (*CRX) 50 MG CAPSULE 200 MG PO ×2 (10:18→21:02)
[2025-01-15 10:19] VITALS: PULSE 96
[2025-01-15] MEDS: METOPROLOL SUCCINATE EXT REL 50 MG TABCR PO (10:19)
[2025-01-15 11:24] VITALS: BP 135/82; PULSE 101; O2SAT 93
[2025-01-15] MEDS: oxyCODONE/ACETAMINOPHEN (*CRX) 5-325 MG TABLET 1 TABLET PO ×2 (11:31→13:34)
[2025-01-15] MEDS: diazePAM (*CRX) 5 MG TABLET PO (13:33)
[2025-01-15 14:00] VITALS: BP 114/69; PULSE 103; RESP 18; TEMP 36.3; O2SAT 100
[2025-01-15] MEDS: IBUPROFEN IV 800 MG/200 ML 800 MG/200 ML BAG 400 MG IVPB (14:26)
[2025-01-15 21:00] VITALS: BP 109/61; PULSE 80; RESP 20; TEMP 36.9; O2SAT 93
[2025-01-15] MEDS: AMITRIPTYLINE HCL 25 MG TABLET 100 MG BY MOUTH (21:02)
[2025-01-16 05:10] VITALS: BP 150/90; PULSE 94; RESP 20; TEMP 37.2; O2SAT 95
[2025-01-16] MEDS: LEVOTHYROXINE SODIUM 50 MCG TABLET PO (05:42)
[2025-01-16] MEDS: oxyCODONE/ACETAMINOPHEN (*CRX) 10-325 MG TABLET 1 TAB PO ×2 (05:44→14:35)
[2025-01-16 09:38] VITALS: PULSE 94
[2025-01-16] MEDS: SENNA/DOCUSATE SODIUM TABLET 2 TAB PO (09:38)
[2025-01-16] MEDS: CELECOXIB 200 MG CAPSULE PO (09:38)
[2025-01-16] MEDS: METOPROLOL SUCCINATE EXT REL 50 MG TABCR PO (09:38)
[2025-01-16] MEDS: FAMOTIDINE 20 MG TABLET PO (09:38)
[2025-01-16] MEDS: TAMSULOSIN HCL 0.4 MG CAPSULE PO (09:38)
[2025-01-16] MEDS: buPROPion HCL SR (12 HR) 150 MG TAB BY MOUTH (09:38)
[2025-01-16] MEDS: PREGABALIN (*CRX) 50 MG CAPSULE 200 MG PO (09:38)
[2025-01-16] MEDS: ASPIRIN 325 MG ENTERIC TABLET PO (09:39)
[2025-01-16 13:51] VITALS: BP 153/81; PULSE 96; RESP 18; TEMP 36.4; O2SAT 94
--- NOTE | 2025-01-18 16:22 | P.DS_ITS ---
DS: Admitting Diagnosis Discharge Date 01/16/25 Admitting Diagnosis Left TKA DS: Discharge Diagnosis Discharge Diagnosis (1) S/P total knee arthroplasty: Qualifiers: Laterality: left Qualified Code(s): Z96.652 - Presence of left artificial knee joint Code(s): Z96.659 - Presence of unspecified artificial knee joint Status: Acute Assessment and Plan: POD #3: Left TKA Continue PT/OT. WBAT. Walker. HIGH FALL RISK. Continue pain control. Ice Knee. Protect skin. DVT prophylaxis with Aspirin. SCDs. Incentive Spirometry Use reviewed. Monitor Dressing. Change prior to discharge. Bowel Regimen. Dispo: Home with Home Health pending progress with PT/OT and improvement with pain control. DS: Summary Hospital Course Reason for hospitalization: Left TKA Hospital Course: 59 year old male admitted s/p Left TKA for postoperative medical management, pain control and mobilization with PT/OT. Patient progressed slow initially with PT/OT due to pain control. Improvement on POD #3. Pain and vitals remained stable throughout. The patient has been cleared to be discharged home with home health at this time. All discharge care instructions reviewed at depth. New medications reviewed. Follow up planned for 3 weeks in the outpatient orthopedic clinic with Dr. oPwer. Dr. Power in agreement with safe discharge at this time. Status at Discharge Functional status at discharge: independent ambulation Overall status at discharge: patient is progressing back to baseline Time Spent with Patient Time attestation: Total time spent providing and/or coordinating discharge services: Exam Const: General: comfortable and no acute distress Resp: Effort & Inspection: normal respiratory effort Cardio: Rate: regular rate Rhythm: regular rhythm Skin: General skin exam: wounds noted (see extremity assessment ) Wounds: wounds noted (see extremity assessment ) Neuro: Cognition (Neuro): normal cognition Other: NV intact aside from block. Moves toes. Sensation intact to light touch. +ankle dorsiflexion/plantarflexion. Extrem: Left lower extremity: normal to inspection, normal capillary refill, knee Details: tenderness (diffuse ) Location: of the patella, swelling (moderate consistent to recent surgery ), abnormal ROM (limited due to recent surgery ) Details: pain with active ROM and pain with passive ROM and ecchymosis (as expected with recent surgery. NO hematoma. ), lower leg (Negative Lorna's Sign ), ankle (+ankle dorsiflexion/plantarflexion ) Details: normal to inspection, no edema and normal ROM; no tenderness and no swelling and foot Details: normal capillary refill, toes with normal ROM, vascular exam Details: dorsalis pedis pulse present and motor-sensory exam light-touch normal; no tenderness Other: Incision left TKA dressing c/d/i. No hematoma. No signs of infection. No wound dehiscence. Psych: Mental Status: mental status grossly normal Discharge Plan Discharge Attending physician on discharge: Ryan Power Consulting providers: Mulugeta Dutton; Yvette Polo; Chandan Bal Discharging Clinician: Ryan Power Anticipated Discharge Date/Time: 01/16/25 17:30 Patient Disposition: Home with Home Health Service Activity: may shower Diet: as tolerated Wound Care Instructions: other - see discharge instructions Discharge Instructions: Post Op Total Knee Replacement Instructions Dr. Ryan Power [phone] * Your dressing will be changed prior to your discharge. You will be sent home with one additional dressing to be changed on post op day 7 by the home health RN. Your gaye will be removed on the 14th day after surgery and steri- strips will be placed. Please practice good hand hygiene and do not touch your incision in order to prevent infection. * You may shower with your dressing but do not submerge in a bath tub. * Do not drive or operate machinery until you are released by Dr. Power. * Do not walk without a walker for any reason until you are released by Dr. Power. * Continue to use your ice machine. Please use a towel or pillow case to protect your skin before applying your ice machine. * Do NOT place a pillow under your knee. You may use a pillow from the calf down if needed. This will prevent a flexion contracture postoperatively. * CPM: You may begin use of your CPM machine at home if you have been given one pre-operatively. DO NOT USE WHILE YOU ARE SLEEPING. * ROMTech: If you were given a ROMTech Portable Connect System preoperatively, you are to begin use on the day you arrive home postoperatively. Our goal is for you to use the machine 5 times per day. The sessions are very short in the beginning and will progress as you progress. We are able to monitor your progress from afar as well as your pain and other reported symptoms. If you have difficulties with the machine, please call . NOTE: Please attempt to use the machine even when in pain as this will chicken hatchery helper your therapy with very gentle motion. * Your first post op appointment was sent to you via mail preoperatively. If you have any questions or are unable to make your appointment, please contact our office for scheduling questions. * Your medications have been sent to your pharmacy. You have been sent home with pain medication. Please meat pickler an over the counter stool softener to prevent constipation due to narcotic use. Please keep this in mind during your postoperative recovery. If you are not experiencing regular bowel movements, please contact our office for further instruction. * Please contact our office with any questions/concerns regarding your knee at [phone]. - Care Coordination: Patient to have [facility] for PT/OT eval and treat, and fci. Their phone number is [phone] if you have any questions; they will contact you to schedule their visits. Patient Instructions: Antibiotic Form Patient Language: Zimbabwean Stand Alone Forms: General Discharge Information Follow-up/Referrals: Ryan Power MD [Physician, Orthopedics] - Keep Reg. Scheduled Appt. Discharge Medications: New aspirin 325 mg Tablet,Delayed Release (Dr/Ec) 325 mg PO Q12HR 28 Days Qty: 56 0RF oxycodone-acetaminophen 5-325 mg Tablet 1 tablet PO Q4-6H PRN (Reason: pain) Qty: 30 0RF Continued tamsulosin [Flomax] 0.4 mg capsule 0.4 mg PO BID acetaminophen [Acetaminophen Extra Strength] 500 mg tablet 1,000 mg PO PRN PRN (Reason: pain) oxybutynin chloride 5 mg tablet 5 mg PO BID PRN (Reason: bladder spasms) Qty: 30 0RF Rx Instructions: Take as needed for bladder spasms albuterol sulfate 90 mcg/actuation HFA aerosol inhaler 1 inh inhalation Q4H PRN (Reason: shortness of breath or wheezing) Qty: 6.7 0RF bupropion HCl 150 mg tablet sustained-release 12 hr See Rx Instructions .ROUTE .COMPLEX Qty: 180 3RF Dose Instruction: TAKE 1 TABLET BY MOUTH TWICE A DAY Rx Instructions: TAKE 1 TABLET BY MOUTH TWICE A DAY levothyroxine 50 mcg tablet 50 mcg PO DAILY Qty: 90 2RF pregabalin 200 mg capsule 200 mg PO BID 30 Days Qty: 60 2RF ondansetron 4 mg tablet,disintegrating 4 mg PO Q8H PRN (Reason: nausea and vomiting) Qty: 10 0RF metoprolol succinate 50 mg tablet extended release 24 hr 50 mg PO DAILY Qty: 90 1RF Patient Comments: QAM amitriptyline 100 mg tablet See Rx Instructions .ROUTE .COMPLEX Qty: 90 1RF Dose Instruction: TAKE 1 TABLET (100 MG) BY MOUTH DAILY Patient Comments: HS Rx Instructions: TAKE 1 TABLET (100 MG) BY MOUTH DAILY, takes at HS Mounjaro 7.5 mg/0.5 mL pen injector 7.5 mg subcut WEEKLY Qty: 2 0RF Patient Comments: Saturdays Held naproxen sodium [Aleve] 220 mg tablet 220 mg PO Q12H PRN (Reason: pain) Hold Instructions: Resume on 02/11/25. Patient Comments: HOLD 7 DAYS PRIOR Discontinued chlorhexidine gluconate [Hibiclens] 4 % liquid 1 applic topical ONCE Qty: 237 0RF Rx Instructions: Cleanse operative extremity, in shower, every day for 1 week prior to surgical procedure. Date of admission: 01/15/25 13:55 Primary Care Provider: Tom Boss Admitting Provider: Ryan Power Attending physician on admission: Ryan Power Condition: Stable Quality VTE Prophylaxis VTE prophylaxis: pharmacologic ordered
== END 2025-01-16 18:32 | disposition home health service (06) ==
LOC: ANHSURGERY 13:59 → ANH3MEDSUR 13:59
PROVIDERS: Nurse Practitioner Family; Admitting Provider Orthopaedic Surgery; PCP Family Medicine; Visit Provider Orthopaedic Surgery
PROC: (CPT 27447; principal; 2025-01-13 07:30)
DX: M17.12 Unilateral primary osteoarthritis, left knee (principal); E03.9 Hypothyroidism, unspecified; I10 Essential (primary) hypertension; Z98.890 Other specified postprocedural states; Z86.73 Personal history of transient ischemic attack (TIA), and cerebral infarction without residual deficits; Z85.46 Personal history of malignant neoplasm of prostate; G47.33 Obstructive sleep apnea (adult) (pediatric)
CPT/HCPCS: 27447; 20680; 36415; 73560; 80048; 80053; 82948; 85025; 85027; 97110; 97116; 97161; 97166; 97530; 97535; J0690; A9270; C1713; C1776; G0378; J0166; J1171; J1741; J1885; J2003; J2250; J2270; J2371; J2704; J2795; J3010; J3290; J3373; J7030; J7120

== ENCOUNTER 2025-01-26 03:54 | Emergency (ER) | payer OTHER, SELFPAY ==
--- NOTE | ~2025-01-26 | CT_ITS ---
EXAMINATION: CTA chest PE protocol DATE: 01/26/2025 04:49 INDICATION: Shortness of breath. TECHNIQUE: Computed tomography angiography (CTA) of the chest was performed with 100 mL Omnipaque-350 intravenous contrast timed to evaluate the pulmonary arteries. Coronal maximum intensity projection 3D-reconstructions were created by the technologist. Automated exposure control and iterative reconstruction technique were employed. The dose-length product was 1110.44 mGy-cm. COMPARISON: CT abdomen and pelvis 09/16/2024, 04/21/2024, 12/03/2023 FINDINGS: The lung volumes are small. The lungs demonstrate mild atelectasis. No pleural effusion. The heart size is normal. No pericardial effusion. There is no pulmonary embolus. There is an 8 mm hemorrhagic cyst in left kidney. There is a 3.0 cm cyst in the liver. There is a 1.9 cm mass in right adrenal gland, stable from 12/03/2023, likely an adenoma. There are old healed fracture of right clavicle with internal fixation. There are changes of anterior fusion procedure in cervical spine. There is mild thoracic spondylosis. IMPRESSION: 1. No pulmonary embolus. Reviewed, dictated and finalized at location E. IMPRESSION: 1. No pulmonary embolus.
--- NOTE | 2025-01-26 03:58 | ECG_ITS ---
Test Date: 2025-01-26 04:02:46 Measurements Intervals [place] Rate: 88 P: 5 AK: 183 QRS: -51 QRSD: 105 T: 30 QT: 369 QTc: 448 Interpretive Statements SINUS RHYTHM LEFT ANTERIOR FASCICULAR BLOCK BASELINE ARTIFACT- I, III, AVF, V6 ABNORMAL ECG Compared to ECG 08/28/2024 10:51:05 Left anterior fascicular block now present Electronically Signed On 01-26-2025 06:15:05 CDT by Patrick Chang D.O.
[2025-01-26 03:59] VITALS: BP 106/64; PULSE 90; RESP 25; TEMP 36.8; O2SAT 100
--- NOTE | 2025-01-26 04:07 | ED.SOB ---
HPI - SOB/Dyspnea General Chief Complaint: Shortness of Breath/Dyspnea Stated Complaint: Shortness of breath - 2 weeks post op total knee Time Seen by Provider: 01/26/25 03:57 Source: patient and family Mode of arrival: ambulatory Limitations: no limitations History of Present Illness HPI Narrative: This is a 59-year-old male with history of hypertension couple prostate cancer who presents to the ED for shortness of breath. Patient states that he had a knee replacement 2 weeks ago. He has been healing well as far as he is aware. He woke up couple hours ago with sudden onset shortness of breath. He has no lung problems that he is aware of. He is not on any blood thinners. He has some mild sternal chest pain that does not radiate. Denies fevers, chills, nausea vomiting, diarrhea, constipation abdominal pain. Related Data Home Medications ?Medication ?Instructions ?Recorded ?Confirmed ?Last Taken ?Type naproxen sodium 220 mg tablet 220 mg PO Q12H PRN pain 03/18/19 12/31/24 04/02/22 History (Aleve) Held on 01/16/25. Instructions: Resume on 02/11/25. tamsulosin 0.4 mg capsule (Flomax) 0.4 mg PO BID 12/31/24 12/31/24 Unknown History acetaminophen 500 mg tablet 1,000 mg PO PRN PRN pain 01/13/25 01/13/25 01/13/25 History (Acetaminophen Extra Strength) Allergies Allergy/AdvReac Type Severity Reaction Status Date / Time No Known Allergies Allergy Verified 01/26/25 04:05 Review of Systems Review of Systems: Gen.: Denies fevers or chills Eyes: Denies eye pain or visual change ENT: Denies congestion Respiratory: As per HPI CV: As per HPI GI: Denies abdominal pain nausea, emesis or diarrhea denies burning, urgency, frequency or hematuria Musculoskeletal: Denies back pain or muscle pain Neuro: Denies numbness, tingling, weakness or focal weakness Skin: Denies rash Except as documented, all other systems reviewed and negative FOR[facility]LY [facility] Past Medical History Medical History History of prostate cancer Hx of osteomyelitis Left knee 2010 Hypothyroidism ALLEN (obstructive sleep apnea) CVA (cerebral vascular accident) Bilateral hand pain HTN (hypertension) Idiopathic peripheral neuropathy Surgical History Surgical History S/P total knee arthroplasty Hx of tonsillectomy 1995 Hx of hand surgery left hand d/t DJD- 2022 Hx of arthroscopy of left knee w/ ACL/LCL recon- 1993 Hx of arthroscopy of right knee w/ MCL recon- 2020 History of open reduction and internal fixation (ORIF) procedure Clavicle- 2018 Hx of fusion of cervical spine 2018 History of robot-assisted laparoscopic radical prostatectomy 2022- [facility] Social History Social History Smoking status: Never smoker Tobacco type: cigarettes Second hand tobacco smoke exposure: No Alcohol intake: current Drinks per week: 1 Alcohol use details: 1/MONTH Substance use: never Substance use type: does not use Other substance usage details: smokes a few times a month Do You Feel Safe in your Home?: Yes Lack of Transportation: No Lack of Food: Never True Current Housing: I Have Housing Concerned About Future Housing: No Difficulty Paying Gas/Electric Bills: No Difficulty Paying for Meds: No Currently Unemployed: No Education: Bachelor's Degree Difficulty w/ Childcare or Family Care: No Living arrangements: with family Occupation/Education: unemployed Gender identity (if verbalized by the patient): Male Sexual Orientation (if Verbalized by the Patient): Straight or Heterosexual Spiritual care concerns: No Exam Narrative: APPEARANCE: No acute distress, nontoxic, resting in bed EYES: EOMI HEENT: Normocephalic, atraumatic, OMM RESPIRATORY: Tachypnea. Clear to auscultation bilaterally with no rhonchi wheezing or rales. CARDIOVASCULAR: Regular rate and rhythm without murmurs rubs or gallops. ABDOMINAL: Obese. Soft, nontender, nondistended, no rebound or guarding MUSCULOSKELETAl: Moves all extremities. No clubbing, cyanosis or edema. NEURO: Awake and alert. Following commands, speech normal, no focal deficits SKIN:: Warm, dry. No rashes lesions or abrasions PSYCHIATRIC: Normal affect/mood, Course Vital Signs Vital signs: Vital Signs Temperature 98.3 F 01/26/25 03:59 Pulse Rate 90 01/26/25 03:59 Respiratory Rate 25 H 01/26/25 03:59 Blood Pressure 106/64 01/26/25 03:59 Pulse Oximetry 100 01/26/25 03:59 Oxygen Delivery Room Air 01/26/25 03:59 Temperature 98.3 F 01/26/25 03:59 Pulse Rate 102 H 01/26/25 04:16 Respiratory Rate 22 H 01/26/25 04:16 Blood Pressure 97/78 L 01/26/25 04:16 Pulse Oximetry 98 01/26/25 04:16 Oxygen Delivery Room Air 01/26/25 03:59 MDM - SOB/Dyspnea MDM Narrative Medical decision making narrative: 59-year-old male Presenting for shortness of breath. On initial evaluation patient was in mild distress, afebrile, hemodynamic stable. Differentials include but are not limited to: ACS, CHF Exacerbation, COPD exacerbation, PE, PNA, PTX, bronchitis, viral syndrome Notable exam findings: Tachypnea, lungs clear to auscultation in breathing. Notable lab findings: Mild anemia with hemoglobin at 10, stable compared to a prior last week. CMP without significant abnormalities. Lactic acid within normal limits. Troponin negative. Notable imaging findings: CTA chest showed no pulmonary embolus, aortic dissection, or pneumonia. Re-evaluation, patient remained mildly tachypneic. There is no clear physiological reason for his tachypnea at this time. This may be some level of anxiety in the setting of his recent knee arthroplasty. He was given hydroxyzine with mild improvement of the symptoms. He will be given a prescription for hydralazine. He was advised follow-up with his PCP in the next few days for re-evaluation. Patient was agreeable to this plan. Given strict return precautions. Medical Records Attestation: I reviewed the patient's medical records. Medical records narrative: Patient had uncomplicated total left knee arthroplasty on 01/14 with subsequent discharged on 01/16. Lab Data Attestation: I reviewed the patient's lab results. 01/26/25 04:08 01/26/25 04:08 Labs: Lab Results 01/26/25 Range/Units 04:08 WBC 7.9 (4.5-10.0) K/mm3 RBC 3.93 L (4.6-6.20) M/mm3 Hgb 10.0 L (14.0-18.0) g/dL Hct 33.8 L (42.0-52.0) % MCV 86.0 (80-100) fl MCH 25.4 L (26-34) pg MCHC 29.6 L (32-36) g/dl RDW 15.5 H (11.5-14.5) % Plt Count 282 D (150-375) k/mm3 MPV 9.0 (7.4-10.4) fl Immature Gran % (Auto) 0.6 H (0-0.5) % Neut % (Auto) 77.4 H (45.5-73.1) % Lymph % (Auto) 9.1 L (18.3-44.2) % Ponce % (Auto) 9.3 H (2.6-8.5) % Eos % (Auto) 2.8 (0-4.4) % Baso % (Auto) 0.8 (0.2-1.2) % Lymph # (Auto) 0.72 L (0.9-3.2) K/mm3 Ponce # (Auto) 0.7 H (0.1-0.6) K/mm3 Eos # (Auto) 0.2 (0-0.3) K/mm3 Baso # (Auto) 0.1 (0.0-0.1) K/mm3 Abs Immat Gran (auto) 0.05 H (0.00-0.031) K/mm3 Absolute Neuts (auto) 6.2 (1.3-6.7) K/mm3 Absolute Nucleated RBC 0.000 (0.0-0.012) K/mm3 Band Neutrophils % Not Reportable Nucleated RBC % 0.0 (0.0-0.2) % Platelet Estimate Adequate (Adequate) Anisocytosis 1+ Microcytosis 1+ (NORMAL) Ovalocytes 1+ Schistocytes None seen Sodium 138 (137-145) mmol/L Potassium 4.5 (3.4-5.0) mmol/L Chloride 104 (98-107) mmol/L Carbon Dioxide 26 (22-30) mmol/L Anion Gap 8 (4-12) mmol/L BUN 24 H (9-20) mg/dL Creatinine 1.09 (0.7-1.3) mg/dL Estim Creat Clear Calc 102 ml/min Estimated GFR > 60 (59 - ) Glucose 107 (65-110) mg/dL Lactic Acid 1.7 (0.7-2.0) mmol/L Calcium 9.1 (8.4-10.2) mg/dL Total Bilirubin 0.8 (0.2-1.3) mg/dL AST 36 (17-59) U/L ALT 22 (6-50) U/L Alkaline Phosphatase 80 (38-126) U/L Troponin I < 0.012 (0.000-0.034) ng/mL Total Protein 7.9 (6.3-8.2) g/dL Albumin 4.2 (3.5-5.1) g/dL Imaging Data Attestation: I personally reviewed and interpreted this imaging study as follows: Radiologist's impression: CTA chest: No acute pulmonary embolism or aortic dissection. ECG Data EKG #1: Attestation: I personally reviewed and interpreted this ECG as follows: ECG completion date: 01/26/25 ECG completion time: 04:02 Prior ECG tracings: available for review Interpretation: Normal sinus rhythm, left axis deviation, normal intervals no acute ST or T-wave changes. Comparison 08/28/2024: No significant change Discharge Plan Discharge Clinical Impression: Acute dyspnea Patient Disposition: Home Condition: Stable Instructions: Antibiotic Form, Dyspnea (ED) Additional Instructions: Labs, EKG, CTA chest were obtained and were all reassuring. There is no evidence of a clot in your lungs or aortic dissection. It is unclear the source of your shortness of breath at this time. It may be due to anxiety. Your given a prescription for hydroxyzine, take this as prescribed. Follow-up with your PCP in the next few days for re-evaluation. Return to the ED for any new or worsening symptoms. Patient Language: Bolivian Prescriptions: New hydroxyzine HCl 50 mg tablet 50 mg PO TID PRN (Reason: anxiety) Qty: 30 0RF No Action tamsulosin [Flomax] 0.4 mg capsule 0.4 mg PO BID acetaminophen [Acetaminophen Extra Strength] 500 mg tablet 1,000 mg PO PRN PRN (Reason: pain) aspirin 325 mg Tablet,Delayed Release (Dr/Ec) 325 mg PO Q12HR 28 Days Qty: 56 0RF oxybutynin chloride 5 mg tablet 5 mg PO BID PRN (Reason: bladder spasms) Qty: 30 0RF Rx Instructions: Take as needed for bladder spasms naproxen sodium [Aleve] 220 mg tablet 220 mg PO Q12H PRN (Reason: pain) Patient Comments: HOLD 7 DAYS PRIOR albuterol sulfate 90 mcg/actuation HFA aerosol inhaler 1 inh inhalation Q4H PRN (Reason: shortness of breath or wheezing) Qty: 6.7 0RF bupropion HCl 150 mg tablet sustained-release 12 hr See Rx Instructions .ROUTE .COMPLEX Qty: 180 3RF Dose Instruction: TAKE 1 TABLET BY MOUTH TWICE A DAY Rx Instructions: TAKE 1 TABLET BY MOUTH TWICE A DAY levothyroxine 50 mcg tablet 50 mcg PO DAILY Qty: 90 2RF pregabalin 200 mg capsule 200 mg PO BID 30 Days Qty: 60 2RF ondansetron 4 mg tablet,disintegrating 4 mg PO Q8H PRN (Reason: nausea and vomiting) Qty: 10 0RF metoprolol succinate 50 mg tablet extended release 24 hr 50 mg PO DAILY Qty: 90 1RF Patient Comments: QAM amitriptyline 100 mg tablet See Rx Instructions .ROUTE .COMPLEX Qty: 90 1RF Dose Instruction: TAKE 1 TABLET (100 MG) BY MOUTH DAILY Patient Comments: HS Rx Instructions: TAKE 1 TABLET (100 MG) BY MOUTH DAILY, takes at HS oxycodone-acetaminophen 5-325 mg tablet 1 - 2 tablet PO Q8H PRN (Reason: pain) Qty: 40 0RF Mounjaro 10 mg/0.5 mL pen injector 10 mg subcut WEEKLY Qty: 2 0RF Follow-up/Referrals: Tom Boss MD [Primary Care Provider, Family Practice]
[2025-01-26 04:13] VITALS: PULSE 89
[2025-01-26 04:16] VITALS: BP 97/78; PULSE 102; RESP 22; O2SAT 98
[2025-01-26 04:19] LABS: Hematocrit 33.8 % (42.0-52.0); Hemoglobin 10.0 g/dL (14.0-18.0); Immature Granulocyte Percent A 0.6 % (0-0.5); Lymphocytes Absolute Auto 0.72 K/mm3 (0.9-3.2); Mean Corpuscular HGB Conc 29.6 g/dl (32-36); Mean Corpuscular Hemoglobin 25.4 pg (26-34); Mean Corpuscular Volume 86.0 fl (80-100); Nucleated Red Blood Cells Absolute Auto 0.000 K/mm3 (0.0-0.012); Nucleated Red Blood Cells Perc 0.0 % (0.0-0.2); Platelet Count Result 282 k/mm3 (150-375); Red Blood Count 3.93 M/mm3 (4.6-6.20); White Blood Count 7.9 K/mm3 (4.5-10.0)
--- OUTSIDE RECORDS SUMMARY | 2025-01-26 04:21 | XMS_ITS | Encounter Summary ---
Author Organization [facility] Address [address] [place] [address] Care Team Providers Care Commercial Real Estate Lender Name Role Phone Drake Galvez MD Primary Care Provider [phone] Encounter Details Date Type Department Care Team (Late st Contact Info) Description 12/05/2017 Abstract [facility] CONVERSION [id number] [address] [place], [place] [id number] , Generic Conversion, Social History Tobacco Use [...] on filedocumented in this encounter Care Teams Commercial Real Estate Lender Relationship Specialty Start Date End Date Drake Galvez MD [address] [address] PCP - General 06/20/16 documented as of this encounter
--- OUTSIDE RECORDS SUMMARY | 2025-01-26 04:21 | XMS_ITS | Clinical Summary ---
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 Department [place] [address] from Last 3 Months or Most Recently Relevant to Health Maintenance Insurance [facility] CHOICE PLUS HEALTHPriceTag OPEN ACCESS [facility] Care Teams Taper Machine Relationship Specialty Start Date End Date Tom Boss MD [address] [facility] [facility] [address] [place] [address] PCP - General Family Medicine 10/08/18
--- OUTSIDE RECORDS SUMMARY | 2025-01-26 04:21 | XMS_ITS | Data Portability ---
Author Organization [place] [facility] [employer] Address [address] [place] [address] Assessment Encounter Date Assessment Date Assessment LastModified [...] used during this encounter to provide a heno-er-ksaq interactive encounter. Components of this encounter are [...] used during this encounter to provide a [id number]-qojd interactive encounter. Components of this encounter are [...] By Organization Details Last Modified Time 05/11/2022 [id number] prostate cancer: care instructions [email or web address] Not available [...] Pt also agrees that me, and the [facility] Team are my treating physicians and that [...] questions. [email or web address] Not available 05/11/2022 12:02:59 05/14/2022 [id number] I have discussed the risks and benefits [...] questions. [email or web address] Not available 05/14/2022 16:29:04 03/27/2024 [id number] I have discussed the risks and benefits [...] Pt also agrees that me, and the [facility] are my treating physicians [...] ICD10 Code Diagnosis IMO Codes Diagnosis Note [id number] Maryellen Cruz MD [facility] [address] [place] [address],[address] [phone] 05/11/2022 11:41:45 05/11/2022 13:05:48 Malignant neoplasm of prostate [id number] [id number] AUGUSTINE BOYD NP [facility] [address] [place] [address],[address] [address] 05/14/2022 16:28:46 05/15/2022 14:01:36 Malignant neoplasm of prostate [id number] [id number] Maryellen Cruz MD [facility] [address] [place] [address],[facility] [address] [place] [address] 03/27/2024 11:17:16 03/27/2024 12:40:46 Malignant neoplasm of prostate [id number] C61 Health Concerns Section Related Observation LastModified by Organization Last ls LastModified Time None Recorded Concern Status LastModified by Organization Details LastModified Time None Recorded Advance Directives Directive None Recorded Payers Insurance Date Sequence Insurance Name Policy Number Policy Augustin Covered Member ID Augustin Member ID Guarantor Name 03/25/2024 1 [employer] (POS II) [id number] yRan Gunderson [id number] Damian Gunderson Notes Date Note Type [...] Cruz MD [address], [place], [address], [facility] 05/11/2022 [...] BOYD NP [address], [address], [place], [address], [facility] 05/14/2022 [...] Cruz MD [address], [place], [address], [facility] - [facility] 03/27/2024 12:39:58
--- OUTSIDE RECORDS SUMMARY | 2025-01-26 04:21 | XMS_ITS | Clinical Summary ---
Author Organization [facility] Address [address] [place] [address] Care Team Providers Care Erp Manager Name Role Phone Drake Galvez MD Primary [...] of 2) 2017 COVID-19 Vaccine (1 - 2024-2 6 season) 2024 Influenza Adult (#1) 2024 06/21/2016 Hepatitis A Vaccines Aged Out No long er eligible based on patient's age to complete this topic Meningococcal B Vaccine Aged Out No l [...] W/CALC LDL Routine 05/30/2015 11:5 9 AM OLIVE KNOCKER from Last 3 Months or Most Recently Relevant to Health Maintenance Results * (ABNORMAL) LIPID W/CALC LDL (05/30/2015 11:59 AM OLIVE KNOCKER) CHOLESTEROL 165 <200 MG/DL [facility] TO EPIC [...] INCREASED <45 <55 05/30/2015 11:5 9 AM [facility] KNOCKER 05/30/2015 11:59 AM [facility] KNOCKER Narrative [facility] TO EP[facility] CONVERSION - 05/30/2015 3:25 PM [facility]ER Result Communication: Call patient with results Ryan Francois [employer] [facility] Final Result [facility] TO EPIC CONVERSION from Last 3 Months or Most Recently Relevant to Health Maintenance Care Teams Erp Manager Relationship Specialty Start Date End Date Drake Galvez MD [address] [place] [address] PCP - General 06/20/16
--- OUTSIDE RECORDS SUMMARY | 2025-01-26 04:21 | XMS_ITS | Patient Health Record ---
Author Organization [facility] Address [address] [place] [address] Care Team Providers Care Antenna Rigger Name Role Phone Obi Salamanca Unavailable [phone] Abraham HERNANDEZ, [facility] Unavailable Unavailable Reason For Referral No Information Plan Of Treatment No Information Insurance Providers Payer Name Payer Address Payer Phone Subscriber Number Group Number Insured Name Patient Relationship to Insured Coverage Start Date Coverage End Date [facility] [address] [place] [phone] Damian Gunderson Self - patient is the insured
[2025-01-26 04:32] LABS: Alanine Aminotransferase 22 U/L (6-50); Albumin Level 4.2 g/dL (3.5-5.1); Alkaline Phosphatase 80 U/L (38-126); Anion Gap 8 mmol/L (4-12); Aspartate Amino Transferase 36 U/L (17-59); Bilirubin,Total 0.8 mg/dL (0.2-1.3); Blood Urea Nitrogen 24 mg/dL (9-20); Calcium 9.1 mg/dL (8.4-10.2); Carbon Dioxide 26 mmol/L (22-30); Chloride 104 mmol/L (98-107); Estimated CRCL calculation 102 ml/min; Estimated Glomerular Filt Rate > 60; Glucose 107 mg/dL (65-110); Potassium 4.5 mmol/L (3.4-5.0); Sodium 138 mmol/L (137-145); Total Protein 7.9 g/dL (6.3-8.2)
[2025-01-26 04:41] LABS: Troponin I < 0.012 ng/mL (0.000-0.034)
[2025-01-26 04:49] LABS: Anisocytosis 1+; Microcytosis 1+ (NORMAL); Ovalocytes 1+; Schistocytes None Seen
[2025-01-26] MEDS: oxyCODONE/ACETAMINOPHEN (*CRX) 5-325 MG TABLET 1 TABLET PO (06:07)
== END 2025-01-26 06:20 | disposition home or self-care (01) ==
PROVIDERS: Emergency Provider Student in an Organized Health Care Education/Training Program; PCP Family Medicine
DX: R06.00 Dyspnea, unspecified (principal); I10 Essential (primary) hypertension; E03.9 Hypothyroidism, unspecified; G47.33 Obstructive sleep apnea (adult) (pediatric); G60.9 Hereditary and idiopathic neuropathy, unspecified; Z98.1 Arthrodesis status; Z96.652 Presence of left artificial knee joint; Z86.73 Personal history of transient ischemic attack (TIA), and cerebral infarction without residual deficits; Z85.46 Personal history of malignant neoplasm of prostate; Z90.79 Acquired absence of other genital organ(s); I44.4 Left anterior fascicular block
CPT/HCPCS: 36415; 71275; 80053; 83605; 84484; 85025; 93005; 99284; A9270; Q9967